=== PATIENT | female | born 1975 | race Caucasian/White ===

== ENCOUNTER 2016-08-18 15:35 | Emergency (ER) | payer OTHER ==
[2016-08-18] MEDS ORDERED: SODIUM CHLORIDE 0.9% 1,000 ML IV ONE (16:05)
[2016-08-18] MEDS ORDERED: KETOROLAC 60 MG/2 ML VIAL IVP STA (16:46)
[2016-08-18] MEDS ORDERED: ACETAMINOPHEN 1,000 MG/100 ML 100 ML IV STA (16:50)
[2016-08-18] MEDS ORDERED: ACETAMINOPHEN 1,000 MG/100 ML 100 ML IV ONE (16:57)
[2016-08-18] MEDS ORDERED: KETOROLAC 30 MG/ML VIAL ONE (16:57)
[2016-08-18] MEDS ORDERED: MORPHINE 2 MG/ML SYRINGE IVP STA (17:46)
[2016-08-18] MEDS ORDERED: MORPHINE 2 MG/ML SYRINGE ONE (17:54)
[2016-08-18] MEDS ORDERED: traMADol 50 MG TABLET PO STA (19:44)
[2016-08-18] MEDS ORDERED: traMADol 50 MG TABLET PO ONE (19:44)
== END 2016-08-18 20:13 | disposition home or self-care (01) ==
DX: R10.84 Generalized abdominal pain (principal); E86.0 Dehydration; J44.9 Chronic obstructive pulmonary disease, unspecified; F17.200 Nicotine dependence, unspecified, uncomplicated
CPT/HCPCS: 74176; 80053; 81003; 83690; 85025; 93005; 93010; 96374; 96375; 99284; 99285; A9270; J0131

== ENCOUNTER 2016-10-11 12:26 | Emergency (ER) | payer OTHER ==
[2016-10-11 12:38] VITALS: BP 105/67
[2016-10-11 13:09] LABS: BILIRUBIN,URINE NEGATIVE (NEGATIVE)
[2016-10-11 13:12] LABS: HCG UR QUAL NEGATIVE; UA CHARGE (STRIP ONLY) YES; UR CULTURE IF IND NOT INDICATED
== END 2016-10-11 13:40 | disposition left against medical advice (07) ==
LOC: ED 12:26
DX: Z53.21 Procedure and treatment not carried out due to patient leaving prior to being seen by health care provider (principal)
CPT/HCPCS: 81001; 81003; 81025; 87086

== ENCOUNTER 2016-11-02 19:00 | Outpatient (CLI) | payer OTHER | END 2016-11-02 19:01 | disposition critical access hospital (66) | LOC: EMS 19:00 | PROVIDERS: ATTEND Surgery | DX: R45.89 Other symptoms and signs involving emotional state (principal) | CPT/HCPCS: A0425; A0429 ==

== ENCOUNTER 2016-11-02 19:18 | Emergency (ER) | payer OTHER ==
--- NOTE | 2016-11-02 19:53 | ED Physician Documentation ---
PD HPI MHE - Stated complaint Stated Complaint: SI - Chief complaint Chief Complaint: MHE - History obtained from History obtained from: Patient, EMS - History of Present Illness Primary symptom: Anxiety (she has been having low back pain and flank pain and being treated by PMD with just Tylenol. Had had recent UTI and Rx for that. She says she is still having some dysuria and flank pain, so thinks the infection is still there. Last seen by PMD 5 days ago and had urine test without Rx for meds. Today was upset about her back still hurting and got into discussion with her spouse and said she was going to go out for a walk. There must have been a bit more because he called EMS with concern of suicidality. She denies it enroute and her 2 daughters arrive to ED (had been present at her house earlier ) and they said they did not interpret anything the patient had seaid as suicidal statements ("I can't take this back pain anymore", for example).) Timing - onset: Today Contributing factors: Family. No: Substance abuse - ETOH, Substance abuse - drugs, Off meds Similar symptoms before: Diagnosis (has had the back pain, depression and at time anxiety. No prior suicidality. Does have history of anorexia but has been maintaining her weight.) Review of Systems Constitutional: denies: Fever, Chills Nose: denies: Rhinorrhea / runny nose, Congestion Throat: denies: Sore throat Cardiac: denies: Chest pain / pressure, Palpitations Respiratory: denies: Dyspnea GI: reports: Nausea. denies: Vomiting : reports: Dysuria, Frequency. denies: Hematuria, Discharge Skin: denies: Rash, Lesions Neurologic: reports: Generalized weakness. denies: Focal weakness, Numbness, Headache PD PAST MEDICAL HISTORY - Past Medical History Past Medical History: Yes Cardiovascular: None, Atrial fibrillation Respiratory: COPD Neuro: Other, Headache/migraine Endocrine/Autoimmune: None GI: None INWEAVER: None : Kidney stones, Other HEENT: None Psych: Eating disorder, Depression, Anxiety Musculoskeletal: Chronic back pain, Other Derm: Eczema - Past Surgical History Past Surgical History: Yes General: Appendectomy Ortho: Spine surgery /INWEAVER: Hysterectomy, Oophrectomy HEENT: Other - Present Medications Home Medications: Ambulatory Orders Medication Instructions Recorded Confirmed Albuterol Sulfate [Proventil Hfa 1 - 2 puffs INH Q4H PRN #1 inhaler 01/25/16 Inhaler] Fluticasone/Salmeterol [Advair Hfa 1 puffs IN BID 08/18/16 11/02/16 230-21 Mcg Inhaler] Tramadol HCl 50 mg PO Q6H PRN #15 tablet 11/02/16 - Allergies Allergies/Adverse Reactions: Allergies Allergy/AdvReac Type Severity Reaction Status Date / Time gabapentin Allergy Itching Verified 11/02/16 19:33 oxycodone HCl * Allergy Itching Verified 11/02/16 19:33 [From Percocet] - Social History Does the pt smoke?: Yes Smoking Status: Current every day smoker Does the pt drink ETOH?: No Does the pt have substance abuse?: No - Immunizations Immunizations are current?: Yes - POLST Patient has POLST: No PD ED PE NORMAL - Vitals Vital signs reviewed: Yes - General General: Alert and oriented X 3, No acute distress, Well developed/nourished - HEENT HEENT: Pharynx benign - Neck Neck: Supple, no meningeal sign, No adenopathy - Cardiac Cardiac: RRR, No murmur - Respiratory Respiratory: Clear bilaterally - Abdomen Abdomen: Soft, Non tender - Female Female : Deferred - Rectal Rectal: Deferred - Derm Derm: Normal color, Warm and dry, No rash - Extremities Extremities: No tenderness to palpate, Normal ROM s pain, No edema - Neuro Neuro: No motor deficit, No sensory deficit Results - Vitals Vitals: Vital Signs - 24 hr 11/02/16 11/02/16 19:23 20:50 Temperature 37.3 C Heart Rate 90 72 Respiratory 18 14 Rate Blood Pressure 112/67 124/85 H O2 Saturation 99 100 Oxygen O2 Source Room air - Labs Labs: Laboratory Tests 11/02/16 20:10 Urine Color YELLOW Urine Clarity CLOUDY Urine pH 8.5 H Ur Specific [place] 1.015 Urine Protein NEGATIVE Urine Glucose (UA) NEGATIVE Urine Ketones NEGATIVE Urine Occult Blood NEGATIVE Urine Nitrite NEGATIVE Urine Bilirubin NEGATIVE Urine Urobilinogen 0.2 (NORMAL) Ur Leukocyte Esterase NEGATIVE Urine RBC None Seen Urine WBC 0-3 Ur Squamous Epith Cells NONE SEEN Amorphous Sediment Moderate Urine Bacteria Moderate H Ur Microscopic Review INDICATED Urine Culture Comments INDICATED PD MEDICAL DECISION MAKING - ED course Complexity details: reviewed results, d/w family (her 2 daughters are here bedside and feel she it not at risk of self-harm. Checked urine and no signs of persistent UTI. ) Departure - Departure Disposition: 01 Home, Self Care Clinical Impression: Stress reaction Back pain Qualifiers: Back pain location: low back pain Chronicity: acute Back pain laterality: bilateral Sciatica presence: without sciatica Qualified Code(s): M54.5 - Low back pain Clinical Impression: (Ruled Out): Urinary tract infection, Suicidal ideation Condition: Stable Record reviewed to determine appropriate education?: Yes Instructions: ED Flank Pain Uncertain Cause Follow-Up: Milind Sun MD [Physician No Access] - Prescriptions: Tramadol HCl 50 mg PO Q6H PRN #15 tablet PRN Reason: Pain Comments: Your urine test right now does not look like it has infection. Tylenol 3-4 times daily. Add Tramadol for pain 3 times daily as needed. Follow up with PMD about the back pain. I am glad you are not feeling suicidal and did not intend to convey that. Call Crisis Line if you do feel that you need someone to talk with at any time (Please provide number ). Discharge Date/Time: 11/02/16 21:00
[2016-11-02] MEDS ORDERED: ONDANSETRON ODT 4 MG TABLET TL STA (20:08)
[2016-11-02] MEDS ORDERED: traMADol 50 MG TABLET PO STA (20:08)
[2016-11-02] MEDS ORDERED: traMADol 50 MG TABLET PO ONE (20:25)
[2016-11-02] MEDS ORDERED: ONDANSETRON ODT 4 MG TABLET ONE (20:25)
[2016-11-02 20:30] LABS: BILIRUBIN,URINE NEGATIVE (NEGATIVE); PH,URINE 8.5 PH (5.0-7.5)
[2016-11-02 20:31] LABS: UA w/ MICROSCOPIC CHARGE YES
[2016-11-02 20:38] LABS: UR CULTURE IF IND INDICATED; WBC,URINE 0-3 /HPF (0-5)
[2016-11-02 20:53] VITALS: BP 124/85
== END 2016-11-02 21:00 | disposition home or self-care (01) ==
LOC: EDUNIT# → ED 19:18
DX: F43.9 Reaction to severe stress, unspecified (principal); M54.5 Low back pain; R30.0 Dysuria; F17.200 Nicotine dependence, unspecified, uncomplicated
CPT/HCPCS: 81001; 87086; 99283; A9270; Q0162; 81003

== ENCOUNTER 2017-04-04 08:33 | Emergency (ER) | payer OTHER ==
[2017-04-04 09:14] LABS: BASOPHILS # (AUTO) 0.1 10^3/uL (0.0-0.1); BASOPHILS % (AUTO) 1.2 %; EOSINOPHILS # (AUTO) 0.4 10^3/uL (0.0-0.7); EOSINOPHILS % (AUTO) 6.8 %; HGB - HEMOGLOBIN 13.5 g/dL (12.0-16.0); LYMPHOCYTES # (AUTO) 2.4 10^3/uL (1.5-3.5); LYMPHOCYTES % (AUTO) 36.1 %; MEAN CORPUSCULAR HEMOGLOBIN 29.1 pg (27.0-31.0); MEAN CORPUSCULAR HGB CONC 33.9 g/dL (32.0-36.0); MEAN PLATELET VOLUME 7.5 fL (7.9-10.8); MONOCYTES # (AUTO) 0.3 10^3/uL (0.0-1.0); MONOCYTES % (AUTO) 4.6 %; NEUTROPHILS # (AUTO) 3.4 10^3/uL (1.5-6.6); NEUTROPHILS % (AUTO) 51.3 %; RED BLOOD COUNT 4.65 10^6/uL (4.20-5.40); UNCORRECTED WHITE BLOOD COUNT 6.6 x10^3/uL; WHITE BLOOD COUNT 6.6 x10^3/uL (4.8-10.8)
[2017-04-04 09:28] LABS: ALBUMIN/GLOBULIN RATIO 1.6 (1.0-2.2); BILIRUBIN,TOTAL 0.3 mg/dL (0.2-1.0); CALCIUM 8.6 mg/dL (8.5-10.3); CREATININE 0.6 mg/dL (0.4-1.0); POTASSIUM 4.1 mmol/L (3.5-5.0); TOTAL PROTEIN 6.2 g/dL (6.7-8.2)
--- NOTE | 2017-04-04 09:47 | ED Physician Documentation ---
PD HPI CHEST PAIN - Stated complaint Stated Complaint: CHEST/KIDNEY PX - Chief complaint Chief Complaint: Cardiac - History obtained from History obtained from: Patient - History of Present Illness Timing - onset: Last night Timing - onset during: Rest Timing - duration: Hours Timing - details: Gradual onset, Still present Quality: Pressure Location: Substernal, Left chest Radiation: Left upper extremity Improved by: Rest Worsened by: Exertion, Inspiration, Movement, Palpation, Position Associated symptoms: Nausea. No: Shortness of air, Diaphoresis, Vomiting Similar symptoms before: Diagnosis (costochondritis) Recently seen: Not recently seen - Additional information Additional information: 41-year-old female with a history of anorexia nervosa has developed pain in the left chest last night that she describes as a pressure like sensation she has been having some pain in her left arm as well. She notes that she did go over to her daughter's in [place] for Thanksgiving dinner and she did do some hiking as well. She did significantly more physical activity than is normal for her. Review of Systems Constitutional: denies: Fever, Chills, Myalgias Eyes: denies: Decreased vision Ears: denies: Ear pain Nose: reports: Congestion Throat: denies: Sore throat Cardiac: reports: Chest pain / pressure. denies: Palpitations, Pedal edema, Calf pain Respiratory: reports: Dyspnea, Cough GI: reports: Nausea : reports: Unable to Void Skin: denies: Rash Musculoskeletal: reports: Back pain. denies: Neck pain Neurologic: denies: Generalized weakness, Focal weakness PD PAST MEDICAL HISTORY - Past Medical History Past Medical History: Yes Cardiovascular: None, Atrial fibrillation Respiratory: COPD Neuro: Other, Headache/migraine Endocrine/Autoimmune: None GI: None EMERGENCY MANAGEMENT COORDINATOR: None : Kidney stones, Other HEENT: None Psych: Eating disorder, Depression, Anxiety Musculoskeletal: Chronic back pain, Other Derm: Eczema - Past Surgical History Past Surgical History: Yes General: Appendectomy Ortho: Spine surgery /EMERGENCY MANAGEMENT COORDINATOR: Hysterectomy, Oophrectomy HEENT: Other - Present Medications Home Medications: Ambulatory Orders Medication Instructions Recorded Confirmed Albuterol Sulfate [Proventil Hfa 1 - 2 puffs INH Q4H PRN #1 inhaler 01/25/16 Inhaler] Fluticasone/Salmeterol [Advair Hfa 1 puffs IN BID 08/18/16 11/02/16 230-21 Mcg Inhaler] Tramadol HCl 50 mg PO Q6H PRN #15 tablet 11/02/16 HYDROcod/ACETAM 5/325 [[place] 5/325] 1 - 2 ea PO Q6H PRN #15 tablet 04/04/17 - Allergies Allergies/Adverse Reactions: Allergies Allergy/AdvReac Type Severity Reaction Status Date / Time gabapentin Allergy Itching Verified 04/04/17 08:46 oxycodone HCl * Allergy Itching Verified 04/04/17 08:46 [From Percocet] - Social History Does the pt smoke?: Yes Smoking Status: Current every day smoker Does the pt drink ETOH?: No Does the pt have substance abuse?: No - Immunizations Immunizations are current?: Yes - POLST Patient has POLST: No PD ED PE NORMAL - Vitals Vital signs reviewed: Yes (hypertensive) - General General: Alert and oriented X 3, Well developed/nourished, Other (The patient is teary eyed) - HEENT HEENT: Atraumatic, PERRL, EOMI, Ears normal, Moist mucous membranes, Pharynx benign - Neck Neck: Supple, no meningeal sign, No bony TTP - Cardiac Cardiac: RRR, No murmur - Respiratory Respiratory: No respiratory distress, Clear bilaterally, Other (There is obvious left chest wall tenderness and this reproduces the patient's symptoms ) - Abdomen Abdomen: Soft, Non tender - Back Back: No spinal TTP, Other (mild right sided CVA tenderness) - Derm Derm: Normal color, Warm and dry - Extremities Extremities: No deformity, No edema - Neuro Neuro: No motor deficit, No sensory deficit Eye Opening: Spontaneous Motor: Obeys Commands Verbal: Oriented GCS Score: 15 - Psych Psych: Normal mood, Normal affect Results - Vitals Vitals: Vital Signs - 24 hr 04/04/17 04/04/17 04/04/17 08:43 09:39 10:17 Temperature 36.4 C L Heart Rate 89 73 71 Respiratory 20 18 22 Rate Blood Pressure 148/87 H 132/66 H 107/71 O2 Saturation 100 100 100 Oxygen O2 Source Room air - EKG (time done) 0840 Rate: Rate (enter#) (94) Rhythm: AYESHA QRS: LVH Compare to prior EKG: Changed from prior EKG (SPT 08-18-2016 the rate has increased and AYESHA has developed. ) Computer interpretation: Agree with computer - Labs Labs: Laboratory Tests 04/04/17 04/04/17 04/04/17 09:00 09:00 09:00 WBC 6.6 RBC 4.65 Hgb 13.5 Hct 40.0 MCV 86.0 MCH 29.1 MCHC 33.9 RDW 14.0 Plt Count 189 MPV 7.5 L Neut # 3.4 Lymph # 2.4 [place] # 0.3 Eos # 0.4 Baso # 0.1 Absolute Nucleated RBC 0.00 Nucleated RBC % 0.0 D-Dimer Sodium 139 Potassium 4.1 Chloride 105 Carbon Dioxide 26 Anion Gap 8.0 BUN 18 Creatinine 0.6 Estimated GFR (MDRD) 109 Glucose 94 Calcium 8.6 Total Bilirubin 0.3 AST 20 ALT 17 Alkaline Phosphatase 76 Troponin I < 0.04 Total Protein 6.2 L Albumin 3.8 Globulin 2.4 Albumin/Globulin Ratio 1.6 Lipase 33 04/04/17 09:00 WBC RBC Hgb Hct MCV MCH MCHC RDW Plt Count MPV Neut # Lymph # [place] # Eos # Baso # Absolute Nucleated RBC Nucleated RBC % D-Dimer < 200.0 L Sodium Potassium Chloride Carbon Dioxide Anion Gap BUN Creatinine Estimated GFR (MDRD) Glucose Calcium Total Bilirubin AST ALT Alkaline Phosphatase Troponin I Total Protein Albumin Globulin Albumin/Globulin Ratio Lipase - Rads (name of study) 2 veiw chest Radiology: Prelim report reviewed (Impression: COPD. No acute findings in other regards.), EMP read indepedently, See rad report Procedures - IVC sono (time) 0930 Bedside IVC sono: IVC measures (cm) (1.68), Euvolemia PD MEDICAL DECISION MAKING - ED course Complexity details: reviewed old records, reviewed results, re-evaluated patient , considered differential, d/w patient ED course: 41 y/o female with a history of anorexia has developed left chest wall pain. She has again had more activity than she is used to doing. She is treated in the ED with decadron, dilaudid and zofran. Departure - Departure Disposition: 01 Home, Self Care Clinical Impression: Costochondritis, acute Condition: Stable Instructions: ED Chest Pain Costochondritis Follow-Up: Milind Sun MD [Primary Care Provider] - Prescriptions: HYDROcod/ACETAM 5/325 [[place] 5/325] 1 - 2 ea PO Q6H PRN #15 tablet PRN Reason: Pain
[2017-04-04] MEDS ORDERED: DEXAMETHASONE 10 MG/ML VIAL IVP STA (09:54)
[2017-04-04] MEDS ORDERED: ONDANSETRON 4 MG/2 ML VIAL IVP STA (09:54)
[2017-04-04] MEDS ORDERED: HYDROmorphone 1 MG/ML SYRINGE IVP STA (09:54)
--- NOTE | 2017-04-04 10:00 | XRAY Preliminary Report ---
Exam: XR CHEST 2 VIEW PA/LAT IMPRESSION: COPD. No acute findings in other regards. [facility] SITE ID: [id number]
--- NOTE | 2017-04-04 10:02 | XRAY Report ---
EXAM: CHEST RADIOGRAPHY EXAM DATE: 04/04/2017 09:30 AM. CLINICAL HISTORY: Chest pain. COMPARISON: 2 view chest 04/02/2016. TECHNIQUE: 2 views. FINDINGS: Lungs/Pleura: No focal opacities evident. No pleural effusion. No pneumothorax. Lung volumes are larg e. There is stable biapical pleural thickening. Mediastinum: Heart and mediastinal contours are unremarkable. Other: Lower spinal hardware is incompletely imaged. IMPRESSION: COPD. No acute findings in other regards. [facility] Referring Provider Line: [phone] SITE ID: [id number]
[2017-04-04] MEDS ORDERED: DEXAMETHASONE 10 MG/ML VIAL ONE (10:13)
[2017-04-04] MEDS ORDERED: ONDANSETRON 4 MG/2 ML VIAL ONE (10:14)
[2017-04-04] MEDS ORDERED: HYDROmorphone 1 MG/ML SYRINGE ONE (10:14)
[2017-04-04 10:18] VITALS: BP 107/71
== END 2017-04-04 11:02 | disposition home or self-care (01) ==
LOC: ED 08:33
DX: M94.0 Chondrocostal junction syndrome [Tietze] (principal); Z86.59 Personal history of other mental and behavioral disorders; J44.9 Chronic obstructive pulmonary disease, unspecified; I48.91 Unspecified atrial fibrillation; Z87.442 Personal history of urinary calculi; F17.200 Nicotine dependence, unspecified, uncomplicated
CPT/HCPCS: 36415; 71020; 80053; 83690; 84484; 85025; 85379; 93005; 96374; 96375; 99284; J1170

== ENCOUNTER 2017-04-21 09:42 | Outpatient (CLI) | payer OTHER | END 2017-04-21 09:43 | disposition EMS.NT | LOC: EMS 09:42 | PROVIDERS: ATTEND Surgery | DX: R53.83 Other fatigue (principal); R06.02 Shortness of breath; R07.9 Chest pain, unspecified; M54.9 Dorsalgia, unspecified ==

== ENCOUNTER 2017-04-21 15:32 | Emergency (ER) | payer OTHER ==
[2017-04-21] MEDS ORDERED: LORazepam 0.5 MG TABLET PO STA (15:54)
--- NOTE | 2017-04-21 16:10 | ED Physician Documentation ---
History of Present Illness - Stated complaint Stated Complaint: CP/ R GREAT TOE INJ - Chief complaint Chief Complaint: Cardiac - History obtained from History obtained from: Patient, Family - History of Present Illness Timing: Yesterday Pain level max: 9 Pain level now: 9 Improved by: not moving Worsened by: movement - Additonal information Additional information: Patient is a 41-year-old female who presents to the emergency department with substernal left chest pain for the past 24 hours. This been constant. Worse with movement and palpation. Better with rest. Described as sharp and aching. She also states there was "some drama" at home today and injured her right great toe. She is also now complaining of pain to the right great toe. Does not recall any injury, but thinks she may have accidentally kicked something. Review of Systems Ten Systems: 10 systems reviewed and negative Constitutional: denies: Fever, Chills Ears: denies: Ear pain Nose: denies: Rhinorrhea / runny nose, Congestion Throat: denies: Sore throat Cardiac: denies: Palpitations, Calf pain Respiratory: denies: Cough, Hemoptysis, Wheezing GI: denies: Abdominal Pain, Vomiting Skin: denies: Rash Musculoskeletal: denies: Neck pain, Back pain Neurologic: denies: Headache PD PAST MEDICAL HISTORY - Past Medical History Cardiovascular: None, Atrial fibrillation Respiratory: COPD Neuro: Other, Headache/migraine Endocrine/Autoimmune: None GI: None ENTERPRISE SYSTEMS ARCHITECT: None : Kidney stones, Other HEENT: None Psych: Eating disorder, Depression, Anxiety Musculoskeletal: Chronic back pain, Other Derm: Eczema - Past Surgical History Past Surgical History: Yes General: Appendectomy Ortho: Spine surgery /ENTERPRISE SYSTEMS ARCHITECT: Hysterectomy, Oophrectomy HEENT: Other - Present Medications Home Medications: Ambulatory Orders Medication Instructions Recorded Confirmed Albuterol Sulfate [Proventil Hfa 1 - 2 puffs INH Q4H PRN #1 inhaler 01/25/16 Inhaler] Hydrocodone/Acetaminophen 1 - 2 each PO Q6H PRN #7 tablet 04/21/17 [Hydrocodon-Acetaminophen 5-325] - Allergies Allergies/Adverse Reactions: Allergies Allergy/AdvReac Type Severity Reaction Status Date / Time gabapentin Allergy Itching Verified 04/21/17 15:39 oxycodone HCl * Allergy Itching Verified 04/21/17 15:39 [From Percocet] - Social History Does the pt smoke?: Yes Smoking Status: Current every day smoker Does the pt drink ETOH?: No Does the pt have substance abuse?: No - Immunizations Immunizations are current?: Yes - POLST Patient has POLST: No PD ED PE NORMAL - Vitals Vital signs reviewed: Yes - General General: Alert and oriented X 3, No acute distress, Well developed/nourished - HEENT HEENT: PERRL, Moist mucous membranes - Neck Neck: Supple, no meningeal sign - Cardiac Cardiac: RRR, Strong equal pulses - Respiratory Respiratory: No respiratory distress, Clear bilaterally, Other (TTP across the L anterior chest wall. Reproduces her pain with palpation and movement. ) - Abdomen Abdomen: Soft, Non tender, Non distended - Derm Derm: Warm and dry - Extremities Extremities: No edema, No calf tenderness / cord, Other (normal external visual examination of the R foot and great toe. Mild TTP over the toe. NVI. no deformity. ) - Neuro Neuro: Alert and oriented X 3 - Psych Psych: Normal mood, Normal affect Results - Vitals Vitals: Oxygen O2 Source Room air - EKG (time done) 1540 Rate: Rate (enter#) (77) Rhythm: NSR [place]: Normal Intervals: Normal SD QRS: Normal Ischemia: Non specific changes Compare to prior EKG: Unchanged from prior EKG (04/04/17) Computer interpretation: Agree with computer - Labs Labs: Laboratory Tests 04/21/17 04/21/17 04/21/17 16:13 16:13 16:13 WBC 6.8 RBC 4.90 Hgb 14.0 Hct 42.1 MCV 86.0 MCH 28.6 MCHC 33.2 RDW 13.3 Plt Count 218 MPV 7.6 L Neut # 4.4 Lymph # 1.8 [place] # 0.3 Eos # 0.2 Baso # 0.1 Absolute Nucleated RBC 0.00 Nucleated RBC % 0.0 Sodium 140 Potassium 3.9 Chloride 103 Carbon Dioxide 28 Anion Gap 9.0 BUN 17 Creatinine 0.6 Estimated GFR (MDRD) 109 Glucose 86 Calcium 9.2 Total Bilirubin 0.4 AST 16 ALT 13 Alkaline Phosphatase 67 Troponin I < 0.04 Total Protein 6.5 L Albumin 4.1 Globulin 2.4 Albumin/Globulin Ratio 1.7 Lipase 25 - Rads (name of study) cxr Radiology: Prelim report reviewed, EMP read contemporaneously, See rad report ( No acute disease. ) R great toe xray Radiology: Prelim report reviewed, EMP read contemporaneously, See rad report ( Normal toe radiography. ) PD MEDICAL DECISION MAKING - ED course Complexity details: reviewed old records, reviewed results, re-evaluated patient , considered differential (No ST elevation [place], no aortic dissection, no PE, no tension pneumothorax, no aortic aneurysm), d/w patient, d/w family ED course: Patient is a 41-year-old female who presents to the emergency department with atypical chest pain, appears more musculoskeletal. No evidence of pulmonary embolus. EKG is unchanged from prior. No acute findings on toe x-ray. Will prescribe a small amount of pain medication for home. Pain well controlled here. No evidence of acute coronary syndrome. Patient and family counseled regarding signs and symptoms for which I believe and urgent re-evaluation would be necessary. Patient with good understanding of and agreement to plan and is comfortable going home at this time This document was made in part using voice recognition software. While efforts are made to proofread this document, sound alike and grammatical errors may occur. Departure - Departure Disposition: 01 Home, Self Care Clinical Impression: Chest wall pain Contusion of toe Qualifiers: Encounter type: initial encounter Toe: great toe Damage to nail status: without damage Laterality: right Qualified Code(s): S90.111A - Contusion of right great toe without damage to nail, initial encounter Condition: Good Instructions: ED Contusion Lower Ext, ED Chest Pain Atypical Unkn Cause Follow-Up: Milind Sun MD [Primary Care Provider] - Within 1 week Prescriptions: Hydrocodone/Acetaminophen [Hydrocodon-Acetaminophen 5-325] 1 - 2 each PO Q6H PRN #7 tablet PRN Reason: pain Comments: Your tests are normal today. Return if you worsen. Do not drink alcohol or drive while on narcotic pain medicine. Note that many narcotic pain relievers also contain tylenol/acetaminophen. Please ensure that your total dose of acetaminophen from all sources does not exceed 3 grams (3000mg) per day. You may constipated on this medication, take a stool softener such as "Colace" twice a day while you are on it. Also recommend a gzpc-chz-xarlopx laxative such as senna or MiraLAX any day that you do not have a bowel movement. If you received narcotic pain medication in the emergency department, do not drive or operate machinery for the next 24 hours. Discharge Date/Time: 04/21/17 17:20
[2017-04-21 16:19] LABS: BASOPHILS # (AUTO) 0.1 10^3/uL (0.0-0.1); EOSINOPHILS # (AUTO) 0.2 10^3/uL (0.0-0.7); EOSINOPHILS % (AUTO) 3.7 %; HCT - HEMATOCRIT 42.1 % (37.0-47.0); LYMPHOCYTES # (AUTO) 1.8 10^3/uL (1.5-3.5); LYMPHOCYTES % (AUTO) 26.7 %; MEAN CORPUSCULAR HEMOGLOBIN 28.6 pg (27.0-31.0); MEAN CORPUSCULAR HGB CONC 33.2 g/dL (32.0-36.0); MEAN PLATELET VOLUME 7.6 fL (7.9-10.8); MONOCYTES # (AUTO) 0.3 10^3/uL (0.0-1.0); MONOCYTES % (AUTO) 3.8 %; NEUTROPHILS # (AUTO) 4.4 10^3/uL (1.5-6.6); NEUTROPHILS % (AUTO) 64.8 %; RED CELL DISTRIBUTION WIDTH 13.3 % (12.0-15.0); UNCORRECTED WHITE BLOOD COUNT 6.8 x10^3/uL; WHITE BLOOD COUNT 6.8 x10^3/uL (4.8-10.8)
[2017-04-21] MEDS ORDERED: LORazepam 0.5 MG TABLET ONE (16:21)
--- NOTE | 2017-04-21 16:26 | XRAY Preliminary Report ---
Exam: XR CHEST 1 VIEW IMPRESSION: No acute disease. [facility] SITE ID: [id number]
--- NOTE | 2017-04-21 16:26 | XRAY Preliminary Report ---
Exam: XR TOE(S) RT IMPRESSION: Normal toe radiography. [facility] SITE ID: [id number]
--- NOTE | 2017-04-21 16:28 | XRAY Report ---
EXAM: RIGHT FIRST TOE RADIOGRAPHY EXAM DATE: 04/21/2017 04:13 PM. CLINICAL HISTORY: R great toe pain, possible injury. COMPARISON: None. TECHNIQUE: 3 views. FINDINGS: Bones: Normal. No fracture or bone lesion. Joints: Normal. No subluxations. Soft Tissues: Unremarkable. IMPRESSION: Normal toe radiography. [facility] Referring Provider Line: [phone] SITE ID: [id number]
[2017-04-21 16:29] LABS: ALBUMIN/GLOBULIN RATIO 1.7 (1.0-2.2); BILIRUBIN,TOTAL 0.4 mg/dL (0.2-1.0); CALCIUM 9.2 mg/dL (8.5-10.3); CREATININE 0.6 mg/dL (0.4-1.0); POTASSIUM 3.9 mmol/L (3.5-5.0); TOTAL PROTEIN 6.5 g/dL (6.7-8.2)
--- NOTE | 2017-04-21 16:29 | XRAY Report ---
EXAM: CHEST RADIOGRAPHY EXAM DATE: 04/21/2017 04:13 PM. CLINICAL HISTORY: Chest pain. COMPARISON: 04/04/2017. TECHNIQUE: 1 view. FINDINGS: Lungs/Pleura: Hyperexpanded, similar to previous study. Mild apical pleural thickening. No acute infi ltrate, consolidation, effusion, or pneumothorax. Mediastinum: Normal heart size, unchanged. Upper lobe vessels not distended. Other: None. IMPRESSION: No acute disease. [facility] Referring Provider Line: [phone] SITE ID: [id number]
[2017-04-21] MEDS ORDERED: HYDROcod/ACETAM 5/325 MG TABLET PO STA (16:45)
[2017-04-21] MEDS ORDERED: HYDROcod/ACETAM 5/325 MG TABLET ONE (16:54)
[2017-04-21 17:02] VITALS: BP 115/76
== END 2017-04-21 17:20 | disposition home or self-care (01) ==
LOC: ED 15:32
DX: R07.89 Other chest pain (principal); S90.111A Contusion of right great toe without damage to nail, initial encounter; W22.03XA Walked into furniture, initial encounter; Y92.019 Unspecified place in single-family (private) house as the place of occurrence of the external cause; I48.91 Unspecified atrial fibrillation; J44.9 Chronic obstructive pulmonary disease, unspecified; Z87.442 Personal history of urinary calculi; F17.200 Nicotine dependence, unspecified, uncomplicated
CPT/HCPCS: 36415; 71010; 73660; 80053; 83690; 84484; 85025; 93005; 99283; A9270

== ENCOUNTER 2017-05-27 09:49 | Emergency (ER) | payer OTHER ==
[2017-05-27 10:41] LABS: BASOPHILS % (AUTO) 0.8 %; EOSINOPHILS # (AUTO) 0.4 10^3/uL (0.0-0.7); EOSINOPHILS % (AUTO) 6.9 %; LYMPHOCYTES # (AUTO) 1.3 10^3/uL (1.5-3.5); MEAN CORPUSCULAR HEMOGLOBIN 28.7 pg (27.0-31.0); MEAN CORPUSCULAR HGB CONC 33.4 g/dL (32.0-36.0); MEAN PLATELET VOLUME 7.6 fL (7.9-10.8); MONOCYTES # (AUTO) 0.2 10^3/uL (0.0-1.0); MONOCYTES % (AUTO) 4.1 %; NEUTROPHILS # (AUTO) 3.7 10^3/uL (1.5-6.6); NEUTROPHILS % (AUTO) 65.2 %; PLT - PLATELET COUNT 181 10^3/uL (130-450); RED BLOOD COUNT 4.53 10^6/uL (4.20-5.40); RED CELL DISTRIBUTION WIDTH 13.2 % (12.0-15.0); WHITE BLOOD COUNT 5.6 x10^3/uL (4.8-10.8)
--- NOTE | 2017-05-27 10:47 | XRAY Report ---
EXAM: CHEST RADIOGRAPHY EXAM DATE: 05/27/2017 10:34 AM. CLINICAL HISTORY: Productive cough, left chest pain. . COMPARISON: 04/21/2017. TECHNIQUE: 1 view. FINDINGS: Lungs/Pleura: Right upper lung density projecting over fourth posterior rib and scapula. Hyperinflate d lung mack. Right apical scarring, pleural thickening. Mediastinum: Within exam limitations, the cardiomediastinal contour is normal. Other: Dextroscoliosis IMPRESSION: Right apical parenchymal nodular density or infiltrate. [facility] Referring Provider Line: [phone] SITE ID: [id number]
--- NOTE | 2017-05-27 10:47 | XRAY Preliminary Report ---
Exam: XR CHEST 1 VIEW X-RAY IMPRESSION: Right apical parenchymal nodular density or infiltrate. [facility] SITE ID: [id number]
[2017-05-27 10:55] LABS: ALBUMIN 3.7 g/dL (3.2-5.5); ALBUMIN/GLOBULIN RATIO 1.6 (1.0-2.2); BILIRUBIN,TOTAL 0.5 mg/dL (0.2-1.0); CALCIUM 8.7 mg/dL (8.5-10.3); CREATININE 0.6 mg/dL (0.4-1.0)
[2017-05-27] MEDS ORDERED: IPRATROPIUM/ALBUTEROL 3 ML NEB INH STA (11:25)
[2017-05-27] MEDS ORDERED: SODIUM CHLORIDE 0.9% 1,000 ML IV ONE (11:25)
[2017-05-27] MEDS ORDERED: AZITHROMYCIN INJ 500 MG in SODIUM CHLORIDE 0.9% 250 ML IV STA (11:25)
[2017-05-27] MEDS ORDERED: ONDANSETRON 4 MG/2 ML VIAL IVP STA (11:25)
[2017-05-27] MEDS ORDERED: KETOROLAC 60 MG/2 ML VIAL IVP STA (11:25)
--- NOTE | 2017-05-27 11:47 | ED Physician Documentation ---
History of Present Illness - Stated complaint Stated Complaint: DIFFICULTY BREATHING - Chief complaint Chief Complaint: General - History obtained from History obtained from: Patient - History of Present Illness Timing: How many days ago (severla) Pain level max: 8 Pain level now: 8 - Additonal information Additional information: Patient is a 41-year-old female who presents to the emergency department with several days of chest pain with coughing. Pain is on the left side, worse with deep breathing and with coughing. Has had subjective fevers at home. Also had vomiting recently. She does have a history of anorexia and is concerned that this will set her back on her recovery. Pain is better with rest. Dry cough. No recent travel. No recent antibiotics Review of Systems Constitutional: reports: Fever (subjective). denies: Chills Ears: denies: Ear pain Nose: reports: Rhinorrhea / runny nose. denies: Congestion Respiratory: reports: Cough, Wheezing GI: reports: Nausea, Vomiting. 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: None : Kidney stones, Other HEENT: None Psych: Eating disorder, Depression, Anxiety Musculoskeletal: Chronic back pain, Other Derm: Eczema - Past Surgical History Past Surgical History: Yes General: Appendectomy Ortho: Spine surgery /CASH POSTING CLERK: Hysterectomy, Oophrectomy HEENT: Other - Present Medications Home Medications: Ambulatory Orders Medication Instructions Recorded Confirmed Albuterol Sulfate [Proventil Hfa 1 - 2 puffs INH Q4H PRN #1 inhaler 01/25/16 Inhaler] Azithromycin [Zithromax] 250 mg PO DAILY #4 tablet 05/27/17 Ondansetron Odt [Zofran] 4 mg TL Q6H PRN #10 tablet 05/27/17 - Allergies Allergies/Adverse Reactions: Allergies Allergy/AdvReac Type Severity Reaction Status Date / Time gabapentin Allergy Itching Verified 05/27/17 10:00 oxycodone HCl * Allergy Itching Verified 05/27/17 10:00 [From Percocet] - Social History Does the pt smoke?: Yes Smoking Status: Current every day smoker Does the pt drink ETOH?: No Does the pt have substance abuse?: No - Immunizations Immunizations are current?: Yes - POLST Patient has POLST: No PD ED PE NORMAL - Vitals Vital signs reviewed: Yes - General General: Alert and oriented X 3, No acute distress - HEENT HEENT: PERRL, Pharynx benign, Other (dry lips and tongue) - Neck Neck: Supple, no meningeal sign - Cardiac Cardiac: RRR, Strong equal pulses - Respiratory Respiratory: No respiratory distress, Other (wheezing and decreased breath sounds bilaterally.) - Abdomen Abdomen: Soft, Non tender, Non distended - Derm Derm: Warm and dry - Neuro Neuro: Alert and oriented X 3 - Psych Psych: Normal mood, Normal affect Results - Vitals Vitals: Vital Signs - 24 hr 05/27/17 05/27/17 05/27/17 09:54 11:28 11:41 Temperature 36.6 C Heart Rate 92 110 H 99 Respiratory 18 29 H 16 Rate Blood Pressure 112/76 105/82 H O2 Saturation 100 94 05/27/17 12:57 Temperature Heart Rate 86 Respiratory 16 Rate Blood Pressure 103/74 O2 Saturation 100 Oxygen O2 Source Room air - EKG (time done) 0959 Rate: Rate (enter#) (89) Rhythm: NSR [place]: Normal Intervals: Normal [place] Ischemia: Non specific changes - Labs Labs: Laboratory Tests 05/27/17 05/27/17 05/27/17 10:25 10:25 10:25 WBC 5.6 RBC 4.53 Hgb 13.0 Hct 38.9 MCV 86.0 MCH 28.7 MCHC 33.4 RDW 13.2 Plt Count 181 MPV 7.6 L Neut # 3.7 Lymph # 1.3 L [place] # 0.2 Eos # 0.4 Baso # 0.0 Absolute Nucleated RBC 0.00 Nucleated RBC % 0.0 Sodium 139 Potassium 3.8 Chloride 105 Carbon Dioxide 27 Anion Gap 7.0 BUN 12 Creatinine 0.6 Estimated GFR (MDRD) 109 Glucose 98 Calcium 8.7 Total Bilirubin 0.5 AST 15 ALT 11 Alkaline Phosphatase 77 Troponin I < 0.04 Total Protein 6.0 L Albumin 3.7 Globulin 2.3 Albumin/Globulin Ratio 1.6 Lipase 31 - Rads (name of study) cxr Radiology: Prelim report reviewed, EMP read contemporaneously, See rad report ( Right apical parenchymal nodular density or infiltrate. ) PD MEDICAL DECISION MAKING - ED course Complexity details: reviewed old records, reviewed results, re-evaluated patient , considered differential, d/w patient ED course: Patient is a 41-year-old female who presents to the emergency department with what appears to be pneumonia. Feels better after IV fluids, breathing treatments, Ativan and Toradol. We will continue antibiotics at home and follow -up closely with her doctor. She is well-appearing, nontoxic. Afebrile. No hypoxia. No respiratory distress. We will also prescribe a small amount of Zofran for home and she does have intermittent nausea. Tolerating p.o. well here. Patient counseled regarding signs and symptoms for which I believe and urgent re-evaluation would be necessary. Patient with good understanding of and agreement to plan and is comfortable going home at this time This document was made in part using voice recognition software. While efforts are made to proofread this document, sound alike and grammatical errors may occur. Departure - Departure Disposition: 01 Home, Self Care Clinical Impression: Pneumonia Qualifiers: Pneumonia type: due to unspecified organism Laterality: right Lung location: upper lobe of lung Qualified Code(s): J18.1 - Lobar pneumonia, unspecified organism Condition: Good Instructions: ED Pneumonia Adult Follow-Up: Milind Sun MD [Primary Care Provider] - Within 1 week Prescriptions: Azithromycin [Zithromax] 250 mg PO DAILY #4 tablet Ondansetron Odt [Zofran] 4 mg TL Q6H PRN #10 tablet PRN Reason: Nausea / Vomiting Comments: you should have a repeat chest xray in 3-4 weeks with your doctor to ensure the infection has cleared. Drink plenty of fluids and rest. Return if you worsen. Discharge Date/Time: 05/27/17 13:16
[2017-05-27] MEDS ORDERED: LORazepam 2 MG/ML VIAL IVP STA (12:10)
[2017-05-27 12:58] VITALS: BP 103/74
== END 2017-05-27 13:16 | disposition home or self-care (01) ==
LOC: ED 09:49
DX: J18.9 Pneumonia, unspecified organism (principal); I48.91 Unspecified atrial fibrillation; J44.9 Chronic obstructive pulmonary disease, unspecified; Z87.442 Personal history of urinary calculi; F17.200 Nicotine dependence, unspecified, uncomplicated
CPT/HCPCS: 36415; 71045; 80053; 83690; 84484; 85025; 93005; 94640; 96365; 96375; 99284; J2060; J7620

== ENCOUNTER 2017-06-02 13:03 | Emergency (ER) | payer OTHER ==
--- NOTE | 2017-06-02 13:36 | ED Physician Documentation ---
PD HPI CHEST PAIN - Stated complaint Stated Complaint: SHARP PX UNDER BREAST - Chief complaint Chief Complaint: Resp - History obtained from History obtained from: Patient - History of Present Illness Timing - onset: How many hours ago (few), Today Timing - onset during: Light activity Timing - duration: Hours Timing - details: Gradual onset, Still present Quality: Sharp, Stabbing Location: Left chest (laterally at ribs 9-11 area) Radiation: No: Jaw, Neck, Abdominal Improved by: No: Rest Worsened by: Inspiration, Movement, Palpation Associated symptoms: Shortness of air, Diaphoresis. 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: None : Kidney stones, Other HEENT: None Psych: Eating disorder, Depression, Anxiety Musculoskeletal: Chronic back pain, Other Derm: Eczema - Past Surgical History Past Surgical History: Yes General: Appendectomy Ortho: Spine surgery /UNBUNDLER: Hysterectomy, Oophrectomy HEENT: Other - Present Medications Home Medications: Ambulatory Orders Medication Instructions Recorded Confirmed Dexamethasone [Decadron] 4 mg PO DAILY #5 tablet 06/02/17 Ondansetron Odt [Zofran] 4 mg TL Q6H PRN #15 tablet 06/02/17 Tramadol HCl 50 mg PO Q6H PRN #20 tablet 06/02/17 - Allergies Allergies/Adverse Reactions: Allergies Allergy/AdvReac Type Severity Reaction Status Date / Time gabapentin Allergy Itching Verified 05/27/17 10:00 oxycodone HCl * Allergy Itching Verified 05/27/17 10:00 [From Percocet] - Social History Does the pt smoke?: Yes Smoking Status: Current every day smoker Does the pt drink ETOH?: No Does the pt have substance abuse?: No - Immunizations Immunizations are current?: Yes - POLST Patient has POLST: No PD ED PE NORMAL - Vitals Vital signs reviewed: Yes - General General: Alert and oriented X 3, No acute distress, Well developed/nourished - HEENT HEENT: Atraumatic - Neck Neck: Supple, no meningeal sign, No bony TTP, No adenopathy - Cardiac Cardiac: RRR, No murmur - Respiratory Respiratory: No respiratory distress, Clear bilaterally, Other (some chestwall tenderness left lateral midaxillary line without crepitance, rash. ) - Abdomen Abdomen: Normal bowel sounds, Soft, Non distended - Female Female : Deferred - Rectal Rectal: Deferred - Back Back: No CVA TTP - Derm Derm: Normal color, Warm and dry, No rash - Extremities Extremities: No deformity, No tenderness to palpate, Normal ROM s pain, No edema , No calf tenderness / cord - Neuro Neuro: Alert and oriented X 3, No motor deficit, Normal speech - Psych Psych: Normal mood, Normal affect Results - Vitals Vitals: Vital Signs - 24 hr 06/02/17 06/02/17 06/02/17 13:11 14:59 16:41 Temperature 36.3 C L Heart Rate 65 62 Respiratory 17 18 Rate Blood Pressure 110/69 121/76 125/82 H O2 Saturation 100 100 Oxygen O2 Source Room air - Labs Labs: Laboratory Tests 06/02/17 06/02/17 06/02/17 13:58 13:58 13:58 WBC 5.4 RBC 4.65 Hgb 13.3 Hct 39.6 MCV 85.1 MCH 28.6 MCHC 33.6 RDW 13.1 Plt Count 198 MPV 8.1 Neut # 3.5 Lymph # 1.3 L [place] # 0.2 Eos # 0.3 Baso # 0.0 Absolute Nucleated RBC 0.00 Nucleated RBC % 0.0 ESR 6 Sodium 139 Potassium 4.1 Chloride 102 Carbon Dioxide 26 Anion Gap 11.0 BUN 14 Creatinine 0.6 Estimated GFR (MDRD) 109 Glucose 99 Calcium 9.3 Magnesium 1.7 Total Bilirubin 0.4 AST 17 ALT 17 Alkaline Phosphatase 81 Total Protein 6.9 Albumin 4.2 Globulin 2.7 Albumin/Globulin Ratio 1.6 Lipase 22 - Rads (name of study) chest xray Radiology: Prelim report reviewed (no infiltrates. ) Departure - Departure Disposition: 01 Home, Self Care Clinical Impression: Chest wall pain Condition: Stable Record reviewed to determine appropriate education?: Yes Instructions: ED Chest Pain Pleurisy Follow-Up: Milind Sun MD [Primary Care Provider] - Prescriptions: Dexamethasone [Decadron] 4 mg PO DAILY #5 tablet Ondansetron Odt [Zofran] 4 mg TL Q6H PRN #15 tablet PRN Reason: Nausea / Vomiting Tramadol HCl 50 mg PO Q6H PRN #20 tablet PRN Reason: Pain Comments: Your x-ray appears normal. No signs of pneumonia or collapsed lung nor fluid around the lung. I presume the pain is related to some inflammation around the lung, pleurisy or it may be some inflammation in the chest wall muscles. Use Decadron daily for the next 5 days for the inflammation. Drink lots of fluids. Ondansetron if needed for nausea. Add Tylenol or tramadol if needed for pain. Recheck if not improved over the next few days. Discharge Date/Time: 06/02/17 17:32
[2017-06-02] MEDS ORDERED: SODIUM CHLORIDE 0.9% 1,000 ML IV ONE ×2 (14:10→14:11)
[2017-06-02] MEDS ORDERED: KETOROLAC 60 MG/2 ML VIAL IVP STA (14:10)
[2017-06-02] MEDS ORDERED: ONDANSETRON 4 MG/2 ML VIAL IVP STA ×2 (14:10→15:36)
[2017-06-02] MEDS ORDERED: HYDROmorphone 1 MG/ML SYRINGE IVP STA ×2 (14:10→15:36)
[2017-06-02] MEDS ORDERED: DEXAMETHASONE 10 MG/ML VIAL IVP STA (14:11)
[2017-06-02 14:27] LABS: BASOPHILS % (AUTO) 0.9 %; EOSINOPHILS # (AUTO) 0.3 10^3/uL (0.0-0.7); HGB - HEMOGLOBIN 13.3 g/dL (12.0-16.0); LYMPHOCYTES # (AUTO) 1.3 10^3/uL (1.5-3.5); LYMPHOCYTES % (AUTO) 24.1 %; MEAN CORPUSCULAR HEMOGLOBIN 28.6 pg (27.0-31.0); MEAN CORPUSCULAR HGB CONC 33.6 g/dL (32.0-36.0); MEAN CORPUSCULAR VOLUME 85.1 fL (81.0-99.0); MEAN PLATELET VOLUME 8.1 fL (7.9-10.8); MONOCYTES # (AUTO) 0.2 10^3/uL (0.0-1.0); MONOCYTES % (AUTO) 4.3 %; NEUTROPHILS # (AUTO) 3.5 10^3/uL (1.5-6.6); NEUTROPHILS % (AUTO) 64.7 %; PLT - PLATELET COUNT 198 10^3/uL (130-450); RED BLOOD COUNT 4.65 10^6/uL (4.20-5.40); RED CELL DISTRIBUTION WIDTH 13.1 % (12.0-15.0); WHITE BLOOD COUNT 5.4 x10^3/uL (4.8-10.8)
[2017-06-02 14:45] LABS: ALBUMIN 4.2 g/dL (3.2-5.5); ALBUMIN/GLOBULIN RATIO 1.6 (1.0-2.2); BILIRUBIN,TOTAL 0.4 mg/dL (0.2-1.0); CALCIUM 9.3 mg/dL (8.5-10.3); CREATININE 0.6 mg/dL (0.4-1.0); MAGNESIUM 1.7 mg/dL (1.7-2.8); TOTAL PROTEIN 6.9 g/dL (6.7-8.2)
--- NOTE | 2017-06-02 15:13 | XRAY Report ---
EXAM: CHEST RADIOGRAPHY EXAM DATE: 06/02/2017 03:03 PM. CLINICAL HISTORY: Chest pain left sided; with cough. COMPARISON: 05/27/2017, 04/21/2017. TECHNIQUE: 2 views. FINDINGS: Lungs/Pleura: Lungs are well expanded. Relatively stable bilateral upper lung reticular opacity which probably represents scarring and bronchiectasis. There is no evidence of acute consolidation. No eff usion. No pneumothorax. Mediastinum: Heart size is within normal limits. Other: No acute bony abnormalities are seen. IMPRESSION: 1. Lungs are well expanded. 2. There is stable biapical bronchiectasis and scarring. 3. There is no evidence of acute consolidation or effusion. 4. There is no pneumothorax. [facility] Referring Provider Line: [phone] SITE ID: [id number]
[2017-06-02] MEDS ORDERED: ACETAMINOPHEN 1,000 MG/100 ML 100 ML IV STA (15:36)
[2017-06-02 16:41] VITALS: BP 125/82
== END 2017-06-02 17:32 | disposition home or self-care (01) ==
LOC: ED 13:03
DX: R07.89 Other chest pain (principal); F17.200 Nicotine dependence, unspecified, uncomplicated
CPT/HCPCS: 36415; 71046; 80053; 83690; 83735; 85025; 85651; 93005; 96365; 96375; 96376; 99283; J0131; J1170

== ENCOUNTER 2017-06-12 04:54 | Emergency (ER) | payer OTHER ==
[2017-06-12] MEDS ORDERED: IPRATROPIUM/ALBUTEROL 3 ML NEB INH STA (05:02)
[2017-06-12 05:16] LABS: BASOPHILS # (AUTO) 0.1 10^3/uL (0.0-0.1); EOSINOPHILS # (AUTO) 0.3 10^3/uL (0.0-0.7); EOSINOPHILS % (AUTO) 4.7 %; HGB - HEMOGLOBIN 12.8 g/dL (12.0-16.0); LYMPHOCYTES # (AUTO) 1.1 10^3/uL (1.5-3.5); LYMPHOCYTES % (AUTO) 19.5 %; MEAN CORPUSCULAR HEMOGLOBIN 28.6 pg (27.0-31.0); MEAN CORPUSCULAR HGB CONC 33.5 g/dL (32.0-36.0); MEAN CORPUSCULAR VOLUME 85.3 fL (81.0-99.0); MEAN PLATELET VOLUME 7.1 fL (7.9-10.8); MONOCYTES # (AUTO) 0.4 10^3/uL (0.0-1.0); MONOCYTES % (AUTO) 7.1 %; NEUTROPHILS # (AUTO) 3.8 10^3/uL (1.5-6.6); NEUTROPHILS % (AUTO) 67.7 %; PLT - PLATELET COUNT 212 10^3/uL (130-450); RED BLOOD COUNT 4.49 10^6/uL (4.20-5.40); RED CELL DISTRIBUTION WIDTH 13.5 % (12.0-15.0); WHITE BLOOD COUNT 5.5 x10^3/uL (4.8-10.8)
--- NOTE | 2017-06-12 05:16 | ED Physician Documentation ---
PD HPI CHEST PAIN - Stated complaint Stated Complaint: CHEST PAIN,SOA - Chief complaint Chief Complaint: Cardiac - History obtained from History obtained from: Patient, Family - History of Present Illness Timing - onset: How many days ago (5) Timing - onset during: Rest Timing - details: Intermittant, Waxing and waning Quality: Pressure, Aching, Sharp Location: Left chest Worsened by: Palpation Associated symptoms: Shortness of air, Cough Similar symptoms before: Work up / diagnostics, Treatment Recently seen: Emergency Dept - Additional information Additional information: Patient is a 41 year old female with a history of anorexia, anxiety and underlying lung disorder who is presenting to the emergency department for chest pain. patient has had chest pain for the last couple of weeks. All diagnostics only reveal hyperinflated lungs. patient continues to smoke. Review of Systems Constitutional: reports: Fever. denies: Chills Eyes: reports: Reviewed and negative Ears: reports: Reviewed and negative Nose: denies: Rhinorrhea / runny nose, Congestion Throat: denies: Sore throat Cardiac: reports: Chest pain / pressure Respiratory: reports: Dyspnea, Cough, Wheezing GI: denies: Nausea, Vomiting : reports: Reviewed and negative Skin: denies: Rash, Lesions Musculoskeletal: denies: Neck pain, Back pain, Extremity pain Neurologic: denies: Generalized weakness, Focal weakness Psychiatric: reports: Anxiety Immunocompromised: denies: Immunocompromised PD PAST MEDICAL HISTORY - Past Medical History Cardiovascular: Atrial fibrillation Respiratory: COPD Neuro: Other, Headache/migraine Endocrine/Autoimmune: None GI: None 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 : Kidney stones, Other HEENT: None Psych: Eating disorder, Depression, Anxiety Musculoskeletal: Chronic back pain, Other Derm: Eczema - Past Surgical History Past Surgical History: Yes General: Appendectomy Ortho: Spine surgery /ESTIMATOR PROJECT MANAGER: Hysterectomy, Oophrectomy HEENT: Other - Present Medications Home Medications: Ambulatory Orders Medication Instructions Recorded Confirmed Albuterol 2.5 mg INH Q4H PRN #30 neb 06/12/17 Albuterol Sulf [Ventolin Hfa 1 - 2 puffs PO PRN PRN 06/12/17 06/12/17 Inhaler] Ipratropium/Albuterol [Duoneb] 3 ml INH Q6H #30 neb 06/12/17 - Allergies Allergies/Adverse Reactions: Allergies Allergy/AdvReac Type Severity Reaction Status Date / Time gabapentin Allergy Itching Verified 06/12/17 05:05 oxycodone HCl * Allergy Itching Verified 06/12/17 05:05 [From Percocet] - Social History Does the pt smoke?: Yes Smoking Status: Current every day smoker Does the pt drink ETOH?: No Does the pt have substance abuse?: No - Immunizations Immunizations are current?: Yes - POLST Patient has POLST: No PD ED PE NORMAL - General General: Alert and oriented X 3 - HEENT HEENT: Atraumatic, PERRL - Neck Neck: Supple, no meningeal sign, No JVD - Abdomen Abdomen: Soft - Derm Derm: Normal color, Warm and dry, No rash - Extremities Extremities: No deformity, No calf tenderness / cord - Neuro Neuro: Alert and oriented X 3, No motor deficit, Normal speech Eye Opening: Spontaneous Motor: Obeys Commands Verbal: Confused GCS Score: 14 PD ED PE EXPANDED - General General: Alert, Other (very thin) - Respiratory Respiratory: Accessory mm use. No: Retractions Results - Vitals Vitals: Vital Signs - 24 hr 06/12/17 06/12/17 06/12/17 05:00 05:08 05:15 Temperature 37.9 C H Heart Rate 103 H 106 H Respiratory 18 18 Rate Blood Pressure 104/73 Blood Pressure 104/73 [Left] O2 Saturation 100 06/12/17 06:00 Temperature 37.0 C Heart Rate 100 Respiratory 24 Rate Blood Pressure 97/67 Blood Pressure [Left] O2 Saturation 95 Oxygen O2 Source Room air - EKG (time done) 0501 Rate: Rate (enter#) (96) Rhythm: NSR [place]: Normal Intervals: Normal [place] Compare to prior EKG: Unchanged from prior EKG - Labs Labs: Laboratory Tests 06/12/17 06/12/17 06/12/17 05:10 05:10 05:10 WBC 5.5 RBC 4.49 Hgb 12.8 Hct 38.3 MCV 85.3 MCH 28.6 MCHC 33.5 RDW 13.5 Plt Count 212 MPV 7.1 L Neut # 3.8 Lymph # 1.1 L [place] # 0.4 Eos # 0.3 Baso # 0.1 Absolute Nucleated RBC 0.01 Nucleated RBC % 0.1 D-Dimer Sodium 139 Potassium 3.2 L Chloride 102 Carbon Dioxide 25 Anion Gap 12.0 BUN 18 Creatinine 0.6 Estimated GFR (MDRD) 109 Glucose 78 Calcium 8.6 Total Bilirubin 0.4 AST 28 ALT 19 Alkaline Phosphatase 73 Troponin I < 0.04 Total Protein 6.1 L Albumin 3.9 Globulin 2.2 Albumin/Globulin Ratio 1.8 Lipase 49 06/12/17 05:10 WBC RBC Hgb Hct MCV MCH MCHC RDW Plt Count MPV Neut # Lymph # [place] # Eos # Baso # Absolute Nucleated RBC Nucleated RBC % D-Dimer 218.6 Sodium Potassium Chloride Carbon Dioxide Anion Gap BUN Creatinine Estimated GFR (MDRD) Glucose Calcium Total Bilirubin AST ALT Alkaline Phosphatase Troponin I Total Protein Albumin Globulin Albumin/Globulin Ratio Lipase - Rads (name of study) chest x-ray Radiology: Final report received, EMP read contemporaneously (hyperinflated, unchanged) PD MEDICAL DECISION MAKING - ED course Complexity details: reviewed old records, reviewed results, re-evaluated patient , considered differential, d/w patient, d/w family ED course: Patient was seen and examined at bedside, ekg was performed and was unchanged from previous. chest x-ray was ordered and labs were drawn. patient was treated with duoneb with good relief. Patient's diagnostics were within normal limits including troponin, and d-dimer. Patient required no further inpatient work up and was stable for discharge with outpatient follow up. Departure - Departure Disposition: 01 Home, Self Care Clinical Impression: Reactive airway disease with wheezing Condition: Poor Instructions: ED Reactive Airway Disease Follow-Up: Milind Sun MD [Primary Care Provider] - Prescriptions: Albuterol 2.5 mg INH Q4H PRN #30 neb PRN Reason: Wheezing Ipratropium/Albuterol [Duoneb] 3 ml INH Q6H #30 neb Comments: Your diagnostics today were within normal limits. there were no acute abnormalities. It is important that you quit smoking as it is making all of your symptoms worse. You should use the nebulizer every 2-4 hours as needed for shortness of breath. You should follow up wiht your doctor tomorrow for further evaluation and care. You may return to the emergency department at any time for new, worsening or uncontrollable symptoms. Discharge Date/Time: 06/12/17 06:12
[2017-06-12 05:32] LABS: ALBUMIN 3.9 g/dL (3.2-5.5); ALBUMIN/GLOBULIN RATIO 1.8 (1.0-2.2); BILIRUBIN,TOTAL 0.4 mg/dL (0.2-1.0); CALCIUM 8.6 mg/dL (8.5-10.3); CREATININE 0.6 mg/dL (0.4-1.0); TOTAL PROTEIN 6.1 g/dL (6.7-8.2)
--- NOTE | 2017-06-12 05:41 | XRAY Report ---
EXAM: CHEST RADIOGRAPHY EXAM DATE: 06/12/2017 05:30 AM. CLINICAL HISTORY: Chest pain. COMPARISON: 06/02/2017, 04/02/2016. TECHNIQUE: 1 view. FINDINGS: Lungs/Pleura: Large volumes. No focal opacities evident with no mild biapical pleural thickening and scarring and chronic right upper lobe volume loss. No pneumothorax or pleural effusion. Mediastinum: Within exam limitations, cardiomediastinal contour is normal. Other: None. IMPRESSION: COPD without acute process seen in the chest. [facility] Referring Provider Line: [phone] SITE ID: [id number]
[2017-06-12] MEDS ORDERED: ALBUTEROL NEB 2.5 MG/3 ML INH STA (05:55)
[2017-06-12 06:01] VITALS: BP 97/67
== END 2017-06-12 06:12 | disposition home or self-care (01) ==
LOC: ED 04:54
DX: J45.909 Unspecified asthma, uncomplicated (principal); F17.200 Nicotine dependence, unspecified, uncomplicated
CPT/HCPCS: 36415; 71045; 80053; 83690; 84484; 85025; 85379; 93005; 94640; 99283; 99284; J7613; J7620

== ENCOUNTER 2017-06-30 11:56 | Emergency (ER) | payer OTHER ==
[2017-06-30] MEDS ORDERED: ONDANSETRON 4 MG/2 ML VIAL IVP STA (14:17)
[2017-06-30] MEDS ORDERED: SODIUM CHLORIDE 0.9% 1,000 ML IV ONE (14:17)
[2017-06-30] MEDS ORDERED: DICYCLOMINE 10 MG CAPSULE PO STA ×2 (14:17→15:16)
--- NOTE | 2017-06-30 14:20 | ED Physician Documentation ---
PD HPI ABD PAIN - Stated complaint Stated Complaint: D/V - Chief complaint Chief Complaint: Abd Pain - History obtained from History obtained from: Patient, Family - History of Present Illness Timing - onset: Other (Without recent travel or antibiotic use and no sick contacts she has had 4 days of profuse watery diarrhea without blood or black material. Basically what she gets is a cramp at the site of her old feeding tube which was done for anorexia and then a few minutes later gets a gush of diarrhea. There is nausea and vomiting with this but it is much milder than the diarrhea. She has chills and sweats but no measured fevers. 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 : Kidney stones, Other HEENT: None Psych: Eating disorder, Depression, Anxiety Musculoskeletal: Chronic back pain, Other Derm: Eczema - Past Surgical History Past Surgical History: Yes General: Appendectomy Ortho: Spine surgery /EXECUTIVE RELATIONS SPECIALIST: Hysterectomy, Oophrectomy HEENT: Other - Present Medications Home Medications: Ambulatory Orders Medication Instructions Recorded Confirmed Albuterol 2.5 mg INH Q4H PRN #30 neb 06/12/17 Albuterol Sulf [Ventolin Hfa 1 - 2 puffs PO PRN PRN 06/12/17 06/12/17 Inhaler] Ipratropium/Albuterol [Duoneb] 3 ml INH Q6H #30 neb 06/12/17 Azithromycin [Zithromax] 250 mg PO DAILY #6 tablet 06/30/17 Dicyclomine HCl 20 mg PO QID PRN #20 tablet 06/30/17 Ibuprofen [Motrin] 800 mg PO Q8H PRN #30 tablet 06/30/17 - Allergies Allergies/Adverse Reactions: Allergies Allergy/AdvReac Type Severity Reaction Status Date / Time gabapentin Allergy Itching Verified 06/12/17 05:05 oxycodone HCl * Allergy Itching Verified 06/12/17 05:05 [From Percocet] - Social History Does the pt smoke?: Yes Smoking Status: Current every day smoker Does the pt drink ETOH?: No Does the pt have substance abuse?: No - Immunizations Immunizations are current?: Yes - POLST Patient has POLST: No PD ED PE NORMAL - Vitals Vital signs reviewed: Yes - General General: Alert and oriented X 3, No acute distress - Cardiac Cardiac: RRR, No murmur - Respiratory Respiratory: No respiratory distress, Clear bilaterally - Abdomen Abdomen: Normal bowel sounds, Soft, Non tender - Neuro Neuro: Alert and oriented X 3, Normal speech - Psych Psych: Normal mood, Normal affect Results - Vitals Vitals: Vital Signs - 24 hr 06/30/17 06/30/17 12:04 14:48 Temperature 37.2 C Heart Rate 109 H 62 Respiratory 20 16 Rate Blood Pressure 132/90 H 119/70 O2 Saturation 99 100 Oxygen O2 Source Room air - Labs Labs: Laboratory Tests 06/30/17 06/30/17 14:33 14:33 WBC 6.7 RBC 4.75 Hgb 13.4 Hct 39.9 MCV 84.0 MCH 28.3 MCHC 33.6 RDW 13.5 Plt Count 263 MPV 7.4 L Neut # 4.1 Lymph # 2.1 [place] # 0.3 Eos # 0.2 Baso # 0.1 Absolute Nucleated RBC 0.00 Nucleated RBC % 0.0 Sodium 141 Potassium 3.2 L Chloride 106 Carbon Dioxide 25 Anion Gap 10.0 BUN 14 Creatinine 0.5 Estimated GFR (MDRD) 135 Glucose 92 Calcium 9.3 Total Bilirubin 0.5 AST 18 ALT 14 Alkaline Phosphatase 63 Total Protein 6.8 Albumin 4.2 Globulin 2.6 Albumin/Globulin Ratio 1.6 Lipase 20 L PD MEDICAL DECISION MAKING - ED course ED course: 41-year-old woman with diarrhea and some symptoms of dehydration and tachycardia. After the administration of Bentyl and Toradol and IV fluids she was feeling much better. Her lab work is reassuring. She was unable to produce a stool sample here. Departure - Departure Disposition: 01 Home, Self Care Clinical Impression: Diarrhea, Dehydration Condition: Good Record reviewed to determine appropriate education?: Yes Instructions: ED Dehydration, ED Diarrhea Bacterial Prescriptions: Azithromycin [Zithromax] 250 mg PO DAILY #6 tablet Dicyclomine HCl 20 mg PO QID PRN #20 tablet PRN Reason: Abdominal Cramps Ibuprofen [Motrin] 800 mg PO Q8H PRN #30 tablet PRN Reason: PAIN &/OR FEVER Comments: Call your doctor to arrange a follow-up appointment, make the next available appointment. In the interim, return anytime if worse or if new symptoms develop.
[2017-06-30 14:44] LABS: BASOPHILS # (AUTO) 0.1 10^3/uL (0.0-0.1); EOSINOPHILS # (AUTO) 0.2 10^3/uL (0.0-0.7); EOSINOPHILS % (AUTO) 2.3 %; HGB - HEMOGLOBIN 13.4 g/dL (12.0-16.0); LYMPHOCYTES # (AUTO) 2.1 10^3/uL (1.5-3.5); LYMPHOCYTES % (AUTO) 30.9 %; MEAN CORPUSCULAR HEMOGLOBIN 28.3 pg (27.0-31.0); MEAN CORPUSCULAR HGB CONC 33.6 g/dL (32.0-36.0); MEAN PLATELET VOLUME 7.4 fL (7.9-10.8); MONOCYTES # (AUTO) 0.3 10^3/uL (0.0-1.0); MONOCYTES % (AUTO) 4.5 %; NEUTROPHILS # (AUTO) 4.1 10^3/uL (1.5-6.6); NEUTROPHILS % (AUTO) 61.3 %; PLT - PLATELET COUNT 263 10^3/uL (130-450); RED BLOOD COUNT 4.75 10^6/uL (4.20-5.40); RED CELL DISTRIBUTION WIDTH 13.5 % (12.0-15.0); WHITE BLOOD COUNT 6.7 x10^3/uL (4.8-10.8)
[2017-06-30 14:57] LABS: ALBUMIN 4.2 g/dL (3.2-5.5); ALBUMIN/GLOBULIN RATIO 1.6 (1.0-2.2); BILIRUBIN,TOTAL 0.5 mg/dL (0.2-1.0); CALCIUM 9.3 mg/dL (8.5-10.3); CREATININE 0.5 mg/dL (0.4-1.0); TOTAL PROTEIN 6.8 g/dL (6.7-8.2)
[2017-06-30] MEDS ORDERED: KETOROLAC 60 MG/2 ML VIAL IVP STA (15:16)
[2017-06-30 16:01] VITALS: BP 112/89
== END 2017-06-30 16:11 | disposition home or self-care (01) ==
LOC: ED 11:56
DX: R19.7 Diarrhea, unspecified (principal); E86.0 Dehydration; R00.0 Tachycardia, unspecified; F17.200 Nicotine dependence, unspecified, uncomplicated
CPT/HCPCS: 36415; 80053; 83690; 85025; 96361; 96374; 96375; 99283; 99284; A9270

== ENCOUNTER 2017-09-13 09:02 | Emergency (ER) | payer OTHER ==
[2017-09-13 10:02] LABS: BILIRUBIN,URINE NEGATIVE (NEGATIVE); GLUCOSE, URINE (UA) 250 mg/dL (NEGATIVE); KETONES,URINE (UA) 15 mg/dL (NEGATIVE); LEUKOCYTE ESTERASE, URINE SMALL (NEGATIVE); NITRITE,URINE POSITIVE (NEGATIVE); OCCULT BLOOD,URINE NEGATIVE (NEGATIVE); PH,URINE 6.5 PH (5.0-7.5); PROTEIN,URINE >=300 mg/dL (NEGATIVE); UROBILINOGEN,URINE >=8.0 E.U./dL (NORMAL)
[2017-09-13 10:04] LABS: CLARITY,URINE INTERFERENCES (CLEAR)
[2017-09-13 10:06] LABS: HCG UR QUAL NEGATIVE
[2017-09-13 10:13] LABS: RBC,URINE 0-5 /HPF (0-5); SQUAMOUS EPITHELIAL CELL,UR MOD Squamous (<= Few); WBC CLUMPS,URINE PRESENT
[2017-09-13 10:14] LABS: BACTERIA,URINE Few /HPF (None Seen)
[2017-09-13] MEDS ORDERED: cefTRIAXone 1 GM VIAL IM STA (11:02)
[2017-09-13] MEDS ORDERED: DEXAMETHASONE 10 MG/ML VIAL PO STA (11:02)
[2017-09-13] MEDS ORDERED: LIDOCAINE 1% 2 ML VIAL SUBQ ONE (11:02)
--- NOTE | 2017-09-13 11:03 | ED Physician Documentation ---
PD HPI FEMALE - Stated complaint Stated Complaint: FEMALE - Chief complaint Chief Complaint: General - History obtained from History obtained from: Patient - History of Present Illness Timing - onset: How many weeks ago (1) Timing - duration: Weeks (1) Timing - details: Gradual onset, Still present Associated symptoms: Fever, Back pain, Dysuria, Urinary frequency Similar symptoms before: Diagnosis (UTI) Recently seen: Not recently seen - Additional information Additional information: 42-year-old female with a history of anorexia has developed urinary urgency frequency and dysuria as well as some flank pain over the past week. She has been treating this with Azo and symptoms have not resolved. She has had intermittent fever as well as pain in the left ear and a cough. She has not had nausea. Review of Systems Constitutional: reports: Fever, Chills, Myalgias, Fatigue Eyes: denies: Decreased vision Ears: reports: Ear pain Nose: reports: Congestion Throat: reports: Sore throat Cardiac: denies: Chest pain / pressure, Palpitations Respiratory: reports: Cough. denies: Dyspnea GI: reports: Abdominal Pain. 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: None : Kidney stones, Other HEENT: None Psych: Eating disorder, Depression, Anxiety Musculoskeletal: Chronic back pain, Other Derm: Eczema - Past Surgical History Past Surgical History: Yes General: Appendectomy Ortho: Spine surgery /PRODUCTION TEAM MANAGER: Hysterectomy, Oophrectomy HEENT: Other - Present Medications Home Medications: Ambulatory Orders Medication Instructions Recorded Confirmed Albuterol 2.5 mg INH Q4H PRN #30 neb 06/12/17 Albuterol Sulf [Ventolin Hfa 1 - 2 puffs PO PRN PRN 06/12/17 06/12/17 Inhaler] Ipratropium/Albuterol [Duoneb] 3 ml INH Q6H #30 neb 06/12/17 Ibuprofen [Motrin] 800 mg PO Q8H PRN #30 tablet 06/30/17 Amox/Clav 875/125 [Augmentin] 1 each PO Q12H #14 tablet 09/13/17 HYDROcod/ACETAM 5/325 [[place] 5/325] 1 - 2 ea PO Q6H PRN #15 tablet 09/13/17 - Allergies Allergies/Adverse Reactions: Allergies Allergy/AdvReac Type Severity Reaction Status Date / Time gabapentin Allergy Itching Verified 06/12/17 05:05 oxycodone HCl * Allergy Itching Verified 09/13/17 09:38 [From Percocet] - Social History Does the pt smoke?: Yes Smoking Status: Current every day smoker Does the pt drink ETOH?: No Does the pt have substance abuse?: No - Immunizations Immunizations are current?: Yes - POLST Patient has POLST: No PD ED PE NORMAL - Vitals Vital signs reviewed: Yes (normal ) - General General: Alert and oriented X 3, No acute distress, Well developed/nourished - HEENT HEENT: Atraumatic, PERRL, EOMI, Other (The left TM is inflamed with indistinct landmarks and the right is clear ) - Neck Neck: Supple, no meningeal sign - Cardiac Cardiac: RRR, No murmur - Respiratory Respiratory: No respiratory distress, Clear bilaterally - Abdomen Abdomen: Soft, Non tender - Back Back: No spinal TTP, Other (right CVA tenderness ) - Derm Derm: Normal color, Warm and dry, No rash - Neuro Neuro: Alert and oriented X 3, No motor deficit, No sensory deficit, Normal speech Eye Opening: Spontaneous Motor: Obeys Commands Verbal: Oriented GCS Score: 15 - Psych Psych: Normal mood, Normal affect Results - Vitals Vitals: Vital Signs - 24 hr 09/13/17 09:34 Temperature 36.7 C Heart Rate 92 Respiratory 16 Rate Blood Pressure 116/85 H O2 Saturation 99 Oxygen O2 Source Room air - Labs Labs: Laboratory Tests 09/13/17 09/13/17 09:29 09:29 Urine Color DK. ORANGE Urine Clarity INTERFERENCES Urine pH 6.5 Ur Specific [place] 1.020 1.020 Urine Protein >=300 H Urine Glucose (UA) 250 H Urine Ketones 15 H Urine Occult Blood NEGATIVE Urine Nitrite POSITIVE H Urine Bilirubin NEGATIVE Urine Urobilinogen >=8.0 H Ur Leukocyte Esterase SMALL H Urine RBC 0-5 Urine WBC 11-25 H Urine WBC Clumps PRESENT Ur Squamous Epith Cells MOD Squamous H Urine Bacteria Few Ur Microscopic Review INDICATED Urine Culture Comments NOT INDICATED Urine HCG, Qual NEGATIVE PD MEDICAL DECISION MAKING - ED course Complexity details: reviewed results, re-evaluated patient, considered differential, d/w patient ED course: 42-year-old female with urinary symptoms has right flank pain fever with positive urinalysis and she is administered stirred Rocephin IM for pyelonephritis. Additional findings on examination and history includes left ear pain and otitis media on exam. She is administered dexamethasone in addition. We will place her on some Augmentin. Departure - Departure Disposition: 01 Home, Self Care Clinical Impression: Pyelonephritis Otitis media Qualifiers: Otitis media type: suppurative Chronicity: acute Laterality: left Recurrence: not specified as recurrent Spontaneous tympanic membrane rupture: without spontaneous rupture Qualified Code(s): H66.002 - Acute suppurative otitis media without spontaneous rupture of ear drum, left ear Condition: Stable Instructions: ED Otitis Media Acute Adult, ED Kidney Infec Female Follow-Up: Your, doctor [Other] Prescriptions: Amox/Clav 875/125 [Augmentin] 1 each PO Q12H #14 tablet HYDROcod/ACETAM 5/325 [[place] 5/325] 1 - 2 ea PO Q6H PRN #15 tablet PRN Reason: Pain
[2017-09-13] MEDS ORDERED: CHERRY SYRUP 10 ML UDC PO ONE (11:26)
[2017-09-13 11:36] VITALS: BP 123/83
== END 2017-09-13 11:46 | disposition home or self-care (01) ==
LOC: ED 09:02
DX: N12 Tubulo-interstitial nephritis, not specified as acute or chronic (principal); H66.002 Acute suppurative otitis media without spontaneous rupture of ear drum, left ear; F17.200 Nicotine dependence, unspecified, uncomplicated
CPT/HCPCS: 81001; 81025; 96372; 99283; 99284; A9270; 81003; 87086

== ENCOUNTER 2017-12-01 12:41 | Emergency (ER) | payer OTHER ==
[2017-12-01 13:08] VITALS: BP 127/94
== END 2017-12-01 14:15 | disposition left against medical advice (07) ==
LOC: ED 12:41
DX: Z53.21 Procedure and treatment not carried out due to patient leaving prior to being seen by health care provider (principal)
CPT/HCPCS: 80053; 83690; 85025; 93005

== ENCOUNTER 2018-03-12 09:06 | Emergency (ER) | payer OTHER ==
[2018-03-12] MEDS ORDERED: PROMETHAZINE INJ 25 MG in SODIUM CHLORIDE 0.9% 50 ML IV STA (10:39)
[2018-03-12] MEDS ORDERED: fentaNYL 100 MCG/2 ML VIAL IVP STA (10:39)
[2018-03-12] MEDS ORDERED: SODIUM CHLORIDE 0.9% 1,000 ML IV ONE (10:39)
[2018-03-12 10:55] LABS: BASOPHILS # (AUTO) 0.1 10^3/uL (0.0-0.1); EOSINOPHILS # (AUTO) 0.2 10^3/uL (0.0-0.7); EOSINOPHILS % (AUTO) 3.6 %; LYMPHOCYTES # (AUTO) 1.7 10^3/uL (1.5-3.5); LYMPHOCYTES % (AUTO) 33.7 %; MEAN CORPUSCULAR HEMOGLOBIN 28.4 pg (27.0-31.0); MEAN CORPUSCULAR HGB CONC 33.7 g/dL (32.0-36.0); MEAN CORPUSCULAR VOLUME 84.2 fL (81.0-99.0); MEAN PLATELET VOLUME 7.5 fL (7.9-10.8); MONOCYTES # (AUTO) 0.2 10^3/uL (0.0-1.0); NEUTROPHILS # (AUTO) 2.9 10^3/uL (1.5-6.6); NEUTROPHILS % (AUTO) 57.7 %; PLT - PLATELET COUNT 172 10^3/uL (130-450); RED BLOOD COUNT 4.92 10^6/uL (4.20-5.40); RED CELL DISTRIBUTION WIDTH 13.7 % (12.0-15.0)
[2018-03-12] MEDS ORDERED: IOPAMIDOL-300 100 ML VIAL ONE (11:00)
[2018-03-12 11:08] LABS: ALBUMIN/GLOBULIN RATIO 1.5 (1.0-2.2); BILIRUBIN,TOTAL 0.5 mg/dL (0.2-1.0); CALCIUM 8.9 mg/dL (8.5-10.3); CREATININE 0.6 mg/dL (0.4-1.0); TOTAL PROTEIN 6.6 g/dL (6.7-8.2)
[2018-03-12] MEDS ORDERED: IOPAMIDOL-300 100 ML VIAL IVP ONE ×2 (11:44)
[2018-03-12] MEDS ORDERED: KETOROLAC 60 MG/2 ML VIAL IVP STA (11:51)
--- NOTE | 2018-03-12 12:10 | ED Physician Documentation ---
History of Present Illness - Stated complaint Stated Complaint: L SIDE PX - Chief complaint Chief Complaint: Abd Pain - Additonal information Additional information: 42-year-old female with a history of chronic abdominal pain at the site of her former PEG tube presents the emergency department with increasing upper abdominal pain with nausea. The patient has not been able to manage her pain at home. The patient denies fevers, chills. Symptoms are described as moderate. No radiation of the pain. No other associated symptoms. No triggering factors.Today's pain is similar to other episodes of acute pain she is experienced in her abdomen Review of Systems Constitutional: denies: Fever Eyes: denies: Discharge Ears: denies: Drainage/discharge Nose: denies: Rhinorrhea / runny nose Throat: denies: Sore throat Cardiac: denies: Chest pain / pressure Respiratory: denies: Cough GI: reports: Abdominal Pain, Nausea. 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 : Kidney stones, Other HEENT: None Psych: Eating disorder, Depression, Anxiety Musculoskeletal: Chronic back pain, Other Derm: Eczema Other Past Medical History: anorexia - Past Surgical History Past Surgical History: Yes General: Appendectomy, Other Ortho: Spine surgery /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: Hysterectomy, Oophrectomy HEENT: Other - Present Medications Home Medications: Ambulatory Orders Medication Instructions Recorded Confirmed Albuterol 2.5 mg INH Q4H PRN #30 neb 06/12/17 Albuterol Sulf [Ventolin Hfa 1 - 2 puffs PO PRN PRN 06/12/17 06/12/17 Inhaler] Ipratropium/Albuterol [Duoneb] 3 ml INH Q6H #30 neb 06/12/17 Ibuprofen [Motrin] 800 mg PO Q8H PRN #30 tablet 06/30/17 Amox/Clav 875/125 [Augmentin] 1 each PO Q12H #14 tablet 09/13/17 HYDROcod/ACETAM 5/325 [[place] 5/325] 1 - 2 ea PO Q6H PRN #15 tablet 09/13/17 Promethazine [Phenergan] 25 mg PO Q6H PRN #30 tab 03/12/18 traMADol [Ultram] 50 mg PO Q6H PRN #20 tablet 03/12/18 - Allergies Allergies/Adverse Reactions: Allergies Allergy/AdvReac Type Severity Reaction Status Date / Time gabapentin Allergy Itching Verified 06/12/17 05:05 oxycodone HCl * Allergy Itching Verified 09/13/17 09:38 [From Percocet] - Social History Does the pt smoke?: Yes Smoking Status: Current every day smoker Does the pt drink ETOH?: No Does the pt have substance abuse?: No - Immunizations Immunizations are current?: Yes - POLST Patient has POLST: No PD ED PE NORMAL - General General: Alert and oriented X 3 - HEENT HEENT: Atraumatic, PERRL, EOMI, Ears normal - Neck Neck: Supple, no meningeal sign - Cardiac Cardiac: RRR, Strong equal pulses - Respiratory Respiratory: No respiratory distress, Clear bilaterally - Abdomen Abdomen: Soft, Non distended. No: Non tender (The patient has upper abdominal tenderness, the patient has no rebound or peritoneal signs. The patient is exquisitely tender though when touching her abdomen) - Rectal Rectal: Deferred - Derm Derm: Normal color - Neuro Neuro: Alert and oriented X 3, Normal speech - Psych Psych: Normal affect Results - Vitals Vitals: Vital Signs - 24 hr 03/12/18 09:23 Temperature 36.6 C Heart Rate 86 Respiratory 18 Rate Blood Pressure 120/87 H O2 Saturation 100 Oxygen O2 Source Room air - Labs Labs: Laboratory Tests 03/12/18 03/12/18 10:53 10:53 WBC 5.0 RBC 4.92 Hgb 14.0 Hct 41.5 MCV 84.2 MCH 28.4 MCHC 33.7 RDW 13.7 Plt Count 172 MPV 7.5 L Neut # (Auto) 2.9 Lymph # (Auto) 1.7 [place] # (Auto) 0.2 Eos # (Auto) 0.2 Baso # (Auto) 0.1 Absolute Nucleated RBC 0.00 Nucleated RBC % 0.0 Sodium 139 Potassium 4.1 Chloride 103 Carbon Dioxide 30 Anion Gap 6.0 BUN 20 Creatinine 0.6 Estimated GFR (MDRD) 109 Glucose 99 Calcium 8.9 Total Bilirubin 0.5 AST 16 ALT 12 Alkaline Phosphatase 77 Total Protein 6.6 L Albumin 4.0 Globulin 2.6 Albumin/Globulin Ratio 1.5 Lipase 37 - Rads (name of study) CT abd/pelvis Radiology: Final report received (IMPRESSION: No acute intra-abdominal abnormality demonstrated. No nephrolithiasis, hydronephrosis, or diverticulitis. ) PD MEDICAL DECISION MAKING - ED course ED course: On reevaluation patient is resting comfortably and appears to be in no significant distress. The patient's workup does not reveal an acute etiology that would necessitate admission to the hospital or acute surgical consultation. Recommended that the patient follow-up with primary care for further workup and evaluation of her ongoing abdominal pain. The patient understands and agrees. I did agree to refill the patient's normal pain medications to help her manage her pain at home. I discussed warning signs and recommended returning to the emergency department immediately for worsening or any concerns. Departure - Departure Disposition: 01 Home, Self Care Clinical Impression: Abdominal pain Qualifiers: Abdominal location: unspecified location Qualified Code(s): R10.9 - Unspecified abdominal pain Condition: Good Instructions: Abdominal Pain Follow-Up: KENDELL PUGH, [Primary Care Provider] - Within 1 week (You may need a Referral to gastroenterology for further assessment of your ongoing symptoms) Prescriptions: Promethazine [Phenergan] 25 mg PO Q6H PRN #30 tab PRN Reason: Nausea / Vomiting traMADol [Ultram] 50 mg PO Q6H PRN #20 tablet PRN Reason: Pain Comments: Please return to the emergency department for worsening symptoms or any concerns
--- NOTE | 2018-03-12 12:17 | CT Report ---
Reason: abdominal pain Procedure Date: 03/12/2018 Accession Number: [id number] / [id number] Procedure: CT - Abdomen/Pelvis W/ CPT Code: FULL RESULT: EXAM: CT ABDOMEN AND PELVIS EXAM DATE: 03/12/2018 11:27 AM. CLINICAL HISTORY: Left upper quadrant pain. Left lower quadrant pain. COMPARISONS: ABDOMEN/PELVIS W/O 08/18/2016 5:01 PM. TECHNIQUE: Routine helical CT imaging was performed through the abdomen and pelvis. IV contrast: ISOVUE 300 100mL. Enteric contrast: No. Reconstructions: Coronal and sagittal. In accordance with CT protocol optimization, one or more of the following dose reduction techniques were utilized for this exam: automated exposure control, adjustment of mA and/or KV based on patient size, or use of iterative reconstructive technique. FINDINGS: Lung Bases: Unremarkable. Liver: Normal. No masses. Gallbladder/Bile Ducts: Unremarkable. Spleen: Normal. Pancreas: Normal. Adrenal Glands: Normal. Kidneys: Normal. No masses or hydronephrosis. Peritoneal Cavity/Bowel: Normal. No free fluid, free air or adenopathy. No masses or acute inflammatory process. The appendix is not visualized, however, no inflammatory changes are seen in the right lower quadrant region. Pelvic Organs: Normal. The bladder and visualized pelvic organs are within normal limits. Vasculature: No aneurysms or other significant abnormality. Bones: Decompression and posterior fusion changes involving the lumbosacral junction is seen. No hardware failure is demonstrated. No acute osseous abnormality is identified. Other: None. IMPRESSION: No acute intra-abdominal abnormality demonstrated. No nephrolithiasis, hydronephrosis, or diverticulitis. RADIA
[2018-03-12 12:25] LABS: BILIRUBIN,URINE NEGATIVE (NEGATIVE); GLUCOSE, URINE (UA) NEGATIVE (NEGATIVE); KETONES,URINE (UA) NEGATIVE (NEGATIVE); LEUKOCYTE ESTERASE, URINE NEGATIVE (NEGATIVE); NITRITE,URINE NEGATIVE (NEGATIVE); OCCULT BLOOD,URINE NEGATIVE (NEGATIVE); PROTEIN,URINE NEGATIVE (NEGATIVE); UROBILINOGEN,URINE 0.2 (NORMAL) E.U./dL (NORMAL)
[2018-03-12 12:27] LABS: CLARITY,URINE CLEAR (CLEAR)
[2018-03-12 12:41] VITALS: BP 120/76
== END 2018-03-12 12:42 | disposition home or self-care (01) ==
LOC: ED 09:06
DX: R10.9 Unspecified abdominal pain (principal); R11.0 Nausea; I48.91 Unspecified atrial fibrillation; F17.200 Nicotine dependence, unspecified, uncomplicated
CPT/HCPCS: 36415; 74177; 80053; 81003; 83690; 85025; 96365; 96375; 99283; 99284; J7040; Q9967; 81001; 87086

== ENCOUNTER 2018-05-07 08:08 | Emergency (ER) | payer OTHER ==
[2018-05-07] MEDS ORDERED: MORPHINE 2 MG/ML CARPUJECT IVP STA ×2 (08:32→09:55)
[2018-05-07] MEDS ORDERED: SODIUM CHLORIDE 0.9% 1,000 ML IV ONE (08:32)
[2018-05-07] MEDS ORDERED: ONDANSETRON 4 MG/2 ML VIAL IVP STA ×2 (08:32→09:55)
--- NOTE | 2018-05-07 08:38 | ED Physician Documentation ---
PD HPI ABD PAIN - Stated complaint Stated Complaint: FEEDING TUBE COMPLICATIONS - Chief complaint Chief Complaint: Abd Pain - History obtained from History obtained from: Patient, Family - History of Present Illness Timing - onset: How many years ago (1) Timing - duration: Days (3) Timing - details: Gradual onset, Intermittant, Still present in ED Pain level max: 10 Pain level now: 10 Quality: Sharp, Dull Location: LUQ, Periumbilical Improved by: Meds (Tramadol and Phenergan) Worsened by: Eating Associated symptoms: Nausea, Vomiting, Diarrhea, Weight loss. No: Fever, Darrel temesis, Constipation, Melena, Hematochezia, Dysuria, Hematuria, Chest pain, Dizzy, Near syncope / syncope, Loss of appetite, Vaginal bleeding Similar symptoms before: Work up / diagnostics, Follow up Recently seen: Not recently seen - Additional information Additional information: 42-year-old female with history of COPD, eating disorder, depression, hysterectomy, appendectomy here with complaint of abdominal pain around her old gastrostomy feeding the past 3 days. Patient stated her gastrostomy tube was discontinued a year ago. She stated 6 months later she started having abdominal pain around the stoma area. Patient was seen here in the emergency room last March for the same problem and a CT scan was negative. Patient stated she followed up with her primary doctor who had prescribed her tramadol and Phenergan. She stated she ran out of her tramadol and Phenergan 3 days ago. She also claimed that her primary doctor had scheduled an MRI with a GI doctor at [facility] last week which she missed. She was told they will reschedule her after the holidays. Patient denies any trauma, travel or sick contacts. Review of Systems Ten Systems: 10 systems reviewed and negative Constitutional: reports: Weight Loss (Patient unsure if she lost weight. She stated the last time she weighed herself she was 92 pounds.). denies: Fever, Chills, Myalgias Throat: denies: Sore throat Cardiac: denies: Chest pain / pressure Respiratory: denies: Dyspnea, Cough GI: reports: Abdominal Pain, Nausea, Vomiting (States the past 3 days she us ually vomits 5 times in the morning and during the day based on eating. States her last meal was yesterday where she had cereal but she vomited that later on during the day.), Diarrhea (States diarrhea 1-2 times per day depending on what she eats. This is chronic.). denies: Abdominal Swelling, Constipation, Hematemesis, Bloody / black stool : reports: Hysterectomy. 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: Hysterectomy, Oophrectomy HEENT: Other - Present Medications Home Medications: Ambulatory Orders Medication Instructions Recorded Confirmed Ipratropium/Albuterol [Duoneb] 3 ml INH Q6H #30 neb 06/12/17 RX: Albuterol Sulf [Ventolin Hfa 1 - 2 puffs PO PRN PRN 06/12/17 06/12/17 Inhaler] Ibuprofen [Motrin] 800 mg PO Q8H PRN #30 tablet 06/30/17 Promethazine [Phenergan] 25 mg PO Q6H PRN #30 tab 03/12/18 RX: traMADol [Ultram] 50 mg PO Q6H PRN #20 tablet 03/12/18 Cephalexin [Keflex] 500 mg PO TID #21 capsule 05/07/18 Promethazine [Phenergan] 25 mg PO Q8H PRN #9 tablet 05/07/18 RX: traMADol [Ultram] 50 mg PO Q8H PRN #9 tablet 05/07/18 - Allergies Allergies/Adverse Reactions: Allergies Allergy/AdvReac Type Severity Reaction Status Date / Time gabapentin Allergy Itching Verified 05/07/18 08:16 oxycodone HCl * Allergy Itching Verified 05/07/18 08:16 [From Percocet] - Social History Does the pt smoke?: Yes Smoking Status: Current every day smoker Does the pt drink ETOH?: No Does the pt have substance abuse?: No - Immunizations Immunizations are current?: Yes - POLST Patient has POLST: No PD ED PE NORMAL - Vitals Vital signs reviewed: Yes - General General: Alert and oriented X 3, No acute distress, Well developed/nourished - HEENT HEENT: Pharynx benign, Other (Dry tongue) - Neck Neck: Supple, no meningeal sign - Cardiac Cardiac: RRR, No murmur - Respiratory Respiratory: Clear bilaterally - Abdomen Abdomen: Soft, Non distended, No organomegaly, Other (Hypoactive bowel sounds. Stoma at the left upper quadrant of the abdomen without any erythema nor drainag e. Moderate tenderness on the left upper quadrant and periumbilical area when palpated. No rebound. No rigidity. No guarding.) - Back Back: No CVA TTP, No spinal TTP - Derm Derm: Normal color, Warm and dry - Extremities Extremities: No deformity, No tenderness to palpate, Normal ROM s pain - Neuro Neuro: Alert and oriented X 3 - Psych Psych: Normal mood, Normal affect Results - Vitals Vitals: Vital Signs - 24 hr 05/07/18 05/07/18 05/07/18 08:13 09:19 10:04 Temperature 35.9 C L 36.8 C Heart Rate 67 70 65 Respiratory 16 16 16 Rate Blood Pressure 128/97 H 128/78 116/80 O2 Saturation 99 99 100 Oxygen O2 Source Room air - Labs Labs: Laboratory Tests 05/07/18 05/07/18 05/07/18 08:30 08:45 08:45 WBC 4.5 L RBC 4.92 Hgb 14.3 Hct 41.6 MCV 84.5 MCH 29.0 MCHC 34.3 RDW 14.2 Plt Count 176 MPV 8.1 Neut # (Auto) 2.8 Lymph # (Auto) 1.2 L [place] # (Auto) 0.2 Eos # (Auto) 0.2 Baso # (Auto) 0.1 Absolute Nucleated RBC 0.00 Nucleated RBC % 0.0 Sodium 142 Potassium 3.7 Chloride 105 Carbon Dioxide 28 Anion Gap 9.0 BUN 12 Creatinine 0.7 Estimated GFR (MDRD) 91 Glucose 106 H Calcium 9.2 Total Bilirubin 0.4 AST 20 ALT 14 Alkaline Phosphatase 87 Total Protein 7.0 Albumin 4.3 Globulin 2.7 Albumin/Globulin Ratio 1.6 Lipase 30 Urine Color YELLOW Urine Clarity SL. CLOUDY Urine pH 5.5 Ur Specific [place] >=1.030 H Urine Protein NEGATIVE Urine Glucose (UA) NEGATIVE Urine Ketones NEGATIVE Urine Occult Blood NEGATIVE Urine Nitrite NEGATIVE Urine Bilirubin NEGATIVE Urine Urobilinogen 0.2 (NORMAL) Ur Leukocyte Esterase MODERATE H Urine RBC 6-10 H Urine WBC 11-25 H Ur Squamous Epith Cells FEW Squamous Urine Bacteria Many H Ur Microscopic Review INDICATED Urine Culture Comments INDICATED PD MEDICAL DECISION MAKING - ED course Complexity details: reviewed results, re-evaluated patient, considered differential (Chronic abdominal pain, obstruction, colitis, pancreatitis, dependence to pain medication), d/w patient, d/w family ED course: 02 05 patient updated on test results. Patient requesting for more pain medication and nausea medication. [address] scan results and UTI. Patient states feels better and would like to go home with tramadol and Phenergan which she ran out. Patient's diet discussed. Instructed to follow-up with the GI and MRI scan at [facility] recommended by her primary doctor.Instructed to follow-up with her primary doctor this week for reevaluation and med refills. Departure - Departure Disposition: Home, Self Care Clinical Impression: Abdominal pain Qualifiers: Abdominal location: left upper quadrant Qualified Code(s): R10.12 - Left upper quadrant pain UTI (urinary tract infection) Qualifiers: Urinary tract infection type: acute cystitis Hematuria presence: without hematuria Qualified Code(s): N30.00 - Acute cystitis without hematuria Condition: Stable Instructions: ED Abdominal Pain Unkn Cause, ED UTI Cystitis Female Prescriptions: Cephalexin [Keflex] 500 mg PO TID #21 capsule Promethazine [Phenergan] 25 mg PO Q8H PRN #9 tablet PRN Reason: Nausea / Vomiting RX: traMADol [Ultram] 50 mg PO Q8H PRN #9 tablet PRN Reason: Pain Comments: Drinks 6-8 glasses of water a day for your UTI and take the antibiotics Keflex as prescribed. Follow-up with your primary doctor this week for refills of your pain medication tramadol and nausea medication Phenergan. If worse return to the emergency room. Discharge Date/Time: 05/07/18 11:18
[2018-05-07 09:09] LABS: BILIRUBIN,URINE NEGATIVE (NEGATIVE); GLUCOSE, URINE (UA) NEGATIVE (NEGATIVE); KETONES,URINE (UA) NEGATIVE (NEGATIVE); LEUKOCYTE ESTERASE, URINE MODERATE (NEGATIVE); NITRITE,URINE NEGATIVE (NEGATIVE); OCCULT BLOOD,URINE NEGATIVE (NEGATIVE); PH,URINE 5.5 PH (5.0-7.5); PROTEIN,URINE NEGATIVE (NEGATIVE); UROBILINOGEN,URINE 0.2 (NORMAL) E.U./dL (NORMAL)
[2018-05-07 09:10] LABS: BASOPHILS # (AUTO) 0.1 10^3/uL (0.0-0.1); BASOPHILS % (AUTO) 1.8 %; EOSINOPHILS # (AUTO) 0.2 10^3/uL (0.0-0.7); EOSINOPHILS % (AUTO) 5.2 %; HGB - HEMOGLOBIN 14.3 g/dL (12.0-16.0); LYMPHOCYTES # (AUTO) 1.2 10^3/uL (1.5-3.5); LYMPHOCYTES % (AUTO) 25.9 %; MEAN CORPUSCULAR HGB CONC 34.3 g/dL (32.0-36.0); MEAN CORPUSCULAR VOLUME 84.5 fL (81.0-99.0); MEAN PLATELET VOLUME 8.1 fL (7.9-10.8); MONOCYTES # (AUTO) 0.2 10^3/uL (0.0-1.0); MONOCYTES % (AUTO) 4.4 %; NEUTROPHILS # (AUTO) 2.8 10^3/uL (1.5-6.6); NEUTROPHILS % (AUTO) 62.7 %; PLT - PLATELET COUNT 176 10^3/uL (130-450); RED BLOOD COUNT 4.92 10^6/uL (4.20-5.40); RED CELL DISTRIBUTION WIDTH 14.2 % (12.0-15.0); WHITE BLOOD COUNT 4.5 x10^3/uL (4.8-10.8)
[2018-05-07 09:10] LABS: CLARITY,URINE SL. CLOUDY (CLEAR)
[2018-05-07 09:14] LABS: BACTERIA,URINE Many /HPF (None Seen); SQUAMOUS EPITHELIAL CELL,UR FEW Squamous (<= Few)
[2018-05-07 09:21] LABS: ALBUMIN 4.3 g/dL (3.2-5.5); ALBUMIN/GLOBULIN RATIO 1.6 (1.0-2.2); BILIRUBIN,TOTAL 0.4 mg/dL (0.2-1.0); CALCIUM 9.2 mg/dL (8.5-10.3); CREATININE 0.7 mg/dL (0.4-1.0)
[2018-05-07] MEDS ORDERED: IOVERSOL 320 100 ML VIAL IVP ONE ×3 (09:30→09:47)
[2018-05-07] MEDS ORDERED: MORPHINE 2 MG/ML CARPUJECT ONE (10:00)
[2018-05-07 10:06] VITALS: BP 116/80
--- NOTE | 2018-05-07 10:13 | CT Report ---
Reason: pain around stoma, n/v/d Procedure Date: 05/07/2018 Accession Number: [id number] / [id number] Procedure: CT - Abdomen/Pelvis W/ CPT Code: FULL RESULT: EXAM: CT ABDOMEN AND PELVIS EXAM DATE: 05/07/2018 09:43 AM. CLINICAL HISTORY: Pain around stoma, n/v/d. COMPARISONS: 03/12/2018 CT. TECHNIQUE: Routine helical CT imaging was performed through the abdomen and pelvis. IV contrast: OPTI 320 90 mL. Enteric contrast: No. Reconstructions: Coronal and sagittal. In accordance with CT protocol optimization, one or more of the following dose reduction techniques were utilized for this exam: automated exposure control, adjustment of mA and/or KV based on patient size, or use of iterative reconstructive technique. FINDINGS: Lung Bases: Unremarkable. Liver: Normal. No masses. Gallbladder/Bile Ducts: Gallbladder is mildly distended. No radiopaque stone, wall thickening or surrounding inflammatory change. Intrahepatic bile ducts are dilated, similar to prior study. Common bile duct is not grossly dilated. No radiopaque duct stone seen on CT. Spleen: Unremarkable Pancreas: Main pancreatic duct is visible but measures less than 3 mm diameter. Similar appearance previously. No mass, surrounding inflammatory change or abnormality of enhancement. Adrenal Glands: Unremarkable Kidneys: Normal size, contour and enhancement. Probable subcentimeter cysts bilaterally. No radiopaque stone or hydronephrosis. Ureters nondilated. Perinephric soft tissues unremarkable. Peritoneal Cavity/Bowel: No free fluid, free air or adenopathy. No masses or acute inflammatory process. Probable postop change from appendectomy. Appendix not seen. Pelvic Organs: Postop change from hysterectomy. Urinary bladder unremarkable. Phleboliths in the pelvis unchanged. No adnexal mass seen. Vasculature: No aneurysms or other significant abnormality. Bones: Postop change from instrumented lumbar fusion L4-L5-S1. No acute bone abnormality. Other: None. IMPRESSION: 1. No acute abdominal or pelvic abnormality seen. 2. Intrahepatic bile duct dilation and mild gallbladder distention similar to prior study. No gross extrahepatic bile duct dilation. No radiopaque gallstones/ duct stone. No gross inflammatory change seen on CT. 3. Examination otherwise as detailed above. RADIA
== END 2018-05-07 11:18 | disposition home or self-care (01) ==
LOC: ED 08:08
DX: R10.12 Left upper quadrant pain (principal); N30.00 Acute cystitis without hematuria; F50.9 Eating disorder, unspecified; F17.200 Nicotine dependence, unspecified, uncomplicated
CPT/HCPCS: 36415; 74177; 80053; 81001; 83690; 85025; 87086; 96361; 96374; 96375; 96376; 99283; Q9967; 81003

== ENCOUNTER 2018-06-13 14:31 | Emergency (ER) | payer OTHER ==
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
[2018-06-13] MEDS ORDERED: KETOROLAC 30 MG/ML VIAL IM STA (14:53)
[2018-06-13 14:59] LABS: BASOPHILS % (AUTO) 0.5 %; EOSINOPHILS # (AUTO) 0.1 10^3/uL (0.0-0.7); EOSINOPHILS % (AUTO) 1.6 %; HGB - HEMOGLOBIN 14.1 g/dL (12.0-16.0); LYMPHOCYTES # (AUTO) 1.6 10^3/uL (1.5-3.5); LYMPHOCYTES % (AUTO) 19.7 %; MEAN CORPUSCULAR HEMOGLOBIN 28.2 pg (27.0-31.0); MEAN CORPUSCULAR HGB CONC 33.7 g/dL (32.0-36.0); MEAN CORPUSCULAR VOLUME 83.9 fL (81.0-99.0); MEAN PLATELET VOLUME 7.5 fL (7.9-10.8); MONOCYTES # (AUTO) 0.2 10^3/uL (0.0-1.0); MONOCYTES % (AUTO) 2.6 %; NEUTROPHILS # (AUTO) 6.1 10^3/uL (1.5-6.6); NEUTROPHILS % (AUTO) 75.6 %; PLT - PLATELET COUNT 264 10^3/uL (130-450); RED BLOOD COUNT 4.99 10^6/uL (4.20-5.40); RED CELL DISTRIBUTION WIDTH 14.1 % (12.0-15.0); WHITE BLOOD COUNT 8.1 x10^3/uL (4.8-10.8)
[2018-06-13 15:08] LABS: ALBUMIN 4.2 g/dL (3.2-5.5); ALBUMIN/GLOBULIN RATIO 1.4 (1.0-2.2); BILIRUBIN,TOTAL 0.3 mg/dL (0.2-1.0); CALCIUM 9.1 mg/dL (8.5-10.3); CREATININE 0.6 mg/dL (0.4-1.0); TOTAL PROTEIN 7.1 g/dL (6.7-8.2)
[2018-06-13] MEDS ORDERED: MORPHINE 2 MG/ML CARPUJECT IM STA (15:36)
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
[2018-06-13 17:14] VITALS: BP 136/80
[2018-06-13 17:18] LABS: BILIRUBIN,URINE NEGATIVE (NEGATIVE); GLUCOSE, URINE (UA) NEGATIVE (NEGATIVE); KETONES,URINE (UA) NEGATIVE (NEGATIVE); LEUKOCYTE ESTERASE, URINE TRACE (NEGATIVE); NITRITE,URINE NEGATIVE (NEGATIVE); OCCULT BLOOD,URINE NEGATIVE (NEGATIVE); PROTEIN,URINE NEGATIVE (NEGATIVE); UROBILINOGEN,URINE 0.2 (NORMAL) E.U./dL (NORMAL)
[2018-06-13 17:20] LABS: CLARITY,URINE HAZY (CLEAR); HCG UR QUAL NEGATIVE
[2018-06-13 17:45] LABS: AMORPHOUS SEDIMENT,UR Marked /LPF; BACTERIA,URINE Few /HPF (None Seen); RBC,URINE None Seen /HPF (0-5); SQUAMOUS EPITHELIAL CELL,UR MANY Squamous (<= Few)
== END 2018-06-13 17:36 | disposition home or self-care (01) ==
LOC: EDUNIT# → ED 14:31
DX: S16.1XXA Strain of muscle, fascia and tendon at neck level, initial encounter (principal); V48.0XXA Car driver injured in noncollision transport accident in nontraffic accident, initial encounter; F17.200 Nicotine dependence, unspecified, uncomplicated
CPT/HCPCS: 36415; 70450; 72125; 80053; 81001; 81003; 81025; 83690; 85025; 87086; 96372; 99283

== ENCOUNTER 2018-07-04 20:14 | Outpatient (CLI) | payer OTHER | END 2018-07-04 20:15 | disposition EMS.NT | LOC: EMS 20:14 | PROVIDERS: ATTEND Surgery | DX: R00.0 Tachycardia, unspecified (principal) ==

== ENCOUNTER 2018-08-15 19:42 | Outpatient (CLI) | payer OTHER | END 2018-08-15 19:43 | disposition critical access hospital (66) | LOC: EMS 19:42 | PROVIDERS: ATTEND Surgery | DX: R07.9 Chest pain, unspecified (principal); F41.9 Anxiety disorder, unspecified | CPT/HCPCS: A0425; A0427 ==

== ENCOUNTER 2018-08-15 20:01 | Emergency (ER) | payer OTHER ==
[2018-08-15] MEDS ORDERED: LORazepam 2 MG/ML VIAL IVP STA ×3 (20:26→22:27)
[2018-08-15] MEDS ORDERED: KETOROLAC 30 MG/ML VIAL IVP STA ×2 (20:30→22:27)
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
--- NOTE | 2018-08-15 21:15 | XRAY Report ---
Reason: chest pain Procedure Date: 08/15/2018 Accession Number: [id number] / [id number] Procedure: XR - Chest 1 View X-Ray CPT Code: 39430 FULL RESULT: EXAM: CHEST RADIOGRAPHY EXAM DATE: 08/15/2018 08:38 PM. CLINICAL HISTORY: Chest pain. COMPARISON: CHEST 1 VIEW 06/12/2017 5:19 AM. TECHNIQUE: 1 view. FINDINGS: Cardiac leads overlie the chest. Heart size is normal. Calcified plaques in the thoracic aorta. Redemonstrated hyperexpanded and hyperlucent lungs with coarse interstitial markings and biapical scarring/fibrosis. No consolidation, pleural effusion, or pneumothorax. Rounded opacity in the lateral right lung base measuring 6 mm, which may represent a nipple shadow. Biphasic curvature of the thoracic spine. IMPRESSION: No acute cardiopulmonary findings. COPD. Possible nipple shadow projecting over the lateral right lung base. This could be confirmed with follow-up PA chest radiograph with nipple markers. RADIA
[2018-08-15] MEDS ORDERED: ACETAMINOPHEN 325 MG TABLET PO STA (22:18)
[2018-08-15 22:41] VITALS: BP 106/85
== END 2018-08-15 22:44 | disposition home or self-care (01) ==
LOC: EDUNIT# → ED 20:01
DX: R07.89 Other chest pain (principal); F17.200 Nicotine dependence, unspecified, uncomplicated
CPT/HCPCS: 36415; 71045; 84484; 93005; 96374; 96375; 96376; 99283; A9270; J2060

== ENCOUNTER 2018-08-28 14:55 | Emergency (ER) | payer OTHER ==
[2018-08-28 15:05] VITALS: BP 122/80
--- NOTE | 2018-08-28 15:37 | XRAY Report ---
Reason: injury Procedure Date: 08/28/2018 Accession Number: [id number] / [id number] Procedure: XR - Hand 3 View LT CPT Code: FULL RESULT: EXAM: LEFT HAND RADIOGRAPHY EXAM DATE: 08/28/2018 03:31 PM. CLINICAL HISTORY: Injury. COMPARISON: None. TECHNIQUE: 3 views. FINDINGS: Bones: Normal. No fractures or bone lesions. Joints: Normal. No subluxations. Soft Tissues: Soft tissue swelling is seen at the base of the thumb. IMPRESSION: No acute fracture or dislocation is detected. RADIA
[2018-08-28] MEDS ORDERED: traMADol 50 MG TABLET PO STA (15:50)
--- NOTE | 2018-08-28 15:50 | ED Physician Documentation ---
PD HPI UPPER EXT INJURY - Stated complaint Stated Complaint: LT HAND INJURY - Chief complaint Chief Complaint: Ext Problem - History obtained from History obtained from: Patient - History of Present Illness Location: Left, Other (hand, thenar emminence) Type of injury: Fall Where injury occurred: Home Timing - onset: How many days ago (2) Timing - duration: Days (2) Timing - details: Gradual onset Pain level max: 6 Pain level now: 4 Improved by: Rest, Ice, Immobilization Worsened by: Moving, Palpating Associated symptoms: No: Weakness, Numbness, Tingling, Swelling, Discolored Contributing factors: No: Anticoagulated, Prior ortho surgery, Prosthetic joint, Work related - Additonal information Additional information: pt is right handed, tripped and fell at home. 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 : Kidney stones, Other HEENT: None Psych: Eating disorder, Depression, Anxiety Musculoskeletal: Chronic back pain, Other Derm: Eczema - Past Surgical History Past Surgical History: Yes General: Appendectomy, Other Ortho: Spine surgery /CABLE TELEVISION ACCESS COORDINATOR: Hysterectomy, Oophrectomy HEENT: Other - Present Medications Home Medications: Ambulatory Orders Medication Instructions Recorded Confirmed Albuterol Sulf [Ventolin Hfa 1 - 2 puffs PO PRN PRN 06/12/17 06/12/17 Inhaler] Ipratropium/Albuterol [Duoneb] 3 ml INH Q6H #30 neb 06/12/17 Ibuprofen [Motrin] 800 mg PO Q8H PRN #30 tablet 06/30/17 Promethazine [Phenergan] 25 mg PO Q6H PRN #30 tab 03/12/18 traMADol [Ultram] 50 mg PO Q6H PRN #20 tablet 03/12/18 Cephalexin [Keflex] 500 mg PO TID #21 capsule 05/07/18 Promethazine [Phenergan] 25 mg PO Q8H PRN #9 tablet 05/07/18 traMADol [Ultram] 50 mg PO Q8H PRN #9 tablet 05/07/18 Hydrocodone/Acetaminophen 1 - 2 each PO Q6H PRN #14 tablet 06/13/18 [Hydrocodon-Acetaminophen 5-325] Ibuprofen [Motrin] 800 mg PO Q8H PRN #30 tablet 08/15/18 traMADol [Ultram] 50 mg PO Q4-6H PRN #14 tablet 08/28/18 - Allergies Allergies/Adverse Reactions: Allergies Allergy/AdvReac Type Severity Reaction Status Date / Time bee pollen Allergy Anaphylaxis Verified 06/13/18 14:40 gabapentin Allergy Itching Verified 06/13/18 14:39 oxycodone HCl * Allergy Itching Verified 08/28/18 15:05 [From Percocet] - Social History Does the pt smoke?: Yes Smoking Status: Current every day smoker Does the pt drink ETOH?: No Does the pt have substance abuse?: No - Immunizations Immunizations are current?: Yes - POLST Patient has POLST: No PD ED PE NORMAL - Vitals Vital signs reviewed: Yes - General General: Alert and oriented X 3 - HEENT HEENT: Moist mucous membranes - Derm Derm: Warm and dry - Extremities Extremities: Other (Left hand tender to palpation over the thenar eminence. Neurovascular intact. No scaphoid tenderness. No other tenderness on exam.) - Neuro Neuro: Alert and oriented X 3 Results - Vitals Vitals: Vital Signs - 24 hr 08/28/18 15:03 Temperature 37.1 C Heart Rate 113 H Respiratory 16 Rate Blood Pressure 122/80 O2 Saturation 96 Oxygen O2 Source Room air - Rads (name of study) Left hand x-ray Radiology: Prelim report reviewed, EMP read contemporaneously, See rad report (Normal) PD MEDICAL DECISION MAKING - ED course Complexity details: reviewed results, re-evaluated patient, considered differential, d/w patient ED course: 43-year-old right-handed female with a contusion versus sprain of the left thenar eminence. No acute findings on x-ray. Placed in a Velcro thumb spica for comfort and will follow up with her doctor. Patient counseled regarding signs and symptoms for which I believe and urgent re-evaluation would be necessary. Patient with good understanding of and agreement to plan and is comfortable going home at this time This document was made in part using voice recognition software. While efforts are made to proofread this document, sound alike and grammatical errors may occur. Departure - Departure Disposition: 01 Home, Self Care Clinical Impression: Sprain of hand, left Qualifiers: Encounter type: initial encounter Qualified Code(s): S63.92XA - Sprain of unspecified part of left wrist and hand, initial encounter Condition: Good Instructions: ED Sprain Hand Follow-Up: KENDELL PUGH DO [Primary Care Provider] - Within 1 week Prescriptions: traMADol [Ultram] 50 mg PO Q4-6H PRN #14 tablet PRN Reason: hand pain Comments: Wear the splint for the next week. Return if you worsen. Follow-up with your doctor for further evaluation and care. Do not drink alcohol or drive while on narcotic pain medicine. Note that many narcotic pain relievers also contain tylenol/acetaminophen. Please ensure that your total dose of acetaminophen from all sources does not exceed 3 grams (3000mg) per day. You may constipated on this medication, take a stool softener such as "Colace" twice a day while you are on it. Also recommend a cvfw-knn-vddzdva laxative such as senna or MiraLAX any day that you do not have a bowel movement. If you received narcotic pain medication in the emergency department, do not dr grover or operate machinery for the next 24 hours. Discharge Date/Time: 08/28/18 16:03
== END 2018-08-28 16:03 | disposition home or self-care (01) ==
LOC: ED 14:55
DX: S63.92XA Sprain of unspecified part of left wrist and hand, initial encounter (principal); W01.0XXA Fall on same level from slipping, tripping and stumbling without subsequent striking against object, initial encounter; Y92.009 Unspecified place in unspecified non-institutional (private) residence as the place of occurrence of the external cause; F17.200 Nicotine dependence, unspecified, uncomplicated
CPT/HCPCS: 73130; 99283; A9270

== ENCOUNTER 2018-09-18 15:06 | Emergency (ER) | payer OTHER ==
--- NOTE | 2018-09-18 15:48 | ED Physician Documentation ---
PD HPI CHEST PAIN - Stated complaint Stated Complaint: CHEST/ABD PX - Chief complaint Chief Complaint: General - History obtained from History obtained from: Patient - History of Present Illness Timing - onset: Today ([place]pherd warm and flushed while crouched down then syncopized x 15 secs. Witnessed, did not hit her head. Went home and took NSAIDs without relief of chest/buttock/back and abd pain. Stomach pain is chronic issue, but back/buttock pain is from the fall. 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 : Kidney stones, Other HEENT: None Psych: Eating disorder, Depression, Anxiety Musculoskeletal: Chronic back pain, Other Derm: Eczema - Past Surgical History Past Surgical History: Yes General: Appendectomy, Other Ortho: Spine surgery /GRAPHIC ART SALES REPRESENTATIVE: Hysterectomy, Oophrectomy HEENT: Other - Present Medications Home Medications: Ambulatory Orders Medication Instructions Recorded Confirmed Albuterol Sulf [Ventolin Hfa 1 - 2 puffs PO PRN PRN 06/12/17 06/12/17 Inhaler] Ipratropium/Albuterol [Duoneb] 3 ml INH Q6H #30 neb 06/12/17 Ibuprofen [Motrin] 800 mg PO Q8H PRN #30 tablet 06/30/17 Promethazine [Phenergan] 25 mg PO Q6H PRN #30 tab 03/12/18 traMADol [Ultram] 50 mg PO Q6H PRN #20 tablet 03/12/18 Cephalexin [Keflex] 500 mg PO TID #21 capsule 05/07/18 Promethazine [Phenergan] 25 mg PO Q8H PRN #9 tablet 05/07/18 traMADol [Ultram] 50 mg PO Q8H PRN #9 tablet 05/07/18 Hydrocodone/Acetaminophen 1 - 2 each PO Q6H PRN #14 tablet 06/13/18 [Hydrocodon-Acetaminophen 5-325] Ibuprofen [Motrin] 800 mg PO Q8H PRN #30 tablet 08/15/18 traMADol [Ultram] 50 mg PO Q4-6H PRN #14 tablet 08/28/18 Hydrocodone/Acetaminophen 1 - 2 each PO Q6H PRN #7 tablet 09/18/18 [Hydrocodon-Acetaminophen 5-325] - Allergies Allergies/Adverse Reactions: Allergies Allergy/AdvReac Type Severity Reaction Status Date / Time bee pollen Allergy Anaphylaxis Verified 09/18/18 15:17 gabapentin Allergy Itching Verified 09/18/18 15:17 oxycodone HCl * Allergy Itching Verified 09/18/18 15:17 [From Percocet] - Social History Does the pt smoke?: Yes Smoking Status: Current every day smoker Does the pt drink ETOH?: No Does the pt have substance abuse?: No - Family History Family history: reports: Non contributory - Immunizations Immunizations are current?: Yes - POLST Patient has POLST: No PD ED PE NORMAL - Vitals Vital signs reviewed: Yes - General General: Alert and oriented X 3, Other (anxious) - HEENT HEENT: PERRL, EOMI - Neck Neck: Supple, no meningeal sign, No bony TTP - Cardiac Cardiac: No murmur, Other (tachycardic, regular) - Respiratory Respiratory: No respiratory distress, Clear bilaterally - Abdomen Abdomen: Normal bowel sounds, Soft, Non tender - Back Back: Other (Mild TTP sacrum) - Derm Derm: Normal color, Warm and dry - Neuro Neuro: Alert and oriented X 3, Normal speech - Psych Psych: Normal mood, Normal affect Results - Vitals Vitals: Vital Signs - 24 hr 09/18/18 09/18/18 15:12 15:45 Temperature 37.7 C H Heart Rate 116 H 95 Respiratory 14 16 Rate Blood Pressure 140/95 H 136/84 H O2 Saturation 99 99 Oxygen O2 Source Room air - EKG (time done) 1524 Rate: Rate (enter#) (113) Rhythm: NSR, LAE, AYESHA Intervals: Normal MI QRS: Normal Ischemia: Normal ST segments Computer interpretation: Agree with computer - Labs Labs: Laboratory Tests 09/18/18 09/18/18 09/18/18 16:18 16:18 16:18 WBC 5.4 RBC 4.92 Hgb 13.7 Hct 41.7 MCV 84.8 MCH 27.9 MCHC 32.9 RDW 13.9 Plt Count 224 MPV 7.5 L Neut # (Auto) 2.9 Lymph # (Auto) 2.1 [place] # (Auto) 0.2 Eos # (Auto) 0.1 Baso # (Auto) 0.1 Absolute Nucleated RBC 0.00 Nucleated RBC % 0.0 Sodium 140 Potassium 3.7 Chloride 99 L Carbon Dioxide 32 Anion Gap 9.0 BUN 14 Creatinine 0.7 Estimated GFR (MDRD) 90 Glucose 77 Calcium 9.1 Troponin I < 0.04 - Rads (name of study) sacral XR Radiology: EMP read contemporaneously (NAD) PD MEDICAL DECISION MAKING - ED course ED course: 43-year-old woman presents with sacral contusion after syncopal episode which is explained after crouching over. Her work-up here is negative. She was provided pain and anxiety medicines, she had plenty of both pain and anxiety. Departure - Departure Disposition: Home, Self Care Clinical Impression: Stress reaction Syncopal episodes Qualifiers: Syncope type: vasovagal syncope Qualified Code(s): R55 - Syncope and collapse Sacral contusion Qualifiers: Encounter type: initial encounter Qualified Code(s): S30.0XXA - Contusion of lower back and pelvis, initial encounter Condition: Good Record reviewed to determine appropriate education?: Yes Instructions: ED Low Back Pain Injury, ED Syncope Vasovagal Prescriptions: Hydrocodone/Acetaminophen [Hydrocodon-Acetaminophen 5-325] 1 - 2 each PO Q6H PRN #7 tablet PRN Reason: pain Comments: Call your doctor to arrange a follow-up appointment, make the next available appointment. In the interim, return anytime if worse or if new symptoms develop.
[2018-09-18] MEDS ORDERED: LORazepam 2 MG/ML VIAL IVP STA (15:52)
[2018-09-18] MEDS ORDERED: SODIUM CHLORIDE 0.9% 1,000 ML IV ONE (15:58)
[2018-09-18 16:32] LABS: BASOPHILS # (AUTO) 0.1 10^3/uL (0.0-0.1); BASOPHILS % (AUTO) 1.3 %; EOSINOPHILS # (AUTO) 0.1 10^3/uL (0.0-0.7); EOSINOPHILS % (AUTO) 2.4 %; HGB - HEMOGLOBIN 13.7 g/dL (12.0-16.0); LYMPHOCYTES # (AUTO) 2.1 10^3/uL (1.5-3.5); LYMPHOCYTES % (AUTO) 38.5 %; MEAN CORPUSCULAR HEMOGLOBIN 27.9 pg (27.0-31.0); MEAN CORPUSCULAR HGB CONC 32.9 g/dL (32.0-36.0); MEAN CORPUSCULAR VOLUME 84.8 fL (81.0-99.0); MEAN PLATELET VOLUME 7.5 fL (7.9-10.8); MONOCYTES # (AUTO) 0.2 10^3/uL (0.0-1.0); MONOCYTES % (AUTO) 3.9 %; NEUTROPHILS # (AUTO) 2.9 10^3/uL (1.5-6.6); NEUTROPHILS % (AUTO) 53.9 %; PLT - PLATELET COUNT 224 10^3/uL (130-450); RED BLOOD COUNT 4.92 10^6/uL (4.20-5.40); RED CELL DISTRIBUTION WIDTH 13.9 % (12.0-15.0); WHITE BLOOD COUNT 5.4 x10^3/uL (4.8-10.8)
[2018-09-18 16:33] LABS: CALCIUM 9.1 mg/dL (8.5-10.3); CREATININE 0.7 mg/dL (0.4-1.0)
--- NOTE | 2018-09-18 16:36 | XRAY Report ---
Reason: rear end inj Procedure Date: 09/18/2018 Accession Number: [id number] / [id number] Procedure: XR - Sacrum/Coccyx CPT Code: FULL RESULT: EXAM:SACRUM AND COCCYX RADIOGRAPHY EXAM DATE: 09/18/2018 04:09 PM. HISTORY: Rear end inj. COMPARISONS: None. TECHNIQUE: 2 views. FINDINGS: Alignment: Normal. The sacrum and coccyx are normally aligned. Bones: Spinal hardware is seen from L3-S1 levels, well positioned. Normal. No fracture or bone lesion. Joints: Normal. The sacroiliac joints and visualized hips are within normal limits. Soft Tissues: Unremarkable. IMPRESSION: No acute displaced fracture or malalignment. RADIA
[2018-09-18] MEDS ORDERED: MORPHINE 2 MG/ML SYRINGE IVP STA (16:47)
[2018-09-18 17:15] VITALS: BP 129/85
== END 2018-09-18 17:21 | disposition home or self-care (01) ==
LOC: ED 15:06
DX: R55 Syncope and collapse (principal); S30.0XXA Contusion of lower back and pelvis, initial encounter; W18.30XA Fall on same level, unspecified, initial encounter; F43.9 Reaction to severe stress, unspecified; F41.9 Anxiety disorder, unspecified; J44.9 Chronic obstructive pulmonary disease, unspecified; F17.200 Nicotine dependence, unspecified, uncomplicated
CPT/HCPCS: 36415; 72220; 80048; 84484; 85025; 93005; 96374; 96375; 99283; J2060; J2270

== ENCOUNTER 2018-10-15 08:23 | Emergency (ER) | payer OTHER ==
[2018-10-15] MEDS ORDERED: ONDANSETRON 4 MG/2 ML VIAL IVP STA (08:42)
[2018-10-15] MEDS ORDERED: SODIUM CHLORIDE 0.9% 1,000 ML IV ONE (08:42)
[2018-10-15] MEDS ORDERED: cefTRIAXone 1 GM in SODIUM CHLORIDE 0.9% MINIBAG 100 ML IV STA (08:42)
[2018-10-15] MEDS ORDERED: KETOROLAC 30 MG/ML VIAL IVP STA (08:42)
[2018-10-15 08:45] LABS: KETONES,URINE (UA) NEGATIVE (NEGATIVE); OCCULT BLOOD,URINE NEGATIVE (NEGATIVE)
[2018-10-15 08:47] LABS: BILIRUBIN,URINE NEGATIVE (NEGATIVE); CLARITY,URINE CLEAR (CLEAR); ICTOTEST,URINE NEGATIVE
--- NOTE | 2018-10-15 08:47 | ED Physician Documentation ---
PD HPI FEMALE - Stated complaint Stated Complaint: UTI - Chief complaint Chief Complaint: UTI - History obtained from History obtained from: Patient, Family - History of Present Illness Timing - onset: How many days ago (5) Timing - duration: Days (5) Timing - details: Gradual onset, Still present Associated symptoms: Fever, Pelvic pain, Dysuria, Urinary frequency Similar symptoms before: Diagnosis (UTI) Recently seen: Emergency Dept - Additional information Additional information: 43-year-old female with a history of anorexia and urinary tract infection has developed symptoms with urinary urgency frequency dysuria fever flank pain nausea and vomiting for the past 5 days. She has not had improvement. She is now come into the emergency department for treatment. She has been taking some Azo. She has not had relief of her pain with tramadol. Review of Systems Constitutional: reports: Fever, Chills, Myalgias, Fatigue Eyes: denies: Decreased vision Ears: denies: Ear pain Nose: denies: Rhinorrhea / runny nose, Congestion Throat: denies: Sore throat Cardiac: denies: Chest pain / pressure, Palpitations Respiratory: denies: Dyspnea, Cough GI: reports: Abdominal Pain, Nausea, Vomiting : reports: Dysuria, Frequency Skin: denies: Rash Musculoskeletal: reports: Back pain. 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 : Kidney stones, Other HEENT: None Psych: Eating disorder, Depression, Anxiety Musculoskeletal: Chronic back pain, Other Derm: Eczema - Past Surgical History Past Surgical History: Yes General: Appendectomy, Other Ortho: Spine surgery /WEB MARKETING ASSISTANT: Hysterectomy, Oophrectomy HEENT: Other - Present Medications Home Medications: Ambulatory Orders Medication Instructions Recorded Confirmed Albuterol Sulf [Ventolin Hfa 1 - 2 puffs PO PRN PRN 06/12/17 06/12/17 Inhaler] Ipratropium/Albuterol [Duoneb] 3 ml INH Q6H #30 neb 06/12/17 Ibuprofen [Motrin] 800 mg PO Q8H PRN #30 tablet 06/30/17 Promethazine [Phenergan] 25 mg PO Q6H PRN #30 tab 03/12/18 traMADol [Ultram] 50 mg PO Q6H PRN #20 tablet 03/12/18 Cephalexin [Keflex] 500 mg PO TID #21 capsule 05/07/18 Promethazine [Phenergan] 25 mg PO Q8H PRN #9 tablet 05/07/18 traMADol [Ultram] 50 mg PO Q8H PRN #9 tablet 05/07/18 Hydrocodone/Acetaminophen 1 - 2 each PO Q6H PRN #14 tablet 06/13/18 [Hydrocodon-Acetaminophen 5-325] Ibuprofen [Motrin] 800 mg PO Q8H PRN #30 tablet 08/15/18 traMADol [Ultram] 50 mg PO Q4-6H PRN #14 tablet 08/28/18 Hydrocodone/Acetaminophen 1 - 2 each PO Q6H PRN #7 tablet 09/18/18 [Hydrocodon-Acetaminophen 5-325] Amox/Clav 875/125 [Augmentin] 1 each PO Q12H #14 tablet 10/15/18 Hydrocodone/Acetaminophen 1 - 2 each PO Q6H PRN #14 tablet 10/15/18 [Hydrocodon-Acetaminophen 5-325] Ondansetron Odt [Zofran] 4 mg TL Q6H PRN #10 tablet 10/15/18 - Allergies Allergies/Adverse Reactions: Allergies Allergy/AdvReac Type Severity Reaction Status Date / Time bee pollen Allergy Anaphylaxis Verified 10/15/18 08:37 gabapentin Allergy Itching Verified 10/15/18 08:37 oxycodone HCl * Allergy Itching Verified 10/15/18 08:37 [From Percocet] - Social History Does the pt smoke?: Yes Smoking Status: Current every day smoker Does the pt drink ETOH?: No Does the pt have substance abuse?: No - Immunizations Immunizations are current?: Yes - POLST Patient has POLST: No PD ED PE NORMAL - Vitals Vital signs reviewed: Yes (hypertensive) - General General: Alert and oriented X 3, Well developed/nourished, Other (Thin female appears dry and is rocking back and forth in pain ) - HEENT HEENT: Atraumatic, PERRL, EOMI - Neck Neck: Supple, no meningeal sign - Cardiac Cardiac: RRR, No murmur - Respiratory Respiratory: No respiratory distress, Clear bilaterally - Abdomen Abdomen: Soft, Other (RUQ tenderness to bimanual palpation of the right kidney. The left is much less tender. ) - Back Back: No spinal TTP, Other (R>L CVA tenderness) - Derm Derm: Normal color, Warm and dry, No rash - Extremities Extremities: No deformity, No edema - Neuro Neuro: Alert and oriented X 3, benefit authorizer 2-12 intact, No motor deficit, No sensory deficit, Normal speech Eye Opening: Spontaneous Motor: Obeys Commands Verbal: Oriented GCS Score: 15 - Psych Psych: Normal mood, Normal affect Results - Vitals Vitals: Vital Signs - 24 hr 10/15/18 10/15/18 10/15/18 08:33 09:54 10:22 Temperature 36.9 C Heart Rate 83 71 73 Respiratory 16 13 13 Rate Blood Pressure 122/88 H 110/65 126/81 H O2 Saturation 100 100 100 10/15/18 10:26 Temperature Heart Rate 79 Respiratory 12 Rate Blood Pressure 134/92 H O2 Saturation 100 Oxygen O2 Source Room air - Labs Labs: Laboratory Tests 10/15/18 10/15/18 10/15/18 08:38 08:55 08:55 WBC 6.2 RBC 4.82 Hgb 13.4 Hct 40.9 MCV 84.9 MCH 27.7 MCHC 32.6 RDW 13.7 Plt Count 177 MPV 7.2 L Neut # (Auto) 4.1 Lymph # (Auto) 1.6 [place] # (Auto) 0.2 Eos # (Auto) 0.2 Baso # (Auto) 0.1 Absolute Nucleated RBC 0.00 Nucleated RBC % 0.0 Sodium 141 Potassium 3.4 L Chloride 104 Carbon Dioxide 27 Anion Gap 10.0 BUN 16 Creatinine 0.7 Estimated GFR (MDRD) 90 Glucose 108 H Calcium 9.3 Total Bilirubin 0.7 AST 18 ALT 13 Alkaline Phosphatase 69 Total Protein 6.6 L Albumin 4.3 Globulin 2.3 Albumin/Globulin Ratio 1.9 Lipase 38 Urine Color ORANGE Urine Clarity CLEAR Urine pH Ur Specific [place] Urine Protein Urine Glucose (UA) Urine Ketones NEGATIVE Urine Occult Blood NEGATIVE Urine Nitrite Urine Bilirubin NEGATIVE Urine Urobilinogen Ur Leukocyte Esterase Urine RBC 0-5 Urine WBC 6-10 H Ur Squamous Epith Cells RARE Squamous Urine Bacteria Rare Ur Microscopic Review INDICATED Urine Culture Comments INDICATED PD MEDICAL DECISION MAKING - ED course Complexity details: reviewed old records, reviewed results, re-evaluated patient, considered differential, d/w patient, d/w family ED course: 43-year-old female with a history of anorexia has developed fever urinary symptoms back pain and vomiting and she is administered saline and Rocephin as well as Toradol and Zofran here in the emergency department. Departure - Departure Disposition: 01 Home, Self Care Clinical Impression: Pyelonephritis Condition: Stable Instructions: ED Kidney Infec Female Follow-Up: KENDELL PUGH DO [Primary Care Provider] - Prescriptions: Amox/Clav 875/125 [Augmentin] 1 each PO Q12H #14 tablet Hydrocodone/Acetaminophen [Hydrocodon-Acetaminophen 5-325] 1 - 2 each PO Q6H PRN #14 tablet PRN Reason: pain Ondansetron Odt [Zofran] 4 mg TL Q6H PRN #10 tablet PRN Reason: Nausea / Vomiting
[2018-10-15 08:54] LABS: BACTERIA,URINE Rare /HPF (None Seen); RBC,URINE 0-5 /HPF (0-5); SQUAMOUS EPITHELIAL CELL,UR RARE Squamous (<= Few)
[2018-10-15 09:01] LABS: BASOPHILS # (AUTO) 0.1 10^3/uL (0.0-0.1); EOSINOPHILS # (AUTO) 0.2 10^3/uL (0.0-0.7); EOSINOPHILS % (AUTO) 3.5 %; HGB - HEMOGLOBIN 13.4 g/dL (12.0-16.0); LYMPHOCYTES # (AUTO) 1.6 10^3/uL (1.5-3.5); LYMPHOCYTES % (AUTO) 25.7 %; MEAN CORPUSCULAR HEMOGLOBIN 27.7 pg (27.0-31.0); MEAN CORPUSCULAR HGB CONC 32.6 g/dL (32.0-36.0); MEAN CORPUSCULAR VOLUME 84.9 fL (81.0-99.0); MEAN PLATELET VOLUME 7.2 fL (7.9-10.8); MONOCYTES # (AUTO) 0.2 10^3/uL (0.0-1.0); NEUTROPHILS # (AUTO) 4.1 10^3/uL (1.5-6.6); NEUTROPHILS % (AUTO) 66.8 %; PLT - PLATELET COUNT 177 10^3/uL (130-450); RED BLOOD COUNT 4.82 10^6/uL (4.20-5.40); RED CELL DISTRIBUTION WIDTH 13.7 % (12.0-15.0); WHITE BLOOD COUNT 6.2 x10^3/uL (4.8-10.8)
[2018-10-15 09:15] LABS: ALBUMIN 4.3 g/dL (3.2-5.5); ALBUMIN/GLOBULIN RATIO 1.9 (1.0-2.2); BILIRUBIN,TOTAL 0.7 mg/dL (0.2-1.0); CALCIUM 9.3 mg/dL (8.5-10.3); CREATININE 0.7 mg/dL (0.4-1.0); TOTAL PROTEIN 6.6 g/dL (6.7-8.2)
[2018-10-15] MEDS ORDERED: POTASSIUM CHLORIDE 20 MEQ TABLET PO STA (09:33)
[2018-10-15] MEDS ORDERED: HYDROmorphone 1 MG/ML CARPUJECT IVP STA (09:48)
[2018-10-15 10:28] VITALS: BP 134/92
== END 2018-10-15 10:48 | disposition home or self-care (01) ==
LOC: ED 08:23
DX: N12 Tubulo-interstitial nephritis, not specified as acute or chronic (principal); R11.2 Nausea with vomiting, unspecified; F17.200 Nicotine dependence, unspecified, uncomplicated
CPT/HCPCS: 36415; 80053; 81001; 83690; 85025; 87086; 96365; 96375; 99284; A9270; J1170; 81003

== ENCOUNTER 2018-10-30 17:16 | Emergency (ER) | payer OTHER ==
[2018-10-30] MEDS ORDERED: ONDANSETRON 4 MG/2 ML VIAL IVP STA (17:34)
[2018-10-30] MEDS ORDERED: SODIUM CHLORIDE 0.9% 1,000 ML IV STA (17:34)
[2018-10-30 17:40] LABS: GLUCOSE, URINE (UA) NEGATIVE (NEGATIVE); KETONES,URINE (UA) 15 mg/dL (NEGATIVE); LEUKOCYTE ESTERASE, URINE MODERATE (NEGATIVE); NITRITE,URINE NEGATIVE (NEGATIVE); OCCULT BLOOD,URINE TRACE-LYSE (NEGATIVE); PH,URINE 5.5 PH (5.0-7.5); PROTEIN,URINE NEGATIVE (NEGATIVE); UROBILINOGEN,URINE 0.2 (NORMAL) E.U./dL (NORMAL)
[2018-10-30 17:44] LABS: HCG UR QUAL NEGATIVE
[2018-10-30 17:50] LABS: BILIRUBIN,URINE NEGATIVE (NEGATIVE); CLARITY,URINE HAZY (CLEAR); ICTOTEST,URINE NEGATIVE
[2018-10-30] MEDS ORDERED: PROMETHAZINE INJ 25 MG in SODIUM CHLORIDE 0.9% 50 ML IV STA (17:51)
[2018-10-30] MEDS ORDERED: MORPHINE 2 MG/ML CARPUJECT IVP STA ×2 (17:51→18:42)
[2018-10-30] MEDS ORDERED: SODIUM CHLORIDE 0.9% 1,000 ML IV ONE (17:51)
[2018-10-30] MEDS ORDERED: HYOSCYAMINE SL 0.125 MG TABLET SL STA (17:52)
[2018-10-30 17:54] LABS: RBC,URINE 0-5 /HPF (0-5); SQUAMOUS EPITHELIAL CELL,UR MOD Squamous (<= Few)
[2018-10-30 17:55] LABS: BACTERIA,URINE Few /HPF (None Seen); MUCUS,URINE Few Strands
[2018-10-30 17:59] LABS: BASOPHILS # (AUTO) 0.1 10^3/uL (0.0-0.1); EOSINOPHILS # (AUTO) 0.2 10^3/uL (0.0-0.7); EOSINOPHILS % (AUTO) 2.8 %; HGB - HEMOGLOBIN 14.7 g/dL (12.0-16.0); LYMPHOCYTES # (AUTO) 1.8 10^3/uL (1.5-3.5); LYMPHOCYTES % (AUTO) 29.3 %; MEAN CORPUSCULAR HEMOGLOBIN 27.1 pg (27.0-31.0); MEAN CORPUSCULAR HGB CONC 31.1 g/dL (32.0-36.0); MEAN CORPUSCULAR VOLUME 87.3 fL (81.0-99.0); MEAN PLATELET VOLUME 9.7 fL (7.9-10.8); MONOCYTES # (AUTO) 0.2 10^3/uL (0.0-1.0); MONOCYTES % (AUTO) 3.6 %; NEUTROPHILS # (AUTO) 3.9 10^3/uL (1.5-6.6); PLT - PLATELET COUNT 237 10^3/uL (130-450); RED BLOOD COUNT 5.42 10^6/uL (4.20-5.40); RED CELL DISTRIBUTION WIDTH 13.3 % (12.0-15.0); WHITE BLOOD COUNT 6.2 x10^3/uL (4.8-10.8)
[2018-10-30 18:11] LABS: ALBUMIN 4.5 g/dL (3.2-5.5); ALBUMIN/GLOBULIN RATIO 1.6 (1.0-2.2); BILIRUBIN,TOTAL 0.8 mg/dL (0.2-1.0); CALCIUM 9.6 mg/dL (8.5-10.3); CREATININE 0.7 mg/dL (0.4-1.0); TOTAL PROTEIN 7.3 g/dL (6.7-8.2)
--- NOTE | 2018-10-30 18:11 | ED Physician Documentation ---
History of Present Illness - Stated complaint Stated Complaint: AB PX/VOMITING/BACK PX - Chief complaint Chief Complaint: General - History obtained from History obtained from: Patient - History of Present Illness Timing: How many days ago (3) Pain level max: 9 Pain level now: 8 - Additonal information Additional information: 43-year-old female presents to the emergency department diffuse abdominal pain for the past 2 to 3 days. States she has been taking Phenergan today but is continuing to vomit. Also having pain in her stomach and back. Had a EGD several days ago and states that she had gastritis. No fevers. No diarrhea. No constipation. 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 : Kidney stones, Other HEENT: None Psych: Eating disorder, Depression, Anxiety Musculoskeletal: Chronic back pain, Other Derm: Eczema - Past Surgical History Past Surgical History: Yes General: Appendectomy, Other Ortho: Spine surgery /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: Hysterectomy, Oophrectomy HEENT: Other - Present Medications Home Medications: Ambulatory Orders Medication Instructions Recorded Confirmed Albuterol Sulf [Ventolin Hfa 1 - 2 puffs PO PRN PRN 18 06/12/17 Inhaler] Ipratropium/Albuterol [Duoneb] 3 ml INH Q6H #30 neb 06/12/17 Ibuprofen [Motrin] 800 mg PO Q8H PRN #30 tablet 06/30/17 Promethazine [Phenergan] 25 mg PO Q6H PRN #30 tab 03/12/18 traMADol [Ultram] 50 mg PO Q6H PRN #20 tablet 03/12/18 Cephalexin [Keflex] 500 mg PO TID #21 capsule 05/07/18 Promethazine [Phenergan] 25 mg PO Q8H PRN #9 tablet 05/07/18 traMADol [Ultram] 50 mg PO Q8H PRN #9 tablet 05/07/18 Hydrocodone/Acetaminophen 1 - 2 each PO Q6H PRN #14 tablet 06/13/18 [Hydrocodon-Acetaminophen 5-325] Ibuprofen [Motrin] 800 mg PO Q8H PRN #30 tablet 08/15/18 traMADol [Ultram] 50 mg PO Q4-6H PRN #14 tablet 08/28/18 Hydrocodone/Acetaminophen 1 - 2 each PO Q6H PRN #7 tablet 09/18/18 [Hydrocodon-Acetaminophen 5-325] Amox/Clav 875/125 [Augmentin] 1 each PO Q12H #14 tablet 10/15/18 Hydrocodone/Acetaminophen 1 - 2 each PO Q6H PRN #14 tablet 10/15/18 [Hydrocodon-Acetaminophen 5-325] Ondansetron Odt [Zofran] 4 mg TL Q6H PRN #10 tablet 10/15/18 Cefdinir 300 mg PO BID #20 capsule 10/30/18 Famotidine [Pepcid] 20 mg PO BID #60 tablet 10/30/18 Hydrocodone/Acetaminophen 1 - 2 each PO Q6H PRN #14 tablet 10/30/18 [Hydrocodon-Acetaminophen 5-325] Sucralfate [Carafate] 1 gm PO ACHS #60 tablet 10/30/18 - Allergies Allergies/Adverse Reactions: Allergies Allergy/AdvReac Type Severity Reaction Status Date / Time bee pollen Allergy Anaphylaxis Verified 10/30/18 17:26 gabapentin Allergy Itching Verified 10/30/18 17:26 oxycodone HCl * Allergy Itching Verified 10/30/18 17:26 [From Percocet] - Social History Does the pt smoke?: Yes Smoking Status: Current every day smoker Does the pt drink ETOH?: No Does the pt have substance abuse?: No - Immunizations Immunizations are current?: Yes - POLST Patient has POLST: No PD ED PE NORMAL - Vitals Vital signs reviewed: Yes - General General: Alert and oriented X 3, No acute distress, Well developed/nourished - HEENT HEENT: PERRL, Moist mucous membranes - Neck Neck: Supple, no meningeal sign - Cardiac Cardiac: RRR, Strong equal pulses - Respiratory Respiratory: No respiratory distress, Clear bilaterally - Abdomen Abdomen: Soft, Non distended, Other (mild diffuse TTP) - Back Back: No spinal TTP, Other (mild R CVAT) - Derm Derm: Warm and dry - Extremities Extremities: No edema - Neuro Neuro: Alert and oriented X 3 - Psych Psych: Normal mood, Normal affect Results - Vitals Vitals: Vital Signs - 24 hr 10/30/18 10/30/18 10/30/18 17:21 18:47 20:14 Temperature 36.9 C 36.6 C Heart Rate 108 H 66 77 Respiratory 14 18 14 Rate Blood Pressure 125/84 H 113/81 H 113/78 O2 Saturation 100 100 99 Oxygen O2 Source Room air - Labs Labs: Laboratory Tests 10/30/18 10/30/18 10/30/18 17:30 17:30 17:45 WBC 6.2 RBC 5.42 H Hgb 14.7 Hct 47.3 H MCV 87.3 MCH 27.1 MCHC 31.1 L RDW 13.3 Plt Count 237 MPV 9.7 Neut # (Auto) 3.9 Lymph # (Auto) 1.8 [place] # (Auto) 0.2 Eos # (Auto) 0.2 Baso # (Auto) 0.1 Absolute Nucleated RBC 0.00 Nucleated RBC % 0.0 Sodium Potassium Chloride Carbon Dioxide Anion Gap BUN Creatinine Estimated GFR (MDRD) Glucose Calcium Total Bilirubin AST ALT Alkaline Phosphatase Total Protein Albumin Globulin Albumin/Globulin Ratio Lipase Urine Color YELLOW Urine Clarity HAZY Urine pH 5.5 Ur Specific [place] >=1.030 H >=1.030 H Urine Protein NEGATIVE Urine Glucose (UA) NEGATIVE Urine Ketones 15 H Urine Occult Blood TRACE-LYSE Urine Nitrite NEGATIVE Urine Bilirubin NEGATIVE Urine Urobilinogen 0.2 (NORMAL) Ur Leukocyte Esterase MODERATE H Urine RBC 0-5 Urine WBC >25 H Ur Squamous Epith Cells MOD Squamous H Urine Bacteria Few Urine Mucus Few Strands Ur Microscopic Review INDICATED Urine Culture Comments NOT INDICATED Urine HCG, Qual NEGATIVE 10/30/18 17:45 WBC RBC Hgb Hct MCV MCH MCHC RDW Plt Count MPV Neut # (Auto) Lymph # (Auto) [place] # (Auto) Eos # (Auto) Baso # (Auto) Absolute Nucleated RBC Nucleated RBC % Sodium 142 Potassium 4.0 Chloride 105 Carbon Dioxide 25 Anion Gap 12.0 BUN 15 Creatinine 0.7 Estimated GFR (MDRD) 90 Glucose 90 Calcium 9.6 Total Bilirubin 0.8 AST 20 ALT 13 Alkaline Phosphatase 87 Total Protein 7.3 Albumin 4.5 Globulin 2.8 Albumin/Globulin Ratio 1.6 Lipase 25 Urine Color Urine Clarity Urine pH Ur Specific [place] Urine Protein Urine Glucose (UA) Urine Ketones Urine Occult Blood Urine Nitrite Urine Bilirubin Urine Urobilinogen Ur Leukocyte Esterase Urine RBC Urine WBC Ur Squamous Epith Cells Urine Bacteria Urine Mucus Ur Microscopic Review Urine Culture Comments Urine HCG, Qual PD MEDICAL DECISION MAKING - ED course Complexity details: reviewed results, re-evaluated patient, considered differential, d/w patient, d/w family ED course: 43-year-old female with what appears to be a pyelonephritis. Given IV antibiotics. Pain well controlled. Also appears to have gastritis, as confirmed by her recent EGD. We will add Carafate and Pepcid for home. She is well-appearing, nontoxic. Afebrile. Tolerating p.o. without difficulty here. Pain well controlled. Patient counseled regarding signs and symptoms for which I believe and urgent re-evaluation would be necessary. Patient with good understanding of and agreement to plan and is comfortable going home at this time This document was made in part using voice recognition software. While efforts are made to proofread this document, sound alike and grammatical errors may occur. Departure - Departure Disposition: Home, Self Care Clinical Impression: Pyelonephritis Vomiting Qualifiers: Vomiting type: unspecified Vomiting Intractability: non-intractable Nausea presence: with nausea Qualified Code(s): R11.2 - Nausea with vomiting, unspecified Gastritis Qualifiers: Gastritis type: unspecified gastritis Chronicity: acute Gastritis bleeding: without bleeding Qualified Code(s): K29.00 - Acute gastritis without bleeding Condition: Good Instructions: ED Kidney Infec Female, ED PUD Vs Gastritis Follow-Up: KENDELL PUGH DO [Primary Care Provider] - Within 1 week Prescriptions: Cefdinir 300 mg PO BID #20 capsule Famotidine [Pepcid] 20 mg PO BID #60 tablet Hydrocodone/Acetaminophen [Hydrocodon-Acetaminophen 5-325] 1 - 2 each PO Q6H PRN #14 tablet PRN Reason: pain Sucralfate [Carafate] 1 gm PO ACHS #60 tablet Comments: Return if you worsen. Use the medications as prescribed. Drink plenty of water. Do not drink alcohol or drive while on narcotic pain medicine. Note that many narcotic pain relievers also contain tylenol/acetaminophen. Please ensure that your total dose of acetaminophen from all sources does not exceed 3 grams (3000mg) per day. You may constipated on this medication, take a stool softener such as "Colace" twice a day while you are on it. Also recommend a [id number] laxative such as senna or MiraLAX any day that you do not have a bowel movement. If you received narcotic pain medication in the emergency department, do not drive or operate machinery for the next 24 hours. Discharge Date/Time: 10/30/18 20:51
[2018-10-30] MEDS ORDERED: cefTRIAXone 1 GM VIAL IVP STA (18:39)
[2018-10-30] MEDS ORDERED: PHENobarb/HYOSCY/ATROPINE/SCOP 5 ML SYRINGE PO STA (19:12)
[2018-10-30] MEDS ORDERED: MAG HYDROX/AL HYDROX/SIMETH 30 ML UDC PO STA (19:12)
[2018-10-30] MEDS ORDERED: SUCRALFATE 1 GM/10 ML UDC PO STA (19:12)
[2018-10-30 20:15] VITALS: BP 113/78
[2018-10-30] MEDS ORDERED: HYDROcod/ACETAM 5/325 MG TABLET PO STA (20:23)
[2018-10-30] MEDS ORDERED: HYDROmorphone 1 MG/ML CARPUJECT IVP STA (20:23)
== END 2018-10-30 20:51 | disposition home or self-care (01) ==
LOC: ED 17:16
DX: N12 Tubulo-interstitial nephritis, not specified as acute or chronic (principal); K29.00 Acute gastritis without bleeding; F17.200 Nicotine dependence, unspecified, uncomplicated
CPT/HCPCS: 36415; 80053; 81001; 81025; 83690; 85025; 96361; 96365; 96375; 96376; 99284; A9270; J1170; J7040; 81003; 87086

== ENCOUNTER 2018-11-01 15:33 | Emergency (ER) | payer OTHER ==
[2018-11-01] MEDS ORDERED: HYDROmorphone 1 MG/ML CARPUJECT IVP STA (16:26)
[2018-11-01] MEDS ORDERED: ONDANSETRON 4 MG/2 ML VIAL IVP STA (16:26)
[2018-11-01 16:59] LABS: BASOPHILS # (AUTO) 0.1 10^3/uL (0.0-0.1); BASOPHILS % (AUTO) 0.9 %; EOSINOPHILS # (AUTO) 0.2 10^3/uL (0.0-0.7); HGB - HEMOGLOBIN 13.2 g/dL (12.0-16.0); LYMPHOCYTES # (AUTO) 1.8 10^3/uL (1.5-3.5); LYMPHOCYTES % (AUTO) 33.3 %; MEAN CORPUSCULAR HGB CONC 30.8 g/dL (32.0-36.0); MEAN CORPUSCULAR VOLUME 87.7 fL (81.0-99.0); MEAN PLATELET VOLUME 9.6 fL (7.9-10.8); MONOCYTES # (AUTO) 0.2 10^3/uL (0.0-1.0); MONOCYTES % (AUTO) 4.1 %; NEUTROPHILS # (AUTO) 3.1 10^3/uL (1.5-6.6); NEUTROPHILS % (AUTO) 58.3 %; PLT - PLATELET COUNT 197 10^3/uL (130-450); RED BLOOD COUNT 4.88 10^6/uL (4.20-5.40); RED CELL DISTRIBUTION WIDTH 13.4 % (12.0-15.0); WHITE BLOOD COUNT 5.4 x10^3/uL (4.8-10.8)
[2018-11-01] MEDS ORDERED: PANTOPRAZOLE 40 MG VIAL IVP STA (17:02)
[2018-11-01] MEDS ORDERED: FAMOTIDINE 20 MG/2 ML VIAL IVP STA (17:02)
[2018-11-01] MEDS ORDERED: SUCRALFATE 1 GM/10 ML UDC PO STA (17:02)
[2018-11-01] MEDS ORDERED: cefTRIAXone 1 GM VIAL IVP STA (17:02)
--- NOTE | 2018-11-01 17:02 | ED Physician Documentation ---
History of Present Illness - Stated complaint Stated Complaint: N/V/D ABD PX - Chief complaint Chief Complaint: Abd Pain - History obtained from History obtained from: Patient, Family - History of Present Illness Timing: How many days ago (several) Pain level max: 9 Pain level now: 9 - Additonal information Additional information: 43-year-old female recently diagnosed with pyelonephritis and gastritis. States began having vomiting again today. Unable to keep her medications down. No fevers. Worse with eating. Nothing makes it better. Had a recent EGD showing the gastritis Review of Systems Constitutional: denies: Fever, Chills Cardiac: denies: Chest pain / pressure Respiratory: denies: Cough GI: reports: Nausea, Vomiting. denies: Diarrhea Skin: denies: Rash Musculoskeletal: denies: Neck pain, Back pain Neurologic: denies: Focal weakness, Numbness, Headache PD PAST MEDICAL HISTORY - Past Medical History Cardiovascular: Atrial fibrillation Respiratory: COPD Neuro: None Endocrine/Autoimmune: None GI: None BANANA HANDLER: None : Kidney stones, Other HEENT: None Psych: Eating disorder, Depression, Anxiety Musculoskeletal: Chronic back pain, Other Derm: Eczema - Past Surgical History Past Surgical History: Yes General: Appendectomy, Other Ortho: Spine surgery /BANANA HANDLER: Hysterectomy, Oophrectomy HEENT: Other - Present Medications Home Medications: Ambulatory Orders Medication Instructions Recorded Confirmed Albuterol Sulf [Ventolin Hfa 1 - 2 puffs PO PRN PRN 06/12/17 11/01/18 Inhaler] Ipratropium/Albuterol [Duoneb] 3 ml INH Q6H #30 neb 06/12/17 11/01/18 Cephalexin [Keflex] 500 mg PO TID #21 capsule 05/07/18 11/01/18 Promethazine [Phenergan] 25 mg PO Q8H PRN #9 tablet 05/07/18 11/01/18 Ibuprofen [Motrin] 800 mg PO Q8H PRN #30 tablet 08/15/18 11/01/18 traMADol [Ultram] 50 mg PO Q4-6H PRN #14 tablet 08/28/18 11/01/18 Ondansetron Odt [Zofran] 4 mg TL Q6H PRN #10 tablet 10/15/18 11/01/18 Cefdinir 300 mg PO BID #20 capsule 10/30/18 11/01/18 Hydrocodone/Acetaminophen 1 - 2 each PO Q6H PRN #14 tablet 10/30/18 11/01/18 [Hydrocodon-Acetaminophen 5-325] Sucralfate [Carafate] 1 gm PO ACHS #60 tablet 10/30/18 11/01/18 Hydrocodone/Acetaminophen 1 - 2 each PO Q6H PRN #14 tablet 11/01/18 [Hydrocodon-Acetaminophen 5-325] Ondansetron Odt [Zofran] 4 mg TL Q6H PRN #20 tablet 11/01/18 - Allergies Allergies/Adverse Reactions: Allergies Allergy/AdvReac Type Severity Reaction Status Date / Time bee pollen Allergy Anaphylaxis Verified 11/01/18 15:41 gabapentin Allergy Itching Verified 11/01/18 15:41 oxycodone HCl * Allergy Itching Verified 11/01/18 15:41 [From Percocet] - Social History Does the pt smoke?: Yes Smoking Status: Current every day smoker Does the pt drink ETOH?: No Does the pt have substance abuse?: No - Immunizations Immunizations are current?: Yes - POLST Patient has POLST: No PD ED PE NORMAL - Vitals Vital signs reviewed: Yes - General General: Alert and oriented X 3, No acute distress, Well developed/nourished - HEENT HEENT: Moist mucous membranes - Neck Neck: Supple, no meningeal sign - Cardiac Cardiac: RRR, Strong equal pulses - Respiratory Respiratory: No respiratory distress, Clear bilaterally - Abdomen Abdomen: Soft, Non distended, Other (Tender palpation epigastric. No peritoneal signs) - Back Back: No CVA TTP, No spinal TTP - Derm Derm: Warm and dry - Extremities Extremities: No edema, No calf tenderness / cord - Neuro Neuro: Alert and oriented X 3 - Psych Psych: Normal mood, Normal affect Results - Vitals Vitals: Vital Signs - 24 hr 11/01/18 11/01/18 11/01/18 15:39 19:11 21:20 Temperature 36.8 C Heart Rate 107 H 62 74 Respiratory 16 15 16 Rate Blood Pressure 113/75 99/65 147/82 H O2 Saturation 95 96 99 11/01/18 22:06 Temperature 36.7 C Heart Rate 76 Respiratory 16 Rate Blood Pressure 132/68 H O2 Saturation 97 Oxygen O2 Source Room air - Labs Labs: Laboratory Tests 11/01/18 11/01/18 11/01/18 16:55 16:55 17:30 WBC 5.4 RBC 4.88 Hgb 13.2 Hct 42.8 MCV 87.7 MCH 27.0 MCHC 30.8 L RDW 13.4 Plt Count 197 MPV 9.6 Neut # (Auto) 3.1 Lymph # (Auto) 1.8 [place] # (Auto) 0.2 Eos # (Auto) 0.2 Baso # (Auto) 0.1 Absolute Nucleated RBC 0.00 Nucleated RBC % 0.0 Sodium 142 Potassium 3.9 Chloride 106 Carbon Dioxide 27 Anion Gap 9.0 BUN 10 Creatinine 0.6 Estimated GFR (MDRD) 108 Glucose 97 Calcium 9.4 Total Bilirubin 0.6 AST 20 ALT 12 Alkaline Phosphatase 76 Total Protein 7.2 Albumin 4.5 Globulin 2.7 Albumin/Globulin Ratio 1.7 Lipase 34 Urine Color YELLOW Urine Clarity CLEAR Urine pH 7.5 Ur Specific [place] 1.010 Urine Protein NEGATIVE Urine Glucose (UA) NEGATIVE Urine Ketones NEGATIVE Urine Occult Blood NEGATIVE Urine Nitrite NEGATIVE Urine Bilirubin NEGATIVE Urine Urobilinogen 0.2 (NORMAL) Ur Leukocyte Esterase SMALL H Urine RBC 0-5 Urine WBC 11-25 H Ur Squamous Epith Cells FEW Squamous Urine Bacteria Rare Ur Microscopic Review INDICATED Urine Culture Comments INDICATED - Rads (name of study) CT abd/pelvis Radiology: Prelim report reviewed, EMP read contemporaneously, See rad report (Colonic diverticulosis. No diverticulitis. No bowel obstruction. No bowel wall thickening. 2. No extravasation of contrast. No extraluminal collections of contrast identified. 3. Prominent proximal ureters and extrarenal pelvises bilaterally involving both kidneys, stable. No obstructing calculi. 4. Mild intrahepatic ductal dilatation without significant change. No common bile duct dilatation. ) PD MEDICAL DECISION MAKING - ED course Complexity details: reviewed old records, reviewed results, re-evaluated patient, considered differential, d/w patient, d/w family ED course: 43-year-old female with what appears to be continued abdominal pain from gastritis. She was given IV fluids and is tolerating p.o. without difficulty here. Given a second dose of Rocephin as she is unsure if she kept her antibiotics down today or not. CT performed as this is the second visit, no acute findings. Will prescribe pain meds and nausea meds for home and follow-up with her doctor for any further medication. Patient counseled regarding signs and symptoms for which I believe and urgent re-evaluation would be necessary. Patient with good understanding of and agreement to plan and is comfortable going home at this time This document was made in part using voice recognition software. While efforts are made to proofread this document, sound alike and grammatical errors may occur. Departure - Departure Disposition: 01 Home, Self Care Clinical Impression: Pyelonephritis Gastritis Qualifiers: Gastritis type: unspecified gastritis Chronicity: acute Gastritis bleeding: without bleeding Qualified Code(s): K29.00 - Acute gastritis without bleeding Condition: Good Instructions: ED Gastritis Follow-Up: KENDELL PUGH DO [Primary Care Provider] - Within 3 Days Prescriptions: Hydrocodone/Acetaminophen [Hydrocodon-Acetaminophen 5-325] 1 - 2 each PO Q6H PRN #14 tablet PRN Reason: pain Ondansetron Odt [Zofran] 4 mg TL Q6H PRN #20 tablet PRN Reason: Nausea / Vomiting Comments: Follow-up with your doctor for further care. Return if you worsen. Do not drink alcohol or drive while on narcotic pain medicine. Note that many narcotic pain relievers also contain tylenol/acetaminophen. Please ensure that your total dose of acetaminophen from all sources does not exceed 3 grams (3000mg) per day. You may constipated on this medication, take a stool softener such as "Colace" twice a day while you are on it. Also recommend a ivti-flv-ndekvrk laxative such as senna or MiraLAX any day that you do not have a bowel movement. If you received narcotic pain medication in the emergency department, do not drive or operate machinery for the next 24 hours. Discharge Date/Time: 11/01/18 22:06
[2018-11-01 17:12] LABS: ALBUMIN 4.5 g/dL (3.2-5.5); ALBUMIN/GLOBULIN RATIO 1.7 (1.0-2.2); BILIRUBIN,TOTAL 0.6 mg/dL (0.2-1.0); CALCIUM 9.4 mg/dL (8.5-10.3); CREATININE 0.6 mg/dL (0.4-1.0); TOTAL PROTEIN 7.2 g/dL (6.7-8.2)
[2018-11-01] MEDS ORDERED: SODIUM CHLORIDE 0.9% 1,000 ML IV ONE ×2 (17:12→18:27)
[2018-11-01 17:37] LABS: BILIRUBIN,URINE NEGATIVE (NEGATIVE); GLUCOSE, URINE (UA) NEGATIVE (NEGATIVE); KETONES,URINE (UA) NEGATIVE (NEGATIVE); LEUKOCYTE ESTERASE, URINE SMALL (NEGATIVE); NITRITE,URINE NEGATIVE (NEGATIVE); OCCULT BLOOD,URINE NEGATIVE (NEGATIVE); PH,URINE 7.5 PH (5.0-7.5); PROTEIN,URINE NEGATIVE (NEGATIVE); UROBILINOGEN,URINE 0.2 (NORMAL) E.U./dL (NORMAL)
[2018-11-01 17:39] LABS: CLARITY,URINE CLEAR (CLEAR)
[2018-11-01 17:59] LABS: BACTERIA,URINE Rare /HPF (None Seen); RBC,URINE 0-5 /HPF (0-5); SQUAMOUS EPITHELIAL CELL,UR FEW Squamous (<= Few)
[2018-11-01] MEDS ORDERED: PROMETHAZINE INJ 25 MG in SODIUM CHLORIDE 0.9% 50 ML IV STA (18:05)
[2018-11-01] MEDS ORDERED: MORPHINE 2 MG/ML CARPUJECT IVP STA (18:05)
[2018-11-01] MEDS ORDERED: IOVERSOL 320 100 ML VIAL IVP ONE ×2 (19:22→21:03)
[2018-11-01] MEDS ORDERED: IOVERSOL 320 50 ML VIAL ONE (19:23)
[2018-11-01] MEDS ORDERED: LORazepam 2 MG/ML VIAL IVP STA (19:27)
[2018-11-01] MEDS ORDERED: HALOPERIDOL 5 MG/ML VIAL IVP STA (20:09)
[2018-11-01] MEDS ORDERED: IOVERSOL 320 50 ML VIAL PO ONE (21:03)
--- NOTE | 2018-11-01 21:33 | CT Report ---
Reason: diffuse abd pain Procedure Date: 11/01/2018 Accession Number: [id number] / [id number] Procedure: CT - Abdomen/Pelvis W CPT Code: FULL RESULT: EXAM: CT ABDOMEN AND PELVIS EXAM DATE: 11/01/2018 09:01 PM. CLINICAL HISTORY: Diffuse abdominal pain. COMPARISONS: ABDOMEN/PELVIS W/ 05/07/2018 9:33 AM. TECHNIQUE: Routine helical CT imaging was performed through the abdomen and pelvis. IV contrast: 80 cc of Optiray-320. Enteric contrast: Optiray-320 50 mL. Reconstructions: Coronal and sagittal. In accordance with CT protocol optimization, one or more of the following dose reduction techniques were utilized for this exam: automated exposure control, adjustment of mA and/or KV based on patient size, or use of iterative reconstructive technique. FINDINGS: Lung Bases: Lung bases are clear. Included portions of the heart are unremarkable. Liver: No masses. Mild intra-hepatic ductal dilatation, unchanged. Gallbladder/Bile Ducts: Unremarkable. Spleen: Normal. Pancreas: Pancreas enhances homogeneously. No pancreatic ductal dilatation. No peripancreatic edema. Adrenal Glands: Normal. Kidneys: Extrarenal pelvises and proximal prominent ureters again seen. No obstructing calculi. No CT evidence of pyelonephritis. Peritoneal Cavity/Bowel: Stomach moderately distended. No extravasation of contrast. No extraluminal contrast. No bowel wall thickening. No evidence of obstruction. The colon is decompressed. Diverticula are seen in the colon. No diverticulitis. Cecum is in the right lower quadrant. Surgical staple line along the cecum likely represents changes from appendectomy. Pelvic Organs: Urinary bladder mild to mildly distended. No bladder calculi. No adnexal masses. No pelvic adenopathy. No pelvic free fluid. Vasculature: Vascular calcifications. No aneurysm. Mesenteric vasculature is patent. Bones: Degenerative changes of the lumbar spine. Changes are seen from L4-S1 fusion and laminectomy. No acute osseous abnormalities. Other: None. IMPRESSION: 1. Colonic diverticulosis. No diverticulitis. No bowel obstruction. No bowel wall thickening. 2. No extravasation of contrast. No extraluminal collections of contrast identified. 3. Prominent proximal ureters and extrarenal pelvises bilaterally involving both kidneys, stable. No obstructing calculi. 4. Mild intrahepatic ductal dilatation without significant change. No common bile duct dilatation. RADIA
[2018-11-01 22:06] VITALS: BP 132/68
== END 2018-11-01 22:06 | disposition home or self-care (01) ==
LOC: ED 15:33
DX: K29.00 Acute gastritis without bleeding (principal); N12 Tubulo-interstitial nephritis, not specified as acute or chronic; F17.200 Nicotine dependence, unspecified, uncomplicated
CPT/HCPCS: 36415; 74177; 80053; 81001; 83690; 85025; 87086; 96361; 96365; 96375; 99283; 99284; A9270; J1170; J2060; J7040; Q9967; 81003

== ENCOUNTER 2018-11-18 10:41 | Emergency (ER) | payer OTHER ==
[2018-11-18 11:26] LABS: BILIRUBIN,URINE NEGATIVE (NEGATIVE); GLUCOSE, URINE (UA) NEGATIVE (NEGATIVE); KETONES,URINE (UA) NEGATIVE (NEGATIVE); LEUKOCYTE ESTERASE, URINE SMALL (NEGATIVE); NITRITE,URINE NEGATIVE (NEGATIVE); OCCULT BLOOD,URINE TRACE-INTA (NEGATIVE); PH,URINE 5.5 PH (5.0-7.5); PROTEIN,URINE NEGATIVE (NEGATIVE); UROBILINOGEN,URINE 0.2 (NORMAL) E.U./dL (NORMAL)
[2018-11-18 11:30] LABS: CLARITY,URINE CLOUDY (CLEAR); HCG UR QUAL NEGATIVE
[2018-11-18 11:38] LABS: BACTERIA,URINE Few /HPF (None Seen); CRYSTALS,URINE 3-5 Calcium Oxalate /LPF; MUCUS,URINE Few Strands; SQUAMOUS EPITHELIAL CELL,UR MANY Squamous (<= Few)
[2018-11-18] MEDS ORDERED: METOCLOPRAMIDE 10 MG/2 ML VIAL IVP STA (12:03)
[2018-11-18] MEDS ORDERED: SODIUM CHLORIDE 0.9% 1,000 ML IV ONE (12:03)
[2018-11-18] MEDS ORDERED: KETOROLAC 30 MG/ML VIAL IVP STA (12:03)
[2018-11-18] MEDS ORDERED: HYDROmorphone 1 MG/ML CARPUJECT IVP STA (12:03)
--- NOTE | 2018-11-18 12:05 | ED Physician Documentation ---
PD HPI ABD PAIN - Stated complaint Stated Complaint: FEMALE - Chief complaint Chief Complaint: Abd Pain - History obtained from History obtained from: Patient, Family - History of Present Illness Timing - onset: Other (For about 4 days has GI complaints, it started with nausea and vomiting, followed a couple of days ago by stomach cramping and right flank pain as well as burning dysuria. She has diarrhea but only in the mornings. She denies fevers or chills. She is tried tramadol, Phenergan, Zofran and ibuprofen without relief.) Review of Systems Ten Systems: 10 systems reviewed and negative Constitutional: denies: Fever, Chills Nose: denies: Rhinorrhea / runny nose, Congestion Cardiac: denies: Chest pain / pressure, Palpitations Respiratory: denies: Dyspnea, Cough GI: reports: Abdominal Pain, Nausea, Vomiting, Diarrhea. denies: Constipation, Hematemesis, Bloody / black stool : reports: Dysuria PD PAST MEDICAL HISTORY - Past Medical History Cardiovascular: Atrial fibrillation Respiratory: COPD Neuro: None Endocrine/Autoimmune: None GI: None SCOOP FILLER: None : Kidney stones, Other HEENT: None Psych: Eating disorder, Depression, Anxiety Musculoskeletal: Chronic back pain, Other Derm: Eczema - Past Surgical History Past Surgical History: Yes General: Appendectomy, Other Ortho: Spine surgery /SCOOP FILLER: Hysterectomy, Oophrectomy HEENT: Other - Present Medications Home Medications: Ambulatory Orders Medication Instructions Recorded Confirmed Albuterol Sulf [Ventolin Hfa 1 - 2 puffs PO PRN PRN 06/12/17 11/01/18 Inhaler] Ipratropium/Albuterol [Duoneb] 3 ml INH Q6H #30 neb 06/12/17 11/01/18 Cephalexin [Keflex] 500 mg PO TID #21 capsule 05/07/18 11/01/18 Promethazine [Phenergan] 25 mg PO Q8H PRN #9 tablet 05/07/18 11/01/18 Ibuprofen [Motrin] 800 mg PO Q8H PRN #30 tablet 08/15/18 11/01/18 traMADol [Ultram] 50 mg PO Q4-6H PRN #14 tablet 08/28/18 11/01/18 Ondansetron Odt [Zofran] 4 mg TL Q6H PRN #10 tablet 10/15/18 11/01/18 Cefdinir 300 mg PO BID #20 capsule 10/30/18 11/01/18 Hydrocodone/Acetaminophen 1 - 2 each PO Q6H PRN #14 tablet 10/30/18 11/01/18 [Hydrocodon-Acetaminophen 5-325] Sucralfate [Carafate] 1 gm PO ACHS #60 tablet 10/30/18 11/01/18 Hydrocodone/Acetaminophen 1 - 2 each PO Q6H PRN #14 tablet 11/01/18 [Hydrocodon-Acetaminophen 5-325] Ondansetron Odt [Zofran] 4 mg TL Q6H PRN #20 tablet 11/01/18 Hydrocodone/Acetaminophen 1 - 2 each PO Q6H PRN #10 tablet 11/18/18 [Hydrocodon-Acetaminophen 5-325] Metoclopramide [Reglan] 10 mg PO Q6H PRN #10 tablet 11/18/18 Sulfamethoxazole/Trimethoprim 1 each PO BID #14 tablet 11/18/18 [Sulfamethoxazole-Tmp Ds Tablet] - Allergies Allergies/Adverse Reactions: Allergies Allergy/AdvReac Type Severity Reaction Status Date / Time bee pollen Allergy Anaphylaxis Verified 11/01/18 15:41 gabapentin Allergy Itching Verified 11/01/18 15:41 oxycodone HCl * Allergy Itching Verified 11/18/18 10:57 [From Percocet] - Social History Does the pt smoke?: Yes Smoking Status: Current every day smoker Does the pt drink ETOH?: No Does the pt have substance abuse?: No - Immunizations Immunizations are current?: Yes - POLST Patient has POLST: No PD ED PE NORMAL - Vitals Vital signs reviewed: Yes - General General: Alert and oriented X 3, No acute distress - HEENT HEENT: PERRL, EOMI - Neck Neck: Supple, no meningeal sign, No bony TTP - Cardiac Cardiac: RRR, No murmur - Respiratory Respiratory: No respiratory distress, Clear bilaterally - Abdomen Abdomen: Normal bowel sounds, Soft, No organomegaly, Other (Mild right flank and diffuse tenderness without surgical signs) - Back Back: No spinal TTP - Derm Derm: No rash - Extremities Extremities: No edema, No calf tenderness / cord - Neuro Neuro: Alert and oriented X 3, Normal speech Results - Vitals Vitals: Vital Signs - 24 hr 11/18/18 11/18/18 10:56 12:52 Temperature 36.7 C Heart Rate 99 57 L Respiratory 20 18 Rate Blood Pressure 129/94 H 118/64 O2 Saturation 99 98 Oxygen O2 Source Room air - Labs Labs: Laboratory Tests 11/18/18 11/18/18 11/18/18 11:00 12:22 12:22 WBC 4.7 L RBC 4.38 Hgb 12.4 Hct 38.3 MCV 87.4 MCH 28.3 MCHC 32.4 RDW 13.8 Plt Count 189 MPV 9.4 Neut # (Auto) 2.7 Lymph # (Auto) 1.5 [place] # (Auto) 0.2 Eos # (Auto) 0.1 Baso # (Auto) 0.0 Absolute Nucleated RBC 0.00 Nucleated RBC % 0.0 Sodium 143 Potassium 3.8 Chloride 106 Carbon Dioxide 27 Anion Gap 10.0 BUN 18 Creatinine 0.6 Estimated GFR (MDRD) 108 Glucose 93 Calcium 8.4 L Total Bilirubin 0.5 AST 15 ALT 13 Alkaline Phosphatase 62 Total Protein 6.1 L Albumin 3.7 Globulin 2.4 Albumin/Globulin Ratio 1.5 Lipase 30 Urine Color Urine Clarity Urine pH Ur Specific [place] Urine Protein Urine Glucose (UA) Urine Ketones Urine Occult Blood Urine Nitrite Urine Bilirubin Urine Urobilinogen Ur Leukocyte Esterase Urine RBC Urine WBC Ur Squamous Epith Cells Urine Crystals Urine Bacteria Urine Mucus Ur Microscopic Review Urine Culture Comments Urine HCG, Qual Urine Opiates Screen NEGATIVE Ur Oxycodone Screen NEGATIVE Urine Methadone Screen NEGATIVE Ur Propoxyphene Screen NEGATIVE Ur Barbiturates Screen NEGATIVE Ur Tricyclics Screen NEGATIVE Ur Phencyclidine Scrn POSITIVE H Ur Amphetamine Screen NEGATIVE U Methamphetamines Scrn NEGATIVE U Benzodiazepines Scrn NEGATIVE Urine Cocaine Screen NEGATIVE U Cannabinoids Screen POSITIVE H 11/18/18 11/18/18 13:00 Unknown WBC RBC Hgb Hct MCV MCH MCHC RDW Plt Count MPV Neut # (Auto) Lymph # (Auto) [place] # (Auto) Eos # (Auto) Baso # (Auto) Absolute Nucleated RBC Nucleated RBC % Sodium Potassium Chloride Carbon Dioxide Anion Gap BUN Creatinine Estimated GFR (MDRD) Glucose Calcium Total Bilirubin AST ALT Alkaline Phosphatase Total Protein Albumin Globulin Albumin/Globulin Ratio Lipase Urine Color YELLOW YELLOW Urine Clarity [place] Urine pH 6.0 5.5 Ur Specific [place] 1.020 1.025 Urine Protein NEGATIVE NEGATIVE Urine Glucose (UA) NEGATIVE NEGATIVE Urine Ketones NEGATIVE NEGATIVE Urine Occult Blood NEGATIVE TRACE-INTA Urine Nitrite NEGATIVE NEGATIVE Urine Bilirubin NEGATIVE NEGATIVE Urine Urobilinogen 0.2 (NORMAL) 0.2 (NORMAL) Ur Leukocyte Esterase SMALL H SMALL H Urine RBC 0-5 6-10 H Urine WBC 6-10 H 4-5 Ur Squamous Epith Cells MANY Squamous H MANY Squamous H Urine Crystals 3-5 Calcium Oxalate Urine Bacteria Many H Few Urine Mucus Few Strands Ur Microscopic Review INDICATED INDICATED Urine Culture Comments NOT INDICATED NOT INDICATED Urine HCG, Qual NEGATIVE Urine Opiates Screen Ur Oxycodone Screen Urine Methadone Screen Ur Propoxyphene Screen Ur Barbiturates Screen Ur Tricyclics Screen Ur Phencyclidine Scrn Ur Amphetamine Screen U Methamphetamines Scrn U Benzodiazepines Scrn Urine Cocaine Screen U Cannabinoids Screen PD MEDICAL DECISION MAKING - ED course ED course: 43-year-old woman presents with flank pain and nausea most consistent with pyelonephritis. Initial urine sample was contaminated with skin cells as with the second, but we will treat presumptively given otherwise normal labs and response to treatment here. Departure - Departure Disposition: 01 Home, Self Care Clinical Impression: Pyelonephritis Condition: Good Record reviewed to determine appropriate education?: Yes Health Concerns: flank pain/abd pain/nausea Plan of Treatment: abx, meds for symptoms Care Goals: improvement Assessment: as above Instructions: Pyelonephritis Dc Prescriptions: Hydrocodone/Acetaminophen [Hydrocodon-Acetaminophen 5-325] 1 - 2 each PO Q6H PRN #10 tablet PRN Reason: pain Metoclopramide [Reglan] 10 mg PO Q6H PRN #10 tablet PRN Reason: nausea or headache Sulfamethoxazole/Trimethoprim [Sulfamethoxazole-Tmp Ds Tablet] 1 each PO BID #14 tablet Comments: Do not take Phenergan and Reglan within 6 hours of each other. Return if worse or if not better in 48 hours. Follow-up with your doctor in 1 week. Drink plenty of fluids.
[2018-11-18 12:19] LABS: MUDS CUTOFF CONCENTRATIONS CUTOFF CONC BELOW:
[2018-11-18 12:25] LABS: AMPHETAMINE SCREEN,URINE NEGATIVE (NEGATIVE); BENZODIAZEPINES SCREEN, URINE NEGATIVE (NEGATIVE); COCAINE SCREEN URINE NEGATIVE (NEGATIVE); METHADONE SCREEN, URINE NEGATIVE (NEGATIVE); METHAMPHETAMINES SCREEN, URINE NEGATIVE (NEGATIVE); OPIATE SCREEN, URINE NEGATIVE (NEGATIVE); OXYCODONE SCREEN, URINE NEGATIVE (NEGATIVE); PROPOXYPHENE SCREEN, URINE NEGATIVE (NEGATIVE); TRICYCLIC ANTIDEPRESSANT,URINE NEGATIVE (NEGATIVE)
[2018-11-18 12:30] LABS: BASOPHILS % (AUTO) 0.9 %; EOSINOPHILS # (AUTO) 0.1 10^3/uL (0.0-0.7); EOSINOPHILS % (AUTO) 2.8 %; HGB - HEMOGLOBIN 12.4 g/dL (12.0-16.0); LYMPHOCYTES # (AUTO) 1.5 10^3/uL (1.5-3.5); MEAN CORPUSCULAR HEMOGLOBIN 28.3 pg (27.0-31.0); MEAN CORPUSCULAR HGB CONC 32.4 g/dL (32.0-36.0); MEAN CORPUSCULAR VOLUME 87.4 fL (81.0-99.0); MEAN PLATELET VOLUME 9.4 fL (7.9-10.8); MONOCYTES # (AUTO) 0.2 10^3/uL (0.0-1.0); MONOCYTES % (AUTO) 4.7 %; NEUTROPHILS # (AUTO) 2.7 10^3/uL (1.5-6.6); NEUTROPHILS % (AUTO) 58.4 %; PLT - PLATELET COUNT 189 10^3/uL (130-450); RED BLOOD COUNT 4.38 10^6/uL (4.20-5.40); RED CELL DISTRIBUTION WIDTH 13.8 % (12.0-15.0); WHITE BLOOD COUNT 4.7 x10^3/uL (4.8-10.8)
[2018-11-18 12:46] LABS: ALBUMIN 3.7 g/dL (3.2-5.5); ALBUMIN/GLOBULIN RATIO 1.5 (1.0-2.2); BILIRUBIN,TOTAL 0.5 mg/dL (0.2-1.0); CALCIUM 8.4 mg/dL (8.5-10.3); CREATININE 0.6 mg/dL (0.4-1.0); TOTAL PROTEIN 6.1 g/dL (6.7-8.2)
[2018-11-18 12:52] VITALS: BP 118/64
[2018-11-18] MEDS ORDERED: LACTATED RINGERS 1,000 ML IV STA (12:55)
[2018-11-18] MEDS ORDERED: HYDROmorphone 2 MG/ML VIAL IVP STA (12:55)
[2018-11-18 13:10] LABS: BILIRUBIN,URINE NEGATIVE (NEGATIVE); GLUCOSE, URINE (UA) NEGATIVE (NEGATIVE); KETONES,URINE (UA) NEGATIVE (NEGATIVE); LEUKOCYTE ESTERASE, URINE SMALL (NEGATIVE); NITRITE,URINE NEGATIVE (NEGATIVE); OCCULT BLOOD,URINE NEGATIVE (NEGATIVE); PROTEIN,URINE NEGATIVE (NEGATIVE); UROBILINOGEN,URINE 0.2 (NORMAL) E.U./dL (NORMAL)
[2018-11-18 13:13] LABS: CLARITY,URINE HAZY (CLEAR)
[2018-11-18 13:20] LABS: BACTERIA,URINE Many /HPF (None Seen); RBC,URINE 0-5 /HPF (0-5); SQUAMOUS EPITHELIAL CELL,UR MANY Squamous (<= Few)
[2018-11-18] MEDS ORDERED: SULFAMETH/TRIMETH DS 800/160 MG TABLET PO STA (13:27)
== END 2018-11-18 13:58 | disposition home or self-care (01) ==
LOC: ED 10:41
DX: N12 Tubulo-interstitial nephritis, not specified as acute or chronic (principal); F17.200 Nicotine dependence, unspecified, uncomplicated
CPT/HCPCS: 36415; 80053; 81001; 81025; 83690; 85025; 96361; 96374; 96375; 96376; 99283; 99284; A9270; J1170; J2765; J7120; 80306; 81003; 87086

== ENCOUNTER 2018-12-07 13:51 | Emergency (ER) | payer OTHER ==
[2018-12-07 14:29] LABS: BASOPHILS % (AUTO) 0.4 %; EOSINOPHILS % (AUTO) 0.1 %; HGB - HEMOGLOBIN 13.5 g/dL (12.0-16.0); LYMPHOCYTES # (AUTO) 1.5 10^3/uL (1.5-3.5); LYMPHOCYTES % (AUTO) 21.2 %; MEAN CORPUSCULAR HEMOGLOBIN 27.6 pg (27.0-31.0); MEAN CORPUSCULAR HGB CONC 31.8 g/dL (32.0-36.0); MEAN CORPUSCULAR VOLUME 86.9 fL (81.0-99.0); MEAN PLATELET VOLUME 9.4 fL (7.9-10.8); MONOCYTES # (AUTO) 0.2 10^3/uL (0.0-1.0); MONOCYTES % (AUTO) 3.1 %; NEUTROPHILS # (AUTO) 5.3 10^3/uL (1.5-6.6); NEUTROPHILS % (AUTO) 75.1 %; PLT - PLATELET COUNT 204 10^3/uL (130-450); RED BLOOD COUNT 4.89 10^6/uL (4.20-5.40); RED CELL DISTRIBUTION WIDTH 13.6 % (12.0-15.0); WHITE BLOOD COUNT 7.1 x10^3/uL (4.8-10.8)
[2018-12-07 14:42] LABS: ALBUMIN 4.4 g/dL (3.2-5.5); ALBUMIN/GLOBULIN RATIO 1.8 (1.0-2.2); BILIRUBIN,TOTAL 0.5 mg/dL (0.2-1.0); CALCIUM 9.8 mg/dL (8.5-10.3); CREATININE 0.7 mg/dL (0.4-1.0); TOTAL PROTEIN 6.8 g/dL (6.7-8.2)
[2018-12-07 14:52] LABS: BILIRUBIN,URINE NEGATIVE (NEGATIVE); GLUCOSE, URINE (UA) 100 mg/dL (NEGATIVE); KETONES,URINE (UA) NEGATIVE (NEGATIVE); LEUKOCYTE ESTERASE, URINE NEGATIVE (NEGATIVE); NITRITE,URINE POSITIVE (NEGATIVE); OCCULT BLOOD,URINE NEGATIVE (NEGATIVE); PH,URINE 6.5 PH (5.0-7.5); PROTEIN,URINE TRACE mg/dL (NEGATIVE); UROBILINOGEN,URINE 2 E.U./dL (NORMAL)
[2018-12-07 14:55] LABS: CLARITY,URINE CLEAR (CLEAR); HCG UR QUAL NEGATIVE
[2018-12-07 15:10] LABS: BACTERIA,URINE None Seen /HPF (None Seen); RBC,URINE None Seen /HPF (0-5); SQUAMOUS EPITHELIAL CELL,UR NONE SEEN (<= Few)
[2018-12-07] MEDS ORDERED: SODIUM CHLORIDE 0.9% 1,000 ML IV ONE ×2 (16:20→18:14)
[2018-12-07] MEDS ORDERED: KETOROLAC 30 MG/ML VIAL IVP STA (16:20)
[2018-12-07] MEDS ORDERED: PROMETHAZINE INJ 12.5 MG in SODIUM CHLORIDE 0.9% 50 ML IV STA (16:20)
--- NOTE | 2018-12-07 16:25 | ED Physician Documentation ---
PD HPI ABD PAIN - Stated complaint Stated Complaint: FEMALE /FEVER - Chief complaint Chief Complaint: Abd Pain - History obtained from History obtained from: Patient - History of Present Illness Timing - onset: How many weeks ago (1) Timing - duration: Weeks (1) Timing - details: Still present Quality: Pain Location: Other (right flank) Associated symptoms: Fever, Nausea, Vomiting, Dysuria Similar symptoms before: Diagnosis (Pyelonephritis) Recently seen: Emergency Dept (4 ED visits in past two months with similar symptoms.) - Treatment prior to arrival Treatment prior to arrival: Azo and tramadol without relief. - Additional information Additional information: The patient is a 43-year-old female who presents with right flank pain radiating to her suprapubic region, with associated dysuria and vomiting. Her symptoms started 1 week ago and have been persisting. She reports a fever up to 101 degrees. She has been using Azo and tramadol without relief. Review of her medical record reveals four emergency department visits here in the last 2 months with similar symptoms. She was seen here 10/15/2018 and diagnosed with urinary tract infection and treated with Augmentin. She was seen here again on 10/30/2018 with right flank pain and was treated with Cefdinar for suspected pyelonephritis. She was seen here again 2 days later, on 11/01/2018 with similar symptoms. She underwent CT scan of the abdomen and pelvis at that time, which was unrevealing. She was diagnosed with suspected gastritis at that time. She was seen again on 11/18/2018 with similar symptoms. Urinalysis was contaminated, but she was treated for suspected urinary tract infection with IV antibiotics followed by prescription for Bactrim. Five urine cultures have all resulted in either no growth or mixed gram-positive cocci suggestive of contamination. 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: None : Kidney stones, Other HEENT: None Psych: Eating disorder, Depression, Anxiety Musculoskeletal: Chronic back pain, Other Derm: Eczema - Past Surgical History Past Surgical History: Yes General: Appendectomy, Other Ortho: Spine surgery /OUTSIDE PARTS SALES: Hysterectomy, Oophrectomy HEENT: Other - Present Medications Home Medications: Ambulatory Orders Medication Instructions Recorded Confirmed Albuterol Sulf [Ventolin Hfa 1 - 2 puffs PO PRN PRN 06/12/17 11/01/18 Inhaler] Ipratropium/Albuterol [Duoneb] 3 ml INH Q6H #30 neb 06/12/17 11/01/18 Cephalexin [Keflex] 500 mg PO TID #21 capsule 05/07/18 11/01/18 Promethazine [Phenergan] 25 mg PO Q8H PRN #9 tablet 05/07/18 11/01/18 Ibuprofen [Motrin] 800 mg PO Q8H PRN #30 tablet 08/15/18 11/01/18 traMADol [Ultram] 50 mg PO Q4-6H PRN #14 tablet 08/28/18 11/01/18 Ondansetron Odt [Zofran] 4 mg TL Q6H PRN #10 tablet 10/15/18 11/01/18 Cefdinir 300 mg PO BID #20 capsule 10/30/18 11/01/18 Hydrocodone/Acetaminophen 1 - 2 each PO Q6H PRN #14 tablet 10/30/18 11/01/18 [Hydrocodon-Acetaminophen 5-325] Sucralfate [Carafate] 1 gm PO ACHS #60 tablet 10/30/18 11/01/18 Hydrocodone/Acetaminophen 1 - 2 each PO Q6H PRN #14 tablet 11/01/18 [Hydrocodon-Acetaminophen 5-325] Ondansetron Odt [Zofran] 4 mg TL Q6H PRN #20 tablet 11/01/18 Hydrocodone/Acetaminophen 1 - 2 each PO Q6H PRN #10 tablet 11/18/18 [Hydrocodon-Acetaminophen 5-325] Metoclopramide [Reglan] 10 mg PO Q6H PRN #10 tablet 11/18/18 Sulfamethoxazole/Trimethoprim 1 each PO BID #14 tablet 11/18/18 [Sulfamethoxazole-Tmp Ds Tablet] Hydrocodone/Acetaminophen 1 - 2 each PO Q6H PRN #12 tablet 12/07/18 [Hydrocodon-Acetaminophen 5-325] Promethazine [Phenergan] 25 mg PO Q6H PRN #10 tab 12/07/18 - Allergies Allergies/Adverse Reactions: Allergies Allergy/AdvReac Type Severity Reaction Status Date / Time bee pollen Allergy Anaphylaxis Verified 12/07/18 13:58 gabapentin Allergy Itching Verified 12/07/18 13:58 oxycodone HCl * Allergy Itching Verified 12/07/18 13:58 [From Percocet] - Social History Does the pt smoke?: Yes Smoking Status: Current every day smoker Does the pt drink ETOH?: No Does the pt have substance abuse?: No - Immunizations Immunizations are current?: Yes - POLST Patient has POLST: No PD ED PE NORMAL - Vitals Vital signs reviewed: Yes (normal) - General General: Alert and oriented X 3, Other (Frail appearing) - HEENT HEENT: Atraumatic, Pharynx benign - Neck Neck: No adenopathy, No JVD - Cardiac Cardiac: RRR - Respiratory Respiratory: No respiratory distress, Clear bilaterally - Abdomen Abdomen: Normal bowel sounds, Soft, Other (Mild LUQ tenderness to palpation, without rebound or guarding) - Back Back: Other (Right flank tenderness to percussion.) - Derm Derm: No rash - Extremities Extremities: No edema, No calf tenderness / cord - Neuro Neuro: Alert and oriented X 3, No motor deficit Results - Vitals Vitals: Vital Signs - 24 hr 12/07/18 12/07/18 12/07/18 13:56 17:12 19:31 Temperature 37.1 C 36.9 C Heart Rate 108 H 76 73 Respiratory 18 17 16 Rate Blood Pressure 118/80 125/93 H 113/64 O2 Saturation 99 98 100 Oxygen O2 Source Room air - Labs Labs: Laboratory Tests 12/07/18 12/07/18 12/07/18 14:23 14:23 14:30 WBC 7.1 RBC 4.89 Hgb 13.5 Hct 42.5 MCV 86.9 MCH 27.6 MCHC 31.8 L RDW 13.6 Plt Count 204 MPV 9.4 Neut # (Auto) 5.3 Lymph # (Auto) 1.5 [place] # (Auto) 0.2 Eos # (Auto) 0.0 Baso # (Auto) 0.0 Absolute Nucleated RBC 0.00 Nucleated RBC % 0.0 Sodium 146 H Potassium 3.3 L Chloride 107 Carbon Dioxide 26 Anion Gap 13.0 BUN 8 Creatinine 0.7 Estimated GFR (MDRD) 90 Glucose 125 H Calcium 9.8 Total Bilirubin 0.5 AST 16 ALT 14 Alkaline Phosphatase 72 Total Protein 6.8 Albumin 4.4 Globulin 2.4 Albumin/Globulin Ratio 1.8 Lipase 25 Urine Color YELLOW Urine Clarity CLEAR Urine pH 6.5 Ur Specific [place] 1.010 Urine Protein TRACE Urine Glucose (UA) 100 H Urine Ketones NEGATIVE Urine Occult Blood NEGATIVE Urine Nitrite POSITIVE H Urine Bilirubin NEGATIVE Urine Urobilinogen 2 H Ur Leukocyte Esterase NEGATIVE Urine RBC None Seen Urine WBC 0-3 Ur Squamous Epith Cells NONE SEEN Urine Bacteria None Seen Ur Microscopic Review INDICATED Urine Culture Comments INDICATED Urine HCG, Qual NEGATIVE PD MEDICAL DECISION MAKING - ED course Complexity details: reviewed old records, reviewed results, re-evaluated patient, considered differential, d/w patient, d/w family ED course: The underlying cause for the patient's abdominal pain is not clear to me at this time. Her symptoms are suggestive of urinary tract infection or possible pyelonephritis. However her urinalysis is negative and review of her medical records reveals similar presentations in the past with negative urine cultures on all previous occasions. She has been treated for suspected urinary tract infection or pyelonephritis several times in the past 2 months, and although she reports getting temporary improvement of her symptoms she then returns with recurrent symptoms. She has undergone 7 CT scans of the abdomen and pelvis over the past 5 years. The most recent was 5 weeks ago, and like all previous CT scans the study was unrevealing. I do not think a repeat CT scan would be of clinical benefit at this time. Because of nausea and poor oral intake she does appear dehydrated today. Treatment in the emergency department included administration of normal saline 2 L IV, Toradol 30 mg IV, Phenergan 12.5 mg IV, followed by fentanyl 75 mcg and 100 mcg IV. Her symptoms improved, and subsequently resolved with the above treatment. Repeat physical examination reveals a benign abdomen at the time of discharge. She had been tender to palpation in the left upper quadrant on initial exam, and it is possible that gastritis is the etiology. She does take omeprazole twice daily, but also has been using tramadol and Advil which could be exacerbating gastritis. She is being discharged with prescription for Phenergan and for Vicodin, 10 tablets. I discussed with her and her the results of her work-up, the importance of outpatient follow-up, as well as potentially worrisome signs or symptoms that should prompt reevaluation in the emergency department. Departure - Departure Disposition: 01 Home, Self Care Clinical Impression: Dehydration Abdominal pain Qualifiers: Abdominal location: left upper quadrant Qualified Code(s): R10.12 - Left upper quadrant pain Condition: Stable Instructions: ED Abdominal Pain Unkn Cause Follow-Up: KENDELL PUGH DO [Primary Care Provider] - Prescriptions: Hydrocodone/Acetaminophen [Hydrocodon-Acetaminophen 5-325] 1 - 2 each PO Q6H PRN #12 tablet PRN Reason: pain Promethazine [Phenergan] 25 mg PO Q6H PRN #10 tab PRN Reason: Nausea / Vomiting Comments: Drink plenty of fluids. You can use Phenergan as prescribed if needed for nausea. You can use Vicodin as prescribed if needed for pain. Follow-up with your primary physician within 1 week. Call to schedule an appointment. Return to the emergency department if you develop increasing abdominal pain, persistent vomiting, or otherwise worsening symptoms. Discharge Date/Time: 12/07/18 19:32
[2018-12-07] MEDS ORDERED: fentaNYL 100 MCG/2 ML VIAL IVP STA ×2 (17:10→18:15)
[2018-12-07 19:32] VITALS: BP 113/64
== END 2018-12-07 19:32 | disposition home or self-care (01) ==
LOC: ED 13:51
DX: E86.0 Dehydration (principal); R10.12 Left upper quadrant pain; R11.2 Nausea with vomiting, unspecified; F17.200 Nicotine dependence, unspecified, uncomplicated
CPT/HCPCS: 36415; 80053; 81001; 81025; 83690; 85025; 87086; 96361; 96365; 96375; 96376; 99284; J7040; 81003

== ENCOUNTER 2018-12-25 12:52 | Emergency (ER) | payer OTHER ==
[2018-12-25 13:18] LABS: BASOPHILS # (AUTO) 0.1 10^3/uL (0.0-0.1); BASOPHILS % (AUTO) 0.8 %; EOSINOPHILS # (AUTO) 0.1 10^3/uL (0.0-0.7); EOSINOPHILS % (AUTO) 0.8 %; HGB - HEMOGLOBIN 15.2 g/dL (12.0-16.0); LYMPHOCYTES # (AUTO) 1.4 10^3/uL (1.5-3.5); LYMPHOCYTES % (AUTO) 23.6 %; MEAN CORPUSCULAR HEMOGLOBIN 28.3 pg (27.0-31.0); MEAN CORPUSCULAR HGB CONC 32.5 g/dL (32.0-36.0); MEAN PLATELET VOLUME 9.5 fL (7.9-10.8); MONOCYTES # (AUTO) 0.2 10^3/uL (0.0-1.0); NEUTROPHILS # (AUTO) 4.2 10^3/uL (1.5-6.6); NEUTROPHILS % (AUTO) 70.6 %; PLT - PLATELET COUNT 226 10^3/uL (130-450); RED BLOOD COUNT 5.37 10^6/uL (4.20-5.40); RED CELL DISTRIBUTION WIDTH 13.3 % (12.0-15.0); WHITE BLOOD COUNT 5.9 x10^3/uL (4.8-10.8)
[2018-12-25 13:36] LABS: ALBUMIN 4.5 g/dL (3.2-5.5); ALBUMIN/GLOBULIN RATIO 1.5 (1.0-2.2); BILIRUBIN,TOTAL 0.6 mg/dL (0.2-1.0); CREATININE 0.7 mg/dL (0.4-1.0); TOTAL PROTEIN 7.6 g/dL (6.7-8.2)
--- NOTE | 2018-12-25 14:09 | ED Physician Documentation ---
History of Present Illness - Stated complaint Stated Complaint: stomach pain, puking - Chief complaint Chief Complaint: Abd Pain - Additonal information Additional information: This is a 43-year-old female with a history of anxiety, chronic abdominal pain, previous G-tube placement for inability to eat, atrial fibrillation, who presents with abdominal pain vomiting and diarrhea for last 2 days. Patient states that she oftentimes have exacerbations of her chronic abdominal discomfort, this most recent episode began around 2 days ago has been worsening. She feels dehydrated has been unable to keep down fluids. She also has some epigastric abdominal pain which is her typical pain for her. She sees a GI doctor and they are planning to do an endoscopy. She previously had a G-tube placed for inability to eat, this is been removed. Patient's pain is currently moderate in severity located in the epigastrium, it is nonradiating. She has vomited several times, and she has had 3 episodes of nonbloody, nonbilious diarrhea daily for the last 2 days. 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 : Kidney stones, Other HEENT: None Psych: Depression, Anxiety, Eating disorder, Other Musculoskeletal: Chronic back pain, Other Derm: Eczema Other Past Medical History: anorexia - Past Surgical History Past Surgical History: Yes General: Appendectomy, Other Ortho: Spine surgery /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: Hysterectomy, Oophrectomy HEENT: Other - Present Medications Home Medications: Ambulatory Orders Medication Instructions Recorded Confirmed Ipratropium/Albuterol [Duoneb] 3 ml INH Q6H #30 neb 06/12/17 11/01/18 RX: Albuterol Sulf [Ventolin Hfa 1 - 2 puffs PO PRN PRN 06/12/17 11/01/18 Inhaler] Cephalexin [Keflex] 500 mg PO TID #21 capsule 05/07/18 11/01/18 Promethazine [Phenergan] 25 mg PO Q8H PRN #9 tablet 05/07/18 11/01/18 Ibuprofen [Motrin] 800 mg PO Q8H PRN #30 tablet 08/15/18 11/01/18 RX: traMADol [Ultram] 50 mg PO Q4-6H PRN #14 tablet 08/28/18 11/01/18 Ondansetron Odt [Zofran] 4 mg TL Q6H PRN #10 tablet 10/15/18 11/01/18 Hydrocodone/Acetaminophen 1 - 2 each PO Q6H PRN #14 tablet 10/30/18 11/01/18 [Hydrocodon-Acetaminophen 5-325] RX: Cefdinir 300 mg PO BID #20 capsule 10/30/18 11/01/18 Sucralfate [Carafate] 1 gm PO ACHS #60 tablet 10/30/18 11/01/18 Hydrocodone/Acetaminophen 1 - 2 each PO Q6H PRN #14 tablet 11/01/18 [Hydrocodon-Acetaminophen 5-325] Ondansetron Odt [Zofran] 4 mg TL Q6H PRN #20 tablet 11/01/18 Hydrocodone/Acetaminophen 1 - 2 each PO Q6H PRN #10 tablet 11/18/18 [Hydrocodon-Acetaminophen 5-325] Metoclopramide [Reglan] 10 mg PO Q6H PRN #10 tablet 11/18/18 Sulfamethoxazole/Trimethoprim 1 each PO BID #14 tablet 11/18/18 [Sulfamethoxazole-Tmp Ds Tablet] Hydrocodone/Acetaminophen 1 - 2 each PO Q6H PRN #12 tablet 12/07/18 [Hydrocodon-Acetaminophen 5-325] Promethazine [Phenergan] 25 mg PO Q6H PRN #10 tab 12/07/18 Hydrocodone/Acetaminophen 1 each PO Q6H PRN #4 tablet 12/25/18 [Hydrocodon-Acetaminophen 5-325] Metoclopramide [Reglan] 10 mg PO Q8H 14 Days #10 tablet 12/25/18 - Allergies Allergies/Adverse Reactions: Allergies Allergy/AdvReac Type Severity Reaction Status Date / Time bee pollen Allergy Anaphylaxis Verified 12/25/18 12:59 gabapentin Allergy Itching Verified 12/25/18 12:59 oxycodone HCl * Allergy Itching Verified 12/25/18 12:59 [From Percocet] - Social History Does the pt smoke?: Yes Smoking Status: Current every day smoker Does the pt drink ETOH?: No Does the pt have substance abuse?: No - Immunizations Immunizations are current?: Yes - POLST Patient has POLST: No PD ED PE NORMAL - Vitals Vital signs reviewed: Yes - General General: Alert and oriented X 3, Other (Very thin appearing) - HEENT HEENT: PERRL - Neck Neck: Supple, no meningeal sign - Cardiac Cardiac: RRR, No murmur - Respiratory Respiratory: Clear bilaterally - Abdomen Abdomen: Normal bowel sounds, Soft, Non tender, Non distended - Derm Derm: Warm and dry - Extremities Extremities: No deformity - Neuro Neuro: Alert and oriented X 3 - Psych Psych: Normal mood, Normal affect Results - Vitals Vitals: Oxygen O2 Source Room air - Labs Labs: Laboratory Tests 12/25/18 12/25/18 12/25/18 13:14 13:14 16:24 WBC 5.9 RBC 5.37 Hgb 15.2 Hct 46.7 MCV 87.0 MCH 28.3 MCHC 32.5 RDW 13.3 Plt Count 226 MPV 9.5 Neut # (Auto) 4.2 Lymph # (Auto) 1.4 L [place] # (Auto) 0.2 Eos # (Auto) 0.1 Baso # (Auto) 0.1 Absolute Nucleated RBC 0.00 Nucleated RBC % 0.0 Sodium 142 Potassium 3.8 Chloride 100 L Carbon Dioxide 26 Anion Gap 16.0 H BUN 12 Creatinine 0.7 Estimated GFR (MDRD) 90 Glucose 103 H Calcium 10.0 Total Bilirubin 0.6 AST 18 ALT 14 Alkaline Phosphatase 83 Total Protein 7.6 Albumin 4.5 Globulin 3.1 Albumin/Globulin Ratio 1.5 Lipase 34 Urine Color YELLOW Urine Clarity CLEAR Urine pH 6.0 Ur Specific [place] 1.020 Urine Protein NEGATIVE Urine Glucose (UA) NEGATIVE Urine Ketones 40 H Urine Occult Blood TRACE-INTA Urine Nitrite NEGATIVE Urine Bilirubin NEGATIVE Urine Urobilinogen 0.2 (NORMAL) Ur Leukocyte Esterase SMALL H Urine RBC 0-5 Urine WBC 6-10 H Ur Squamous Epith Cells MANY Squamous H Urine Bacteria Rare Urine Mucus Marked Strands Ur Microscopic Review INDICATED Urine Culture Comments NOT INDICATED PD MEDICAL DECISION MAKING - ED course Complexity details: considered differential (chronic abdominal pain, gastroenteritis, eating disorder, dehydration, electrolyte disturbance, pancreatitis, gastritis, PUD) ED course: Pt presents with a recurrence of long-standing abdominal pain and nausea. She appears dehydrated, Iv was inserted and pt given anti-emetics, pain control, and crytalloid fluids. Labs show normal WBC, unremarkable CMP, normal lipase. UA equivocal for infection, pt's symptoms are not consistent with UTI so we will let it go to culture. On re-evaluation she is feeling improved, abdomen is benign, vital signs unremarkable. We discussed the results, the need for PCP follow up, and return precautions. She was discharged with reglan and a very small number of percocet. Departure - Departure Disposition: 01 Home, Self Care Clinical Impression: Abdominal pain Qualifiers: Abdominal location: epigastric Qualified Code(s): R10.13 - Epigastric pain Condition: Stable Instructions: Abdominal Pain Follow-Up: Your,PCP [Other] (For follow up on symptoms) Prescriptions: Hydrocodone/Acetaminophen [Hydrocodon-Acetaminophen 5-325] 1 each PO Q6H PRN #4 tablet PRN Reason: pain Metoclopramide [Reglan] 10 mg PO Q8H 14 Days #10 tablet Comments: You were seen today for abdominal pain and nausea. Your labs are reassuring. Please follow-up with your primary care provider as soon as possible. If you are developing worsening abdominal pain, persistent vomiting, or any other concerning symptoms please return to the ED immediately. Discharge Date/Time: 12/25/18 17:00
[2018-12-25] MEDS ORDERED: MORPHINE 2 MG/ML CARPUJECT IVP STA (14:26)
[2018-12-25] MEDS ORDERED: ONDANSETRON 4 MG/2 ML VIAL IVP STA ×2 (14:26→16:18)
[2018-12-25] MEDS ORDERED: SODIUM CHLORIDE 0.9% 1,000 ML IV ONE (14:27)
[2018-12-25] MEDS ORDERED: KETOROLAC 30 MG/ML VIAL IVP STA (16:18)
[2018-12-25 16:22] VITALS: BP 114/76
[2018-12-25 16:39] LABS: BILIRUBIN,URINE NEGATIVE (NEGATIVE); GLUCOSE, URINE (UA) NEGATIVE (NEGATIVE); KETONES,URINE (UA) 40 mg/dL (NEGATIVE); LEUKOCYTE ESTERASE, URINE SMALL (NEGATIVE); NITRITE,URINE NEGATIVE (NEGATIVE); OCCULT BLOOD,URINE TRACE-INTA (NEGATIVE); PROTEIN,URINE NEGATIVE (NEGATIVE); UROBILINOGEN,URINE 0.2 (NORMAL) E.U./dL (NORMAL)
[2018-12-25 16:40] LABS: CLARITY,URINE CLEAR (CLEAR)
[2018-12-25 16:53] LABS: BACTERIA,URINE Rare /HPF (None Seen); MUCUS,URINE Marked Strands; RBC,URINE 0-5 /HPF (0-5); SQUAMOUS EPITHELIAL CELL,UR MANY Squamous (<= Few)
== END 2018-12-25 17:00 | disposition home or self-care (01) ==
LOC: ED 12:52
DX: E86.0 Dehydration (principal); R10.13 Epigastric pain; R11.2 Nausea with vomiting, unspecified; R19.7 Diarrhea, unspecified; I48.91 Unspecified atrial fibrillation; F17.200 Nicotine dependence, unspecified, uncomplicated
CPT/HCPCS: 36415; 80053; 81001; 81003; 83690; 85025; 87086; 96361; 96374; 96375; 99284

== ENCOUNTER 2019-01-01 05:37 | Emergency (ER) | payer OTHER ==
--- NOTE | 2019-01-01 05:53 | ED Physician Documentation ---
PD HPI CHEST PAIN - Stated complaint Stated Complaint: CP - Chief complaint Chief Complaint: Cardiac - History obtained from History obtained from: Patient - History of Present Illness Timing - onset: How many days ago (3) Timing - onset during: Rest Timing - duration: Days (3) Timing - details: Gradual onset, Now resolved, Waxing and waning Quality: Sharp, Pain Location: Substernal, Left chest Improved by: Rest Worsened by: Inspiration, Movement, Palpation Associated symptoms: Nausea, Vomiting, Feeling faint / dizzy, General Weakness, Palpitations. No: Shortness of air, Diaphoresis, Cough Similar symptoms before: Diagnosis (costochondritis) Recently seen: Emergency Dept - Additional information Additional information: 43-year-old female with a prior history of anorexia nervosa status post PEG tube feeding has developed chest pain. She states over the past 3 days she has had increasing difficulty with pain in her anterior chest difficulty to get a full deep breath because of the pain and she has not been able to sleep. She has had some nausea vomiting and diarrhea over the past week as well. She indicates that she is under a lot of stress recently and she has had some bouts of crying. Review of Systems Constitutional: denies: Fever Eyes: denies: Decreased vision Ears: denies: Ear pain Nose: denies: Rhinorrhea / runny nose, Reviewed and negative Throat: denies: Sore throat Cardiac: reports: Chest pain / pressure, Palpitations. 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 : Kidney stones, Other HEENT: None Psych: Depression, Anxiety, Eating disorder, Other Musculoskeletal: Chronic back pain, Other Derm: Eczema - Past Surgical History Past Surgical History: Yes General: Appendectomy, Other Ortho: Spine surgery /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: Hysterectomy, Oophrectomy HEENT: Other - Present Medications Home Medications: Ambulatory Orders Medication Instructions Recorded Confirmed Ipratropium/Albuterol [Duoneb] 3 ml INH Q6H #30 neb 06/12/17 11/01/18 RX: Albuterol Sulf [Ventolin Hfa 1 - 2 puffs PO PRN PRN 06/12/17 11/01/18 Inhaler] Cephalexin [Keflex] 500 mg PO TID #21 capsule 05/07/18 11/01/18 Promethazine [Phenergan] 25 mg PO Q8H PRN #9 tablet 05/07/18 11/01/18 Ibuprofen [Motrin] 800 mg PO Q8H PRN #30 tablet 08/15/18 11/01/18 RX: traMADol [Ultram] 50 mg PO Q4-6H PRN #14 tablet 08/28/18 11/01/18 Ondansetron Odt [Zofran] 4 mg TL Q6H PRN #10 tablet 10/15/18 11/01/18 Hydrocodone/Acetaminophen 1 - 2 each PO Q6H PRN #14 tablet 10/30/18 11/01/18 [Hydrocodon-Acetaminophen 5-325] RX: Cefdinir 300 mg PO BID #20 capsule 10/30/18 11/01/18 Sucralfate [Carafate] 1 gm PO ACHS #60 tablet 10/30/18 11/01/18 Hydrocodone/Acetaminophen 1 - 2 each PO Q6H PRN #14 tablet 11/01/18 [Hydrocodon-Acetaminophen 5-325] Ondansetron Odt [Zofran] 4 mg TL Q6H PRN #20 tablet 11/01/18 Hydrocodone/Acetaminophen 1 - 2 each PO Q6H PRN #10 tablet 11/18/18 [Hydrocodon-Acetaminophen 5-325] Metoclopramide [Reglan] 10 mg PO Q6H PRN #10 tablet 11/18/18 Sulfamethoxazole/Trimethoprim 1 each PO BID #14 tablet 11/18/18 [Sulfamethoxazole-Tmp Ds Tablet] Hydrocodone/Acetaminophen 1 - 2 each PO Q6H PRN #12 tablet 12/07/18 [Hydrocodon-Acetaminophen 5-325] Promethazine [Phenergan] 25 mg PO Q6H PRN #10 tab 12/07/18 Hydrocodone/Acetaminophen 1 each PO Q6H PRN #4 tablet 12/25/18 [Hydrocodon-Acetaminophen 5-325] Metoclopramide [Reglan] 10 mg PO Q8H 14 Days #10 tablet 12/25/18 Hydrocodone/Acetaminophen 1 - 2 each PO Q6H PRN #14 tablet 01/01/19 [Hydrocodon-Acetaminophen 5-325] - Allergies Allergies/Adverse Reactions: Allergies Allergy/AdvReac Type Severity Reaction Status Date / Time bee pollen Allergy Anaphylaxis Verified 01/01/19 05:45 gabapentin Allergy Itching Verified 01/01/19 05:45 oxycodone HCl * Allergy Itching Verified 01/01/19 05:45 [From Percocet] - Social History Does the pt smoke?: Yes Smoking Status: Current every day smoker Does the pt drink ETOH?: No Does the pt have substance abuse?: No - Immunizations Immunizations are current?: Yes - POLST Patient has POLST: No PD ED PE NORMAL - Vitals Vital signs reviewed: Yes (hypertensive ) - General General: Alert and oriented X 3, No acute distress, Well developed/nourished - HEENT HEENT: Atraumatic, PERRL, EOMI - Neck Neck: Supple, no meningeal sign, No bony TTP - Cardiac Cardiac: RRR, No murmur - Respiratory Respiratory: No respiratory distress, Clear bilaterally, Other (There is chest wall tenderness to the parasternal area and along the left costal margin ) - Abdomen Abdomen: Soft, Non tender - Back Back: No CVA TTP, No spinal TTP - Derm Derm: Normal color, Warm and dry, No rash - Extremities Extremities: No deformity, No edema, No calf tenderness / cord - Neuro Neuro: Alert and oriented X 3, leather 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 2-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, No motor deficit, No sensory deficit, Normal speech Eye Opening: Spontaneous Motor: Obeys Commands Verbal: Oriented GCS Score: 15 - Psych Psych: Normal mood, Normal affect Results - Vitals Vitals: Vital Signs - 24 hr 01/01/19 01/01/19 01/01/19 05:40 06:18 06:54 Temperature 36.0 C L Heart Rate 93 82 72 Respiratory 16 17 23 Rate Blood Pressure 116/87 H 120/83 H 106/79 O2 Saturation 96 99 100 01/01/19 07:13 Temperature Heart Rate 65 Respiratory 14 Rate Blood Pressure 145/95 H O2 Saturation 100 Oxygen O2 Source Room air - EKG (time done) 0544 Rate: Rate (enter#) (82) Rhythm: NSR, AYESHA Ischemia: ST elevation c/w repol Compare to prior EKG: Changed from prior EKG (SPT 09-18-18 the biatrial enlargement has resolved. ) - Labs Labs: Laboratory Tests 01/01/19 01/01/19 01/01/19 05:50 05:50 05:50 WBC 5.5 RBC 4.56 Hgb 12.9 Hct 40.2 MCV 88.2 MCH 28.3 MCHC 32.1 RDW 13.7 Plt Count 200 MPV 9.4 Neut # (Auto) 2.9 Lymph # (Auto) 2.0 [place] # (Auto) 0.3 Eos # (Auto) 0.2 Baso # (Auto) 0.0 Absolute Nucleated RBC 0.00 Nucleated RBC % 0.0 Sodium 146 H Potassium 4.1 Chloride 107 Carbon Dioxide 30 Anion Gap 9.0 BUN 13 Creatinine 0.8 Estimated GFR (MDRD) 78 L Glucose 107 H Calcium 9.4 Total Bilirubin 0.2 AST 20 ALT 18 Alkaline Phosphatase 87 Troponin I High Sens < 2.3 L Total Protein 6.6 L Albumin 4.0 Globulin 2.6 Albumin/Globulin Ratio 1.5 Lipase 48 - Rads (name of study) chest Radiology: Prelim report reviewed (Impression: COPD. No significant interval change. No evidence of acute cardiopulmonary disease.), EMP read indepedently, See rad report Procedures - IVC sono (time) 0558 Bedside IVC sono: IVC measures (cm) (1.15), Dehydration (est 1 liter deficit) PD MEDICAL DECISION MAKING - ED course Complexity details: reviewed results, re-evaluated patient, considered differential, d/w patient, d/w family ED course: 43-year-old female who has had some recent vomiting and abdominal pain as well as some bouts of crying is found to be dehydrated on interrogation of the inferior vena cava and she does have chest wall tenderness to palpation. She is diagnosed with costochondritis and administered dexamethasone 10 mg intravenously as well as 30 mg of Toradol. She is given a liter of saline as well. The toradal does not help with the pain and she is given Iv DILAUDID. Departure - Departure Disposition: 01 Home, Self Care Clinical Impression: Costochondritis, acute Condition: Stable Instructions: ED Chest Pain Costochondritis Follow-Up: KENDELL PUGH DO [Primary Care Provider] - Prescriptions: Hydrocodone/Acetaminophen [Hydrocodon-Acetaminophen 5-325] 1 - 2 each PO Q6H PRN #14 tablet PRN Reason: pain
[2019-01-01 06:06] LABS: BASOPHILS % (AUTO) 0.7 %; EOSINOPHILS # (AUTO) 0.2 10^3/uL (0.0-0.7); HGB - HEMOGLOBIN 12.9 g/dL (12.0-16.0); LYMPHOCYTES % (AUTO) 36.1 %; MEAN CORPUSCULAR HEMOGLOBIN 28.3 pg (27.0-31.0); MEAN CORPUSCULAR HGB CONC 32.1 g/dL (32.0-36.0); MEAN CORPUSCULAR VOLUME 88.2 fL (81.0-99.0); MEAN PLATELET VOLUME 9.4 fL (7.9-10.8); MONOCYTES # (AUTO) 0.3 10^3/uL (0.0-1.0); MONOCYTES % (AUTO) 6.1 %; NEUTROPHILS # (AUTO) 2.9 10^3/uL (1.5-6.6); NEUTROPHILS % (AUTO) 52.9 %; PLT - PLATELET COUNT 200 10^3/uL (130-450); RED BLOOD COUNT 4.56 10^6/uL (4.20-5.40); RED CELL DISTRIBUTION WIDTH 13.7 % (12.0-15.0); WHITE BLOOD COUNT 5.5 x10^3/uL (4.8-10.8)
[2019-01-01] MEDS ORDERED: KETOROLAC 30 MG/ML VIAL IVP STA (06:06)
[2019-01-01] MEDS ORDERED: SODIUM CHLORIDE 0.9% 1,000 ML IV ONE (06:06)
[2019-01-01] MEDS ORDERED: ONDANSETRON 4 MG/2 ML VIAL IVP STA (06:06)
[2019-01-01 06:19] LABS: ALBUMIN/GLOBULIN RATIO 1.5 (1.0-2.2); BILIRUBIN,TOTAL 0.2 mg/dL (0.2-1.0); CALCIUM 9.4 mg/dL (8.5-10.3); CREATININE 0.8 mg/dL (0.4-1.0); TOTAL PROTEIN 6.6 g/dL (6.7-8.2)
--- NOTE | 2019-01-01 06:35 | XRAY Report ---
Reason: chest pain Procedure Date: 01/01/2019 Accession Number: [id number] / [id number] Procedure: XR - Chest 1 View X-Ray CPT Code: 42865 FULL RESULT: EXAM: CHEST RADIOGRAPHY EXAM DATE: 01/01/2019 06:29 AM. CLINICAL HISTORY: Chest pain. COMPARISON: CHEST 1 VIEW 08/15/2018 8:27 PM. TECHNIQUE: 1 view. FINDINGS: Lungs/Pleura: Stable hyperinflation and fibrosis. No new infiltrate, effusion, or pneumothorax. Mediastinum: Within exam limitations, the cardiomediastinal contour is normal. Other: None. IMPRESSION: COPD. No significant interval change. No evidence of acute cardiopulmonary disease. RADIA
[2019-01-01] MEDS ORDERED: HYDROmorphone 1 MG/ML CARPUJECT IVP STA (06:45)
[2019-01-01 07:14] VITALS: BP 145/95
== END 2019-01-01 07:36 | disposition home or self-care (01) ==
LOC: ED 05:37
DX: M94.0 Chondrocostal junction syndrome [Tietze] (principal); E86.0 Dehydration; F17.200 Nicotine dependence, unspecified, uncomplicated
CPT/HCPCS: 36415; 71045; 80053; 83690; 84484; 85025; 93005; 96361; 96374; 96375; 99284; J1170

== ENCOUNTER 2019-02-09 12:39 | Emergency (ER) | payer OTHER ==
[2019-02-09] MEDS ORDERED: ONDANSETRON 4 MG/2 ML VIAL IVP STA (13:19)
[2019-02-09] MEDS ORDERED: MORPHINE 2 MG/ML CARPUJECT IVP STA (13:19)
[2019-02-09] MEDS ORDERED: SODIUM CHLORIDE 0.9% 1,000 ML IV ONE (13:19)
--- NOTE | 2019-02-09 13:28 | XRAY Report ---
Reason: Chest Pain Procedure Date: 02/09/2019 Accession Number: [id number] / [id number] Procedure: XR - Chest 1 View X-Ray CPT Code: 75923 FULL RESULT: EXAM: CHEST RADIOGRAPHY EXAM DATE: 02/09/2019 01:18 PM. CLINICAL HISTORY: Chest pain. COMPARISON: CHEST 1 VIEW 01/01/2019 6:12 AM. TECHNIQUE: 1 view. FINDINGS: Lungs/Pleura: Stable hyperinflation with moderately prominent interstitial markings. No acute consolidations identified. No developing lung masses or pneumothorax detected. Mediastinum: Within exam limitations, the cardiomediastinal contour is normal. Other: Minimally imaged spinous fixation of lower lumbar spine. IMPRESSION: Hyperinflation with chronic lung changes. No acute consolidation is identified RADIA
[2019-02-09 13:29] LABS: BASOPHILS % (AUTO) 0.5 %; EOSINOPHILS # (AUTO) 0.2 10^3/uL (0.0-0.7); EOSINOPHILS % (AUTO) 3.2 %; HGB - HEMOGLOBIN 13.8 g/dL (12.0-16.0); LYMPHOCYTES # (AUTO) 1.4 10^3/uL (1.5-3.5); MEAN CORPUSCULAR HEMOGLOBIN 27.7 pg (27.0-31.0); MEAN CORPUSCULAR HGB CONC 32.1 g/dL (32.0-36.0); MEAN CORPUSCULAR VOLUME 86.2 fL (81.0-99.0); MEAN PLATELET VOLUME 8.8 fL (7.9-10.8); MONOCYTES # (AUTO) 0.3 10^3/uL (0.0-1.0); MONOCYTES % (AUTO) 3.3 %; NEUTROPHILS # (AUTO) 5.5 10^3/uL (1.5-6.6); NEUTROPHILS % (AUTO) 73.7 %; PLT - PLATELET COUNT 252 10^3/uL (130-450); RED BLOOD COUNT 4.99 10^6/uL (4.20-5.40); RED CELL DISTRIBUTION WIDTH 13.5 % (12.0-15.0); WHITE BLOOD COUNT 7.5 x10^3/uL (4.8-10.8)
--- NOTE | 2019-02-09 13:30 | ED Physician Documentation ---
PD HPI CHEST PAIN - Stated complaint Stated Complaint: CP VOMITING - Chief complaint Chief Complaint: Cardiac - History obtained from History obtained from: Patient - History of Present Illness Timing - onset: How many days ago (4) Timing - onset during: Rest Timing - duration: Days (4) Timing - details: Gradual onset Pain level max: 8 Pain level now: 8 Quality: Sharp, Pain Location: Other (across the whole chest) Improved by: Rest Worsened by: Movement, Palpation Associated symptoms: Nausea, Vomiting. No: Shortness of air, Diaphoresis, Feeling faint / dizzy, General Weakness, Palpitations, Cough Similar symptoms before: Diagnosis (costochondritis) Recently seen: Not recently seen Review of Systems Ten Systems: 10 systems reviewed and negative Constitutional: denies: Fever, Chills Nose: denies: Rhinorrhea / runny nose, Congestion Throat: denies: Sore throat Cardiac: denies: Palpitations Respiratory: denies: Cough GI: reports: Nausea, Vomiting. 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, Oophrectomy HEENT: Other - Present Medications Home Medications: Ambulatory Orders Medication Instructions Recorded Confirmed Albuterol Sulf [Ventolin Hfa 1 - 2 puffs PO PRN PRN 06/12/17 11/01/18 Inhaler] traMADol [Ultram] 50 mg PO Q4-6H PRN #14 tablet 08/28/18 11/01/18 Promethazine [Phenergan] 25 mg PO Q6H PRN #10 tab 12/07/18 Escitalopram [Lexapro] 10 mg PO DAILY 02/09/19 02/09/19 Hydrocodone/Acetaminophen 1 - 2 each PO Q6H PRN #10 tablet 02/09/19 [Hydrocodon-Acetaminophen 5-325] - Allergies Allergies/Adverse Reactions: Allergies Allergy/AdvReac Type Severity Reaction Status Date / Time bee pollen Allergy Anaphylaxis Verified 02/09/19 13:15 gabapentin Allergy Itching Verified 02/09/19 13:15 oxycodone HCl * Allergy Itching Verified 02/09/19 13:15 [From Percocet] - Social History Does the pt smoke?: Yes Smoking Status: Current every day smoker Does the pt drink ETOH?: No Does the pt have substance abuse?: No - Immunizations Immunizations are current?: Yes - POLST Patient has POLST: No PD ED PE NORMAL - Vitals Vital signs reviewed: Yes - General General: Alert and oriented X 3, No acute distress, Other (Thin, frail female) - HEENT HEENT: PERRL, Moist mucous membranes - Neck Neck: Supple, no meningeal sign - Cardiac Cardiac: RRR, Strong equal pulses - Respiratory Respiratory: No respiratory distress, Clear bilaterally, Other (Tender to palpation across the anterior chest wall. 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, No motor deficit, No sensory deficit - Psych Psych: Normal mood, Normal affect Results - Vitals Vitals: Vital Signs - 24 hr 02/09/19 02/09/19 02/09/19 12:44 13:31 14:40 Temperature 36.5 C Heart Rate 104 H 79 78 Respiratory 16 18 18 Rate Blood Pressure 111/77 124/89 H 114/78 O2 Saturation 100 100 100 Oxygen O2 Source Room air - EKG (time done) 1245 Rate: Rate (enter#) (105) Rhythm: Sinus tachycardia [place]: Normal Intervals: Normal AR QRS: Normal, LVH Ischemia: Normal ST segments - Labs Labs: Laboratory Tests 02/09/19 02/09/19 02/09/19 13:22 13:22 13:22 WBC 7.5 RBC 4.99 Hgb 13.8 Hct 43.0 MCV 86.2 MCH 27.7 MCHC 32.1 RDW 13.5 Plt Count 252 MPV 8.8 Neut # (Auto) 5.5 Lymph # (Auto) 1.4 L [place] # (Auto) 0.3 Eos # (Auto) 0.2 Baso # (Auto) 0.0 Absolute Nucleated RBC 0.00 Nucleated RBC % 0.0 Sodium 140 Potassium 3.9 Chloride 101 Carbon Dioxide 27 Anion Gap 12.0 BUN 17 Creatinine 0.7 Estimated GFR (MDRD) 90 Glucose 120 H Calcium 9.2 Total Bilirubin 0.5 AST 21 ALT 19 Alkaline Phosphatase 81 Troponin I High Sens < 2.3 L Total Protein 7.1 Albumin 4.5 Globulin 2.6 Albumin/Globulin Ratio 1.7 Lipase 33 - Rads (name of study) cxr Radiology: Prelim report reviewed, EMP read contemporaneously, See rad report (no acute disease) PD MEDICAL DECISION MAKING - ED course Complexity details: reviewed old records, reviewed results, re-evaluated patient, considered differential (No ST elevation IN, no aortic dissection, no PE, no tension pneumothorax, no aortic aneurysm), d/w patient ED course: Patient feels much better after pain medication, antiemetics and IV fluids. Appears to be likely costochondritis which is a chronic recurrent issue for her. Will place her on pain medication for home and follow-up with her doctor for further care. Patient counseled regarding signs and symptoms for which I believe and urgent re-evaluation would be necessary. Patient with good understanding of and agreement to plan and is comfortable going home at this time This document was made in part using voice recognition software. While efforts are made to proofread this document, sound alike and grammatical errors may occur. Departure - Departure Disposition: 01 Home, Self Care Clinical Impression: Chest pain Qualifiers: Chest pain type: unspecified Qualified Code(s): R07.9 - Chest pain, unspecified Condition: Good Instructions: ED Chest Pain Atypical Unkn Cause Follow-Up: KENDELL PUGH DO [Primary Care Provider] - Within 1 week Prescriptions: Hydrocodone/Acetaminophen [Hydrocodon-Acetaminophen 5-325] 1 - 2 each PO Q6H PRN #10 tablet PRN Reason: pain Comments: Return if you worsen. Your testing is normal today. Do not drink alcohol or drive while on narcotic pain medicine. Note that many narcotic pain relievers also contain tylenol/acetaminophen. Please ensure that your total dose of acetaminophen from all sources does not exceed 3 grams (3000mg) per day. You may constipated on this medication, take a stool softener such as "Colace" twice a day while you are on it. Also recommend a wcts-[id number] laxative such as senna or MiraLAX any day that you do not have a bowel movement. If you received narcotic pain medication in the emergency department, do not drive or operate machinery for the next 24 hours. Discharge Date/Time: 02/09/19 14:49
[2019-02-09 13:42] LABS: ALBUMIN 4.5 g/dL (3.2-5.5); ALBUMIN/GLOBULIN RATIO 1.7 (1.0-2.2); BILIRUBIN,TOTAL 0.5 mg/dL (0.2-1.0); CALCIUM 9.2 mg/dL (8.5-10.3); CREATININE 0.7 mg/dL (0.4-1.0); TOTAL PROTEIN 7.1 g/dL (6.7-8.2)
[2019-02-09] MEDS ORDERED: HYDROcod/ACETAM 5/325 MG TABLET PO STA (14:27)
[2019-02-09 14:41] VITALS: BP 114/78
== END 2019-02-09 14:49 | disposition home or self-care (01) ==
LOC: ED 12:39
DX: R07.9 Chest pain, unspecified (principal); F17.200 Nicotine dependence, unspecified, uncomplicated
CPT/HCPCS: 36415; 71045; 80053; 83690; 84484; 85025; 93005; 96361; 96374; 99284; A9270

== ENCOUNTER 2019-03-02 14:14 | Emergency (ER) | payer OTHER ==
[2019-03-02 14:21] VITALS: BP 145/76
--- NOTE | 2019-03-02 14:40 | ED Physician Documentation ---
History of Present Illness - Stated complaint Stated Complaint: CHEST/SIDE PX - Chief complaint Chief Complaint: General - Additonal information Additional information: This is a 43-year-old female history of a eating disorder, with past G-tube placement for this, who presents with epigastric pain that radiates towards her chest and her back. She states this began several days ago and is worse when she takes a deep breath in. She denies any history of blood clots, no swelling in her calves. She has no diaphoresis, no vomiting. She she denies any lower abdominal discomfort. She has been able to eat and drink. She has had similar pain in the past and has reportedly had negative work-ups. She states that she wasn't going to come into the hospital, she just wanted to go to her eating disorder clinic today, but because of her pain they sent her here to be checked out before treating her. 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 : Kidney stones, Other HEENT: None Psych: Depression, Anxiety, Eating disorder, Other Musculoskeletal: Chronic back pain, Other Derm: Eczema - Past Surgical History Past Surgical History: Yes General: Appendectomy, Other Ortho: 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, 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 HEENT: Other - Present Medications Home Medications: Ambulatory Orders Medication Instructions Recorded Confirmed Albuterol Sulf [Ventolin Hfa 1 - 2 puffs PO PRN PRN 06/12/17 11/01/18 Inhaler] traMADol [Ultram] 50 mg PO Q4-6H PRN #14 tablet 08/28/18 11/01/18 Promethazine [Phenergan] 25 mg PO Q6H PRN #10 tab 12/07/18 Escitalopram [Lexapro] 10 mg PO DAILY 02/09/19 02/09/19 Hydrocodone/Acetaminophen 1 - 2 each PO Q6H PRN #10 tablet 02/09/19 [Hydrocodon-Acetaminophen 5-325] Hydrocodone/Acetaminophen 1 each PO Q6H PRN #5 tablet 03/02/19 [Hydrocodon-Acetaminophen 5-325] Lorazepam [Ativan] 1 mg PO 03/02/19 03/02/19 - Allergies Allergies/Adverse Reactions: Allergies Allergy/AdvReac Type Severity Reaction Status Date / Time bee pollen Allergy Anaphylaxis Verified 03/04/19 17:55 gabapentin Allergy Itching Verified 03/04/19 17:55 oxycodone HCl * Allergy Itching Verified 03/04/19 17:55 [From Percocet] - Social History Does the pt smoke?: Yes Smoking Status: Current every day smoker Does the pt drink ETOH?: No Does the pt have substance abuse?: No - Immunizations Immunizations are current?: Yes - POLST Patient has POLST: No PD ED PE NORMAL - Vitals Vital signs reviewed: Yes - General General: Alert and oriented X 3 - HEENT HEENT: PERRL - Neck Neck: Supple, no meningeal sign - Cardiac Cardiac: Other (Tachycardia in the low 100s on my exam,) - Respiratory Respiratory: No respiratory distress, Clear bilaterally - Abdomen Abdomen: Soft, Non distended, Other (Slight tenderness in the left upper quadrant, otherwise abdomen is nontender to deep palpation. 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, No motor deficit, No sensory deficit, Normal speech - Psych Psych: Normal mood, Other (Slightly anxious affect.) Results - Vitals Vitals: Oxygen O2 Source Room air - EKG (time done) 14:34 Other comments: Other comments (Rate 114, rhythm sinus tachycardia, there is no ST segment elevation or depression, QTC 481.) - Labs Labs: Laboratory Tests 03/02/19 03/02/19 03/02/19 15:52 15:52 15:52 WBC 6.1 RBC 4.37 Hgb 12.2 Hct 38.7 MCV 88.6 MCH 27.9 MCHC 31.5 L RDW 13.8 Plt Count 234 MPV 9.1 Neut # (Auto) 4.1 Lymph # (Auto) 1.6 Power # (Auto) 0.3 Eos # (Auto) 0.1 Baso # (Auto) 0.0 Absolute Nucleated RBC 0.00 Nucleated RBC % 0.0 D-Dimer < 200.0 L Sodium 138 Potassium 4.0 Chloride 102 Carbon Dioxide 28 Anion Gap 8.0 BUN 22 H Creatinine 0.7 Estimated GFR (MDRD) 90 Glucose 98 Calcium 8.9 Total Bilirubin 0.4 AST 23 ALT 23 Alkaline Phosphatase 71 Troponin I High Sens Total Protein 6.9 Albumin 4.2 Globulin 2.7 Albumin/Globulin Ratio 1.6 Lipase 28 03/02/19 15:52 WBC RBC Hgb Hct MCV MCH MCHC RDW Plt Count MPV Neut # (Auto) Lymph # (Auto) Power # (Auto) Eos # (Auto) Baso # (Auto) Absolute Nucleated RBC Nucleated RBC % D-Dimer Sodium Potassium Chloride Carbon Dioxide Anion Gap BUN Creatinine Estimated GFR (MDRD) Glucose Calcium Total Bilirubin AST ALT Alkaline Phosphatase Troponin I High Sens < 2.3 L Total Protein Albumin Globulin Albumin/Globulin Ratio Lipase PD MEDICAL DECISION MAKING - ED course Complexity details: considered differential (PUD, gastritis, pancreatitis, ACS, PE, pneumothorax, pneumonia) ED course: On arrival patient is non-toxic appearing. EKG shows sinus tachycardia. CXR unremarkable. Labs are also unremarkable. No leukocytosis, negative lipase. Troponin is negative and given the duration of her pain >6 hours, a single troponin is sufficient. EKG and troponin results make ACS exceedingly unlikely. She is low risk for PE but is tachycardic, D-dimer obtained and is negative. She was given toradol and vicodin and on reassessment her pain is improving. Her abdomen is benign, vital signs unremarkable (HR in 80s on my repeat exam) and she is very well-appearing. Speaking to her, she has had similar pain many times in the past and it is unclear what the cause is. I discussed return precuations, PCP follow up. After a long discussion with the patient I prescribed her a very small number of hydrocodone to be used sparingly for her chronic pain while she is receiving treatment for her eating disorder and until she can follow up with her regular doctor. The risks of the medications were discussed in depth. Patient agrees and is discharged. Departure - Departure Disposition: 01 Home, Self Care Clinical Impression: Chest pain Qualifiers: Chest pain type: unspecified Qualified Code(s): R07.9 - Chest pain, unspecified Condition: Good Instructions: ED Chest Pain Atypical Unkn Cause Follow-Up: KENDELL PUGH DO [Primary Care Provider] - Within 1 week Prescriptions: Hydrocodone/Acetaminophen [Hydrocodon-Acetaminophen 5-325] 1 each PO Q6H PRN #5 tablet PRN Reason: pain Comments: You were seen today for chest pain, we do not see an obvious cause of your pain on our work-up today. Please follow-up with your primary care provider as soon as possible. If you developing worsening pain, trouble breathing, coughing up blood, fever, or any other concerning symptoms please return to the emergency department. Do not drink alcohol or drive while taking narcotic pain medication. Note that many narcotic pain relievers also contain Tylenol/acetaminophen. Please ensure that your total dose of acetaminophen from all sources does not exceed 3 g (3000 mg) per day. You may get constipated while on this medication. Take a stool softener such as Colace twice a day while you are on it. Also add an [id number]-[id number]-jrvpshi laxative such as senna or MiraLAX on any day that you do not have a bowel movement. If you received a narcotic pain medication or sedative while in the emergency department, do not drive for the next 24 hours. Forms: Activity restrictions Discharge Date/Time: 03/02/19 17:24
[2019-03-02] MEDS ORDERED: ONDANSETRON 4 MG/2 ML VIAL IVP STA (14:54)
[2019-03-02] MEDS ORDERED: KETOROLAC 30 MG/ML VIAL IVP STA (14:54)
--- NOTE | 2019-03-02 15:34 | XRAY Report ---
Reason: Chest pain Procedure Date: 03/02/2019 Accession Number: [id number] / [id number] Procedure: XR - Chest 2 View X-Ray CPT Code: 05756 FULL RESULT: EXAM: CHEST RADIOGRAPHY EXAM DATE: 03/02/2019 03:09 PM. CLINICAL HISTORY: Chest pain. COMPARISON: XR CHEST 1 VIEW AP/PA 03/01/2019 2:42 PM CHEST 1 VIEW 02/09/2019 12:59 PM. TECHNIQUE: 2 views. FINDINGS: Lungs/Pleura: Lungs are hyperinflated with flattening of the diaphragm, similar to prior. Bilateral apical scarring and pleural thickening is again noted. No new focal pulmonary opacity. No pleural effusion or pneumothorax. Mediastinum: Heart and mediastinal contours are unremarkable. There is mild atherosclerotic calcification of the aortic arch. Other: No acute osseous abnormality. There is mild right convex curvature of the midthoracic spine, similar to prior. IMPRESSION: 1. Unchanged appearance of hyperexpansion and bilateral apical scarring. 2. No new pulmonary opacity or other acute interval change. RADIA
[2019-03-02 15:56] LABS: BASOPHILS % (AUTO) 0.7 %; EOSINOPHILS # (AUTO) 0.1 10^3/uL (0.0-0.7); HGB - HEMOGLOBIN 12.2 g/dL (12.0-16.0); LYMPHOCYTES # (AUTO) 1.6 10^3/uL (1.5-3.5); LYMPHOCYTES % (AUTO) 25.7 %; MEAN CORPUSCULAR HEMOGLOBIN 27.9 pg (27.0-31.0); MEAN CORPUSCULAR HGB CONC 31.5 g/dL (32.0-36.0); MEAN CORPUSCULAR VOLUME 88.6 fL (81.0-99.0); MEAN PLATELET VOLUME 9.1 fL (7.9-10.8); MONOCYTES # (AUTO) 0.3 10^3/uL (0.0-1.0); MONOCYTES % (AUTO) 4.1 %; NEUTROPHILS # (AUTO) 4.1 10^3/uL (1.5-6.6); NEUTROPHILS % (AUTO) 67.2 %; PLT - PLATELET COUNT 234 10^3/uL (130-450); RED BLOOD COUNT 4.37 10^6/uL (4.20-5.40); RED CELL DISTRIBUTION WIDTH 13.8 % (12.0-15.0); WHITE BLOOD COUNT 6.1 x10^3/uL (4.8-10.8)
[2019-03-02 16:15] LABS: ALBUMIN 4.2 g/dL (3.2-5.5); ALBUMIN/GLOBULIN RATIO 1.6 (1.0-2.2); BILIRUBIN,TOTAL 0.4 mg/dL (0.2-1.0); CALCIUM 8.9 mg/dL (8.5-10.3); CREATININE 0.7 mg/dL (0.4-1.0); TOTAL PROTEIN 6.9 g/dL (6.7-8.2)
[2019-03-02] MEDS ORDERED: HYDROcod/ACETAM 5/325 MG TABLET PO STA (16:23)
[2019-03-02] MEDS ORDERED: FAMOTIDINE 20 MG/2 ML VIAL IVP STA (16:23)
== END 2019-03-02 17:24 | disposition home or self-care (01) ==
LOC: ED 14:14
DX: R07.9 Chest pain, unspecified (principal); R00.0 Tachycardia, unspecified; G89.29 Other chronic pain; F50.9 Eating disorder, unspecified; F41.9 Anxiety disorder, unspecified; F17.200 Nicotine dependence, unspecified, uncomplicated; J44.9 Chronic obstructive pulmonary disease, unspecified; Z68.1 Body mass index [BMI] 19.9 or less, adult; Z86.79 Personal history of other diseases of the circulatory system; Z79.899 Other long term (current) drug therapy
CPT/HCPCS: 36415; 71046; 80053; 83690; 84484; 85025; 85379; 93005; 96374; 96375; 99284; A9270

== ENCOUNTER 2019-03-04 17:51 | Emergency (ER) | payer OTHER ==
--- NOTE | 2019-03-04 18:11 | ED Physician Documentation ---
PD HPI CHEST PAIN - Stated complaint Stated Complaint: CP - Chief complaint Chief Complaint: Cardiac - History obtained from History obtained from: Patient - History of Present Illness Timing - onset: How many weeks ago (1) Timing - duration: Weeks (1) Timing - details: Still present Location: Substernal, Left chest, Left shoulder/arm Radiation: Back Improved by: Nothing Associated symptoms: Shortness of air, Nausea, Vomiting, Feeling faint / dizzy, General Weakness, Palpitations, Cough Similar symptoms before: Diagnosis (costochondritis) Recently seen: Emergency Dept - Additional information Additional information: This is a 43-year-old woman who presents with her complains that she has pain under her sternum that is wrapping around under the left breast and into the left shoulder for at least the past week. She says it sharp in her chest and then a dull ache in the front of her shoulder. Now she is developed pain between her shoulder blades over the past few days and she just does not feel good at all. She says she was so uncomfortable at home and had been prescribed hydrocodone here from the emergency department when she was seen last week but it did nothing to help her pain. She is also been taking Motrin 3 times a day and tramadol but none of which seems to be helping. Patient denies any history of heart disease. She does feel short of breath and is coughing bringing phlegm up to the back of her throat but unable to spit it out. She had vomiting and diarrhea but did not eat anything that she thinks may made her sick but the diarrhea was so profuse today that her "bomb" is hurting is very watery. She denies fever. Patient has been diagnosed with gastroparesis after an endoscopy in August 2018. She takes omeprazole twice a day otherwise she cannot tolerate the burning and she has a nausea medicine at home. She is status post appendectomy and hysterectomy and has a history of a eating disorder that she treated at the [facility] in [place]. She had a feeding tube that was removed 2 years ago. She denies any history of heart disease. Her interjects several times that he thinks the anxiety around this increases the pain. She also reports that the other days she passed out and "limps out" feeling very dizzy. She denies use of alcohol or other drugs. No history of gallstones. Review of Systems Constitutional: denies: Fever Cardiac: reports: Chest pain / pressure, Palpitations Respiratory: reports: Dyspnea, Cough GI: reports: Abdominal Pain, Nausea, Vomiting, Diarrhea : reports: Other (Status post hysterectomy). denies: Dysuria Skin: denies: Rash Musculoskeletal: reports: Back pain (She had now has pain between her shoulder blades) Neurologic: reports: Generalized weakness, Syncope. denies: Numbness PD PAST MEDICAL HISTORY - Past Medical History Cardiovascular: Atrial fibrillation Respiratory: COPD Neuro: None Endocrine/Autoimmune: None GI: None [employer]: None : Kidney stones, Other HEENT: None Psych: Depression, Anxiety, Eating disorder, Other Musculoskeletal: Chronic back pain, Other Derm: Eczema - Past Surgical History Past Surgical History: Yes General: Appendectomy, Other Ortho: Spine surgery /[employer]: Hysterectomy, Oophrectomy HEENT: Other - Present Medications Home Medications: Ambulatory Orders Medication Instructions Recorded Confirmed Albuterol Sulf [Ventolin Hfa 1 - 2 puffs PO PRN PRN 06/12/17 11/01/18 Inhaler] traMADol [Ultram] 50 mg PO Q4-6H PRN #14 tablet 08/28/18 11/01/18 Promethazine [Phenergan] 25 mg PO Q6H PRN #10 tab 12/07/18 Escitalopram [Lexapro] 10 mg PO DAILY 02/09/19 02/09/19 Hydrocodone/Acetaminophen 1 - 2 each PO Q6H PRN #10 tablet 02/09/19 [Hydrocodon-Acetaminophen 5-325] Hydrocodone/Acetaminophen 1 each PO Q6H PRN #5 tablet 03/02/19 [Hydrocodon-Acetaminophen 5-325] Lorazepam [Ativan] 1 mg PO 03/02/19 03/02/19 Sulfamethox/Trimeth 800/160 1 each PO BID #20 tablet 03/04/19 [Bactrim Ds 800/160] - Allergies Allergies/Adverse Reactions: Allergies Allergy/AdvReac Type Severity Reaction Status Date / Time bee pollen Allergy Anaphylaxis Verified 03/04/19 17:55 gabapentin Allergy Itching Verified 03/04/19 17:55 oxycodone HCl * Allergy Itching Verified 03/04/19 17:55 [From Percocet] - Social History Does the pt smoke?: Yes Smoking Status: Current every day smoker Does the pt drink ETOH?: No Does the pt have substance abuse?: No - Immunizations Immunizations are current?: Yes - POLST Patient has POLST: No PD ED PE NORMAL - Vitals Vital signs reviewed: Yes - General General: Alert and oriented X 3, No acute distress, Well developed/nourished, Other (Patient speaks very softly and at one point began sobbing. She is very thin) - HEENT HEENT: Atraumatic, PERRL, Other (No scleral icterus. She has dry mucous membranes.) - Neck Neck: No adenopathy, Thyroid normal - Cardiac Cardiac: RRR, No murmur, Strong equal pulses - Respiratory Respiratory: No respiratory distress, Clear bilaterally - Abdomen Abdomen: Normal bowel sounds, Soft, No organomegaly - Derm Derm: Normal color, Warm and dry, No rash - Extremities Extremities: No edema - Neuro Neuro: Alert and oriented X 3, cook jelly 2-12 intact, No motor deficit, No sensory deficit, Normal speech Results - Vitals Vitals: Vital Signs - 24 hr 03/04/19 03/04/19 03/04/19 17:55 18:27 18:33 Temperature 36.5 C Heart Rate 107 H 98 91 Respiratory 14 15 13 Rate Blood Pressure 135/81 H 144/94 H 119/88 H O2 Saturation 100 99 97 03/04/19 03/04/19 20:18 22:00 Temperature 36.6 C Heart Rate 84 69 Respiratory 16 17 Rate Blood Pressure 112/84 H 104/74 O2 Saturation 97 97 Oxygen O2 Source Room air - Labs Labs: Laboratory Tests 03/04/19 03/04/19 03/04/19 18:45 18:45 18:45 WBC 5.6 RBC 4.72 Hgb 12.9 Hct 40.8 MCV 86.4 MCH 27.3 MCHC 31.6 L RDW 13.9 Plt Count 237 MPV 9.2 Neut # (Auto) 4.0 Lymph # (Auto) 1.2 L [place] # (Auto) 0.3 Eos # (Auto) 0.1 Baso # (Auto) 0.0 Absolute Nucleated RBC 0.00 Nucleated RBC % 0.0 Sodium 144 Potassium 3.8 Chloride 109 Carbon Dioxide 26 Anion Gap 9.0 BUN 17 Creatinine 0.5 Estimated GFR (MDRD) 133 Glucose 104 H Calcium 9.4 Total Bilirubin 0.5 AST 21 ALT 22 Alkaline Phosphatase 67 Troponin I High Sens < 2.3 L Total Protein 6.9 Albumin 4.1 Globulin 2.8 Albumin/Globulin Ratio 1.5 Lipase 32 Urine Color Urine Clarity Urine pH Ur Specific Cooper Urine Protein Urine Glucose (UA) Urine Ketones Urine Occult Blood Urine Nitrite Urine Bilirubin Urine Urobilinogen Ur Leukocyte Esterase Urine RBC Urine WBC Ur Squamous Epith Cells Urine Bacteria Urine Mucus Ur Microscopic Review Urine Culture Comments 03/04/19 03/04/19 19:00 21:37 WBC RBC Hgb Hct MCV MCH MCHC RDW Plt Count MPV Neut # (Auto) Lymph # (Auto) [place] # (Auto) Eos # (Auto) Baso # (Auto) Absolute Nucleated RBC Nucleated RBC % Sodium Potassium Chloride Carbon Dioxide Anion Gap BUN Creatinine Estimated GFR (MDRD) Glucose Calcium Total Bilirubin AST ALT Alkaline Phosphatase Troponin I High Sens Total Protein Albumin Globulin Albumin/Globulin Ratio Lipase Urine Color YELLOW YELLOW Urine Clarity CLEAR CLEAR Urine pH 5.5 6.0 Ur Specific Cooper >=1.030 H 1.025 Urine Protein TRACE NEGATIVE Urine Glucose (UA) NEGATIVE NEGATIVE Urine Ketones TRACE NEGATIVE Urine Occult Blood SMALL H TRACE-INTA Urine Nitrite NEGATIVE NEGATIVE Urine Bilirubin NEGATIVE NEGATIVE Urine Urobilinogen 0.2 (NORMAL) 0.2 (NORMAL) Ur Leukocyte Esterase MODERATE H SMALL H Urine RBC 11-25 H 6-10 H Urine WBC >25 H >25 H Ur Squamous Epith Cells MANY Squamous H FEW Squamous Urine Bacteria Many H Many H Urine Mucus Few Strands Ur Microscopic Review INDICATED INDICATED Urine Culture Comments NOT INDICATED INDICATED PD MEDICAL DECISION MAKING - ED course Complexity details: reviewed old records, reviewed results, re-evaluated patient, d/w patient, d/w family ED course: Patient received a GI cocktail and a liter of IV fluids. She was still complaining of severe chest pain. Patient presents to the emergency department frequently with the same complaint. Her work-up today is negative with a normal chest x-ray, no acute changes on her EKG, normal troponin, CMP and CBC. Of ordered Haldol and Benadryl IV and will reassess this. Repeat U/A was obtained that did show greater than 25 WBCs per HPF. When I went in the room discussed with the patient she was sleeping but her said she still complaining of chest pain. She is given Rocephin IV and Toradol 30 mg IV. She will be discharged home on Bactrim with instructions to follow-up with her primary care provider regarding further pain management. She should have the urine retested after finishing the antibiotic. Departure - Departure Disposition: 01 Home, Self Care Clinical Impression: Atypical chest pain UTI (urinary tract infection) Qualifiers: Urinary tract infection type: site unspecified Hematuria presence: without hematuria Qualified Code(s): N39.0 - Urinary tract infection, site not specified Condition: Good Instructions: ED UTI Cystitis Female Follow-Up: KENDELL PUGH DO [Primary Care Provider] - Prescriptions: Sulfamethox/Trimeth 800/160 [Bactrim Ds 800/160] 1 each PO BID #20 tablet Comments: Take the antibiotic as prescribed for 10 days. Make sure you are drinking plenty of water. Follow-up with your primary care provider regarding further pain management.
[2019-03-04] MEDS ORDERED: SODIUM CHLORIDE 0.9% 1,000 ML IV ONE (18:28)
[2019-03-04] MEDS ORDERED: LIDOCAINE VISCOUS 2% 100 ML BOTTLE MM STA (18:28)
[2019-03-04] MEDS ORDERED: MAG HYDROX/AL HYDROX/SIMETH 30 ML UDC PO STA (18:28)
[2019-03-04] MEDS ORDERED: LORazepam 2 MG/ML VIAL IVP STA (18:29)
[2019-03-04 19:05] LABS: BASOPHILS % (AUTO) 0.5 %; EOSINOPHILS # (AUTO) 0.1 10^3/uL (0.0-0.7); EOSINOPHILS % (AUTO) 1.4 %; HGB - HEMOGLOBIN 12.9 g/dL (12.0-16.0); LYMPHOCYTES # (AUTO) 1.2 10^3/uL (1.5-3.5); LYMPHOCYTES % (AUTO) 21.1 %; MEAN CORPUSCULAR HEMOGLOBIN 27.3 pg (27.0-31.0); MEAN CORPUSCULAR HGB CONC 31.6 g/dL (32.0-36.0); MEAN CORPUSCULAR VOLUME 86.4 fL (81.0-99.0); MEAN PLATELET VOLUME 9.2 fL (7.9-10.8); MONOCYTES # (AUTO) 0.3 10^3/uL (0.0-1.0); MONOCYTES % (AUTO) 4.7 %; NEUTROPHILS % (AUTO) 71.9 %; PLT - PLATELET COUNT 237 10^3/uL (130-450); RED BLOOD COUNT 4.72 10^6/uL (4.20-5.40); RED CELL DISTRIBUTION WIDTH 13.9 % (12.0-15.0); WHITE BLOOD COUNT 5.6 x10^3/uL (4.8-10.8)
--- NOTE | 2019-03-04 19:06 | XRAY Report ---
Reason: chest pain Procedure Date: 03/04/2019 Accession Number: [id number] / [id number] Procedure: XR - Chest 1 View X-Ray CPT Code: 96800 FULL RESULT: EXAM: CHEST RADIOGRAPHY EXAM DATE: 03/04/2019 06:41 PM. CLINICAL HISTORY: Chest pain. COMPARISON: CHEST 2 VIEW 03/02/2019 2:57 PM. TECHNIQUE: 1 view. FINDINGS: Lungs/Pleura: There is vague airspace opacity in the right upper lobe which is unchanged. There is linear scarring and pleural thickening in the left apex unchanged. Negative for pneumothorax. No new consolidation. Mediastinum: Heart size is normal. Trachea is midline. Other: None. IMPRESSION: 1. No change. Bilateral apical scarring and opacity. No acute airspace disease. RADIA
[2019-03-04 19:11] LABS: BILIRUBIN,URINE NEGATIVE (NEGATIVE); GLUCOSE, URINE (UA) NEGATIVE (NEGATIVE); KETONES,URINE (UA) TRACE mg/dL (NEGATIVE); LEUKOCYTE ESTERASE, URINE MODERATE (NEGATIVE); NITRITE,URINE NEGATIVE (NEGATIVE); OCCULT BLOOD,URINE SMALL (NEGATIVE); PH,URINE 5.5 PH (5.0-7.5); PROTEIN,URINE TRACE mg/dL (NEGATIVE); UROBILINOGEN,URINE 0.2 (NORMAL) E.U./dL (NORMAL)
[2019-03-04 19:18] LABS: CLARITY,URINE CLEAR (CLEAR)
[2019-03-04] MEDS ORDERED: LIDOCAINE VISCOUS 2% 15 ML UDC ONE (19:19)
[2019-03-04 19:21] LABS: ALBUMIN 4.1 g/dL (3.2-5.5); ALBUMIN/GLOBULIN RATIO 1.5 (1.0-2.2); BILIRUBIN,TOTAL 0.5 mg/dL (0.2-1.0); CALCIUM 9.4 mg/dL (8.5-10.3); CREATININE 0.5 mg/dL (0.4-1.0); TOTAL PROTEIN 6.9 g/dL (6.7-8.2)
[2019-03-04 19:31] LABS: BACTERIA,URINE Many /HPF (None Seen); SQUAMOUS EPITHELIAL CELL,UR MANY Squamous (<= Few)
[2019-03-04] MEDS ORDERED: HALOPERIDOL 5 MG/ML VIAL IVP ONE (20:38)
[2019-03-04] MEDS ORDERED: diphenhydrAMINE INJ 50 MG/ML VIAL IVP STA (20:40)
[2019-03-04 21:43] LABS: BILIRUBIN,URINE NEGATIVE (NEGATIVE); GLUCOSE, URINE (UA) NEGATIVE (NEGATIVE); KETONES,URINE (UA) NEGATIVE (NEGATIVE); LEUKOCYTE ESTERASE, URINE SMALL (NEGATIVE); NITRITE,URINE NEGATIVE (NEGATIVE); OCCULT BLOOD,URINE TRACE-INTA (NEGATIVE); PROTEIN,URINE NEGATIVE (NEGATIVE); UROBILINOGEN,URINE 0.2 (NORMAL) E.U./dL (NORMAL)
[2019-03-04 21:45] LABS: CLARITY,URINE CLEAR (CLEAR)
[2019-03-04 21:52] LABS: BACTERIA,URINE Many /HPF (None Seen); MUCUS,URINE Few Strands; SQUAMOUS EPITHELIAL CELL,UR FEW Squamous (<= Few)
[2019-03-04] MEDS ORDERED: cefTRIAXone 1 GM VIAL IVP STA (22:34)
[2019-03-04] MEDS ORDERED: KETOROLAC 30 MG/ML VIAL IVP STA (22:34)
[2019-03-04 23:27] VITALS: BP 96/69
== END 2019-03-04 23:38 | disposition home or self-care (01) ==
LOC: ED 17:51
DX: R07.89 Other chest pain (principal); R00.0 Tachycardia, unspecified; N39.0 Urinary tract infection, site not specified; F17.200 Nicotine dependence, unspecified, uncomplicated
CPT/HCPCS: 36415; 71045; 80053; 81001; 83690; 84484; 85025; 87086; 93005; 96361; 96374; 96375; 99283; 99285; A9270; J1200; J2060; 81003

== ENCOUNTER 2019-03-05 14:08 | Emergency (ER) | payer OTHER ==
--- NOTE | 2019-03-05 14:58 | XRAY Report ---
Reason: chest pain Procedure Date: 03/05/2019 Accession Number: [id number] / [id number] Procedure: XR - Chest 2 View X-Ray CPT Code: 85913 FULL RESULT: EXAM: CHEST RADIOGRAPHY EXAM DATE: 03/05/2019 02:45 PM. CLINICAL HISTORY: Chest pain. COMPARISON: CHEST 1 VIEW 03/04/2019 6:26 PM CHEST 2 VIEW 06/02/2017 2:47 PM. TECHNIQUE: 2 views. FINDINGS: Lungs/Pleura: Chronic biapical pleural and parenchymal scarring similar to previous. No other focal opacities evident. No pleural effusion. No pneumothorax. Hyperexpanded volumes. Mediastinum: Heart and mediastinal contours are unremarkable. Other: Thoracic dextroscoliosis. IMPRESSION: Chronic biapical changes are stable. No acute findings noted. RADIA
[2019-03-05 15:18] LABS: BASOPHILS % (AUTO) 0.5 %; EOSINOPHILS # (AUTO) 0.1 10^3/uL (0.0-0.7); EOSINOPHILS % (AUTO) 1.5 %; HGB - HEMOGLOBIN 12.8 g/dL (12.0-16.0); LYMPHOCYTES # (AUTO) 1.2 10^3/uL (1.5-3.5); LYMPHOCYTES % (AUTO) 22.3 %; MEAN CORPUSCULAR HEMOGLOBIN 28.3 pg (27.0-31.0); MEAN CORPUSCULAR VOLUME 88.3 fL (81.0-99.0); MEAN PLATELET VOLUME 9.1 fL (7.9-10.8); MONOCYTES # (AUTO) 0.3 10^3/uL (0.0-1.0); MONOCYTES % (AUTO) 4.6 %; NEUTROPHILS # (AUTO) 3.9 10^3/uL (1.5-6.6); NEUTROPHILS % (AUTO) 70.7 %; PLT - PLATELET COUNT 241 10^3/uL (130-450); RED BLOOD COUNT 4.53 10^6/uL (4.20-5.40); RED CELL DISTRIBUTION WIDTH 13.9 % (12.0-15.0); WHITE BLOOD COUNT 5.5 x10^3/uL (4.8-10.8)
[2019-03-05 15:31] LABS: ALBUMIN 3.9 g/dL (3.2-5.5); ALBUMIN/GLOBULIN RATIO 1.6 (1.0-2.2); BILIRUBIN,TOTAL 0.6 mg/dL (0.2-1.0); CALCIUM 9.1 mg/dL (8.5-10.3); CREATININE 0.8 mg/dL (0.4-1.0); TOTAL PROTEIN 6.4 g/dL (6.7-8.2)
[2019-03-05] MEDS ORDERED: MAG HYDROX/AL HYDROX/SIMETH 30 ML UDC PO STA (18:14)
[2019-03-05] MEDS ORDERED: LIDOCAINE VISCOUS 2% 15 ML UDC MM STA (18:15)
--- NOTE | 2019-03-05 18:15 | ED Physician Documentation ---
History of Present Illness - Stated complaint Stated Complaint: CP - Chief complaint Chief Complaint: Cardiac - Additonal information Additional information: This is a 43-year-old female history of chronic pain who presents with ongoing chest discomfort. Patient presented several times last couple days for some pain in her back and chest. She states this began in the absence of trauma. Her work-ups that included multiple negative troponins, unremarkable EKGs, chest x-rays which showed no change from her prior, and a negative d-dimer. Her oxygen saturation heart rate have been within normal limits. She states that her chest pain is ongoing, and is currently severe. It starts in her back and it radiates towards the left side of her breast. She denies any syncope or fever, no cough. Her at bedside states that she has had work-ups including CT scans and endoscopies as well which have been unrevealing. Review of Systems Constitutional: denies: Fever Cardiac: reports: Chest pain / pressure Respiratory: denies: Dyspnea : denies: Dysuria Skin: denies: Rash Musculoskeletal: denies: Back pain Neurologic: denies: Generalized weakness Psychiatric: reports: Other (Eating disorder) Immunocompromised: denies: Immunocompromised PD PAST MEDICAL HISTORY - Past Medical History Cardiovascular: Atrial fibrillation Respiratory: COPD Neuro: None Endocrine/Autoimmune: None GI: None HEAD CHARGER: None : Kidney stones, Other HEENT: None Psych: Depression, Anxiety, Eating disorder, Other Musculoskeletal: Chronic back pain, Other Derm: Eczema - Past Surgical History Past Surgical History: Yes General: Appendectomy, Other Ortho: Spine surgery /HEAD CHARGER: Hysterectomy, Oophrectomy HEENT: Other - Present Medications Home Medications: Ambulatory Orders Medication Instructions Recorded Confirmed Albuterol Sulf [Ventolin Hfa 1 - 2 puffs PO PRN PRN 06/12/17 11/01/18 Inhaler] traMADol [Ultram] 50 mg PO Q4-6H PRN #14 tablet 08/28/18 11/01/18 Promethazine [Phenergan] 25 mg PO Q6H PRN #10 tab 12/07/18 Escitalopram [Lexapro] 10 mg PO DAILY 02/09/19 02/09/19 Hydrocodone/Acetaminophen 1 - 2 each PO Q6H PRN #10 tablet 02/09/19 [Hydrocodon-Acetaminophen 5-325] Hydrocodone/Acetaminophen 1 each PO Q6H PRN #5 tablet 03/02/19 [Hydrocodon-Acetaminophen 5-325] Lorazepam [Ativan] 1 mg PO 03/02/19 03/02/19 Sulfamethox/Trimeth 800/160 1 each PO BID #20 tablet 03/04/19 [Bactrim Ds 800/160] Methocarbamol 750 mg PO TID PRN #15 tablet 03/05/19 - Allergies Allergies/Adverse Reactions: Allergies Allergy/AdvReac Type Severity Reaction Status Date / Time bee pollen Allergy Anaphylaxis Verified 03/05/19 14:36 gabapentin Allergy Itching Verified 03/05/19 14:36 oxycodone HCl * Allergy Itching Verified 03/05/19 14:36 [From Percocet] - Social History Does the pt smoke?: Yes Smoking Status: Current every day smoker Does the pt drink ETOH?: No Does the pt have substance abuse?: No - Immunizations Immunizations are current?: Yes - POLST Patient has POLST: No Results - Vitals Vitals: Oxygen O2 Source Room air - EKG (time done) 14: 17 Other comments: Other comments (Rate 87, rhythm sinus, there is right atrial enlargement, no ST segment elevation or depression, no abnormal T wave inversions.) - Labs Labs: Laboratory Tests 03/05/19 03/05/19 15:12 15:12 WBC 5.5 RBC 4.53 Hgb 12.8 Hct 40.0 MCV 88.3 MCH 28.3 MCHC 32.0 RDW 13.9 Plt Count 241 MPV 9.1 Neut # (Auto) 3.9 Lymph # (Auto) 1.2 L [place] # (Auto) 0.3 Eos # (Auto) 0.1 Baso # (Auto) 0.0 Absolute Nucleated RBC 0.00 Nucleated RBC % 0.0 Sodium 145 Potassium 4.3 Chloride 110 Carbon Dioxide 27 Anion Gap 8.0 BUN 14 Creatinine 0.8 Estimated GFR (MDRD) 78 L Glucose 97 Calcium 9.1 Total Bilirubin 0.6 AST 19 ALT 19 Alkaline Phosphatase 63 Total Protein 6.4 L Albumin 3.9 Globulin 2.5 Albumin/Globulin Ratio 1.6 Lipase 30 - Rads (name of study) CXR Radiology: Other (Chronic scarring without acute abnormality) PD MEDICAL DECISION MAKING - ED course Complexity details: considered differential (PTX, ACS, PE, chronic pain, gastritis, chronic pain, MSK pain) ED course: Pt presents for recurrence of her chronic chest pain. Over the past several days she has had negative chest XRs, negative troponins, negative D-dimers, a recent CT without cause of her pain. She has had endoscopies in the past as well according to patient and her that have been unrevealing. Today her EKG and CXR are unremarkable, labs are unrevealing. No signs of ACS or acute cardiopulmonary pathology. Abdomen is benign. Toradol, methocarbamol, and one dose of oxycodone ordered. Afterwards patient states she did have some improvement with the methocarbamol. I discussed our results and that I recommend follow up with her PCP and a pain specialist. I also did discuss return precautions for concerning symptoms. I prescribed her methocarbamol after discussing safety and side effects, and explained that I do not feel comfortable prescribing any narcotic medications. Patient verbalizes understanding and was discharged home. Departure - Departure Disposition: 01 Home, Self Care Clinical Impression: Chest pain Qualifiers: Chest pain type: unspecified Qualified Code(s): R07.9 - Chest pain, unspecified Condition: Good Instructions: ED Chest Pain Atypical Unkn Cause Follow-Up: KENDELL PUGH DO [Primary Care Provider] - Prescriptions: Methocarbamol 750 mg PO TID PRN #15 tablet PRN Reason: Pain Comments: You were seen today for chest pain, your work-up has not revealed an obvious cause of your pain. You may try the methocarbamol for your discomfort, and you can use this in combination with your nonsteroidal anti-inflammatory medications. It can be mildly sedating, do not drive immediately after taking the medication or combine with other sedating medications. Please follow-up with your primary care provider as soon as possible. Return to the emergency department with any worsening symptoms Discharge Date/Time: 03/05/19 21:36
[2019-03-05] MEDS ORDERED: KETOROLAC 30 MG/ML VIAL IM STA (18:17)
[2019-03-05] MEDS ORDERED: METHOCARBAMOL 500 MG TABLET PO STA (18:30)
[2019-03-05] MEDS ORDERED: ACETAMINOPHEN 325 MG TABLET PO STA (18:30)
[2019-03-05] MEDS ORDERED: oxyCODONE 5 MG TABLET PO STA (18:30)
[2019-03-05 21:28] VITALS: BP 115/70
== END 2019-03-05 21:36 | disposition home or self-care (01) ==
LOC: ED 14:08
DX: R07.89 Other chest pain (principal); G89.29 Other chronic pain; M54.9 Dorsalgia, unspecified; I51.7 Cardiomegaly
CPT/HCPCS: 36415; 71046; 80053; 83690; 85025; 93005; 99282; 99284; A9270

== ENCOUNTER 2019-03-15 07:33 | Emergency (ER) | payer OTHER ==
--- NOTE | 2019-03-15 07:41 | ED Physician Documentation ---
PD HPI CHEST PAIN - Stated complaint Stated Complaint: CP/VOMITING - History obtained from History obtained from: Patient - History of Present Illness Timing - onset: How many days ago (2) Timing - duration: Days (2) Timing - details: Still present Quality: Other (Intense) Location: Substernal Radiation: Jaw Improved by: Nothing Associated symptoms: Nausea, Vomiting. No: Cough Similar symptoms before: Work up / diagnostics Recently seen: Emergency Dept - Additional information Additional information: This is a 43-year-old woman with a long-standing history of chest pain who is been evaluated and worked up multiple times in this emergency department with no clear source of the pain. She presents today with complaints that she is been having the intense, severe chest pain for 2 days it just kept getting worse. She is been nauseous and had vomiting and diarrhea so she called her doctor this morning to get into see her and they sent her here because of the chest pain. She is been prescribed tramadol which she is taking and "a lot of Motrin". She says she cannot keep eat or if she tries to she cannot keep anything down she just vomits it up her last emesis was just prior to arrival. She did take Phenergan this morning. She also took Motrin around 6 AM but she vomited it. She describes the pain as intense like an elephant sitting there. Patient has had an endoscopy at [facility] in August 2018 that showed gastroparesis. She was placed on Reglan at that time. She does not recall having a colonoscopy. She reports feeling dehydrated now. She is not seeing blood in the vomit or diarrhea although the diarrhea is now like water. She feels dizzy but has not passed out. She complains of decreased urinary output, having some urgency and only dribbling urine. No blood in it. She feels like her heart "flutters". She does not know if she is had a fever. Patient does have a history of an eating disorder and had a feeding tube that was removed just over one year ago. She complains that she still has pain around the stoma site. Review of Systems Constitutional: reports: Other (Unknown fever) Eyes: denies: Loss of vision Nose: denies: Rhinorrhea / runny nose, Congestion Cardiac: reports: Chest pain / pressure, Palpitations Respiratory: denies: Cough GI: reports: Abdominal Pain, Nausea, Vomiting, Diarrhea. denies: Hematemesis, Bloody / black stool : reports: Hesitancy, Other (Urinary urgency). 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 : Kidney stones, Other HEENT: None Psych: Depression, Anxiety, Eating disorder, Other Musculoskeletal: Chronic back pain, Other Derm: Eczema - Past Surgical History Past Surgical History: Yes General: Appendectomy, Other Ortho: Spine surgery /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: Hysterectomy, Oophrectomy HEENT: Other - Present Medications Home Medications: Ambulatory Orders Medication Instructions Recorded Confirmed Albuterol Sulf [Ventolin Hfa 1 - 2 puffs PO PRN PRN 06/12/17 11/01/18 Inhaler] traMADol [Ultram] 50 mg PO Q4-6H PRN #14 tablet 08/28/18 11/01/18 Promethazine [Phenergan] 25 mg PO Q6H PRN #10 tab 12/07/18 Escitalopram [Lexapro] 10 mg PO DAILY 02/09/19 02/09/19 Hydrocodone/Acetaminophen 1 - 2 each PO Q6H PRN #10 tablet 02/09/19 [Hydrocodon-Acetaminophen 5-325] Hydrocodone/Acetaminophen 1 each PO Q6H PRN #5 tablet 03/02/19 [Hydrocodon-Acetaminophen 5-325] Lorazepam [Ativan] 1 mg PO 03/02/19 03/02/19 Sulfamethox/Trimeth 800/160 1 each PO BID #20 tablet 03/04/19 [Bactrim Ds 800/160] Methocarbamol 750 mg PO TID PRN #15 tablet 03/05/19 - Allergies Allergies/Adverse Reactions: Allergies Allergy/AdvReac Type Severity Reaction Status Date / Time bee pollen Allergy Anaphylaxis Verified 03/15/19 07:47 gabapentin Allergy Itching Verified 03/15/19 07:47 oxycodone HCl * Allergy Itching Verified 03/15/19 07:47 [From Percocet] - Social History Does the pt smoke?: Yes Smoking Status: Current every day smoker Does the pt drink ETOH?: No Does the pt have substance abuse?: No - Immunizations Immunizations are current?: Yes - POLST Patient has POLST: No PD ED PE NORMAL - Vitals Vital signs reviewed: Yes - General General: Alert and oriented X 3, No acute distress, Well developed/nourished - HEENT HEENT: Atraumatic, PERRL, Moist mucous membranes, Other (No scleral icterus) - Neck Neck: Supple, no meningeal sign, No adenopathy - Cardiac Cardiac: RRR, No murmur, Strong equal pulses - Respiratory Respiratory: No respiratory distress, Clear bilaterally - Abdomen Abdomen: Normal bowel sounds, Soft, No organomegaly, Other (Complains of diffuse tenderness with voluntary guarding.) - Derm Derm: Normal color, Warm and dry, No rash - Extremities Extremities: No deformity, No edema - Neuro Neuro: Alert and oriented X 3, 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 No: Wide QRS Ischemia: Hyperacute T waves. No: ST elevation c/w ischemia - Labs Labs: Laboratory Tests 03/15/19 03/15/19 03/15/19 08:35 08:35 08:35 WBC 5.3 RBC 4.11 L Hgb 11.5 L Hct 36.3 L MCV 88.3 MCH 28.0 MCHC 31.7 L RDW 13.9 Plt Count 240 MPV 9.3 Neut # (Auto) 3.1 Lymph # (Auto) 1.6 [place] # (Auto) 0.4 Eos # (Auto) 0.2 Baso # (Auto) 0.1 Absolute Nucleated RBC 0.00 Nucleated RBC % 0.0 Sodium 138 Potassium 3.7 Chloride 102 Carbon Dioxide 29 Anion Gap 7.0 BUN 22 H Creatinine 0.7 Estimated GFR (MDRD) 90 Glucose 93 Calcium 8.6 Total Bilirubin 0.3 AST 23 ALT 32 Alkaline Phosphatase 74 Troponin I High Sens < 2.3 L Total Protein 6.2 L Albumin 3.9 Globulin 2.3 Albumin/Globulin Ratio 1.7 Lipase 32 Serum HCG, Qual 03/15/19 08:35 WBC RBC Hgb Hct MCV MCH MCHC RDW Plt Count MPV Neut # (Auto) Lymph # (Auto) [place] # (Auto) Eos # (Auto) Baso # (Auto) Absolute Nucleated RBC Nucleated RBC % Sodium Potassium Chloride Carbon Dioxide Anion Gap BUN Creatinine Estimated GFR (MDRD) Glucose Calcium Total Bilirubin AST ALT Alkaline Phosphatase Troponin I High Sens Total Protein Albumin Globulin Albumin/Globulin Ratio Lipase Serum HCG, Qual NEGATIVE PD MEDICAL DECISION MAKING - ED course Complexity details: reviewed old records, reviewed results, re-evaluated patient, d/w patient ED course: Nursing staff came and told me that the patient was requesting to be discharged and that she was feeling better. When I went into talk to her she said that her pain was much better, she could not understand what I given her that made her feel so good. She then said that she was not going to be able to supply a urine specimen but wanted to be discharged anyway because her 20-year-old daughter needed her. She was home with a flulike illness vomiting and having diarrhea. I highly cautioned the patient about being in contact with her daughter because she could also get ill from her. She should continue using the Reglan since she does have a diagnosis of gastroparesis and it seems to have been quite effective today. Follow-up with her primary care provider for further management of her pain. Results of the CT scan of the chest were discussed with the patient. There is no acute finding to explain her pain. Departure - Departure Disposition: 01 Home, Self Care Clinical Impression: Atypical chest pain Condition: Good Instructions: ED Chest Pain Atypical Unkn Cause Follow-Up: KENDELL PUGH DO [Primary Care Provider] - Comments: Take the Reglan before each meal and at bedtime for the gastroparesis. May continue using ibuprofen if needed for pain but paid attention to make sure that this is not what is precipitating some of your discomfort. Follow-up with your primary care provider for further pain management. Discharge Date/Time: 03/15/19 10:25
[2019-03-15] MEDS ORDERED: METOCLOPRAMIDE 10 MG/2 ML VIAL IVP STA (08:06)
[2019-03-15] MEDS ORDERED: KETOROLAC 30 MG/ML VIAL IVP STA (08:06)
[2019-03-15] MEDS ORDERED: SODIUM CHLORIDE 0.9% 1,000 ML IV ONE (08:06)
[2019-03-15] MEDS ORDERED: IOVERSOL 320 100 ML VIAL IVP ONE ×2 (08:41→09:54)
[2019-03-15 08:56] LABS: BASOPHILS # (AUTO) 0.1 10^3/uL (0.0-0.1); BASOPHILS % (AUTO) 0.9 %; EOSINOPHILS # (AUTO) 0.2 10^3/uL (0.0-0.7); EOSINOPHILS % (AUTO) 3.6 %; HGB - HEMOGLOBIN 11.5 g/dL (12.0-16.0); LYMPHOCYTES # (AUTO) 1.6 10^3/uL (1.5-3.5); LYMPHOCYTES % (AUTO) 30.1 %; MEAN CORPUSCULAR HGB CONC 31.7 g/dL (32.0-36.0); MEAN CORPUSCULAR VOLUME 88.3 fL (81.0-99.0); MEAN PLATELET VOLUME 9.3 fL (7.9-10.8); MONOCYTES # (AUTO) 0.4 10^3/uL (0.0-1.0); MONOCYTES % (AUTO) 6.8 %; NEUTROPHILS # (AUTO) 3.1 10^3/uL (1.5-6.6); NEUTROPHILS % (AUTO) 58.2 %; PLT - PLATELET COUNT 240 10^3/uL (130-450); RED BLOOD COUNT 4.11 10^6/uL (4.20-5.40); RED CELL DISTRIBUTION WIDTH 13.9 % (12.0-15.0); WHITE BLOOD COUNT 5.3 x10^3/uL (4.8-10.8)
[2019-03-15 09:04] LABS: ALBUMIN 3.9 g/dL (3.2-5.5); ALBUMIN/GLOBULIN RATIO 1.7 (1.0-2.2); BILIRUBIN,TOTAL 0.3 mg/dL (0.2-1.0); CALCIUM 8.6 mg/dL (8.5-10.3); CREATININE 0.7 mg/dL (0.4-1.0); TOTAL PROTEIN 6.2 g/dL (6.7-8.2)
[2019-03-15 09:15] LABS: HCG,QUALITATIVE BLOOD NEGATIVE
--- NOTE | 2019-03-15 09:46 | CT Report ---
Reason: chest pain Procedure Date: 03/15/2019 Accession Number: [id number] / [id number] Procedure: CT - ANGIO CHEST W/WO CPT Code: Final Report FULL RESULT: EXAM: CTA CHEST EXAM DATE: 03/15/2019 08:58 AM. CLINICAL HISTORY: Chest pain.. COMPARISON: CHEST 2 VIEW 06/02/2017 2:47 PM. TECHNIQUE: Prior to and following intravenous administration of OPTI 320 80ML, multiplanar 3D/MIP reconstruction of the thoracic aorta was performed. In accordance with CT protocol optimization, one or more of the following dose reduction techniques were utilized for this exam: automated exposure control, adjustment of mA and/or KV based on patient size, or use of iterative reconstructive technique. FINDINGS: Vascular Structures: Normal. No aneurysm, dissection, or significant atherosclerotic disease of the thoracic aorta. The visualized pulmonary arteries are within normal limits. Lungs/Pleura: Advanced paraseptal and centrilobular emphysematous changes within the upper lobes. Right lower lobe blebs. No pneumothorax. Probable right greater than left apical subpleural and parenchymal scarring. Mediastinum: Normal. No cardiac enlargement or adenopathy. Upper Abdomen: Unremarkable. Other: Scoliosis. IMPRESSION: 1. No thoracic aortic aneurysm or dissection. 2. No pulmonary emboli. 3. Advanced bilateral upper lobe emphysematous changes. 4. Probable right greater than left apical subpleural and parenchymal scarring. RADIA
[2019-03-15 10:29] VITALS: BP 99/86
== END 2019-03-15 10:25 | disposition home or self-care (01) ==
LOC: ED 07:33
DX: R07.89 Other chest pain (principal); K31.84 Gastroparesis; F17.200 Nicotine dependence, unspecified, uncomplicated
CPT/HCPCS: 36415; 71275; 80053; 83690; 84484; 84703; 85025; 93005; 96361; 96374; 99282; 99284; J2765; Q9967

== ENCOUNTER 2019-05-28 08:36 | Emergency (ER) | payer OTHER ==
[2019-05-28] MEDS ORDERED: KETOROLAC 30 MG/ML VIAL IVP STA (09:01)
[2019-05-28] MEDS ORDERED: SODIUM CHLORIDE 0.9% 1,000 ML IV ONE (09:01)
[2019-05-28] MEDS ORDERED: ONDANSETRON ODT 4 MG TABLET TL STA (09:01)
[2019-05-28] MEDS ORDERED: METOCLOPRAMIDE 10 MG/2 ML VIAL IVP STA (09:04)
--- NOTE | 2019-05-28 09:07 | ED Physician Documentation ---
PD HPI ABD PAIN - Stated complaint Stated Complaint: VOMITING/DIARRHEA - Chief complaint Chief Complaint: Abd Pain - History obtained from History obtained from: Patient - History of Present Illness Timing - onset: How many days ago (2) Timing - duration: Days (2) Timing - details: Abrupt onset Quality: Pain Location: Other (At site of previous feeding tube) Associated symptoms: Fever, Nausea, Vomiting, Dizzy, Near syncope / syncope. No: Dysuria Similar symptoms before: No diagnosis Recently seen: Not recently seen - Additional information Additional information: This is a 43-year-old woman with a history of anorexia and unexplained chest and abdominal pain who presents today with her complains that she is had nausea and vomiting for the past 2 days. She also complains of "lots of pain" at the site of her previous feeding tube which was removed about a year ago. She has Phenergan and tramadol that she takes at home for the pain and the vomiting her last Phenergan was this morning and her last emesis was around 4 AM. She also complains of some diarrhea. She says her primary care provider is working on getting her referred to [facility] for a GI specialist for endoscopy but she does not yet have an appointment scheduled. She reports a fever of 101 degrees 2 days ago. She is felt dizzy to the point of almost blacking out but has not actually lost consciousness. She complains of a sore throat, stuffy nose and a cough which produces phlegm that she just swallows. She denies use of any alcohol drugs or marijuana. She is status post appendectomy, hysterectomy, prior feeding tube which has been discontinued and back surgery. 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 : Kidney stones, Other HEENT: None Psych: Depression, Anxiety, Eating disorder, Other Musculoskeletal: Chronic back pain, Other Derm: Eczema - Past Surgical History Past Surgical History: Yes General: Appendectomy, Other Ortho: 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, Oophrectomy HEENT: Other - Present Medications Home Medications: Ambulatory Orders Medication Instructions Recorded Confirmed Albuterol Sulf [Ventolin Hfa 1 - 2 puffs PO PRN PRN 06/12/17 11/01/18 Inhaler] traMADol [Ultram] 50 mg PO Q4-6H PRN #14 tablet 08/28/18 11/01/18 Promethazine [Phenergan] 25 mg PO Q6H PRN #10 tab 12/07/18 Escitalopram [Lexapro] 10 mg PO DAILY 02/09/19 02/09/19 Hydrocodone/Acetaminophen 1 - 2 each PO Q6H PRN #10 tablet 02/09/19 [Hydrocodon-Acetaminophen 5-325] Hydrocodone/Acetaminophen 1 each PO Q6H PRN #5 tablet 03/02/19 [Hydrocodon-Acetaminophen 5-325] Lorazepam [Ativan] 1 mg PO 03/02/19 03/02/19 Sulfamethox/Trimeth 800/160 1 each PO BID #20 tablet 03/04/19 [Bactrim Ds 800/160] methocarbamoL [Methocarbamol] 750 mg PO TID PRN #15 tablet 03/05/19 - Allergies Allergies/Adverse Reactions: Allergies Allergy/AdvReac Type Severity Reaction Status Date / Time bee pollen Allergy Anaphylaxis Verified 05/28/19 08:43 gabapentin Allergy Itching Verified 05/28/19 08:43 oxycodone HCl * Allergy Itching Verified 05/28/19 08:43 [From Percocet] - Social History Does the pt smoke?: Yes Smoking Status: Current every day smoker Does the pt drink ETOH?: No Does the pt have substance abuse?: No - Immunizations Immunizations are current?: Yes - POLST Patient has POLST: No PD ED PE NORMAL - Vitals Vital signs reviewed: Yes - General General: Alert and oriented X 3, No acute distress, Well developed/nourished, Other (Thin, tanned 43-year-old woman who is curled up in the exam bed. She is very soft-spoken.) - HEENT HEENT: Atraumatic, PERRL, Other (No scleral icterus). No: Moist mucous membranes (Mucous membranes are dry) - Neck Neck: Supple, no meningeal sign, No adenopathy - Cardiac Cardiac: RRR, No murmur, No rub, Strong equal pulses - Respiratory Respiratory: No respiratory distress, Clear bilaterally - Abdomen Abdomen: Other (Thin abdomen with a well-healed scar from the prior feeding tube. There is no evident hernia through that site. Abdomen has positive bowel sounds and is soft and although she complains of tenderness with palpation there is no guarding or rebound. 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, No motor deficit, No sensory deficit, Normal speech - Psych Psych: Normal mood, Normal affect Results - Vitals Vitals: Vital Signs - 24 hr 05/28/19 05/28/19 08:43 11:28 Temperature 36.5 C 36.6 C Heart Rate 79 63 Respiratory 17 13 Rate Blood Pressure 132/91 H 128/72 O2 Saturation 98 99 Oxygen O2 Source Room air - Labs Labs: Laboratory Tests 05/28/19 05/28/19 05/28/19 09:13 09:13 11:20 WBC 4.5 L RBC 4.67 Hgb 13.1 Hct 40.2 MCV 86.1 MCH 28.1 MCHC 32.6 RDW 13.0 Plt Count 202 MPV 9.4 Neut # (Auto) 3.4 Lymph # (Auto) 0.9 L [place] # (Auto) 0.1 Eos # (Auto) 0.1 Baso # (Auto) 0.0 Absolute Nucleated RBC 0.00 Nucleated RBC % 0.0 Sodium 140 Potassium 3.0 L Chloride 103 Carbon Dioxide 27 Anion Gap 10.0 BUN 16 Creatinine 0.8 Estimated GFR (MDRD) 78 L Glucose 146 H Calcium 8.9 Total Bilirubin 0.4 AST 16 ALT 12 Alkaline Phosphatase 64 Total Protein 6.5 L Albumin 3.9 Globulin 2.6 Albumin/Globulin Ratio 1.5 Lipase 31 Urine Color DARK YELLOW Urine Clarity SL. CLOUDY Urine pH 6.0 Ur Specific Line [place] >=1.030 H Urine Protein NEGATIVE Urine Glucose (UA) NEGATIVE Urine Ketones TRACE Urine Occult Blood NEGATIVE Urine Nitrite NEGATIVE Urine Bilirubin NEGATIVE Urine Urobilinogen 0.2 (NORMAL) Ur Leukocyte Esterase SMALL H Urine RBC 0-5 Urine WBC 6-10 H Ur Squamous Epith Cells MANY Squamous H Urine Bacteria Moderate H Urine Mucus Moderate Strands Ur Microscopic Review INDICATED Urine Culture Comments NOT INDICATED Urine Opiates Screen NEGATIVE Ur Oxycodone Screen NEGATIVE Urine Methadone Screen NEGATIVE Ur Propoxyphene Screen NEGATIVE Ur Barbiturates Screen NEGATIVE Ur Tricyclics Screen POSITIVE H Ur Phencyclidine Scrn NEGATIVE Ur Amphetamine Screen NEGATIVE U Methamphetamines Scrn NEGATIVE U Benzodiazepines Scrn NEGATIVE Urine Cocaine Screen NEGATIVE U Cannabinoids Screen POSITIVE H PD MEDICAL DECISION MAKING - ED course Complexity details: reviewed old records, reviewed results, re-evaluated patient, d/w patient, d/w family ED course: Patient had a IV started was given a liter of fluids as well as Reglan and Toradol IV. She had no relief of her symptoms. I discussed with her that I will not prescribe or administer narcotics for her chronic pain. Her urinalysis is contaminated with squamous epithelial cells and she is not having any specific urinary symptoms but it was concentrated so she was given a second liter of lactated Ringer's. In addition her electrolytes are normal and CBC is normal. She was given Haldol IV and was sleeping when I went in the room but when she woke up said that she was not feeling any better. Her urine drug screen is positive for marijuana despite the fact that she tells me she is not using. I confronted her with that information and we discussed hyperemesis cannabinoids syndrome and its consequences in some people and that we have no medications that will resolve this issue until the individual stops using the marijuana. She just shook her head at me. Will follow back up with her primary care provider about GI referral. Departure - Departure Disposition: 01 Home, Self Care Clinical Impression: Cannabis hyperemesis syndrome concurrent with and due to cannabis abuse Condition: Good Instructions: Abdominal Pain Follow-Up: KENDELL PUGH DO [Primary Care Provider] - Comments: I would consider discontinuing any use or exposure to any type of marijuana products to see if that will resolve your chronic vomiting and pain issues. Follow-up with your primary care provider for referral to the GI specialist if your symptoms persist.
[2019-05-28 09:17] LABS: BASOPHILS % (AUTO) 0.7 %; EOSINOPHILS # (AUTO) 0.1 10^3/uL (0.0-0.7); HGB - HEMOGLOBIN 13.1 g/dL (12.0-16.0); LYMPHOCYTES # (AUTO) 0.9 10^3/uL (1.5-3.5); LYMPHOCYTES % (AUTO) 19.2 %; MEAN CORPUSCULAR HEMOGLOBIN 28.1 pg (27.0-31.0); MEAN CORPUSCULAR HGB CONC 32.6 g/dL (32.0-36.0); MEAN CORPUSCULAR VOLUME 86.1 fL (81.0-99.0); MEAN PLATELET VOLUME 9.4 fL (7.9-10.8); MONOCYTES # (AUTO) 0.1 10^3/uL (0.0-1.0); MONOCYTES % (AUTO) 2.9 %; NEUTROPHILS # (AUTO) 3.4 10^3/uL (1.5-6.6); PLT - PLATELET COUNT 202 10^3/uL (130-450); RED BLOOD COUNT 4.67 10^6/uL (4.20-5.40); WHITE BLOOD COUNT 4.5 x10^3/uL (4.8-10.8)
[2019-05-28 09:34] LABS: ALBUMIN 3.9 g/dL (3.2-5.5); ALBUMIN/GLOBULIN RATIO 1.5 (1.0-2.2); BILIRUBIN,TOTAL 0.4 mg/dL (0.2-1.0); CALCIUM 8.9 mg/dL (8.5-10.3); CREATININE 0.8 mg/dL (0.4-1.0); TOTAL PROTEIN 6.5 g/dL (6.7-8.2)
--- NOTE | 2019-05-28 10:07 | XRAY Report ---
Reason: cough Procedure Date: 05/28/2019 Accession Number: [id number] / [id number] Procedure: XR - Chest 2 View X-Ray CPT Code: 59900 Final Report FULL RESULT: EXAM: CHEST RADIOGRAPHY EXAM DATE: 05/28/2019 09:43 AM. CLINICAL HISTORY: Cough. COMPARISON: CHEST 2 VIEW 03/05/2019 2:39 PM CHEST ANGIO 03/15/2019 8:45 AM. TECHNIQUE: 2 views. FINDINGS: Lungs/Pleura: Lungs are well expanded. No lobar consolidation or effusion. There is biapical scarring. Mediastinum: Heart size is within normal limits. There is mild thoracic aorta tortuosity. Other: None. IMPRESSION: Stable radiographic appearance of the chest. Lungs are well expanded. There is emphysema with biapical scarring. No acute intrathoracic plain film abnormality. RADIA
[2019-05-28] MEDS ORDERED: HALOPERIDOL 5 MG/ML VIAL IVP ONE (11:28)
[2019-05-28] MEDS ORDERED: diphenhydrAMINE INJ 50 MG/ML VIAL IVP STA (11:29)
[2019-05-28 11:34] LABS: MUDS CUTOFF CONCENTRATIONS CUTOFF CONC BELOW:
[2019-05-28 11:39] LABS: GLUCOSE, URINE (UA) NEGATIVE (NEGATIVE); KETONES,URINE (UA) TRACE mg/dL (NEGATIVE); LEUKOCYTE ESTERASE, URINE SMALL (NEGATIVE); NITRITE,URINE NEGATIVE (NEGATIVE); OCCULT BLOOD,URINE NEGATIVE (NEGATIVE); PROTEIN,URINE NEGATIVE (NEGATIVE); UROBILINOGEN,URINE 0.2 (NORMAL) E.U./dL (NORMAL)
[2019-05-28 11:45] LABS: BILIRUBIN,URINE NEGATIVE (NEGATIVE); CLARITY,URINE SL. CLOUDY (CLEAR); ICTOTEST,URINE NEGATIVE
[2019-05-28 11:49] LABS: AMPHETAMINE SCREEN,URINE NEGATIVE (NEGATIVE); BENZODIAZEPINES SCREEN, URINE NEGATIVE (NEGATIVE); COCAINE SCREEN URINE NEGATIVE (NEGATIVE); METHADONE SCREEN, URINE NEGATIVE (NEGATIVE); METHAMPHETAMINES SCREEN, URINE NEGATIVE (NEGATIVE); OPIATE SCREEN, URINE NEGATIVE (NEGATIVE); OXYCODONE SCREEN, URINE NEGATIVE (NEGATIVE); PROPOXYPHENE SCREEN, URINE NEGATIVE (NEGATIVE); TRICYCLIC ANTIDEPRESSANT,URINE POSITIVE (NEGATIVE)
[2019-05-28 11:54] LABS: BACTERIA,URINE Moderate /HPF (None Seen); MUCUS,URINE Moderate Strands; RBC,URINE 0-5 /HPF (0-5); SQUAMOUS EPITHELIAL CELL,UR MANY Squamous (<= Few)
[2019-05-28] MEDS ORDERED: LACTATED RINGERS 1,000 ML IV STA (12:00)
[2019-05-28 12:50] VITALS: BP 103/66
== END 2019-05-28 12:58 | disposition home or self-care (01) ==
LOC: ED 08:36
DX: T40.7X1A Poisoning by cannabis (derivatives), accidental (unintentional), initial encounter (principal); R11.2 Nausea with vomiting, unspecified; F12.188 Cannabis abuse with other cannabis-induced disorder; F17.200 Nicotine dependence, unspecified, uncomplicated
CPT/HCPCS: 36415; 71046; 80053; 81001; 83690; 85025; 96361; 96374; 96375; 99284; 99285; J1200; J2765; J7120; Q0162; 80306; 81003; 87086

== ENCOUNTER 2019-08-03 19:28 | Emergency (ER) | payer OTHER ==
--- NOTE | 2019-08-03 20:10 | ED Physician Documentation ---
History of Present Illness - Stated complaint Stated Complaint: FEVER, COUGH, CP - Chief complaint Chief Complaint: Resp - History obtained from History obtained from: Patient - History of Present Illness Timing: Today (this morning) Pain level now: 9 Improved by: nothing Worsened by: no exacerbating factors - Additonal information Additional information: over 50 previous [facility] ED visits. In addition to [facility] ED visits, [facility] form reflects visits to at least 2 other [place] EDs over past few months c/o chest pain, her chief complaint. She says this is constant since waking up this morning. Dull midline chest pain without exacerbating nor ameliorating factors. 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 Also states fever, but Tmax at home was 99.4 Also c/o generalized myalgias, "I hurt everwhere" (per patient), and requests "something for the pain". PMD at [facility]. She says she called there and was told to come to the [facility] ED. Review of Systems Constitutional: reports: Myalgias, Other (patient states fever, but also says Tmax at home was 99.4). denies: Chills, Fatigue, Sweats Cardiac: reports: Chest pain / pressure. denies: Palpitations, Pedal edema, Calf pain Respiratory: reports: Cough. 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, Oophrectomy HEENT: Other - Present Medications Home Medications: Ambulatory Orders Medication Instructions Recorded Confirmed Albuterol Sulf [Ventolin Hfa 1 - 2 puffs PO PRN PRN 06/12/17 11/01/18 Inhaler] traMADol [Ultram] 50 mg PO Q4-6H PRN #14 tablet 08/28/18 11/01/18 Promethazine [Phenergan] 25 mg PO Q6H PRN #10 tab 12/07/18 Escitalopram [Lexapro] 10 mg PO DAILY 02/09/19 02/09/19 Hydrocodone/Acetaminophen 1 - 2 each PO Q6H PRN #10 tablet 02/09/19 [Hydrocodon-Acetaminophen 5-325] Hydrocodone/Acetaminophen 1 each PO Q6H PRN #5 tablet 03/02/19 [Hydrocodon-Acetaminophen 5-325] Lorazepam [Ativan] 1 mg PO 03/02/19 03/02/19 Sulfamethox/Trimeth 800/160 1 each PO BID #20 tablet 03/04/19 [Bactrim Ds 800/160] methocarbamoL [Methocarbamol] 750 mg PO TID PRN #15 tablet 03/05/19 - Allergies Allergies/Adverse Reactions: Allergies Allergy/AdvReac Type Severity Reaction Status Date / Time bee pollen Allergy Anaphylaxis Verified 08/03/19 19:31 gabapentin Allergy Itching Verified 08/03/19 19:31 oxycodone HCl * Allergy Itching Verified 08/03/19 19:31 [From Percocet] - Social History Does the pt smoke?: Yes Smoking Status: Current every day smoker Does the pt drink ETOH?: No Does the pt have substance abuse?: No - Immunizations Immunizations are current?: Yes - POLST Patient has POLST: No PD ED PE NORMAL - Vitals Vital signs reviewed: Yes - General General: Alert and oriented X 3, No acute distress, Well developed/nourished - HEENT HEENT: Moist mucous membranes - Neck Neck: Supple, no meningeal sign - Cardiac Cardiac: No murmur - Respiratory Respiratory: No respiratory distress, Clear bilaterally - Abdomen Abdomen: Soft, Non tender - Derm Derm: Normal color, Warm and dry - Extremities Extremities: No edema PD ED PE EXPANDED - Cardiac Cardiac: Tachy, Regular Rhythm Results - Vitals Vitals: Vital Signs - 24 hr 08/03/19 08/03/19 08/03/19 19:31 21:23 21:38 Temperature 37.2 C Heart Rate 133 H 104 H 106 H Respiratory 16 14 17 Rate Blood Pressure 122/89 H 111/82 H O2 Saturation 98 97 97 08/03/19 22:30 Temperature 36.8 C Heart Rate 95 Respiratory 16 Rate Blood Pressure 127/92 H O2 Saturation 96 Oxygen O2 Source Room air - EKG (time done) No standard instances Rate: Rate (enter#) (103) Rhythm: Sinus tachycardia, LAE, AYESHA Russell: Normal Intervals: Normal VT QRS: Normal Ischemia: Other (RSR' V1, V2) - Labs Labs: Laboratory Tests 08/03/19 08/03/19 08/03/19 20:30 20:30 20:30 WBC 7.4 RBC 4.94 Hgb 13.9 Hct 41.9 MCV 84.8 MCH 28.1 MCHC 33.2 RDW 14.1 Plt Count 238 MPV 9.2 Neut # (Auto) 4.4 Lymph # (Auto) 2.6 [place] # (Auto) 0.3 Eos # (Auto) 0.1 Baso # (Auto) 0.0 Absolute Nucleated RBC 0.00 Nucleated RBC % 0.0 Sodium 142 Potassium 2.9 L Chloride 104 Carbon Dioxide 27 Anion Gap 11.0 BUN 13 Creatinine 0.8 Estimated GFR (MDRD) 77 L Glucose 160 H Calcium 9.2 Troponin I High Sens 2.4 - Rads (name of study) chest xray Radiology: Prelim report reviewed, See rad report PD MEDICAL DECISION MAKING - ED course Complexity details: reviewed old records, reviewed results, re-evaluated patient, considered differential, d/w patient Departure - Departure Disposition: 01 Home, Self Care Clinical Impression: Chest pain, Hypokalemia Condition: Good Instructions: Hypokalemia Dc, ED Chest Pain Atypical Unkn Cause Follow-Up: KENDELL PUGH DO [Primary Care Provider] - Discharge Date/Time: 08/03/19 22:31
[2019-08-03] MEDS ORDERED: traMADol 50 MG TABLET PO STA (20:19)
[2019-08-03 20:36] LABS: BASOPHILS % (AUTO) 0.5 %; EOSINOPHILS # (AUTO) 0.1 10^3/uL (0.0-0.7); EOSINOPHILS % (AUTO) 1.4 %; HGB - HEMOGLOBIN 13.9 g/dL (12.0-16.0); LYMPHOCYTES # (AUTO) 2.6 10^3/uL (1.5-3.5); LYMPHOCYTES % (AUTO) 34.6 %; MEAN CORPUSCULAR HEMOGLOBIN 28.1 pg (27.0-31.0); MEAN CORPUSCULAR HGB CONC 33.2 g/dL (32.0-36.0); MEAN CORPUSCULAR VOLUME 84.8 fL (81.0-99.0); MEAN PLATELET VOLUME 9.2 fL (7.9-10.8); MONOCYTES # (AUTO) 0.3 10^3/uL (0.0-1.0); MONOCYTES % (AUTO) 3.7 %; NEUTROPHILS # (AUTO) 4.4 10^3/uL (1.5-6.6); NEUTROPHILS % (AUTO) 59.4 %; PLT - PLATELET COUNT 238 10^3/uL (130-450); RED BLOOD COUNT 4.94 10^6/uL (4.20-5.40); RED CELL DISTRIBUTION WIDTH 14.1 % (12.0-15.0); WHITE BLOOD COUNT 7.4 x10^3/uL (4.8-10.8)
[2019-08-03 20:45] LABS: CALCIUM 9.2 mg/dL (8.5-10.3); CREATININE 0.8 mg/dL (0.4-1.0)
[2019-08-03] MEDS ORDERED: POTASSIUM CHLORIDE 20 MEQ TABLET PO STA (21:54)
[2019-08-03] MEDS ORDERED: LORazepam 0.5 MG TABLET PO STA (21:54)
--- NOTE | 2019-08-03 21:55 | XRAY Report ---
Reason: chest pain Procedure Date: 08/03/2019 Accession Number: [id number] / [id number] Procedure: XR - Chest 1 View X-Ray CPT Code: 60461 Final Report FULL RESULT: EXAM: CHEST RADIOGRAPHY EXAM DATE: 08/03/2019 09:05 PM. CLINICAL HISTORY: Chest pain. COMPARISON: CHEST 2 VIEW 05/28/2019 9:14 AM CHEST ANGIO 03/15/2019 8:45 AM. TECHNIQUE: 1 view. FINDINGS: Lungs/Pleura: Hyperinflated emphysematous lungs again noted. Right apex bullous disease again noted. Mild right upper lobe scarring again noted. No consolidation, airspace disease, pleural effusion or pneumothorax. Left apex pleural thickening again noted. Mediastinum: Within exam limitations, the cardiomediastinal contour is normal. Other: Linear metallic density projects over the neck and left upper chest, assume this is outside of the patient. Correlate clinically. IMPRESSION: Emphysema. No acute findings are seen. See above. RADIA
[2019-08-03 22:35] VITALS: BP 127/92
== END 2019-08-03 22:31 | disposition home or self-care (01) ==
LOC: ED 19:28
DX: R07.9 Chest pain, unspecified (principal); E87.6 Hypokalemia; F17.200 Nicotine dependence, unspecified, uncomplicated
CPT/HCPCS: 36415; 71045; 80048; 84484; 85025; 93005; 99284; A9270

== ENCOUNTER 2019-08-27 22:42 | Emergency (ER) | payer OTHER ==
[2019-08-27] MEDS ORDERED: SODIUM CHLORIDE 0.9% 1,000 ML IV ONE (23:14)
[2019-08-27] MEDS ORDERED: KETOROLAC 15 MG/ML VIAL IVP STA (23:15)
[2019-08-27] MEDS ORDERED: HALOPERIDOL 5 MG/ML VIAL IVP ONE (23:15)
[2019-08-27] MEDS ORDERED: HYDROmorphone 1 MG/ML SYRINGE IVP STA (23:16)
[2019-08-27 23:42] LABS: BASOPHILS # (AUTO) 0.1 10^3/uL (0.0-0.1); EOSINOPHILS # (AUTO) 0.2 10^3/uL (0.0-0.7); EOSINOPHILS % (AUTO) 4.1 %; HGB - HEMOGLOBIN 12.9 g/dL (12.0-16.0); LYMPHOCYTES # (AUTO) 2.5 10^3/uL (1.5-3.5); LYMPHOCYTES % (AUTO) 43.1 %; MEAN CORPUSCULAR HEMOGLOBIN 27.2 pg (27.0-31.0); MEAN CORPUSCULAR HGB CONC 31.5 g/dL (32.0-36.0); MEAN CORPUSCULAR VOLUME 86.5 fL (81.0-99.0); MEAN PLATELET VOLUME 9.3 fL (7.9-10.8); MONOCYTES # (AUTO) 0.3 10^3/uL (0.0-1.0); MONOCYTES % (AUTO) 4.8 %; NEUTROPHILS # (AUTO) 2.7 10^3/uL (1.5-6.6); NEUTROPHILS % (AUTO) 46.8 %; PLT - PLATELET COUNT 213 10^3/uL (130-450); RED BLOOD COUNT 4.74 10^6/uL (4.20-5.40); RED CELL DISTRIBUTION WIDTH 14.3 % (12.0-15.0); WHITE BLOOD COUNT 5.8 x10^3/uL (4.8-10.8)
[2019-08-27 23:53] LABS: ALBUMIN 4.5 g/dL (3.2-5.5); ALBUMIN/GLOBULIN RATIO 1.7 (1.0-2.2); BILIRUBIN,TOTAL 0.3 mg/dL (0.2-1.0); CALCIUM 9.4 mg/dL (8.5-10.3); CREATININE 0.7 mg/dL (0.4-1.0); MAGNESIUM 2.1 mg/dL (1.7-2.8); TOTAL PROTEIN 7.1 g/dL (6.7-8.2)
--- NOTE | 2019-08-28 00:18 | XRAY Report ---
Reason: cough and chest pain for few days Procedure Date: 08/27/2019 Accession Number: [id number] / [id number] Procedure: XR - Chest 1 View X-Ray CPT Code: 64848 Final Report FULL RESULT: EXAM: CHEST RADIOGRAPHY. EXAM DATE: 08/27/2019 11:43 PM. CLINICAL HISTORY: Cough and chest pain for few days. COMPARISON: CHEST 1 VIEW 08/03/2019 8:37 PM. CHEST ANGIO 03/15/2019 8:45 AM. CHEST 2 VIEW 05/28/2019 9:14 AM. TECHNIQUE: 1 view. FINDINGS: Lungs/Pleura: Emphysematous lungs with biapical pleural parenchymal scarring. Possible slightly increased opacity at the right apex. No gross pneumothorax or large effusion. Mediastinum: Within exam limitations, the cardiomediastinal contour is normal. Other: None. IMPRESSION: 1. Emphysematous lungs with biapical pleural parenchymal scarring. 2. Subtle slightly increased opacity at the right apex could reflect early pneumonia. RADIA
[2019-08-28] MEDS ORDERED: DEXAMETHASONE 10 MG/ML VIAL IVP STA (00:27)
[2019-08-28] MEDS ORDERED: DOXYCYCLINE 100 MG TABLET PO STA (00:27)
[2019-08-28] MEDS ORDERED: HYDROcod/ACET 5/325 Prepack 4 PO STA (00:35)
--- NOTE | 2019-08-28 00:38 | ED Physician Documentation ---
PD HPI URI - Stated complaint Stated Complaint: CHEST PAIN, COUGH, VOMITING - Chief complaint Chief Complaint: Cardiac - History obtained from History obtained from: Patient - History of Present Illness Timing - onset: How many days ago (She has had a cough for the last week and nausea and vomiting for the last 4 days. She states she does have history of COPD and uses inhalers at home. She states the cough is unusual for her. She commonly has nausea and vomiting but states the current episode is lasted longer than typical.) Timing duration: Days Timing details: Gradual onset, Still present Associated symptoms: Productive cough, Dyspnea, NVD. No: Fever, Chills, Nasal congestion, Hemoptysis, Chest pain, Bilateral edema Contributing factors: No: Sick contact, Travel, Immunocompromised Improves by: MDI/nebulizer (but not consistently) Worsened by: Activity Similar symptoms before: Diagnosis (COPD, cannibis hyperemesis.) Recently seen: Emergency Dept Review of Systems Constitutional: denies: Fever, Chills, Myalgias Nose: denies: Rhinorrhea / runny nose, Congestion Throat: denies: Sore throat Cardiac: reports: Chest pain / pressure. denies: Palpitations Respiratory: reports: Dyspnea, Cough, Wheezing GI: reports: Abdominal Pain (epigastric area), Nausea, Vomiting. denies: Diarrhea Neurologic: reports: Generalized weakness. 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 : Kidney stones, Other HEENT: None Psych: Depression, Anxiety, Eating disorder, Other Musculoskeletal: Chronic back pain, Other Derm: Eczema - Past Surgical History Past Surgical History: Yes General: Appendectomy, Other Ortho: Spine surgery /CUSTOMER SERVICE OPERATOR: Hysterectomy, Oophrectomy HEENT: Other - Present Medications Home Medications: Ambulatory Orders Medication Instructions Recorded Confirmed Albuterol Sulf [Ventolin Hfa 1 - 2 puffs PO PRN PRN 06/12/17 11/01/18 Inhaler] traMADol [Ultram] 50 mg PO Q4-6H PRN #14 tablet 08/28/18 11/01/18 Promethazine [Phenergan] 25 mg PO Q6H PRN #10 tab 12/07/18 Escitalopram [Lexapro] 10 mg PO DAILY 02/09/19 02/09/19 Hydrocodone/Acetaminophen 1 - 2 each PO Q6H PRN #10 tablet 02/09/19 [Hydrocodon-Acetaminophen 5-325] Hydrocodone/Acetaminophen 1 each PO Q6H PRN #5 tablet 03/02/19 [Hydrocodon-Acetaminophen 5-325] Lorazepam [Ativan] 1 mg PO 03/02/19 03/02/19 Sulfamethox/Trimeth 800/160 1 each PO BID #20 tablet 03/04/19 [Bactrim Ds 800/160] methocarbamoL [Methocarbamol] 750 mg PO TID PRN #15 tablet 03/05/19 Doxycycline Monohydrate 100 mg PO BID #14 tablet 08/28/19 Famotidine 20 mg PO DAILY #30 tablet 08/28/19 Naproxen 375 mg PO BID #15 tablet 08/28/19 dexAMETHasone [Decadron] 4 mg PO DAILY #5 tablet 08/28/19 - Allergies Allergies/Adverse Reactions: Allergies Allergy/AdvReac Type Severity Reaction Status Date / Time bee pollen Allergy Anaphylaxis Verified 08/27/19 22:49 gabapentin Allergy Itching Verified 08/27/19 22:49 oxycodone HCl * Allergy Itching Verified 08/27/19 22:49 [From Percocet] - Social History Does the pt smoke?: Yes Smoking Status: Current every day smoker Does the pt drink ETOH?: No Does the pt have substance abuse?: No - Immunizations Immunizations are current?: Yes - POLST Patient has POLST: No PD ED PE NORMAL - Vitals Vital signs reviewed: Yes - General General: Alert and oriented X 3, Well developed/nourished, Other (She seems a bit anxious and also in discomfort but is able to talk clearly in full sentences.) - HEENT HEENT: Ears normal, Pharynx benign - Neck Neck: Supple, no meningeal sign, No adenopathy - Cardiac Cardiac: RRR, No murmur - Respiratory Respiratory: Clear bilaterally - Abdomen Abdomen: Normal bowel sounds, Soft, Non distended, No organomegaly, Other (Mild tenderness in the epigastric area without any guarding percussion or rebound tenderness.) Results - Vitals Vitals: Vital Signs - 24 hr 08/27/19 08/28/19 08/28/19 22:49 00:00 00:35 Temperature 36.5 C Heart Rate 98 78 70 Respiratory 16 16 14 Rate Blood Pressure 118/79 119/78 94/53 L O2 Saturation 100 97 97 Oxygen O2 Source Room air - Labs Labs: Laboratory Tests 08/27/19 08/27/19 08/27/19 23:30 23:30 23:30 WBC 5.8 RBC 4.74 Hgb 12.9 Hct 41.0 MCV 86.5 MCH 27.2 MCHC 31.5 L RDW 14.3 Plt Count 213 MPV 9.3 Neut # (Auto) 2.7 Lymph # (Auto) 2.5 [place] # (Auto) 0.3 Eos # (Auto) 0.2 Baso # (Auto) 0.1 Absolute Nucleated RBC 0.00 Nucleated RBC % 0.0 Sodium 136 Potassium 3.2 L Chloride 97 L Carbon Dioxide 29 Anion Gap 10.0 BUN 13 Creatinine 0.7 Estimated GFR (MDRD) 90 Glucose 90 Calcium 9.4 Magnesium 2.1 Total Bilirubin 0.3 AST 18 ALT 14 Alkaline Phosphatase 75 Troponin I High Sens < 2.3 L Total Protein 7.1 Albumin 4.5 Globulin 2.6 Albumin/Globulin Ratio 1.7 Lipase 26 PD MEDICAL DECISION MAKING - ED course Complexity details: reviewed results, re-evaluated patient (She states she is feeling quite improved with a combination of haloperidol and Toradol. Given a small infiltrate on her chest x-ray along with her productive cough, she is also given doxycycline and dexamethasone. This looks more bacterial in character and does not look like a viral pneumonia.), considered differential (She has had prior visits with similar symptoms of both chest pain and nausea and vomiting. No prior heart causes for the pains. Previous diagnoses had been costochondritis most commonly. Her nausea and vomiting has been presumed cannabis hyperemesis with otherwise negative other testing. She states the current episode is worse than prior ones that in its duration but not necessarily the character.), d/w patient Departure - Departure Disposition: 01 Home, Self Care Clinical Impression: Asthma exacerbation in COPD, Lower respiratory infection (e.g., bronchitis, pneumonia, pneumonitis, pulmonitis), Vomiting Dyspnea Qualifiers: Dyspnea type: shortness of breath Qualified Code(s): R06.02 - Shortness of breath Chest pain Qualifiers: Chest pain type: unspecified Qualified Code(s): R07.9 - Chest pain, unspecified Condition: Stable Record reviewed to determine appropriate education?: Yes Instructions: ED COPD Flare, ED Chest Pain Pleurisy Follow-Up: KENDELL PUGH, [Primary Care Provider] - Prescriptions: dexAMETHasone [Decadron] 4 mg PO DAILY #5 tablet Doxycycline Monohydrate 100 mg PO BID #14 tablet Famotidine 20 mg PO DAILY #30 tablet Naproxen 375 mg PO BID #15 tablet Comments: Continue usual medications as well as your albuterol inhaler. Use your inhaler 2 to 3 puffs 4 times a day for the next several days to a week. Add Decadron steroid for inflammation of the airways and doxycycline antibiotic twice daily for a week for possible early pneumonia. Naproxen anti-inflammatory for pains. To that add Tylenol 500 mg 4 times a day for the next several days as needed for pain. To help reduce irritation of the stomach and therefore less nausea, and at famotidine acid reducing medicine daily for the next 2 to 3 weeks. Discharge Date/Time: 08/28/19 00:55
[2019-08-28 02:33] VITALS: BP 94/53
== END 2019-08-28 00:55 | disposition home or self-care (01) ==
LOC: ED 22:42
DX: J45.901 Unspecified asthma with (acute) exacerbation (principal); J44.0 Chronic obstructive pulmonary disease with (acute) lower respiratory infection; J22 Unspecified acute lower respiratory infection; R11.2 Nausea with vomiting, unspecified; R10.816 Epigastric abdominal tenderness; R07.9 Chest pain, unspecified; F41.9 Anxiety disorder, unspecified; F17.200 Nicotine dependence, unspecified, uncomplicated; Z79.899 Other long term (current) drug therapy; Z87.39 Personal history of other diseases of the musculoskeletal system and connective tissue
CPT/HCPCS: 36415; 71045; 80053; 83690; 83735; 84484; 85025; 87635; 93005; 96361; 96374; 96375; 99284; 99285; A9270; J1170; 81599

== ENCOUNTER 2019-09-08 19:46 | Emergency (ER) | payer OTHER ==
[2019-09-08] MEDS ORDERED: HYDROcod/ACETAM 5/325 MG TABLET PO STA ×2 (20:33→21:49)
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
[2019-09-08] MEDS ORDERED: LIDOCAINE PATCH 5% TOP STA (21:49)
[2019-09-08 21:59] VITALS: BP 119/80
== END 2019-09-08 22:08 | disposition home or self-care (01) ==
LOC: ED 19:46
DX: S06.9X9A Unspecified intracranial injury with loss of consciousness of unspecified duration, initial encounter (principal); S20.211A Contusion of right front wall of thorax, initial encounter; W03.XXXA Other fall on same level due to collision with another person, initial encounter; Y93.89 Activity, other specified; F17.200 Nicotine dependence, unspecified, uncomplicated
CPT/HCPCS: 70450; 71101; 99284; A9270

== ENCOUNTER 2019-12-10 11:36 | Emergency (ER) | payer OTHER ==
[2019-12-10] MEDS ORDERED: HYDROcod/ACETAM 5/325 MG TABLET PO STA (12:16)
--- NOTE | 2019-12-10 12:21 | ED Physician Documentation ---
History of Present Illness - Stated complaint Stated Complaint: GLF -RT RIB PX - Chief complaint Chief Complaint: General - History obtained from History obtained from: Patient - History of Present Illness Timing: Yesterday Pain level max: 8 Pain level now: 8 - Additonal information Additional information: 44-year-old female presents to the emergency department with right rib pain after a fall yesterday. She states that her dog ran and pulled her to the ground. Worse with movement and better with rest. No difficulty breathing. No fevers. No chills. No head injury. No neck or back pain. No focal weakness or numbness. 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 : Kidney stones, Other HEENT: None Psych: Depression, Anxiety, Eating disorder, Other Musculoskeletal: Chronic back pain, Other Derm: Eczema - Past Surgical History Past Surgical History: Yes General: Appendectomy, Other Ortho: Spine surgery /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/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: Hysterectomy, Oophrectomy HEENT: Other - Present Medications Home Medications: Ambulatory Orders Medication Instructions Recorded Confirmed Albuterol Sulf [Ventolin Hfa 1 - 2 puffs PO PRN PRN 06/12/17 11/01/18 Inhaler] traMADol [Ultram] 50 mg PO Q4-6H PRN #14 tablet 08/28/18 11/01/18 Promethazine [Phenergan] 25 mg PO Q6H PRN #10 tab 12/07/18 Escitalopram [Lexapro] 10 mg PO DAILY 02/09/19 02/09/19 Hydrocodone/Acetaminophen 1 - 2 each PO Q6H PRN #10 tablet 02/09/19 [Hydrocodon-Acetaminophen 5-325] Hydrocodone/Acetaminophen 1 each PO Q6H PRN #5 tablet 03/02/19 [Hydrocodon-Acetaminophen 5-325] Lorazepam [Ativan] 1 mg PO 03/02/19 03/02/19 Sulfamethox/Trimeth 800/160 1 each PO BID #20 tablet 03/04/19 [Bactrim Ds 800/160] methocarbamoL [Methocarbamol] 750 mg PO TID PRN #15 tablet 03/05/19 Doxycycline Monohydrate 100 mg PO BID #14 tablet 08/28/19 Famotidine 20 mg PO DAILY #30 tablet 08/28/19 Naproxen 375 mg PO BID #15 tablet 08/28/19 dexAMETHasone [Decadron] 4 mg PO DAILY #5 tablet 08/28/19 Hydrocodone/Acetaminophen 1 - 2 each PO Q6H PRN #10 tablet 09/08/19 [Hydrocodon-Acetaminophen 5-325] Lidocaine Patch 5% [Lidoderm Patch] 1 patch TOP DAILY PRN #10 patch 09/08/19 HYDROcod/ACETAM 5/325 [[place] 5/325] 1 - 2 ea PO Q6H PRN #14 tablet 12/10/19 - Allergies Allergies/Adverse Reactions: Allergies Allergy/AdvReac Type Severity Reaction Status Date / Time bee pollen Allergy Anaphylaxis Verified 12/10/19 11:42 gabapentin Allergy Itching Verified 12/10/19 11:42 oxycodone HCl * Allergy Itching Verified 12/10/19 11:42 [From Percocet] - Social History Does the pt smoke?: Yes Smoking Status: Current every day smoker Does the pt drink ETOH?: No Does the pt have substance abuse?: No - Immunizations Immunizations are current?: Yes - POLST Patient has POLST: No PD ED PE NORMAL - Vitals Vital signs reviewed: Yes - General General: Alert and oriented X 3, No acute distress - HEENT HEENT: Atraumatic, PERRL, Moist mucous membranes - Neck Neck: Supple, no meningeal sign, No bony TTP - Cardiac Cardiac: RRR - Respiratory Respiratory: No respiratory distress, Clear bilaterally, Other (Tender to palpation over the right ribs, mostly posterior, approximately 5 and 6. No crepitus. No ecchymosis.) - Abdomen Abdomen: Soft, Non tender, Non distended - Back Back: No spinal TTP - Derm Derm: Warm and dry - Extremities Extremities: No deformity, No tenderness to palpate - Neuro Neuro: Alert and oriented X 3 Results - Vitals Vitals: Vital Signs - 24 hr 12/10/19 12/10/19 11:38 12:41 Temperature 36.7 C Heart Rate 114 H 92 Respiratory 20 18 Rate Blood Pressure 150/81 H 126/91 H O2 Saturation 100 99 Oxygen O2 Source Room air - Rads (name of study) Right rib x-ray Radiology: Prelim report reviewed, EMP read contemporaneously, See rad report (No acute abnormality) PD MEDICAL DECISION MAKING - ED course Complexity details: reviewed results, re-evaluated patient, considered differential, d/w patient ED course: 44-year-old female with right rib pain after a fall. No acute findings on x- ray. No pneumothorax. No hemothorax. Will place on pain medication and have her follow-up with her doctor. No other acute injuries. Patient counseled regarding signs and symptoms for which I believe and urgent re-evaluation would be necessary. Patient with good understanding of and agreement to plan and is comfortable going home at this time This document was made in part using voice recognition software. While efforts are made to proofread this document, sound alike and grammatical errors may occur. Departure - Departure Disposition: 01 Home, Self Care Clinical Impression: Contusion of rib on right side Qualifiers: Encounter type: initial encounter Qualified Code(s): S20.211A - Contusion of right front wall of thorax, initial encounter Condition: Good Instructions: ED Contusion Rib Follow-Up: KENDELL PUGH DO [Primary Care Provider] - Within 1 week Prescriptions: HYDROcod/ACETAM 5/325 [[place] 5/325] 1 - 2 ea PO Q6H PRN #14 tablet PRN Reason: Pain Comments: Your x-rays do not show any acute abnormalities today. Follow-up with your doctor for further care. Return if you worsen. Do not drink alcohol or drive while on narcotic pain medicine. Note that many narcotic pain relievers also contain tylenol/acetaminophen. Please ensure that your total dose of acetaminophen from all sources does not exceed 3 grams (3000mg) per day. You may constipated on this medication, take a stool softener such as "Colace" twice a day while you are on it. Also recommend a [id number] laxative such as senna or MiraLAX any day that you do not have a bowel movement. If you received narcotic pain medication in the emergency department, do not drive or operate machinery for the next 24 hours. Discharge Date/Time: 12/10/19 12:41
--- NOTE | 2019-12-10 12:29 | XRAY Report ---
PROCEDURE: Ribs w/PA Chest RT INDICATIONS: fall rib pain TECHNIQUE: 2 views of the right ribs were acquired, along with a single view chest. COMPARISON: Right rib radiographs dated 09/08/2019. CTA chest dated 03/15/2019. FINDINGS: Surgical changes and devices: None. Bones and chest wall: No fractures or dislocations. No suspicious bony lesions. Overlying soft tis sues appear unremarkable. A skin marker is seen at the right anterior chest wall. Lungs and pleura: No pleural effusions or pneumothorax. Chronic scarring and cystic changes are seen in the lung apices, better demonstrated on prior chest CT from 03/15/2019. The lungs are mildly hyper expanded. Mediastinum: Mediastinal contours appear normal. Heart size is normal. Mild atherosclerotic calcif ications are seen in the aorta. IMPRESSION: No displaced rib fracture. No pleural effusion or pneumothorax. Stable chronic pleural-parenchymal scarring in the lung apices. Reviewed by: Yogi Davidson MD on 12/10/2019 12:28 PM PDT Approved by: Yogi Davidson MD on 12/10/2019 12:28 PM PDT Station ID: [id number]
[2019-12-10 12:43] VITALS: BP 126/91
== END 2019-12-10 12:41 | disposition home or self-care (01) ==
LOC: ED 11:36
DX: S20.211A Contusion of right front wall of thorax, initial encounter (principal); W18.39XA Other fall on same level, initial encounter; Y93.K1 Activity, walking an animal; J44.9 Chronic obstructive pulmonary disease, unspecified; F17.200 Nicotine dependence, unspecified, uncomplicated; G89.29 Other chronic pain; M54.9 Dorsalgia, unspecified; F41.9 Anxiety disorder, unspecified; F50.9 Eating disorder, unspecified; Z79.51 Long term (current) use of inhaled steroids; Z79.891 Long term (current) use of opiate analgesic; Z79.52 Long term (current) use of systemic steroids; Z79.899 Other long term (current) drug therapy
CPT/HCPCS: 71101; 99283; 99284; A9270

== ENCOUNTER 2019-12-19 12:43 | Emergency (ER) | payer OTHER ==
[2019-12-19 13:41] LABS: BILIRUBIN,URINE NEGATIVE (NEGATIVE); GLUCOSE, URINE (UA) NEGATIVE (NEGATIVE); KETONES,URINE (UA) NEGATIVE (NEGATIVE); LEUKOCYTE ESTERASE, URINE NEGATIVE (NEGATIVE); NITRITE,URINE NEGATIVE (NEGATIVE); OCCULT BLOOD,URINE TRACE-LYSE (NEGATIVE); PROTEIN,URINE NEGATIVE (NEGATIVE); UROBILINOGEN,URINE 0.2 (NORMAL) E.U./dL (NORMAL)
[2019-12-19 13:47] LABS: BASOPHILS % (AUTO) 0.5 %; EOSINOPHILS # (AUTO) 0.1 10^3/uL (0.0-0.7); EOSINOPHILS % (AUTO) 1.5 %; HGB - HEMOGLOBIN 13.2 g/dL (12.0-16.0); LYMPHOCYTES # (AUTO) 1.6 10^3/uL (1.5-3.5); LYMPHOCYTES % (AUTO) 29.8 %; MEAN CORPUSCULAR HEMOGLOBIN 29.1 pg (27.0-31.0); MEAN CORPUSCULAR HGB CONC 33.3 g/dL (32.0-36.0); MEAN CORPUSCULAR VOLUME 87.4 fL (81.0-99.0); MONOCYTES # (AUTO) 0.3 10^3/uL (0.0-1.0); MONOCYTES % (AUTO) 5.3 %; NEUTROPHILS # (AUTO) 3.5 10^3/uL (1.5-6.6); NEUTROPHILS % (AUTO) 62.7 %; PLT - PLATELET COUNT 248 10^3/uL (130-450); RED BLOOD COUNT 4.53 10^6/uL (4.20-5.40); RED CELL DISTRIBUTION WIDTH 14.1 % (12.0-15.0); WHITE BLOOD COUNT 5.5 x10^3/uL (4.8-10.8)
[2019-12-19 13:47] LABS: CLARITY,URINE CLEAR (CLEAR); HCG UR QUAL NEGATIVE
[2019-12-19] MEDS ORDERED: HYDROmorphone 1 MG/ML CARPUJECT IVP STA (14:00)
[2019-12-19] MEDS ORDERED: SODIUM CHLORIDE 0.9% 1,000 ML IV STA (14:00)
[2019-12-19] MEDS ORDERED: PROCHLORPERAZINE 10 MG/2 ML VIAL IVP STA (14:00)
--- NOTE | 2019-12-19 14:00 | ED Physician Documentation ---
History of Present Illness - Stated complaint Stated Complaint: ABD PX - Chief complaint Chief Complaint: Abd Pain - History obtained from History obtained from: Patient - History of Present Illness Timing: Prior to arrival, How many days ago (5) - Additonal information Additional information: 44-year-old female presents to the emergency department with 5 days of uncontrolled abdominal pain and vomiting. She has a history of anorexia for which she was hospitalized and did require a G-tube for feeding. She was released from hospitalization and the G-tube was discontinued approximately 2 years ago. Since then patient reports that she has maintained her weight stable at approximately 100 pounds. She does have chronic morning nausea that is typically well controlled with Phenergan. However after the last 4 to 5 days she has had uncontrolled vomiting and reports pain at the site where the G-tube was placed. She is currently scheduled to see a GI doctor at [facility] gastroenterology in early January. In the past her base physician has suspected that the pain may be adhesions. Patient denies fevers, no diarrhea. No urinary symptoms. Past medical history includes anorexia, anxiety depression. Past surgical history includes total abdominal hysterectomy and G-tube placement. Medications Zyprexa Prozac Phenergan Review of Systems Constitutional: denies: Fever Eyes: denies: Loss of vision Ears: denies: Loss of hearing Nose: denies: Rhinorrhea / runny nose Throat: denies: Oral lesions / sores Cardiac: denies: Chest pain / pressure, Palpitations Respiratory: denies: Dyspnea GI: reports: Abdominal Pain, Nausea, Vomiting. denies: Constipation, Diarrhea, Hematemesis, Bloody / black stool : denies: Dysuria, Frequency, Hesitancy Skin: denies: Rash, Lesions Musculoskeletal: denies: Neck pain, Back pain Neurologic: denies: Generalized weakness, Focal weakness, Syncope, Seizure, Headache, Head injury Psychiatric: reports: Depressed (baselien depression/anxiety), Anxiety. 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, Oophrectomy HEENT: Other - Present Medications Home Medications: Ambulatory Orders Medication Instructions Recorded Confirmed Albuterol Sulf [Ventolin Hfa 1 - 2 puffs PO PRN PRN 06/12/17 11/01/18 Inhaler] traMADol [Ultram] 50 mg PO Q4-6H PRN #14 tablet 08/28/18 11/01/18 Promethazine [Phenergan] 25 mg PO Q6H PRN #10 tab 12/07/18 Escitalopram [Lexapro] 10 mg PO DAILY 02/09/19 02/09/19 Hydrocodone/Acetaminophen 1 - 2 each PO Q6H PRN #10 tablet 02/09/19 [Hydrocodon-Acetaminophen 5-325] Hydrocodone/Acetaminophen 1 each PO Q6H PRN #5 tablet 03/02/19 [Hydrocodon-Acetaminophen 5-325] Lorazepam [Ativan] 1 mg PO 03/02/19 03/02/19 Sulfamethox/Trimeth 800/160 1 each PO BID #20 tablet 03/04/19 [Bactrim Ds 800/160] methocarbamoL [Methocarbamol] 750 mg PO TID PRN #15 tablet 03/05/19 Doxycycline Monohydrate 100 mg PO BID #14 tablet 08/28/19 Famotidine 20 mg PO DAILY #30 tablet 08/28/19 Naproxen 375 mg PO BID #15 tablet 08/28/19 dexAMETHasone [Decadron] 4 mg PO DAILY #5 tablet 08/28/19 Hydrocodone/Acetaminophen 1 - 2 each PO Q6H PRN #10 tablet 09/08/19 [Hydrocodon-Acetaminophen 5-325] Lidocaine Patch 5% [Lidoderm Patch] 1 patch TOP DAILY PRN #10 patch 09/08/19 HYDROcod/ACETAM 5/325 [[place] 5/325] 1 - 2 ea PO Q6H PRN #14 tablet 12/10/19 Omeprazole 20 mg PO QDAC #30 capsule. 12/19/19 - Allergies Allergies/Adverse Reactions: Allergies Allergy/AdvReac Type Severity Reaction Status Date / Time bee pollen Allergy Anaphylaxis Verified 12/19/19 13:10 gabapentin Allergy Itching Verified 12/19/19 13:10 oxycodone HCl * Allergy Itching Verified 12/19/19 13:10 [From Percocet] - Social History Does the pt smoke?: Yes Smoking Status: Current every day smoker Does the pt drink ETOH?: No Does the pt have substance abuse?: No - Immunizations Immunizations are current?: Yes - POLST Patient has POLST: No PD ED PE NORMAL - General General: Alert and oriented X 3, No acute distress, Other (anxious) - HEENT HEENT: PERRL, EOMI - Cardiac Cardiac: RRR, No murmur - Respiratory Respiratory: No respiratory distress - Abdomen Abdomen: Normal bowel sounds, Soft, Other (Generalized abdominal tenderness. Focal tenderness of the epigastrium over the site of scarring where the G-tube was previously placed. No swelling or erythema.) Results - Vitals Vitals: Vital Signs - 24 hr 12/19/19 12/19/19 13:07 15:09 Temperature 36.9 C Heart Rate 113 H 67 Respiratory 18 19 Rate Blood Pressure 143/95 H 115/80 O2 Saturation 98 100 Oxygen O2 Source Room air - Labs Labs: Laboratory Tests 12/19/19 12/19/19 12/19/19 13:17 13:38 13:38 WBC 5.5 RBC 4.53 Hgb 13.2 Hct 39.6 MCV 87.4 MCH 29.1 MCHC 33.3 RDW 14.1 Plt Count 248 MPV 9.0 Neut # (Auto) 3.5 Lymph # (Auto) 1.6 [place] # (Auto) 0.3 Eos # (Auto) 0.1 Baso # (Auto) 0.0 Absolute Nucleated RBC 0.00 Nucleated RBC % 0.0 Sodium 139 Potassium 3.5 Chloride 100 L Carbon Dioxide 29 Anion Gap 10.0 BUN 23 H Creatinine 0.7 Estimated GFR (MDRD) 90 Glucose 106 H Calcium 9.3 Total Bilirubin 0.2 AST 33 ALT 50 Alkaline Phosphatase 89 Total Protein 6.8 Albumin 4.3 Globulin 2.5 Albumin/Globulin Ratio 1.7 Lipase 22 Urine Color YELLOW Urine Clarity CLEAR Urine pH 6.0 Ur Specific [place] >=1.030 H Urine Protein NEGATIVE Urine Glucose (UA) NEGATIVE Urine Ketones NEGATIVE Urine Occult Blood TRACE-LYSE Urine Nitrite NEGATIVE Urine Bilirubin NEGATIVE Urine Urobilinogen 0.2 (NORMAL) Ur Leukocyte Esterase NEGATIVE Ur Microscopic Review NOT INDICATED Urine Culture Comments NOT INDICATED Urine HCG, Qual NEGATIVE - Rads (name of study) CT abd Radiology: Final report received (Source of new symptomatology is not found. No intestinal obstruction or perforation seen. Normal-appearing gallbladder.) PD MEDICAL DECISION MAKING - ED course Complexity details: reviewed results, considered differential, d/w patient, d/w family ED course: 44-year-old female presents to the emergency department for evaluation of uncontrolled upper abdominal pain and vomiting for 5 days. This is in the setting of history of anorexia that required a G-tube placement. The G-tube has been out for nearly 2 years but she has had persistent pain at that site. - Labs are reassuring. Normal renal and liver function test. No signs urinary tract infection. No leukocytosis - CT scan did not reveal a cause for the upper epigastric pain. In specific there were no adhesions or signs of perforation seen. Patient was given milk of magnesia here in the emergency department with some relief of the pain and she was able to tolerate p.o. fluids following Compazine. I suspect that she may be developing some gastritis or ulceration secondary to the previous G-tube placement. Therefore I will place her on a PPI and advised her to have continued very close follow-up with the GI doctors in January as scheduled. Departure - Departure Disposition: Home, Self Care Clinical Impression: Upper abdominal pain Condition: Stable Record reviewed to determine appropriate education?: Yes Instructions: Abdominal Pain Prescriptions: Omeprazole 20 mg PO QDAC #30 capsule. Comments: The CT of your abdomen did not show adhesions at the site where you previously had your G-tube. Your gallbladder appeared normal. As we discussed your labs were also essentially normal. It is possible that you are developing some gastritis or upset stomach at the site where your G-tube was placed. I would like you to take the omeprazole once daily as prescribed. Please schedule very close follow-up with your primary care doctor regarding this emergency department visit. If your pain worsens, you have bloody vomit or stools then please return immediately to the emergency department
[2019-12-19 14:01] LABS: ALBUMIN 4.3 g/dL (3.2-5.5); ALBUMIN/GLOBULIN RATIO 1.7 (1.0-2.2); BILIRUBIN,TOTAL 0.2 mg/dL (0.2-1.0); CALCIUM 9.3 mg/dL (8.5-10.3); CREATININE 0.7 mg/dL (0.4-1.0); TOTAL PROTEIN 6.8 g/dL (6.7-8.2)
[2019-12-19] MEDS ORDERED: IOVERSOL 320 100 ML VIAL IVP ONE ×2 (14:15→14:34)
--- NOTE | 2019-12-19 14:48 | CT Report ---
PROCEDURE: Abdomen/Pelvis W INDICATIONS: Hx of G-tube; uncontrolled vomiting. ? adhesions CONTRAST: IV CONTRAST: Optiray 320 ml: 80 PO CONTRAST: *NO PO CONTRAST TECHNIQUE: After the administration of oral and intravenous contrast, 5 mm thick sections acquired from the diap hragms to the symphysis. 5 mm thick coronal and sagittal reformats were acquired. For radiation dos e reduction, the following was used: automated exposure control, adjustment of mA and/or kV accordin g to patient size. COMPARISON: None. FINDINGS: Image quality: Excellent. ABDOMEN: Lung bases: Lung bases are clear. Heart size is normal. Solid organs: Liver and spleen are normal in size and enhancement. Gallbladder appears normal. Jp iary system is non dilated. Pancreas enhances normally. No adrenal nodules. Kidneys demonstrate no rmal size and enhancement, without hydronephrosis. Peritoneum and bowel: Bowel loops demonstrate normal wall thickness and caliber. No free fluid or a ir. Nodes and vessels: No retroperitoneal or mesenteric adenopathy by size criteria. Aorta and inferior vena cava are normal in size. Miscellaneous: No ventral hernias. PELVIS: Genitourinary: Bladder wall thickness is normal. Miscellaneous: No inguinal hernias or adenopathy. Bones: No suspicious bony lesions. No vertebral body compression fractures. IMPRESSION: Source of new symptomatology is not found. No intestinal obstruction or perforation seen . Normal-appearing gallbladder. Prior spine surgery produces metal artifact across a portion of the l ower abdomen/pelvis but this study is diagnostic and a source of current symptomatology is not found. Reviewed by: Gerald Pate MD on 12/19/2019 2:47 PM PDT Approved by: Gerald Pate MD on 12/19/2019 2:47 PM PDT Station ID: [id number]
[2019-12-19] MEDS ORDERED: MAGNESIUM HYDROXIDE 2,400 MG/30 ML UDC PO STA (15:34)
[2019-12-19 15:49] VITALS: BP 148/99
== END 2019-12-19 15:46 | disposition home or self-care (01) ==
LOC: ED 12:43
DX: R10.10 Upper abdominal pain, unspecified (principal); F17.200 Nicotine dependence, unspecified, uncomplicated
CPT/HCPCS: 36415; 74177; 80053; 81003; 81025; 83690; 85025; 96361; 96374; 99284; A9270; J1170; Q9967; 81001; 87086

== ENCOUNTER 2020-02-07 11:39 | Emergency (ER) | payer OTHER ==
[2020-02-07] MEDS ORDERED: ONDANSETRON 4 MG/2 ML VIAL IVP STA (11:53)
[2020-02-07] MEDS ORDERED: SODIUM CHLORIDE 0.9% 1,000 ML IV STA ×2 (11:53→12:53)
[2020-02-07] MEDS ORDERED: PROCHLORPERAZINE 10 MG/2 ML VIAL IVP STA (12:14)
[2020-02-07] MEDS ORDERED: HYDROmorphone 1 MG/ML CARPUJECT IVP STA ×2 (12:14→13:27)
--- NOTE | 2020-02-07 12:18 | ED Physician Documentation ---
History of Present Illness - Stated complaint Stated Complaint: ABD PX, VOMITING - Chief complaint Chief Complaint: Abd Pain - Additonal information Additional information: 44-year-old female presents to the emergency department for evaluation of upper epigastric abdominal pain nausea and vomiting for 4 days. This pleasant woman has a complex abdominal history that includes anorexia for which she was hospitalized and required a G-tube for feedings. She was released from hospitalization approximately 2 years ago but since then has had persistent pain in the area where the G-tube was. I saw her in Mid December 2019 for epigastric abdominal pain and vomiting. At the time of that visit her labs and CT scan did not show any worrisome causes. Since then she has continued to follow-up with gastroenterology in [facility]. She underwent an EGD in january. She reports that she was told she had a hiatal hernia. She reports that she was also told that she needs to have a gastric emptying study completed. Over the last 4 days that she has had persistent epigastric pain and vomiting. And since this morning she has not been able to produce any urine. She denies any fever or hemataemesis. She states that typically tramadol covers her pain but it is not taking care of it today therefore her primary advised her to come to the emergency department. Patient reports that she is taking Phenergan, Zofran and Reglan for control the nausea at home but it is not working. Review of Systems Constitutional: denies: Fever Eyes: reports: Reviewed and negative Ears: reports: Reviewed and negative Nose: reports: Reviewed and negative Throat: reports: Reviewed and negative Cardiac: reports: Reviewed and negative Respiratory: reports: Reviewed and negative GI: reports: Abdominal Pain, Nausea, Vomiting. denies: Constipation, Diarrhea, Hematemesis, Bloody / black stool : reports: Unable to Void. denies: Dysuria, Frequency Skin: reports: Reviewed and negative Musculoskeletal: reports: Reviewed and negative Neurologic: reports: Reviewed and negative. 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: None : Kidney stones, Other HEENT: None Psych: Depression, Anxiety, Eating disorder, Other Musculoskeletal: Chronic back pain, Other Derm: Eczema - Past Surgical History Past Surgical History: Yes General: Appendectomy, Other Ortho: Spine surgery /POWERHOUSE ENGINEER: Hysterectomy, Oophrectomy HEENT: Other - Present Medications Home Medications: Ambulatory Orders Medication Instructions Recorded Confirmed Albuterol Sulf [Ventolin Hfa 1 - 2 puffs PO PRN PRN 06/12/17 11/01/18 Inhaler] traMADol [Ultram] 50 mg PO Q4-6H PRN #14 tablet 08/28/18 11/01/18 Promethazine [Phenergan] 25 mg PO Q6H PRN #10 tab 12/07/18 Escitalopram [Lexapro] 10 mg PO DAILY 02/09/19 02/09/19 Hydrocodone/Acetaminophen 1 - 2 each PO Q6H PRN #10 tablet 02/09/19 [Hydrocodon-Acetaminophen 5-325] Hydrocodone/Acetaminophen 1 each PO Q6H PRN #5 tablet 03/02/19 [Hydrocodon-Acetaminophen 5-325] Lorazepam [Ativan] 1 mg PO 03/02/19 03/02/19 Sulfamethox/Trimeth 800/160 1 each PO BID #20 tablet 03/04/19 [Bactrim Ds 800/160] methocarbamoL [Methocarbamol] 750 mg PO TID PRN #15 tablet 03/05/19 Doxycycline Monohydrate 100 mg PO BID #14 tablet 08/28/19 Famotidine 20 mg PO DAILY #30 tablet 08/28/19 Naproxen 375 mg PO BID #15 tablet 08/28/19 dexAMETHasone [Decadron] 4 mg PO DAILY #5 tablet 08/28/19 Hydrocodone/Acetaminophen 1 - 2 each PO Q6H PRN #10 tablet 09/08/19 [Hydrocodon-Acetaminophen 5-325] Lidocaine Patch 5% [Lidoderm Patch] 1 patch TOP DAILY PRN #10 patch 09/08/19 HYDROcod/ACETAM 5/325 [[place] 5/325] 1 - 2 ea PO Q6H PRN #14 tablet 12/10/19 Omeprazole 20 mg PO QDAC #30 capsule. 12/19/19 - Allergies Allergies/Adverse Reactions: Allergies Allergy/AdvReac Type Severity Reaction Status Date / Time bee pollen Allergy Anaphylaxis Verified 02/07/20 11:50 gabapentin Allergy Itching Verified 02/07/20 11:50 oxycodone HCl * Allergy Itching Verified 02/07/20 11:50 [From Percocet] - Social History Does the pt smoke?: Yes Smoking Status: Current every day smoker Does the pt drink ETOH?: No Does the pt have substance abuse?: No - Immunizations Immunizations are current?: Yes - POLST Patient has POLST: No PD ED PE EXPANDED - General General: Alert, Well developed/nourished, In Pain - Neck Neck: Supple w/out meningeal sx. No: No tenderness - Cardiac Cardiac: Regular Rate, Tachy, Radial strong equal, Femoral strong equal, Pedal strong equal, Cap refill < 2 sec - Respiratory Respiratory: Clear to ausultation maribel. No: Distress, Labored - Abdomen Abdomen: Tender to palpation (epigastrium without rebound or guarding; non peritoneal. negative murphys), Epigastric - Derm Derm: Normal color, Warm and dry - Neuro Neuro: Alert and Oriented X 3, CNII-XII intact - GCS Eye Opening: Spontaneous Motor: Obeys Commands Verbal: Oriented Total: 15 - Psych Psych: Anxious Results - Vitals Vitals: Vital Signs - 24 hr 02/07/20 02/07/20 02/07/20 11:46 12:18 14:00 Temperature 37.1 C 36.4 C L Heart Rate 103 H 81 62 Respiratory 18 18 16 Rate Blood Pressure 137/80 H 132/78 H 115/72 O2 Saturation 100 100 96 02/07/20 16:03 Temperature 36.8 C Heart Rate 60 Respiratory 16 Rate Blood Pressure 110/65 O2 Saturation 95 Oxygen O2 Source Room air - Labs Labs: Laboratory Tests 02/07/20 02/07/20 02/07/20 12:05 12:05 13:37 WBC 6.1 RBC 4.78 Hgb 13.8 Hct 42.3 MCV 88.5 MCH 28.9 MCHC 32.6 RDW 13.4 Plt Count 300 MPV 8.8 Neut # (Auto) 3.7 Lymph # (Auto) 1.8 [place] # (Auto) 0.3 Eos # (Auto) 0.2 Baso # (Auto) 0.1 Absolute Nucleated RBC 0.00 Nucleated RBC % 0.0 Sodium 141 Potassium 3.6 Chloride 103 Carbon Dioxide 27 Anion Gap 11.0 BUN 14 Creatinine 0.7 Estimated GFR (MDRD) 90 Glucose 118 H Calcium 9.4 Total Bilirubin 0.5 AST 22 ALT 30 Alkaline Phosphatase 92 Total Protein 7.2 Albumin 4.3 Globulin 2.9 Albumin/Globulin Ratio 1.5 Lipase 33 Urine Color YELLOW Urine Clarity CLEAR Urine pH 7.0 Ur Specific [place] 1.020 Urine Protein NEGATIVE Urine Glucose (UA) NEGATIVE Urine Ketones NEGATIVE Urine Occult Blood NEGATIVE Urine Nitrite NEGATIVE Urine Bilirubin NEGATIVE Urine Urobilinogen 0.2 (NORMAL) Ur Leukocyte Esterase NEGATIVE Ur Microscopic Review NOT INDICATED Urine Culture Comments NOT INDICATED Urine HCG, Qual NEGATIVE - Rads (name of study) CT abd with contrast oral Radiology: Final report received (There is no sign of gastric distention or inflammation and along the margins of the gastric lumen no evidence of peptic ulcer disease is found. The adjacent large and small bowel is not distended or inflamed. There is normal transit time of oral contrast to the small bowel to the RLQ of cecum) PD MEDICAL DECISION MAKING - ED course Complexity details: reviewed results, re-evaluated patient, considered differential, d/w patient ED course: 44-year-old female presents to the emergency department for evaluation of 4 days uncontrolled nausea vomiting and epigastric in the setting of a history of anorexia in which she had an G-tube placed. She has had persistent epigastric pain for nearly 2 years. A recent EGD showed that she has a hiatal hernia. Home antiemetics are not controlling the vomiting. She is scheduled for a gastric emptying study upcoming. - 1300: Labs are reviewed in full and no acute focal abnormality. Patient's pain is improved following Dilaudid and her in the emergency department. I have reviewed the EGD from [facility] that was completed in mid January. Overall the study seems to show gastritis but no signs of malignancy or H. pylori. In order to help further diagnose her persistent vomiting I will complete a CT of her abdomen and pelvis with both oral and IV contrast. The goal is to see if there is any stricture or narrowing the would be causing her persistent symptoms at this time - 1615: CT of the abdomen does not show any definitive delay in gastric emptying or stricture within the epigastrium or proximal small bowel. Patient was able to tolerate the oral contrast without vomiting here in the ED and her pain markedly improved following Dilaudid. At this time we will discharge her home to continue her home pain medication with tramadol. I will encourage her to continue to follow-up with her GI doctor for further longer-term evaluation of her vomiting and concern about possible delayed gastric emptying. Departure - Departure Disposition: 01 Home, Self Care Clinical Impression: Epigastric pain Vomiting Qualifiers: Vomiting type: unspecified Vomiting Intractability: non-intractable Nausea pres ence: with nausea Qualified Code(s): R11.2 - Nausea with vomiting, unspecified Condition: Stable Record reviewed to determine appropriate education?: Yes Comments: the CT scan did not show any problems with contrast not emptying your stomach appropriately. Your labs today were all normal. At this time I think it is very important that you continue to follow-up with gastroenterology to talk about your recurrent cycles of nausea and vomiting. I do recommend that you take the Reglan at home to help with your nausea as it is a medication that helps increase how quickly food leaves the stomach and this may be more helpful for you right now. Continue to take the tramadol as already prescribed by your primary doctor for pain. Return to the emergency department if you have black or bloody stools, vomiting bright red blood, have fainting episodes or any fevers
[2020-02-07 12:31] LABS: BASOPHILS # (AUTO) 0.1 10^3/uL (0.0-0.1); BASOPHILS % (AUTO) 1.1 %; EOSINOPHILS # (AUTO) 0.2 10^3/uL (0.0-0.7); EOSINOPHILS % (AUTO) 3.1 %; HGB - HEMOGLOBIN 13.8 g/dL (12.0-16.0); LYMPHOCYTES # (AUTO) 1.8 10^3/uL (1.5-3.5); LYMPHOCYTES % (AUTO) 29.4 %; MEAN CORPUSCULAR HEMOGLOBIN 28.9 pg (27.0-31.0); MEAN CORPUSCULAR HGB CONC 32.6 g/dL (32.0-36.0); MEAN CORPUSCULAR VOLUME 88.5 fL (81.0-99.0); MEAN PLATELET VOLUME 8.8 fL (7.9-10.8); MONOCYTES # (AUTO) 0.3 10^3/uL (0.0-1.0); MONOCYTES % (AUTO) 4.6 %; NEUTROPHILS # (AUTO) 3.7 10^3/uL (1.5-6.6); NEUTROPHILS % (AUTO) 61.3 %; PLT - PLATELET COUNT 300 10^3/uL (130-450); RED BLOOD COUNT 4.78 10^6/uL (4.20-5.40); RED CELL DISTRIBUTION WIDTH 13.4 % (12.0-15.0); WHITE BLOOD COUNT 6.1 x10^3/uL (4.8-10.8)
[2020-02-07 12:42] LABS: ALBUMIN 4.3 g/dL (3.2-5.5); ALBUMIN/GLOBULIN RATIO 1.5 (1.0-2.2); BILIRUBIN,TOTAL 0.5 mg/dL (0.2-1.0); CALCIUM 9.4 mg/dL (8.5-10.3); CREATININE 0.7 mg/dL (0.4-1.0); TOTAL PROTEIN 7.2 g/dL (6.7-8.2)
[2020-02-07] MEDS ORDERED: IOVERSOL 320 50 ML VIAL ONE (13:24)
[2020-02-07] MEDS ORDERED: IOVERSOL 320 100 ML VIAL IVP ONE ×2 (13:24→17:45)
[2020-02-07] MEDS ORDERED: METOCLOPRAMIDE 10 MG/2 ML VIAL IVP STA (13:27)
[2020-02-07 13:56] LABS: BILIRUBIN,URINE NEGATIVE (NEGATIVE); GLUCOSE, URINE (UA) NEGATIVE (NEGATIVE); KETONES,URINE (UA) NEGATIVE (NEGATIVE); LEUKOCYTE ESTERASE, URINE NEGATIVE (NEGATIVE); NITRITE,URINE NEGATIVE (NEGATIVE); OCCULT BLOOD,URINE NEGATIVE (NEGATIVE); PROTEIN,URINE NEGATIVE (NEGATIVE); UROBILINOGEN,URINE 0.2 (NORMAL) E.U./dL (NORMAL)
[2020-02-07 13:58] LABS: CLARITY,URINE CLEAR (CLEAR); HCG UR QUAL NEGATIVE
--- NOTE | 2020-02-07 16:03 | CT Report ---
PROCEDURE: Abdomen/Pelvis W INDICATIONS: persistent vomiting; eval gastric stricture CONTRAST: IV CONTRAST: Optiray 320 ml: 90 PO CONTRAST: Optiray 320 ml50 TECHNIQUE: After the administration of contrast, 5 mm thick sections acquired from the diaphragms to the sym physis. 5 mm thick coronal and sagittal reformats were acquired. For radiation dose reduction, the following was used: automated exposure control, adjustment of mA and/or kV according to patient size . COMPARISON: None. FINDINGS: Image quality: Excellent. ABDOMEN: Lung bases: Lung bases are clear. Heart size is normal. Solid organs: Liver and spleen are normal in size and enhancement. Gallbladder appears normal Bili mario system is non dilated. Pancreas enhances normally. No adrenal nodules. Kidneys demonstrate nor mal size and enhancement, without hydronephrosis. The stomach is not inflamed or distended. Peritoneum and bowel: Bowel loops demonstrate normal wall thickness and caliber. No free fluid or a ir. Nodes and vessels: No retroperitoneal or mesenteric adenopathy by size criteria. Aorta and inferior vena cava are normal in size. Miscellaneous: No ventral hernias. PELVIS: Genitourinary: Bladder wall thickness is normal. Miscellaneous: No inguinal hernias or adenopathy. Bones: No suspicious bony lesions. No vertebral body compression fractures. IMPRESSION: There is no sign of gastric distention or inflammation, and along the margins of the gas tric lumen no evidence of peptic ulcer disease is found. The adjacent large and small bowel is not di stended or inflamed. There is normal transit time of oral contrast through the small bowel to the rig ht lower quadrant and within the cecum. Overall a definite source of persistent emesis is not identif ied. No underlying infection or neoplasm is found. Reviewed by: Gerald Pate MD on 02/07/2020 4:01 PM PDT Approved by: Gerald Pate MD on 02/07/2020 4:01 PM PDT Station ID: [id number]
[2020-02-07 17:03] VITALS: BP 106/65
[2020-02-07] MEDS ORDERED: IOVERSOL 320 50 ML VIAL PO ONE (17:45)
== END 2020-02-07 17:03 | disposition home or self-care (01) ==
LOC: ED 11:39
DX: R10.13 Epigastric pain (principal); R11.2 Nausea with vomiting, unspecified; K44.9 Diaphragmatic hernia without obstruction or gangrene; F17.200 Nicotine dependence, unspecified, uncomplicated
CPT/HCPCS: 36415; 74177; 80053; 81003; 81025; 83690; 85025; 96374; 96375; 99285; J1170; J2765; Q9967; 81001; 87086

== ENCOUNTER 2020-05-05 19:40 | Emergency (ER) | payer OTHER ==
[2020-05-05 20:07] LABS: BILIRUBIN,URINE NEGATIVE (NEGATIVE); GLUCOSE, URINE (UA) NEGATIVE (NEGATIVE); KETONES,URINE (UA) NEGATIVE (NEGATIVE); LEUKOCYTE ESTERASE, URINE MODERATE (NEGATIVE); NITRITE,URINE NEGATIVE (NEGATIVE); OCCULT BLOOD,URINE NEGATIVE (NEGATIVE); PH,URINE 7.5 PH (5.0-7.5); PROTEIN,URINE NEGATIVE (NEGATIVE); UROBILINOGEN,URINE 0.2 (NORMAL) E.U./dL (NORMAL)
[2020-05-05 20:09] LABS: CLARITY,URINE HAZY (CLEAR); HCG UR QUAL NEGATIVE
[2020-05-05 20:19] LABS: RBC,URINE 0-5 /HPF (0-5)
[2020-05-05 20:20] LABS: BACTERIA,URINE Few /HPF (None Seen); MUCUS,URINE Few Strands; SQUAMOUS EPITHELIAL CELL,UR FEW Squamous (<= Few)
[2020-05-05 20:48] LABS: ALBUMIN 4.2 g/dL (3.2-5.5); ALBUMIN/GLOBULIN RATIO 1.4 (1.0-2.2); BILIRUBIN,TOTAL 0.5 mg/dL (0.2-1.0); CALCIUM 9.3 mg/dL (8.5-10.3); CREATININE 0.8 mg/dL (0.4-1.0); TOTAL PROTEIN 7.2 g/dL (6.7-8.2)
[2020-05-05 20:50] LABS: BASOPHILS % (AUTO) 0.4 %; EOSINOPHILS # (AUTO) 0.1 10^3/uL (0.0-0.7); LYMPHOCYTES % (AUTO) 22.1 %; MEAN CORPUSCULAR HEMOGLOBIN 27.8 pg (27.0-31.0); MEAN CORPUSCULAR HGB CONC 31.7 g/dL (32.0-36.0); MEAN CORPUSCULAR VOLUME 87.6 fL (81.0-99.0); MEAN PLATELET VOLUME 9.3 fL (7.9-10.8); MONOCYTES # (AUTO) 0.5 10^3/uL (0.0-1.0); MONOCYTES % (AUTO) 5.2 %; NEUTROPHILS # (AUTO) 6.5 10^3/uL (1.5-6.6); NEUTROPHILS % (AUTO) 70.9 %; PLT - PLATELET COUNT 273 10^3/uL (130-450); RED BLOOD COUNT 4.68 10^6/uL (4.20-5.40); RED CELL DISTRIBUTION WIDTH 13.7 % (12.0-15.0); WHITE BLOOD COUNT 9.2 x10^3/uL (4.8-10.8)
--- NOTE | 2020-05-05 21:13 | ED Physician Documentation ---
PD HPI ABD PAIN - Stated complaint Stated Complaint: FEMALE /VOMITING - Chief complaint Chief Complaint: Abd Pain - History obtained from History obtained from: Patient - History of Present Illness Timing - onset: How many days ago (2-3) Timing - duration: Days Timing - details: Gradual onset, Waxing and waning Pain level now: 8 Quality: Pain Radiation: Right flank Improved by: Other (nothing) Worsened by: Other (urinating) Associated symptoms: Nausea, Vomiting, Dysuria. No: Fever (Tmax 99), Diarrhea, Constipation, Melena, Hematochezia, Hematuria, Chest pain - Additional information Additional information: c/o 2-3 days of right flank pain when urinating as well as nausea, vomiting, loss of appetite. 13th [facility] ED visit over past 12 months Review of Systems Constitutional: denies: Fever, Chills, Sweats Cardiac: reports: Reviewed and negative Respiratory: reports: Reviewed and negative GI: reports: Abdominal Pain (right flank), Nausea, Vomiting. denies: Abdominal Swelling, Constipation, Diarrhea, Hematemesis, Bloody / black stool : reports: Dysuria. 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 PILOT: Hysterectomy, Oophrectomy HEENT: Other - Present Medications Home Medications: Ambulatory Orders Medication Instructions Recorded Confirmed Albuterol Sulf [Ventolin Hfa 1 - 2 puffs PO PRN PRN 06/12/17 11/01/18 Inhaler] traMADol [Ultram] 50 mg PO Q4-6H PRN #14 tablet 08/28/18 05/05/20 Promethazine [Phenergan] 25 mg PO Q6H PRN #10 tab 12/07/18 05/05/20 Lorazepam [Ativan] 1 mg PO 03/02/19 03/02/19 Famotidine 20 mg PO DAILY #30 tablet 08/28/19 Naproxen 375 mg PO BID #15 tablet 08/28/19 05/05/20 Lidocaine Patch 5% [Lidoderm Patch] 1 patch TOP DAILY PRN #10 patch 09/08/19 Omeprazole 20 mg PO QDAC #30 capsule. 12/19/19 05/05/20 Amox/Clav 875/125 [Augmentin] 1 each PO Q12H #14 tablet 05/05/20 FLUoxetine [PROzac] 10 mg PO DAILY 05/05/20 05/05/20 - Allergies Allergies/Adverse Reactions: Allergies Allergy/AdvReac Type Severity Reaction Status Date / Time bee pollen Allergy Anaphylaxis Verified 05/05/20 19:43 gabapentin Allergy Itching Verified 05/05/20 19:43 oxycodone HCl * Allergy Itching Verified 05/05/20 19:43 [From Percocet] - Social History Does the pt smoke?: Yes Smoking Status: Current every day smoker Does the pt drink ETOH?: No Does the pt have substance abuse?: Yes Substance Use and Type: Marijuana - Immunizations Immunizations are current?: Yes - POLST Patient has POLST: No PD ED PE NORMAL - Vitals Vital signs reviewed: Yes - General General: Alert and oriented X 3, No acute distress, Well developed/nourished - HEENT HEENT: Moist mucous membranes - Neck Neck: Supple, no meningeal sign - Cardiac Cardiac: RRR, No murmur - Respiratory Respiratory: No respiratory distress, Clear bilaterally - Abdomen Abdomen: Normal bowel sounds, Soft, Non tender, Non distended - Derm Derm: No rash PD ED PE EXPANDED - Back Back: CVA TTP right Results - Vitals Vitals: Vital Signs - 24 hr 05/05/20 05/05/20 05/05/20 19:43 21:49 23:00 Temperature 36.7 C 36.7 C Heart Rate 80 72 66 Respiratory 16 18 16 Rate Blood Pressure 133/65 H 117/81 H 120/87 H O2 Saturation 99 99 99 05/06/20 00:26 Temperature 37.0 C Heart Rate 79 Respiratory 16 Rate Blood Pressure 123/77 O2 Saturation 95 Oxygen O2 Source Room air - Labs Labs: Microbiology 05/05/20 19:53 Urine Culture - Preliminary Urine,Clean Catch CULTURE IN PROGRESS. RESULTS TO FOLLOW. Laboratory Tests 05/05/20 05/05/20 05/05/20 19:53 20:07 20:07 WBC 9.2 RBC 4.68 Hgb 13.0 Hct 41.0 MCV 87.6 MCH 27.8 MCHC 31.7 L RDW 13.7 Plt Count 273 MPV 9.3 Neut # (Auto) 6.5 Lymph # (Auto) 2.0 [place] # (Auto) 0.5 Eos # (Auto) 0.1 Baso # (Auto) 0.0 Absolute Nucleated RBC 0.00 Nucleated RBC % 0.0 Sodium 135 Potassium 3.1 L Chloride 100 L Carbon Dioxide 27 Anion Gap 8.0 BUN 16 Creatinine 0.8 Estimated GFR (MDRD) 77 L Glucose 98 Calcium 9.3 Total Bilirubin 0.5 AST 18 ALT 18 Alkaline Phosphatase 80 Total Protein 7.2 Albumin 4.2 Globulin 3.0 Albumin/Globulin Ratio 1.4 Lipase 38 Urine Color LIGHT YELLOW Urine Clarity HAZY Urine pH 7.5 Ur Specific [place] 1.020 Urine Protein NEGATIVE Urine Glucose (UA) NEGATIVE Urine Ketones NEGATIVE Urine Occult Blood NEGATIVE Urine Nitrite NEGATIVE Urine Bilirubin NEGATIVE Urine Urobilinogen 0.2 (NORMAL) Ur Leukocyte Esterase MODERATE H Urine RBC 0-5 Urine WBC >25 H Ur Squamous Epith Cells FEW Squamous Urine Bacteria Few Urine Mucus Few Strands Ur Microscopic Review INDICATED Urine Culture Comments INDICATED Urine HCG, Qual NEGATIVE PD MEDICAL DECISION MAKING - ED course Complexity details: reviewed old records, reviewed results, re-evaluated patient, considered differential, d/w patient ED course: right flank pain with urination and mild right CVA tenderness, normal WBC and >25WBC/hpf on UA; this is c/w UTI, early right pyelonephritis. Lack of fever at home and in ED as well as normal WBC suggest can treat without imaging at this time. Departure - Departure Disposition: 01 Home, Self Care Clinical Impression: Urinary tract infection Condition: Good Instructions: ED UTI Cystitis Female Follow-Up: KENDELL PUGH DO [Primary Care Provider] - Within 3 Days Prescriptions: Amox/Clav 875/125 [Augmentin] 1 each PO Q12H #14 tablet Discharge Date/Time: 05/06/20 00:32
[2020-05-05] MEDS ORDERED: HYDROmorphone 1 MG/ML CARPUJECT IVP STA (21:35)
[2020-05-05] MEDS ORDERED: SODIUM CHLORIDE 0.9% 1,000 ML IV STA (21:35)
[2020-05-05] MEDS ORDERED: cefTRIAXone 1 GM VIAL IVP STA (21:35)
[2020-05-05] MEDS ORDERED: PROMETHAZINE INJ 25 MG in SODIUM CHLORIDE 0.9% 50 ML IV STA (21:36)
[2020-05-05] MEDS ORDERED: PROMETHAZINE 25 MG/1 ML VIAL ONE (21:49)
[2020-05-06] MEDS ORDERED: HYDROmorphone 1 MG/ML CARPUJECT IVP STA (00:04)
[2020-05-06 00:27] VITALS: BP 123/77
== END 2020-05-06 00:32 | disposition home or self-care (01) ==
LOC: ED 19:40
DX: N12 Tubulo-interstitial nephritis, not specified as acute or chronic (principal); F17.200 Nicotine dependence, unspecified, uncomplicated
CPT/HCPCS: 36415; 80053; 81001; 81025; 83690; 85025; 87086; 96365; 96375; 99283; 99284; J1170; J7040; 81003

== ENCOUNTER 2020-05-11 15:38 | Emergency (ER) | payer OTHER ==
[2020-05-11] MEDS ORDERED: SODIUM CHLORIDE 0.9% 1,000 ML IV STA (15:52)
[2020-05-11] MEDS ORDERED: ONDANSETRON 4 MG/2 ML VIAL IVP STA (15:52)
[2020-05-11] MEDS ORDERED: MORPHINE 2 MG/ML CARPUJECT IVP STA (15:52)
--- NOTE | 2020-05-11 15:54 | ED Physician Documentation ---
PD HPI ABD PAIN - Stated complaint Stated Complaint: FEMALE - Chief complaint Chief Complaint: Abd Pain - History obtained from History obtained from: Patient - Additional information Additional information: 44-year-old woman with history of anorexia and weight issues was seen May 05 for flank pain and vomiting. Urinalysis at that time positive for leukocyte esterase and white cells. Treated with Augmentin. Culture did not grow a specific organism, polymicrobial growth. Since then she continues to have dysuria but today at work felt like someone hit her with a bat to the right flank with persistent nausea. No fevers. She does have chills. Review of Systems Constitutional: reports: Chills. denies: Fever GI: reports: Nausea, Vomiting. denies: Abdominal Pain : reports: Dysuria, Frequency. 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: Hysterectomy, Oophrectomy HEENT: Other - Present Medications Home Medications: Ambulatory Orders Medication Instructions Recorded Confirmed Albuterol Sulf [Ventolin Hfa 1 - 2 puffs PO PRN PRN 06/12/17 11/01/18 Inhaler] traMADol [Ultram] 50 mg PO Q4-6H PRN #14 tablet 08/28/18 05/05/20 Promethazine [Phenergan] 25 mg PO Q6H PRN #10 tab 12/07/18 05/05/20 Lorazepam [Ativan] 1 mg PO 03/02/19 03/02/19 Famotidine 20 mg PO DAILY #30 tablet 08/28/19 Naproxen 375 mg PO BID #15 tablet 08/28/19 05/05/20 Lidocaine Patch 5% [Lidoderm Patch] 1 patch TOP DAILY PRN #10 patch 09/08/19 Omeprazole 20 mg PO QDAC #30 capsule. 12/19/19 05/05/20 Amox/Clav 875/125 [Augmentin] 1 each PO Q12H #14 tablet 05/05/20 FLUoxetine [PROzac] 10 mg PO DAILY 05/05/20 05/05/20 HYDROcod/ACETAM 5/325 [[place] 5/325] 1 - 2 tab PO Q6H PRN #7 tablet 05/11/20 - Allergies Allergies/Adverse Reactions: Allergies Allergy/AdvReac Type Severity Reaction Status Date / Time bee pollen Allergy Anaphylaxis Verified 05/11/20 15:40 gabapentin Allergy Itching Verified 05/11/20 15:40 oxycodone HCl * Allergy Itching Verified 05/11/20 15:40 [From Percocet] - Social History Does the pt smoke?: Yes Smoking Status: Current every day smoker Does the pt drink ETOH?: No Does the pt have substance abuse?: Yes - Immunizations Immunizations are current?: Yes - POLST Patient has POLST: No PD ED PE NORMAL - Vitals Vital signs reviewed: Yes - General General: Alert and oriented X 3, No acute distress - Abdomen Abdomen: Normal bowel sounds, Soft, Non tender - Back Back: Other (Mod R CVAT) - Derm Derm: Normal color, Warm and dry - Extremities Extremities: No edema, No calf tenderness / cord - Neuro Neuro: Alert and oriented X 3, Normal speech Results - Vitals Vitals: Vital Signs - 24 hr 05/11/20 05/11/20 15:40 16:37 Temperature 36.5 C Heart Rate 100 92 Respiratory 16 20 Rate Blood Pressure 147/89 H 145/97 H O2 Saturation 98 97 Oxygen O2 Source Room air - Labs Labs: Laboratory Tests 05/11/20 05/11/20 05/11/20 15:49 16:15 16:15 WBC 7.1 RBC 4.50 Hgb 12.5 Hct 38.6 MCV 85.8 MCH 27.8 MCHC 32.4 RDW 13.4 Plt Count 262 MPV 8.8 Neut # (Auto) 4.7 Lymph # (Auto) 1.9 [place] # (Auto) 0.3 Eos # (Auto) 0.1 Baso # (Auto) 0.1 Absolute Nucleated RBC 0.00 Nucleated RBC % 0.0 Sodium 138 Potassium 3.5 Chloride 102 Carbon Dioxide 28 Anion Gap 8.0 BUN 15 Creatinine 0.7 Estimated GFR (MDRD) 90 Glucose 99 Calcium 9.4 Total Bilirubin 0.3 AST 19 ALT 19 Alkaline Phosphatase 94 Total Protein 7.0 Albumin 4.3 Globulin 2.7 Albumin/Globulin Ratio 1.6 Lipase 32 Urine Color YELLOW Urine Clarity CLEAR Urine pH 7.0 Ur Specific [place] 1.025 Urine Protein NEGATIVE Urine Glucose (UA) NEGATIVE Urine Ketones NEGATIVE Urine Occult Blood NEGATIVE Urine Nitrite NEGATIVE Urine Bilirubin NEGATIVE Urine Urobilinogen 0.2 (NORMAL) Ur Leukocyte Esterase NEGATIVE Ur Microscopic Review NOT INDICATED Urine Culture Comments NOT INDICATED Urine HCG, Qual NEGATIVE Urine Opiates Screen NEGATIVE Ur Oxycodone Screen NEGATIVE Urine Methadone Screen NEGATIVE Ur Propoxyphene Screen NEGATIVE Ur Barbiturates Screen POSITIVE H Ur Tricyclics Screen NEGATIVE Ur Phencyclidine Scrn NEGATIVE Ur Amphetamine Screen NEGATIVE U Methamphetamines Scrn NEGATIVE U Benzodiazepines Scrn POSITIVE H Urine Cocaine Screen NEGATIVE U Cannabinoids Screen POSITIVE H - Rads (name of study) CT KUB Radiology: EMP read contemporaneously (NAD) PD MEDICAL DECISION MAKING - ED course ED course: 44-year-old woman seen recently for potential pyelonephritis but nondiagnostic urine culture. Now suddenly worse today more reminiscent of renal colic. Vital signs are unremarkable as is her exam except for right CVA tenderness which I would consider mild to moderate. Urinalysis has normalized. Urine drug screen positive for benzodiazepines,Barbiturates and cannabinoids. She does take Flexeril which I believe can make the barbiturates positive and she does take lorazepam which would explain the benzodiazepines. She says she does not use THC daily. Given her weight issues and chronic nausea advised cessation to see if that is helpful for her symptoms. Departure - Departure Disposition: 01 Home, Self Care Clinical Impression: Nausea, Flank pain Condition: Stable Record reviewed to determine appropriate education?: Yes Instructions: ED Abdominal Pain Unkn Cause Prescriptions: HYDROcod/ACETAM 5/325 [[place] 5/325] 1 - 2 tab PO Q6H PRN #7 tablet PRN Reason: Pain Comments: I think you can stop the antibiotics for now, there is no evidence of persistent urinary infection or kidney infection.. You can take the hydrocodone we gave you as needed for pain for a few days but then try to get back to your usual Flexeril and tramadol. Return for new or worsening symptoms. As discussed I also recommend complete cessation from THC for a while to see if it helps if your ongoing symptoms and general nausea may be related. Follow-up with your doctor regardless.
[2020-05-11 15:59] LABS: BILIRUBIN,URINE NEGATIVE (NEGATIVE); GLUCOSE, URINE (UA) NEGATIVE (NEGATIVE); KETONES,URINE (UA) NEGATIVE (NEGATIVE); LEUKOCYTE ESTERASE, URINE NEGATIVE (NEGATIVE); MUDS CUTOFF CONCENTRATIONS CUTOFF CONC BELOW:; NITRITE,URINE NEGATIVE (NEGATIVE); OCCULT BLOOD,URINE NEGATIVE (NEGATIVE); PROTEIN,URINE NEGATIVE (NEGATIVE); UROBILINOGEN,URINE 0.2 (NORMAL) E.U./dL (NORMAL)
[2020-05-11 16:11] LABS: AMPHETAMINE SCREEN,URINE NEGATIVE (NEGATIVE); BENZODIAZEPINES SCREEN, URINE POSITIVE (NEGATIVE); CLARITY,URINE CLEAR (CLEAR); COCAINE SCREEN URINE NEGATIVE (NEGATIVE); HCG UR QUAL NEGATIVE; METHAMPHETAMINES SCREEN, URINE NEGATIVE (NEGATIVE); OPIATE SCREEN, URINE NEGATIVE (NEGATIVE); THC CANNABINOID SCREEN, URINE POSITIVE (NEGATIVE)
[2020-05-11 16:12] LABS: BARBITURATE SCREEN,UR POSITIVE (NEGATIVE); METHADONE SCREEN, URINE NEGATIVE (NEGATIVE); OXYCODONE SCREEN, URINE NEGATIVE (NEGATIVE); PROPOXYPHENE SCREEN, URINE NEGATIVE (NEGATIVE); TRICYCLIC ANTIDEPRESSANT,URINE NEGATIVE (NEGATIVE)
[2020-05-11 16:18] LABS: BASOPHILS # (AUTO) 0.1 10^3/uL (0.0-0.1); BASOPHILS % (AUTO) 0.7 %; EOSINOPHILS # (AUTO) 0.1 10^3/uL (0.0-0.7); EOSINOPHILS % (AUTO) 1.1 %; HCT - HEMATOCRIT 38.6 % (37.0-47.0); HGB - HEMOGLOBIN 12.5 g/dL (12.0-16.0); LYMPHOCYTES # (AUTO) 1.9 10^3/uL (1.5-3.5); LYMPHOCYTES % (AUTO) 26.8 %; MEAN CORPUSCULAR HEMOGLOBIN 27.8 pg (27.0-31.0); MEAN CORPUSCULAR HGB CONC 32.4 g/dL (32.0-36.0); MEAN CORPUSCULAR VOLUME 85.8 fL (81.0-99.0); MEAN PLATELET VOLUME 8.8 fL (7.9-10.8); MONOCYTES # (AUTO) 0.3 10^3/uL (0.0-1.0); MONOCYTES % (AUTO) 4.8 %; NEUTROPHILS # (AUTO) 4.7 10^3/uL (1.5-6.6); NEUTROPHILS % (AUTO) 66.2 %; PLT - PLATELET COUNT 262 10^3/uL (130-450); RED CELL DISTRIBUTION WIDTH 13.4 % (12.0-15.0); WHITE BLOOD COUNT 7.1 x10^3/uL (4.8-10.8)
[2020-05-11 16:31] LABS: ALBUMIN 4.3 g/dL (3.2-5.5); ALBUMIN/GLOBULIN RATIO 1.6 (1.0-2.2); BILIRUBIN,TOTAL 0.3 mg/dL (0.2-1.0); CALCIUM 9.4 mg/dL (8.5-10.3); CREATININE 0.7 mg/dL (0.4-1.0); POTASSIUM 3.5 mmol/L (3.5-5.0)
--- NOTE | 2020-05-11 16:35 | CT Report ---
PROCEDURE: Abdomen/Pelvis WO INDICATIONS: R flank pain TECHNIQUE: Noncontrast 5 mm thick sections acquired from the diaphragms to the symphysis. 5 mm coronal and sagi ttal reformats were then performed. For radiation dose reduction, the following was used: automated exposure control, adjustment of mA and/or kV according to patient size. COMPARISON: 12/19/2019, 02/07/2020 FINDINGS: Image quality: Excellent. ABDOMEN: Lung bases: Lung bases are clear. Heart size is normal. Solid organs: Liver and spleen are normal in size. Gallbladder is decompressed at the time of this study Pancreas is normal in contours. No adrenal nodules. Kidneys are normal in size, without hydr onephrosis or nephrolithiasis. Peritoneum and bowel: Unenhanced bowel loops demonstrate normal wall thickness and caliber. No free fluid or air. Nodes and vessels: No retroperitoneal or mesenteric adenopathy by size criteria. Aorta and inferior vena cava are normal in caliber. Miscellaneous: No ventral hernias. Incidental note is made of body ornamentation artifact. PELVIS: Genitourinary: Bladder wall thickness is normal. This patient is status post hysterectomy. No adnex al masses can be seen. Miscellaneous: No inguinal hernias or adenopathy. Bones: No suspicious bony lesions. No vertebral body compression fractures. Lumbosacral fixation stewart rdware can be seen. IMPRESSION: Negative for stones or hydronephrosis. Incidental note is made of: Lumbosacral fixation hardware Hysterectomy Reviewed by: Glen Lynn MD on 05/11/2020 3:34 PM [place] Approved by: Glen Lynn MD on 05/11/2020 3:34 PM [place] Station ID: [id number]
[2020-05-11] MEDS ORDERED: KETOROLAC 30 MG/ML VIAL IVP STA (16:38)
[2020-05-11] MEDS ORDERED: HYDROcod/ACET 5/325 Prepack 4 PO STA (17:04)
[2020-05-11 17:12] VITALS: BP 136/91
== END 2020-05-11 17:17 | disposition home or self-care (01) ==
LOC: ED 15:38
DX: R10.9 Unspecified abdominal pain (principal); R11.0 Nausea; F17.200 Nicotine dependence, unspecified, uncomplicated
CPT/HCPCS: 36415; 80053; 80306; 81001; 81003; 81025; 83690; 85025; 87086; 96374; 96375; 99283

== ENCOUNTER 2020-05-21 11:50 | Emergency (ER) | payer OTHER ==
[2020-05-21 12:03] VITALS: BP 118/66
--- OUTSIDE RECORDS SUMMARY | 2020-05-21 12:16 | EXTERNAL MEDICAL SUMMARY RPT | Continuity of Care Document ---
:1975 Demographics Phone Unavailable Preferred Language Unknown Marital Status Unknown Restoration Affiliation Unknown Race Unknown Ethnic Group Unknown Author Organization [place] Address [address] [place] [address] Phone Care Team Providers Name Role Phone PUGH Unavailable Unavailable Problems date description facility 2020-02-07 11:39 NICOTINE DEPENDENCE, UNSPECIFIED, [facility] UNCOMPLICATED 2020-02-07 11:39 DIAPHRAGMATIC HERNIA WITHOUT [facility] OBSTRUCTION OR GANGRENE 2020-02-07 11:39 EPIGASTRIC PAIN [facility] 2020-02-07 11:39 NAUSEA WITH VOMITING, UNSPECIFIED [facility] 2020-05-05 19:40 NICOTINE DEPENDENCE, UNSPECIFIED, [facility] UNCOMPLICATED 2020-05-05 19:40 TUBULO-INTERSTITIAL NEPHRITIS, NOT [facility] S[facility] ACUTE O 2020-05-11 15:38 NICOTINE DEPENDENCE, UNSPECIFIED, [facility] UNCOMPLICATED 2020-05-11 15:38 UNSPECIFIED ABDOMINAL PAIN [facility] 2020-05-11 15:38 NAUSEA [facility] Allergies date description facility NO KNOWN ENVIRONMENTAL ALLERGIES [facility] ADHESIVE [facility] NO KNOWN ALLERGIES [facility] NIACIN [facility] MORPHINE [facility] OXYCODONE [facility] PROPOXYPHENE NAPSYLATE [facility] ASPIRIN [facility] LOVASTATIN [facility] CHLORTHALIDONE [facility] NAPROXEN [facility] LACTOSE [facility] DIPHENHYDRAMINE HCL [facility] AMLODIPINE [facility] GABAPENTIN [facility] PEANUT [facility] GLUTEN [facility] IODINE [facility] LATEX [facility] MILK [facility] AMOXICILLIN-POT CLAVULANATE [facility] OXYCODONE-ACETAMINOPHEN [facility] OXYCODONE-ASPIRIN [facility] METHYLPREDNISOLONE SODIUM [facility]CC [facility] BUSPIRONE [facility] CLAVULANIC ACID [facility] CODEINE [facility] ESCITALOPRAM [facility] FLUOXETINE [facility] HYDR[facility]CHLOROTHIAZIDE [facility] HYDROCODONE [facility] IBUPROFEN [facility] LISINOPRIL [facility] METOPROLOL [facility] NAPROXEN [facility] SERTRALINE [facility] SPIRONOLACTONE [facility] TRAZODONE [facility] AMOXICILLIN-POT CLAVULANATE [facility] PENICILLINS [facility] SULFA ANTIBIOTICS [facility] NO ALLERGY INFORMATION AVAILABLE [facility] SULFA (SULFONAMIDE ANTIBIOTICS) [facility] APRICOT [facility] BLUE DYE [facility] RED DYE [facility] CODEINE [facility] ALUMINUM CHLORIDE [facility] HONEY [facility] GABAPENTIN [facility] AMITRIPTYLINE [facility] LEVOTHYROXINE [facility] LEAD [facility] BEE VENOM PROTEIN (HONEY BEE) [facility] ERYTHROMYCIN [facility] MERCURY (BULK) [facility] HYDROCODONE-ACETAMINOPHEN [facility] MOLDS EXTRACT [facility] oxycodone HCl * [facility] gabapentin [facility] bee pollen [facility] Results Social History date description facility [id number]
--- NOTE | 2020-05-21 12:29 | ED Physician Documentation ---
History of Present Illness - Stated complaint Stated Complaint: FEMALE - Chief complaint Chief Complaint: Wound - History obtained from History obtained from: Patient - Additonal information Additional information: 44-year-old female presents the emergency department for evaluation of sores in her genital labial area. She recently shaved 2 days ago. Since then she has developed what she is afraid may be a herpes infection in her labial area is quite tender. She has had no fevers. She does have some areas of growing hair that are also causing her some denies any dysuria. She has remote history of genital herpes more than 20 years ago but no outbreaks since the initial infection Review of Systems Constitutional: reports: Reviewed and negative Ears: reports: Reviewed and negative Nose: reports: Reviewed and negative Throat: reports: Reviewed and negative Cardiac: reports: Reviewed and negative Respiratory: reports: Reviewed and negative GI: reports: Reviewed and negative : reports: Other (genital lesions) Skin: reports: Reviewed and negative PD PAST MEDICAL HISTORY - Past Medical History Cardiovascular: Atrial fibrillation Respiratory: COPD Neuro: None Endocrine/Autoimmune: None GI: None 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: None : Kidney stones, Other HEENT: None Psych: Depression, Anxiety, Eating disorder, Other Musculoskeletal: Chronic back pain, Other Derm: Eczema - Past Surgical History Past Surgical History: Yes General: Appendectomy, Other Ortho: Spine surgery /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: Hysterectomy, Oophrectomy HEENT: Other - Present Medications Home Medications: Ambulatory Orders Medication Instructions Recorded Confirmed Albuterol Sulf [Ventolin Hfa 1 - 2 puffs PO PRN PRN 06/12/17 11/01/18 Inhaler] traMADol [Ultram] 50 mg PO Q4-6H PRN #14 tablet 08/28/18 05/05/20 Promethazine [Phenergan] 25 mg PO Q6H PRN #10 tab 12/07/18 05/05/20 Lorazepam [Ativan] 1 mg PO 03/02/19 03/02/19 Famotidine 20 mg PO DAILY #30 tablet 08/28/19 Naproxen 375 mg PO BID #15 tablet 08/28/19 05/05/20 Lidocaine Patch 5% [Lidoderm Patch] 1 patch TOP DAILY PRN #10 patch 09/08/19 Omeprazole 20 mg PO QDAC #30 capsule. 12/19/19 05/05/20 Amox/Clav 875/125 [Augmentin] 1 each PO Q12H #14 tablet 05/05/20 FLUoxetine [PROzac] 10 mg PO DAILY 05/05/20 05/05/20 HYDROcod/ACETAM 5/325 [Aulander 5/325] 1 - 2 tab PO Q6H PRN #7 tablet 05/11/20 Cephalexin [Keflex] 500 mg PO Q6H #28 capsule 05/21/20 Mupirocin 22 gm TP BID #1 oint...g. 05/21/20 - Allergies Allergies/Adverse Reactions: Allergies Allergy/AdvReac Type Severity Reaction Status Date / Time bee pollen Allergy Anaphylaxis Verified 05/21/20 11:59 gabapentin Allergy Itching Verified 05/21/20 11:59 oxycodone HCl * Allergy Itching Verified 05/21/20 11:59 [From Percocet] - Social History Does the pt smoke?: Yes Smoking Status: Current every day smoker Does the pt drink ETOH?: No Does the pt have substance abuse?: Yes - Immunizations Immunizations are current?: Yes - POLST Patient has POLST: No PD ED PE EXPANDED - General General: Alert, Anxious - Female Female : Other (small area of ingrown hairs/folliculitis right mons. Right labia minora with laceration and mild amount of yellow drainage. no vesicular lesions) Results - Vitals Vitals: Vital Signs - 24 hr 05/21/20 11:59 Temperature 36.9 C Heart Rate 108 H Respiratory 18 Rate Blood Pressure 118/66 O2 Saturation 100 Oxygen O2 Source Room air PD MEDICAL DECISION MAKING - ED course Complexity details: reviewed results, re-evaluated patient, considered differential, d/w patient ED course: 44-year-old female presents the emergency department for evaluation of genital lesions she did shave her entire genital area 2 days ago. She has since then's developed a small area of folliculitis on the right superior mons. However the area of concern is her right labium minora. She has apparently lacerated the labia which is where it is quite tender. There are no vesicular lesions to suggest herpes infection. I suspect that she has mild early cellulitis. I will start her on cephalexin. Her tetanus is up-to-date. Advised to avoid shaving until symptoms resolved. Emergent return precautions discussed Departure - Departure Disposition: Home, Self Care Clinical Impression: Folliculitis Laceration of labia minora Qualifiers: Encounter type: initial encounter Qualified Code(s): S31.41XA - Laceration without foreign body of vagina and vulva, initial encounter Prescriptions: Cephalexin [Keflex] 500 mg PO Q6H #28 capsule Mupirocin 22 gm TP BID #1 oint...g. Comments: the sores in your genital area are from shaving too closely. You have a very small laceration and on your labia minora. Please apply the antibiotic ointment 2-3 times daily and begin taking the antibiotics as prescribed. I would expect your sores to take 5 to 7 days to heal. Please avoid shaving until fully healed. Return to the ER with any concerns of infection failing to resolve
== END 2020-05-21 12:44 | disposition home or self-care (01) ==
LOC: ED 11:50
DX: L73.9 Follicular disorder, unspecified (principal); L73.1 Pseudofolliculitis barbae; S31.41XA Laceration without foreign body of vagina and vulva, initial encounter; W27.8XXA Contact with other nonpowered hand tool, initial encounter; F17.200 Nicotine dependence, unspecified, uncomplicated
CPT/HCPCS: 99282; 99283

== ENCOUNTER 2020-07-11 12:03 | Emergency (ER) | payer OTHER ==
[2020-07-11 12:12] VITALS: BP 159/100
--- NOTE | 2020-07-11 12:28 | ED Physician Documentation ---
PD HPI SKIN - Stated complaint Stated Complaint: RASH ARMPIT - Chief complaint Chief Complaint: Wound - History obtained from History obtained from: Patient - History of Present Illness Timing - onset: How many weeks ago (1) Timing - duration: Weeks (1) Timing - details: Gradual onset, Still present, Waxing and waning (worse the past day) Location: LUE (had onset of swelling/tenderness left axilla and left upper arm medially, waxing and waning. Some redness. No drainage. Seen by PMD and had U/S done at [facility] 2 days ago, and was referred to surgeon in [place] for further eval. Appt next week. She states increased pain and swelling now.) Quality / character: Painful, Discolored (red), Swelling. No: Vesicular, Draining Associated symptoms: No: Fever, Myalgias, N/V/D Contributing factors: Other (denies injury of hand/fingers.). No: Recent illness Recently seen: [facility] Rx Keflex, and again this past week. Rx Keflex again but pt states no improvement.) Review of Systems Constitutional: denies: Fever, Chills, Myalgias Nose: denies: Rhinorrhea / runny nose, Congestion Throat: denies: Sore throat Respiratory: denies: Cough Skin: reports: Lesions (tender lumps axilla and left upper arm.). denies: Rash PD PAST MEDICAL HISTORY - Past Medical History Cardiovascular: Atrial fibrillation Respiratory: COPD Neuro: None Endocrine/Autoimmune: None GI: None UX ENGINEER: None : Kidney stones, Other HEENT: None Psych: Depression, Anxiety, Eating disorder, Other Musculoskeletal: Chronic back pain, Other Derm: Eczema - Past Surgical History Past Surgical History: Yes General: Appendectomy, Other Ortho: Spine surgery /UX ENGINEER: Hysterectomy, Oophrectomy HEENT: Other - Present Medications Home Medications: Ambulatory Orders Medication Instructions Recorded Confirmed traMADol [Ultram] 50 mg PO Q4-6H PRN #14 tablet 08/28/18 05/05/20 Lidocaine Patch 5% [Lidoderm Patch] 1 patch TOP DAILY PRN #10 patch 09/08/19 FLUoxetine [PROzac] 10 mg PO DAILY 05/05/20 05/05/20 HYDROcod/ACETAM 5/325 [Shoshone 5/325] 1 ea PO Q6H PRN #14 tablet 07/11/20 Sulfamethox/Trimeth 800/160 1 each PO BID #14 tablet 07/11/20 [Bactrim Ds 800/160] - Allergies Allergies/Adverse Reactions: Allergies Allergy/AdvReac Type Severity Reaction Status Date / Time bee pollen Allergy Anaphylaxis Verified 07/11/20 12:12 gabapentin Allergy Itching Verified 07/11/20 12:12 oxycodone HCl * Allergy Itching Verified 07/11/20 12:12 [From Percocet] - Social History Does the pt smoke?: Yes Smoking Status: Current every day smoker Does the pt drink ETOH?: No Does the pt have substance abuse?: Yes - Immunizations Immunizations are current?: Yes - POLST Patient has POLST: No PD ED PE NORMAL - Vitals Vital signs reviewed: Yes - General General: Alert and oriented X 3, Well developed/nourished, Other (appears in pain. Holding left arm up so as to relieve pressure on armpit. ) - Neck Neck: Supple, no meningeal sign, No adenopathy - Derm Derm: Normal color, Warm and dry - Extremities Extremities: Other (left axilla with focal area of tenderness and swelling. No skin sores. No fluctuance. Bedside U/S by me showed tissue architecture c/w lymph node and not visible fluid pocket. Similar with left medial upper arm. No skin sores. No fluid collection. Hand/forearm without lesions/sores. ) Results - Vitals Vitals: Vital Signs - 24 hr 07/11/20 12:09 Temperature 36.4 C L Heart Rate 121 H Respiratory 16 Rate Blood Pressure 159/100 H O2 Saturation 98 Oxygen O2 Source Room air PD MEDICAL DECISION MAKING - ED course Complexity details: reviewed old records ([facility] but only occasional small Rxs for pain meds and last was several months ago.), considered differential (seems adenitis that is tender. ), d/w patient Departure - Departure Disposition: 01 Home, Self Care Clinical Impression: Lymphadenitis Condition: Stable Record reviewed to determine appropriate education?: Yes Follow-Up: KENDELL PUGH DO [Primary Care Provider] - Prescriptions: Sulfamethox/Trimeth 800/160 [Bactrim Ds 800/160] 1 each PO BID #14 tablet HYDROcod/ACETAM 5/325 [Shoshone 5/325] 1 ea PO Q6H PRN #14 tablet PRN Reason: Pain Comments: Warm moist towels or compresses to the tender areas to increase blood flow and help fight off the infection. Tylenol 4 times a day or hydrocodone if needed for worse pain in the short-term. Add Bactrim to your current antibiotics twice daily with food. Follow-up with your primary care or the surgeon as planned regarding further evaluation of the tender lymph nodes. Return if worsening. Discharge Date/Time: 07/11/20 13:22
[2020-07-11] MEDS ORDERED: SULFAMETH/TRIMETH DS 800/160 MG TABLET PO STA (13:05)
[2020-07-11] MEDS ORDERED: HYDROcod/ACETAM 5/325 MG TABLET PO STA (13:05)
== END 2020-07-11 13:22 | disposition home or self-care (01) ==
LOC: ED 12:03
DX: I88.9 Nonspecific lymphadenitis, unspecified (principal); M79.622 Pain in left upper arm; F17.200 Nicotine dependence, unspecified, uncomplicated
CPT/HCPCS: 99282; 99283; A9270

== ENCOUNTER 2020-09-07 07:18 | Emergency (ER) | payer OTHER ==
--- OUTSIDE RECORDS SUMMARY | 2020-09-07 07:20 | EXTERNAL MEDICAL SUMMARY RPT | Continuity of Care Document ---
:1975 Demographics Phone Unavailable Preferred Language Yi Marital Status Unknown Congregational Affiliation Unknown Race Unknown Ethnic Group Unknown Author Organization [place] Address [address] [phone] Phone Care Team Providers Name Role Phone Napier Unavailable Unavailable Problems date description facility 20200717 Localized swelling, mass and lump, left [facility] 20200717 Cutaneous abscess of left upper limb I [facility] 20200716 Localized swelling, mass and lump, left [facility] Medications date description facility 20200717 Acetaminophen 325 MG / Hydrocodone Darling rtrate 5 MG Oral [facility] Tablet 20200717 tramadol hydrochloride 50 MG Oral Table [facility] 20200717 Lorazepam 0.5 MG Oral Tablet [facility] 20200717 Docusate Sodium 100 MG Oral Capsule Is [facility] Procedures date description facility 20200731 [facility] date description facility 20200722 [facility] date description facility 20200717 [facility] date description facility 20200716 [facility] Vital Signs date measurement value source 20200716 weight_standard 54.54 lb 20200716 weight_metric 24.74 kg 20200716 temperature_standard 97.9 F 20200716 temperature_metric 36.61 C 20200716 height_standard 66 in 20200716 height_metric 167.64 cm 20200716 heart_rate 86 /min 20200716 BP_systolic 112 mm[Hg] [id number] BP_diastolic 74 mm[Hg] 20200716 BMI 19.4 kg/m2 date measurement value source 20200717 weight_standard 54.43 lb 20200717 weight_metric 24.69 kg 20200717 temperature_standard 99.2 F 20200717 temperature_metric 37.33 C 20200717 respiration_rate 16 /min 20200717 height_standard 66 in 20200717 height_metric 167.64 cm 20200717 heart_rate 73 /min 20200717 BP_systolic 109 mm[Hg] [id number] BP_diastolic 68 mm[Hg] 20200717 BMI 19.3 kg/m2 date measurement value source 20200722 temperature_standard 98.8 F 20200722 temperature_metric 37.11 C 20200722 heart_rate 102 /min 20200722 BP_systolic 124 mm[Hg] 20200722 BP_diastolic 82 mm[Hg] date measurement value source 20200731 temperature_standard 97.8 F 20200731 temperature_metric 36.56 C 20200731 heart_rate 86 /min 20200731 BP_systolic 122 mm[Hg] 20200731 BP_diastolic 78 mm[Hg] Social History date description facility [id number]
--- OUTSIDE RECORDS SUMMARY | 2020-09-07 07:23 | EXTERNAL MEDICAL SUMMARY RPT | Continuity of Care Document ---
:1975 Demographics Phone Unavailable Preferred Language Japanese Marital Status Unknown Advent Affiliation Unknown Race Unknown Ethnic Group Unknown Author Organization [place] Address [address] [phone] Phone Care Team Providers Name Role Phone Napier Unavailable Unavailable Problems date description facility 20200717 Localized swelling, mass and lump, left [facility] 20200717 Cutaneous abscess of left upper limb I [facility] 20200716 Localized swelling, mass and lump, left [facility] Medications date description facility 20200717 Acetaminophen 325 MG / Hydrocodone Darling rtrate 5 MG Oral [facility] Tablet 20200717 tramadol hydrochloride 50 MG Oral Table [facility] 20200717 Lorazepam 0.5 MG Oral Tablet [facility] 20200717 Docusate Sodium 100 MG Oral Capsule Is [facility] Procedures date description facility 20200731 [facility] date description facility 20200722 [facility] date description facility 20200717 [facility] date description facility 20200716 [facility] Vital Signs date measurement value source 20200716 weight_standard 54.54 lb 20200716 weight_metric 24.74 kg 20200716 temperature_standard 97.9 F 20200716 temperature_metric 36.61 C 20200716 height_standard 66 in 20200716 height_metric 167.64 cm 20200716 heart_rate 86 /min 20200716 BP_systolic 112 mm[Hg] [id number] BP_diastolic 74 mm[Hg] 20200716 BMI 19.4 kg/m2 date measurement value source 20200717 weight_standard 54.43 lb 20200717 weight_metric 24.69 kg 20200717 temperature_standard 99.2 F 20200717 temperature_metric 37.33 C 20200717 respiration_rate 16 /min 20200717 height_standard 66 in 20200717 height_metric 167.64 cm 20200717 heart_rate 73 /min 20200717 BP_systolic 109 mm[Hg] [id number] BP_diastolic 68 mm[Hg] 20200717 BMI 19.3 kg/m2 date measurement value source 20200722 temperature_standard 98.8 F 20200722 temperature_metric 37.11 C 20200722 heart_rate 102 /min 20200722 BP_systolic 124 mm[Hg] 20200722 BP_diastolic 82 mm[Hg] date measurement value source 20200731 temperature_standard 97.8 F 20200731 temperature_metric 36.56 C 20200731 heart_rate 86 /min 20200731 BP_systolic 122 mm[Hg] 20200731 BP_diastolic 78 mm[Hg] Social History date description facility [id number]
[2020-09-07] MEDS ORDERED: SODIUM CHLORIDE 0.9% 1,000 ML IV STA (08:29)
[2020-09-07] MEDS ORDERED: KETOROLAC 30 MG/ML VIAL IVP STA (08:29)
[2020-09-07] MEDS ORDERED: ONDANSETRON 4 MG/2 ML VIAL IVP STA (08:29)
[2020-09-07] MEDS ORDERED: IOPAMIDOL-300 100 ML VIAL ONE (08:35)
--- NOTE | 2020-09-07 08:36 | ED Physician Documentation ---
PD HPI HEADACHE - Stated complaint Stated Complaint: N/V SWEATING - Chief complaint Chief Complaint: Allergic Rx - History obtained from History obtained from: Patient, Family - History of Present Illness Timing - onset: Enter time (0000), Last night Timing - onset during: Rest Timing - duration: Hours Timing - details: Gradual onset, Still present Location: Front Quality: Throbbing Associated symptoms: Nausea, Vomiting. No: Fever, Stiff neck, Weakness, Numbness, Syncope, Seizure, Eye pain, Vision changes Improved by: Rest, Dark room, Quiet Contributing factors: Other (had J&J vax yesterday) Similar symptoms before: Diagnosis (migraine) Recently seen: Other (vaccine yesterday for COVID J&J) - Additional information Additional information: 45-year-old female with a history of anorexia nervosa and migraine headache has developed a severe headache last night after receiving her J&J vaccine. She states that she has an exploding feeling in her head she has some nausea and vomiting and reports sweating and chills. She does have a history of multiple emergency department visits over the years. She does have a history of anxiety. Review of Systems Constitutional: reports: Chills, Sweats. denies: Fever Eyes: denies: Decreased vision Ears: denies: Ear pain Nose: denies: Rhinorrhea / runny nose, Congestion Throat: denies: Sore throat Cardiac: denies: Chest pain / pressure, Palpitations Respiratory: denies: Dyspnea, Cough GI: reports: Abdominal Pain, Nausea, Vomiting : denies: Dysuria, Frequency Skin: denies: Rash Musculoskeletal: denies: Neck pain, Back pain, Extremity pain Neurologic: reports: Headache. denies: Generalized weakness, Focal weakness, Numbness, Difficulty speaking, Altered mental status, Head injury, LOC PD PAST MEDICAL HISTORY - Past Medical History Past Medical History: Yes Cardiovascular: Atrial fibrillation Respiratory: COPD Neuro: None Endocrine/Autoimmune: None GI: None HOME SUPERVISOR: None : Kidney stones, Other HEENT: None Psych: Depression, Anxiety, Eating disorder, Other Musculoskeletal: Chronic back pain, Other Derm: Eczema - Past Surgical History Past Surgical History: Yes General: Appendectomy, Other Ortho: Spine surgery /HOME SUPERVISOR: Hysterectomy, Oophrectomy HEENT: Other - Present Medications Home Medications: Ambulatory Orders Medication Instructions Recorded Confirmed traMADol [Ultram] 50 mg PO Q4-6H PRN #14 tablet 08/28/18 05/05/20 Lidocaine Patch 5% [Lidoderm Patch] 1 patch TOP DAILY PRN #10 patch 09/08/19 FLUoxetine [PROzac] 10 mg PO DAILY 05/05/20 05/05/20 HYDROcod/ACETAM 5/325 [[place] 5/325] 1 ea PO Q6H PRN #14 tablet 07/11/20 Sulfamethox/Trimeth 800/160 1 each PO BID #14 tablet 07/11/20 [Bactrim Ds 800/160] HYDROcod/ACETAM 5/325 [[place] 5/325] 1 - 2 tablet PO Q6H PRN #14 tablet 09/07/20 Ondansetron Odt [Zofran] 4 mg TL Q6H PRN #10 tablet 09/07/20 - Allergies Allergies/Adverse Reactions: Allergies Allergy/AdvReac Type Severity Reaction Status Date / Time bee pollen Allergy Anaphylaxis Verified 09/07/20 07:33 gabapentin Allergy Itching Verified 09/07/20 07:33 oxycodone HCl * Allergy Itching Verified 09/07/20 07:33 [From Percocet] - Social History Does the pt smoke?: Yes Smoking Status: Current every day smoker Does the pt drink ETOH?: No Does the pt have substance abuse?: Yes - Immunizations Immunizations are current?: Yes - POLST Patient has POLST: No PD ED PE NORMAL - Vitals Vital signs reviewed: Yes (Normal) - General General: Alert and oriented X 3, No acute distress, Well developed/nourished - HEENT HEENT: Atraumatic, PERRL, EOMI - Neck Neck: Supple, no meningeal sign, No bony TTP - Cardiac Cardiac: RRR, No murmur - Respiratory Respiratory: No respiratory distress, Clear bilaterally - Abdomen Abdomen: Normal bowel sounds, Soft, Non tender, Non distended, No organomegaly - Back Back: No CVA TTP, No spinal TTP - Derm Derm: Normal color, Warm and dry, No rash - Extremities Extremities: No deformity, No edema - Neuro Neuro: Alert and oriented X 3, superintendent meters 2-12 intact, No motor deficit, No sensory deficit, Normal speech Eye Opening: Spontaneous Motor: Obeys Commands Verbal: Oriented GCS Score: 15 - Psych Psych: Normal mood, Normal affect Results - Vitals Vitals: Vital Signs - 24 hr 09/07/20 07:28 Temperature 36.7 C Heart Rate 96 Respiratory 18 Rate Blood Pressure 98/66 O2 Saturation 97 Oxygen O2 Source Room air - Labs Labs: Laboratory Tests 09/07/20 09/07/20 09/07/20 08:45 08:45 10:52 WBC 5.6 RBC 4.79 Hgb 13.1 Hct 40.1 MCV 83.7 MCH 27.3 MCHC 32.7 RDW 13.9 Plt Count 185 MPV 9.0 Neut # (Auto) 5.0 Lymph # (Auto) 0.2 L [place] # (Auto) 0.4 Eos # (Auto) 0.0 Baso # (Auto) 0.0 Absolute Nucleated RBC 0.00 Nucleated RBC % 0.0 Sodium 135 Potassium 3.9 Chloride 100 L Carbon Dioxide 25 Anion Gap 10.0 BUN 15 Creatinine 0.7 Estimated GFR (MDRD) 90 Glucose 115 H Calcium 9.2 Total Bilirubin 0.3 AST 15 ALT 14 Alkaline Phosphatase 87 Total Protein 6.7 Albumin 4.0 Globulin 2.7 Albumin/Globulin Ratio 1.5 Lipase 21 L Urine Color YELLOW Urine Clarity CLEAR Urine pH 7.0 Ur Specific [place] <=1.005 Urine Protein NEGATIVE Urine Glucose (UA) NEGATIVE Urine Ketones NEGATIVE Urine Occult Blood NEGATIVE Urine Nitrite NEGATIVE Urine Bilirubin NEGATIVE Urine Urobilinogen 0.2 (NORMAL) Ur Leukocyte Esterase NEGATIVE Ur Microscopic Review NOT INDICATED Urine Culture Comments NOT INDICATED - Rads (name of study) CT head venogram Radiology: Prelim report reviewed (Impression: No acute abnormality. The dural sinuses and deep cerebral veins are patent. Mild paranasal sinus mucosal thickening here then), EMP read indepedently, See rad report PD MEDICAL DECISION MAKING - ED course Complexity details: reviewed old records, reviewed results, re-evaluated patient, considered differential, d/w patient ED course: 45-year-old female with a history of anorexia nervosa has had a Bacilio & Bacilio shot yesterday and she is developed a headache this is become intolerable for her and she is concerned about the possibility of a thrombosis. She is too early for this to happen the CT scan is without evidence of thrombosis and she is treated for headache with additional medications including dexamethasone Compazine and Benadryl. She has been treated wall in the emergency department with Toradol Dilaudid and saline. She continues to have pain in the additional migraine cocktail is provided. Departure - Departure Disposition: 01 Home, Self Care Clinical Impression: Vomiting Qualifiers: Vomiting type: unspecified Vomiting Intractability: non-intractable Nausea presence: with nausea Qualified Code(s): R11.2 - Nausea with vomiting, unspecified Cephalalgia Qualifiers: Headache type: unspecified Headache chronicity pattern: acute headache Intractability: not intractable Qualified Code(s): R51.9 - Headache, unspecified Condition: Stable Instructions: ED Cephalgia Unspecified, ED Diet Vomiting Diarrhea Follow-Up: KENDELL PUGH DO [Primary Care Provider] - Prescriptions: HYDROcod/ACETAM 5/325 [[place] 5/325] 1 - 2 tablet PO Q6H PRN #14 tablet PRN Reason: Pain Ondansetron Odt [Zofran] 4 mg TL Q6H PRN #10 tablet PRN Reason: Nausea / Vomiting
[2020-09-07 08:49] LABS: BASOPHILS % (AUTO) 0.5 %; EOSINOPHILS % (AUTO) 0.4 %; HCT - HEMATOCRIT 40.1 % (37.0-47.0); HGB - HEMOGLOBIN 13.1 g/dL (12.0-16.0); LYMPHOCYTES # (AUTO) 0.2 10^3/uL (1.5-3.5); LYMPHOCYTES % (AUTO) 3.7 %; MEAN CORPUSCULAR HEMOGLOBIN 27.3 pg (27.0-31.0); MEAN CORPUSCULAR HGB CONC 32.7 g/dL (32.0-36.0); MEAN CORPUSCULAR VOLUME 83.7 fL (81.0-99.0); MONOCYTES # (AUTO) 0.4 10^3/uL (0.0-1.0); MONOCYTES % (AUTO) 6.2 %; NEUTROPHILS % (AUTO) 88.8 %; PLT - PLATELET COUNT 185 10^3/uL (130-450); RED BLOOD COUNT 4.79 10^6/uL (4.20-5.40); RED CELL DISTRIBUTION WIDTH 13.9 % (12.0-15.0); WHITE BLOOD COUNT 5.6 x10^3/uL (4.8-10.8)
[2020-09-07 09:01] LABS: ALBUMIN/GLOBULIN RATIO 1.5 (1.0-2.2); BILIRUBIN,TOTAL 0.3 mg/dL (0.2-1.0); CALCIUM 9.2 mg/dL (8.5-10.3); CREATININE 0.7 mg/dL (0.4-1.0); POTASSIUM 3.9 mmol/L (3.5-5.0); TOTAL PROTEIN 6.7 g/dL (6.7-8.2)
[2020-09-07] MEDS ORDERED: HYDROmorphone 1 MG/ML CARPUJECT IVP STA (09:23)
--- NOTE | 2020-09-07 09:26 | CT Report ---
PROCEDURE: HEAD W INDICATIONS: J J vomiting/exploding headache venogram CONTRAST: IV CONTRAST: Isovue 300 ml: 100 PO CONTRAST: *NO PO CONTRAST TECHNIQUE: 4.5 mm thick angled axial sections acquired from the foramen magnum to the vertex after the administr ation of intravenous contrast. For radiation dose reduction, the following was used: automated expo sure control, adjustment of mA and/or kV according to patient size. COMPARISON: CT head dated 09/08/2019 FINDINGS: Image quality: Excellent. CSF Spaces: Basal cisterns are patent. No extra-axial fluid collections. Evaluation for hemorrhage is however limited given lack of noncontrast study. Ventricles are normal in size and shape. Brain: No midline shift. No intracranial bleeds or masses. No abnormal intracranial enhancement. Bowen-white interface appears normal. No suspicious enhancement. Orbits are unremarkable. Normal enha ncement of the lacrimal glands. Vasculature: The venous sinuses including the cavernous sinus and deep cerebral veins appear patent. No evidence of thrombosis. Although not tailored to evaluation of the arterial structures, they are grossly patent without aneur ysm formation. Skull and face: Calvarium and visualized facial bones appear intact, without suspicious lesions. Sinuses: Very mild mucosal thickening is noted of the sphenoid sinuses, left maxillary sinus, frontal sinuses, and anterior ethmoidal air cells. No air-fluid levels. Mastoid air cells are clear. IMPRESSION: No acute abnormality. The dural venous sinuses and deep cerebral veins are patent. Mild paranasal sinus mucosal thickening. Reviewed by: Daniel Echeverria DO on 09/07/2020 8:25 AM KATHARINE Approved by: Daniel Echeverria DO on 09/07/2020 8:25 AM KATHARINE Station ID: [id number]
[2020-09-07] MEDS ORDERED: IOPAMIDOL-300 100 ML VIAL IVP ONE (10:07)
[2020-09-07 11:12] LABS: BILIRUBIN,URINE NEGATIVE (NEGATIVE); GLUCOSE, URINE (UA) NEGATIVE (NEGATIVE); KETONES,URINE (UA) NEGATIVE (NEGATIVE); LEUKOCYTE ESTERASE, URINE NEGATIVE (NEGATIVE); NITRITE,URINE NEGATIVE (NEGATIVE); OCCULT BLOOD,URINE NEGATIVE (NEGATIVE); PROTEIN,URINE NEGATIVE (NEGATIVE); UROBILINOGEN,URINE 0.2 (NORMAL) E.U./dL (NORMAL)
[2020-09-07 11:17] LABS: CLARITY,URINE CLEAR (CLEAR)
[2020-09-07] MEDS ORDERED: PROCHLORPERAZINE 10 MG/2 ML VIAL IVP STA (11:44)
[2020-09-07] MEDS ORDERED: DEXAMETHASONE 10 MG/ML VIAL IVP STA (11:44)
[2020-09-07] MEDS ORDERED: diphenhydrAMINE INJ 50 MG/ML VIAL IVP STA (11:45)
[2020-09-07 12:47] VITALS: BP 110/70
== END 2020-09-07 12:44 | disposition home or self-care (01) ==
LOC: ED 07:18
DX: R51.9 Headache, unspecified (principal); R11.2 Nausea with vomiting, unspecified; F17.200 Nicotine dependence, unspecified, uncomplicated
CPT/HCPCS: 36415; 70460; 80053; 81003; 83690; 85025; 96361; 96374; 96375; 99284; J1170; J1200; Q9967; 81001; 87086

== ENCOUNTER 2020-11-19 17:48 | Emergency (ER) | payer OTHER ==
[2020-11-19] MEDS ORDERED: LIDOCAINE VISCOUS 2% 15 ML UDC MM STA (18:04)
[2020-11-19] MEDS ORDERED: MAG HYDROX/AL HYDROX/SIMETH 30 ML UDC PO STA (18:04)
--- NOTE | 2020-11-19 18:08 | ED Physician Documentation ---
History of Present Illness - Stated complaint Stated Complaint: CP - Chief complaint Chief Complaint: Abd Pain - Additonal information Additional information: 45-year-old female presents the emergency department for evaluation of upper abdominal pain that radiates into her chest. She reports that she has a known history of a hiatal hernia. She underwent an EGD at [facility] about 1 year ago. At that time she was advised to remain on her daily omeprazole. Patient has recently been between houses and jobs and family and has missed multiple doses of this medication. Since then she has had this sharp burning pain in her Upper abdomen that radiates into her chest. She denies tobacco or alcohol use. She retains her gallbladder but has had a hysterectomy. Review of Systems Constitutional: denies: Fever, Chills Ears: reports: Reviewed and negative Nose: reports: Reviewed and negative Throat: reports: Reviewed and negative Cardiac: reports: Reviewed and negative Respiratory: reports: Reviewed and negative GI: reports: Abdominal Pain, Nausea, Vomiting. 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: None : Kidney stones, Other HEENT: None Psych: Depression, Anxiety, Eating disorder, Other Musculoskeletal: Chronic back pain, Other Derm: Eczema - Past Surgical History Past Surgical History: Yes General: Appendectomy, Other Ortho: Spine surgery /ROVING DEPARTMENT END FINDER: Hysterectomy, Oophrectomy HEENT: Other - Present Medications Home Medications: Ambulatory Orders Medication Instructions Recorded Confirmed traMADol [Ultram] 50 mg PO Q4-6H PRN #14 tablet 08/28/18 05/05/20 Cyclobenzaprine [Flexeril] 10 mg Q8H PRN 11/19/20 11/19/20 LORazepam [Ativan] 0.5 mg PO BID 11/19/20 11/19/20 Omeprazole [PriLOSEC] 20 mg PO BID 14 Days #28 11/19/20 Pantoprazole Sodium 40 mg BID 11/19/20 11/19/20 Propranolol ER [Inderal LA] 1 cap BID 11/19/20 11/19/20 - Allergies Allergies/Adverse Reactions: Allergies Allergy/AdvReac Type Severity Reaction Status Date / Time bee pollen Allergy Anaphylaxis Verified 11/19/20 17:56 gabapentin Allergy Itching Verified 11/19/20 17:56 oxycodone HCl * Allergy Itching Verified 11/19/20 17:56 [From Percocet] - Social History Does the pt smoke?: Yes Smoking Status: Current every day smoker Does the pt drink ETOH?: No Does the pt have substance abuse?: Yes - Immunizations Immunizations are current?: Yes - POLST Patient has POLST: No PD ED PE EXPANDED - General General: Alert, No acute distress - Neck Neck: Supple w/out meningeal sx. No: Adenopathy - Cardiac Cardiac: Regular Rate, Normal pulses, Radial strong equal, Cap refill < 2 sec - Respiratory Respiratory: Clear to ausultation maribel. No: Distress, Labored - Abdomen Abdomen: Normal Bowel sounds, Tender to palpation, Epigastric (Epigastric tenderness without guarding or rebound. Negative McBurney's negative Wang's.) - Derm Derm: Normal color, Warm and dry - Extremities Extremities: Normal. No: Deformity, Tenderness Results - Vitals Vitals: Vital Signs - 24 hr 11/19/20 11/19/20 17:56 19:00 Temperature 36.6 C Heart Rate 93 96 Respiratory 18 15 Rate Blood Pressure 133/71 H 131/93 H O2 Saturation 99 99 Oxygen O2 Source Room air - EKG (time done) 1808 Rate: Rate (enter#) (85) Rhythm: NSR [place]: Normal Intervals: Normal CO, Prolonged QT (482) QRS: Normal Ischemia: Normal ST segments Compare to prior EKG: Unchanged from prior EKG Computer interpretation: Agree with computer - Labs Labs: Laboratory Tests 11/19/20 11/19/20 11/19/20 18:05 18:05 18:05 WBC 8.3 RBC 4.72 Hgb 13.2 Hct 39.6 MCV 83.9 MCH 28.0 MCHC 33.3 RDW 13.3 Plt Count 220 MPV 9.0 Neut # (Auto) 5.1 Lymph # (Auto) 2.7 [place] # (Auto) 0.4 Eos # (Auto) 0.1 Baso # (Auto) 0.0 Absolute Nucleated RBC 0.00 Nucleated RBC % 0.0 Sodium 136 Potassium 3.2 L Chloride 98 L Carbon Dioxide 28 Anion Gap 10.0 BUN 13 Creatinine 0.7 Estimated GFR (MDRD) 90 Glucose 86 Calcium 8.8 Total Bilirubin 0.5 AST 20 ALT 15 Alkaline Phosphatase 72 Troponin I High Sens 2.9 Total Protein 6.9 Albumin 4.4 Globulin 2.5 Albumin/Globulin Ratio 1.8 Lipase 24 PD MEDICAL DECISION MAKING - ED course Complexity details: reviewed results, re-evaluated patient, considered differential, d/w patient, d/w family ED course: 45-year-old female presents the emergency department for evaluation of upper epigastric pain that radiates into her chest. She has had some nausea and vomiting. This is in the setting of a history of a hiatal hernia. Also history of acid reflux but she has not taken her omeprazole for over 2 weeks. The symptoms began just about 1 week ago. Screening labs show no acute worrisome abnormalities. I suspect that the cause of her symptoms is simply a gastritis. She has a nonperitoneal and rather benign abdominal exam. I would defer CT imaging at this time. I did offer her an abdominal ultrasound to further evaluate the upper abdominal pain and the gallbladder but she felt her symptoms were improved after GI cocktail as well as some Zofran and Dilaudid. At this point she will resume taking the omeprazole twice daily for symptoms or not improving, she has worsening pain, fevers hematic emesis or melena she will return immediately to the ER for a second evaluation. Departure - Departure Disposition: 01 Home, Self Care Clinical Impression: Epigastric abdominal pain Condition: Stable Record reviewed to determine appropriate education?: Yes Prescriptions: Omeprazole [PriLOSEC] 20 mg PO BID 14 Days #28 Comments: you are seen in the ER today for upper abdominal pain and vomiting. You have a history of a hiatal hernia and in the past you have been advised to take your acid reflux medication twice daily. You stopped taking this a few weeks ago and now you are having upper belly pain and vomiting. I suspect that what you are having is worsening gastritis or acid reflux. Your screening labs, EKG and chest x-ray today are all essentially normal. I would like you to resume taking your omeprazole twice daily as previously directed. If at any point you feel that your symptoms are worsening, you have bloody vomit or black or bloody stools, develop fevers, have uncontrolled vomiting or suddenly severe or different belly pain then please return to the ER for a second look.
[2020-11-19 18:11] LABS: BASOPHILS % (AUTO) 0.5 %; EOSINOPHILS # (AUTO) 0.1 10^3/uL (0.0-0.7); EOSINOPHILS % (AUTO) 1.3 %; HCT - HEMATOCRIT 39.6 % (37.0-47.0); HGB - HEMOGLOBIN 13.2 g/dL (12.0-16.0); LYMPHOCYTES # (AUTO) 2.7 10^3/uL (1.5-3.5); LYMPHOCYTES % (AUTO) 32.2 %; MEAN CORPUSCULAR HGB CONC 33.3 g/dL (32.0-36.0); MEAN CORPUSCULAR VOLUME 83.9 fL (81.0-99.0); MONOCYTES # (AUTO) 0.4 10^3/uL (0.0-1.0); MONOCYTES % (AUTO) 4.7 %; NEUTROPHILS # (AUTO) 5.1 10^3/uL (1.5-6.6); NEUTROPHILS % (AUTO) 61.1 %; PLT - PLATELET COUNT 220 10^3/uL (130-450); RED BLOOD COUNT 4.72 10^6/uL (4.20-5.40); RED CELL DISTRIBUTION WIDTH 13.3 % (12.0-15.0); WHITE BLOOD COUNT 8.3 x10^3/uL (4.8-10.8)
[2020-11-19 18:25] LABS: ALBUMIN 4.4 g/dL (3.2-5.5); ALBUMIN/GLOBULIN RATIO 1.8 (1.0-2.2); BILIRUBIN,TOTAL 0.5 mg/dL (0.2-1.0); CALCIUM 8.8 mg/dL (8.5-10.3); CREATININE 0.7 mg/dL (0.4-1.0); POTASSIUM 3.2 mmol/L (3.5-5.0); TOTAL PROTEIN 6.9 g/dL (6.7-8.2)
--- NOTE | 2020-11-19 18:35 | XRAY Report ---
PROCEDURE: Chest 1 View X-Ray INDICATIONS: Chest Pain TECHNIQUE: One view of the chest was acquired. COMPARISON: 12/10/2019. FINDINGS: Surgical changes and devices: None. Lungs and pleura: No pleural effusions or pneumothorax. There is hyperinflation of the lungs with f lattening of the hemidiaphragms redemonstrated compatible with COPD. Indistinct opacities are redemon strated bilaterally in the lung apices consistent with scarring. Mediastinum: Mediastinal contours appear normal. Heart size is normal. Bones and chest wall: No suspicious bony lesions. Overlying soft tissues appear unremarkable. IMPRESSION: 1. No acute cardiopulmonary disease. 2. Findings compatible with COPD redemonstrated. 3. Bilateral indistinct opacities in the lung apices again noted consistent with scarring. Reviewed by: Edmund Goldstein MD on 11/19/2020 6:33 PM PDT Approved by: Edmund Goldstein MD on 11/19/2020 6:33 PM PDT Station ID: [id number]
[2020-11-19] MEDS ORDERED: ONDANSETRON ODT 4 MG TABLET TL STA (18:41)
[2020-11-19] MEDS ORDERED: HYDROmorphone 1 MG/ML CARPUJECT IM STA (18:41)
[2020-11-19] MEDS ORDERED: PANTOPRAZOLE 40 MG TABLET PO STA (19:44)
[2020-11-19 19:52] VITALS: BP 132/85
== END 2020-11-19 19:55 | disposition home or self-care (01) ==
LOC: ED 17:48
DX: R10.13 Epigastric pain (principal); R11.2 Nausea with vomiting, unspecified; R07.9 Chest pain, unspecified; K44.9 Diaphragmatic hernia without obstruction or gangrene; J44.9 Chronic obstructive pulmonary disease, unspecified; F17.200 Nicotine dependence, unspecified, uncomplicated
CPT/HCPCS: 36415; 71045; 80053; 83690; 84484; 85025; 93005; 96372; 99283; 99284; A9270; J1170; Q0162

== ENCOUNTER 2021-01-25 11:17 | Emergency (ER) | payer OTHER ==
[2021-01-25] MEDS ORDERED: PROMETHAZINE 25 MG TABLET PO STA (12:19)
[2021-01-25] MEDS ORDERED: HYDROcod/ACETAM 5/325 MG TABLET PO STA (12:19)
--- NOTE | 2021-01-25 12:34 | ED Physician Documentation ---
History of Present Illness - Stated complaint Stated Complaint: SHOULDER/BACK PX - Chief complaint Chief Complaint: Back Pain - History obtained from History obtained from: Patient - History of Present Illness Timing: How many days ago (2) Pain level max: 8 Pain level now: 5 - Additonal information Additional information: Patient presents to the emergency department with pain near the left upper back/shoulder blade for the past 2 to 3 days. Worse with movement and better with rest. She is on chronic tramadol at home and states that this is not helping. Does not recall any specific injury. Has had nausea and vomiting since last night as well. No diarrhea. No fevers. No chills. Nausea today but no vomiting today. Patient has been fully vaccinated against Covid. Review of Systems Constitutional: denies: Fever, Chills Cardiac: denies: Palpitations Respiratory: reports: Dyspnea (Patient states that hurts to move or take a deep breath). denies: Cough GI: reports: Nausea, Vomiting. denies: Abdominal Pain, Abdominal Swelling, Diarrhea : denies: Dysuria, Frequency, Hesitancy, Discharge Skin: denies: Rash Musculoskeletal: denies: Neck pain Neurologic: denies: Headache, Head injury PD PAST MEDICAL HISTORY - Past Medical History Past Medical History: Yes Cardiovascular: Atrial fibrillation Respiratory: COPD Neuro: None Endocrine/Autoimmune: None GI: None VAT SKIMMER: None : Kidney stones, Other HEENT: None Psych: Depression, Anxiety, Eating disorder, Other Musculoskeletal: Chronic back pain, Other Derm: Eczema - Past Surgical History Past Surgical History: Yes General: Appendectomy, Other Ortho: Spine surgery /VAT SKIMMER: Hysterectomy, Oophrectomy HEENT: Other - Present Medications Home Medications: Ambulatory Orders Medication Instructions Recorded Confirmed traMADol [Ultram] 50 mg PO Q4-6H PRN #14 tablet 08/28/18 05/05/20 Cyclobenzaprine [Flexeril] 10 mg Q8H PRN 11/19/20 11/19/20 LORazepam [Ativan] 0.5 mg PO BID 11/19/20 11/19/20 Omeprazole [PriLOSEC] 20 mg PO BID 14 Days #28 11/19/20 Pantoprazole Sodium 40 mg BID 11/19/20 11/19/20 Propranolol ER [Inderal LA] 1 cap BID 11/19/20 11/19/20 HYDROcod/ACETAM 5/325 [[place] 5/325] 1 - 2 ea PO Q6H PRN #12 tablet 01/25/21 Promethazine [Phenergan] 25 mg PO Q6H PRN #10 tab 01/25/21 - Allergies Allergies/Adverse Reactions: Allergies Allergy/AdvReac Type Severity Reaction Status Date / Time bee pollen Allergy Anaphylaxis Verified 01/25/21 11:46 gabapentin Allergy Itching Verified 01/25/21 11:46 oxycodone HCl * Allergy Itching Verified 01/25/21 11:46 [From Percocet] - Social History Does the pt smoke?: Yes Smoking Status: Current every day smoker Does the pt drink ETOH?: No Does the pt have substance abuse?: Yes - Immunizations Immunizations are current?: Yes - POLST Patient has POLST: No PD ED PE NORMAL - Vitals Vital signs reviewed: Yes - General General: Alert and oriented X 3, No acute distress, Other (Thin female) - HEENT HEENT: Atraumatic, PERRL, EOMI, Moist mucous membranes, Pharynx benign - Neck Neck: Supple, no meningeal sign, No bony TTP, No JVD, No bruit - Cardiac Cardiac: RRR, Strong equal pulses - Respiratory Respiratory: No respiratory distress, Clear bilaterally - Abdomen Abdomen: Soft, Non tender, Non distended - Back Back: No spinal TTP, Other (No midline tenderness to palpation. There is tenderness over the left rhomboid muscle that reproduces her pain. No crepitus. No skin changes. No rash.) - Derm Derm: Warm and dry - Extremities Extremities: No edema, No calf tenderness / cord, Other (Normal bilateral lower extremity patellar and ankle jerk reflexes. Normal great toe extension bilaterally. no saddle anesthesia) - Neuro Neuro: Alert and oriented X 3, monument mason 2-12 intact, No motor deficit, No sensory deficit, Normal speech - Psych Psych: Normal mood, Normal affect Results - Vitals Vitals: Vital Signs - 24 hr 01/25/21 11:40 Temperature 36.5 C Heart Rate 94 Respiratory 15 Rate Blood Pressure 112/70 O2 Saturation 98 Oxygen O2 Source Room air - Rads (name of study) cxr Radiology: Final report received, EMP read contemporaneously, See rad report (no acute abnormality) PD MEDICAL DECISION MAKING - ED course Complexity details: reviewed results, re-evaluated patient, considered differential, d/w patient ED course: Pain well controlled. Appears to be a rhomboid strain. Nausea controlled. Tolerating p.o. without difficulty. We will have her follow-up with her doctor for further care. Patient counseled regarding signs and symptoms for which I believe and urgent re-evaluation would be necessary. Patient with good understanding of and agreement to plan and is comfortable going home at this time This document was made in part using voice recognition software. While efforts are made to proofread this document, sound alike and grammatical errors may occur. Departure - Departure Disposition: Home, Self Care Clinical Impression: Rhomboid muscle pain Vomiting Qualifiers: Vomiting type: unspecified Vomiting Intractability: non-intractable Nausea presence: with nausea Qualified Code(s): R11.2 - Nausea with vomiting, unspecified Condition: Good Instructions: ED Neck Back Pain General, ED Nausea Vomiting Follow-Up: KENDELL PUGH DO [Primary Care Provider] - Within 1 week Prescriptions: HYDROcod/ACETAM 5/325 [[place] 5/325] 1 - 2 ea PO Q6H PRN #12 tablet PRN Reason: Pain Promethazine [Phenergan] 25 mg PO Q6H PRN #10 tab PRN Reason: Nausea / Vomiting Comments: Your prescriptions were sent to [facility] in [place]. Please follow-up with your doctor for further care. Return if you worsen. I am prescribing a short course of narcotic pain medication for you. These are potentially dangerous and addictive medications that should be used carefully. These medications may constipate you. Take an [id number] stool softener (docusate) twice daily with plenty of water while taking these medications. If you go 24 hours without a bowel movement, take [id number] miralax, per package instructions. Do not drink or drive while taking these medications. If you received narcotic or sedating medications while in the emergency department, do not drive for 24 hours. Store this medication in a safe, secure place and out of reach of children. It is a violation of federal law to give or sell this medication to another person or to use in a manner other than prescribed. The ED will not refill narcotic prescriptions, including prescriptions lost or stolen. To dispose of unwanted medications: 1. [facility] [address] in [place] has a medication drop box. They accept prescription medications (in pill form) Tuesday through Tuesday 9:00 a.m. to 5:00 p.m. 2. [facility] [employer] accepts prescription medications (in pill form only) for disposal year round. Call for more information. 3. Contact the [facility] for the next [facility] sponsored prescription drug collection event. , [phone], or [phone];
--- NOTE | 2021-01-25 12:46 | XRAY Report ---
PROCEDURE: Chest 2 View X-Ray INDICATIONS: back/chest pain, vomiting TECHNIQUE: 2 view(s) of the chest. COMPARISON: 11/19/2020, 12/10/2019 FINDINGS: Surgical changes and devices: None. Lungs and pleura: No pleural effusions or pneumothorax. Lungs are clear, hyperexpanded. Likely sca rring can be seen at the lung apices, as before. Mediastinum: The aorta is prominent and tortuous. The cardiac contours are within normal limits. Bones and chest wall: No suspicious bony abnormalities. Age-appropriate degenerative changes are see n. Mild dextroconvex scoliotic curvature is seen. Soft tissues appear unremarkable. IMPRESSION: Hyperexpanded lungs are seen, without an acute cardiopulmonary abnormality seen. Reviewed by: Glen Lynn MD on 01/25/2021 11:45 AM KATHARINE Approved by: Glen Lynn MD on 01/25/2021 11:45 AM KATHARINE Station ID: [id number]
[2021-01-25] MEDS ORDERED: KETOROLAC 60 MG/2 ML VIAL IM STA (13:12)
[2021-01-25 13:41] VITALS: BP 107/68
== END 2021-01-25 13:41 | disposition home or self-care (01) ==
LOC: ED 11:17
DX: M54.89 Other dorsalgia (principal); R11.2 Nausea with vomiting, unspecified
CPT/HCPCS: 71046; 96372; 99283; 99284; A9270; Q0169

== ENCOUNTER 2021-05-13 19:03 | Emergency (ER) | payer OTHER ==
[2021-05-13] MEDS ORDERED: CHERRY SYRUP 10 ML UDC PO ONE (19:54)
[2021-05-13] MEDS ORDERED: DEXAMETHASONE 10 MG/ML VIAL PO STA (19:54)
--- NOTE | 2021-05-13 20:13 | ED Physician Documentation ---
History of Present Illness - Stated complaint Stated Complaint: PX IN THROAT & FACE/HEADACHE/NAUSEA - Chief complaint Chief Complaint: Resp - Additonal information Additional information: 45-year-old female presents emergency department for evaluation of 2 days acute sore throat. She describes a painful swallow. No tonsillar exudate or fevers. No cough. She is fully vaccinated for COVID-19. 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 She reports a stable weight over the last year. Review of Systems Constitutional: denies: Fever, Chills Eyes: reports: Reviewed and negative Ears: reports: Reviewed and negative Nose: reports: Rhinorrhea / runny nose, Congestion Throat: reports: Sore throat Cardiac: denies: Chest pain / pressure, Palpitations Respiratory: denies: Dyspnea, Cough GI: denies: Abdominal Pain, Nausea, Vomiting : reports: Reviewed and negative Skin: reports: Reviewed and negative PD PAST MEDICAL HISTORY - Past Medical History Cardiovascular: Atrial fibrillation Respiratory: COPD Neuro: None Endocrine/Autoimmune: None GI: None NON DESTRUCTIVE TESTING SCIENTIST: None : Kidney stones, Other HEENT: None Psych: Depression, Anxiety, Eating disorder, Other Musculoskeletal: Chronic back pain, Other Derm: Eczema - Past Surgical History Past Surgical History: Yes General: Appendectomy, Other Ortho: Spine surgery /NON DESTRUCTIVE TESTING SCIENTIST: Hysterectomy, Oophrectomy HEENT: Other - Present Medications Home Medications: Ambulatory Orders Medication Instructions Recorded Confirmed traMADol [Ultram] 50 mg PO Q4-6H PRN #14 tablet 08/28/18 05/05/20 Cyclobenzaprine [Flexeril] 10 mg Q8H PRN 11/19/20 11/19/20 LORazepam [Ativan] 0.5 mg PO BID 11/19/20 11/19/20 Omeprazole [PriLOSEC] 20 mg PO BID 14 Days #28 11/19/20 Pantoprazole Sodium 40 mg BID 11/19/20 11/19/20 Propranolol ER [Inderal LA] 1 cap BID 11/19/20 11/19/20 HYDROcod/ACETAM 5/325 [[place] 5/325] 1 - 2 ea PO Q6H PRN #12 tablet 01/25/21 Promethazine [Phenergan] 25 mg PO Q6H PRN #10 tab 01/25/21 - Allergies Allergies/Adverse Reactions: Allergies Allergy/AdvReac Type Severity Reaction Status Date / Time bee pollen Allergy Anaphylaxis Verified 05/13/21 19:19 gabapentin Allergy Itching Verified 05/13/21 19:19 oxycodone HCl * Allergy Itching Verified 05/13/21 19:19 [From Percocet] - Social History Does the pt smoke?: Yes Smoking Status: Current every day smoker Does the pt drink ETOH?: No Does the pt have substance abuse?: Yes - Immunizations Immunizations are current?: Yes - POLST Patient has POLST: No PD ED PE NORMAL - General General: Alert and oriented X 3, No acute distress, Other (thin appearance) - HEENT HEENT: Atraumatic, Ears normal, Moist mucous membranes, Pharynx benign, Other (Uvula is midline. No tonsillar exudate or tender anterior cervical lymphadenopathy. normal Soft palate) - Neck Neck: Supple, no meningeal sign. No: No adenopathy - Cardiac Cardiac: RRR, No murmur - Respiratory Respiratory: No respiratory distress, Clear bilaterally - Abdomen Abdomen: Normal bowel sounds, Soft - Derm Derm: Normal color, Warm and dry, No rash - Extremities Extremities: No deformity - Neuro Neuro: Alert and oriented X 3, birthing nurse 2-12 intact Results - Vitals Vitals: Vital Signs - 24 hr 05/13/21 19:12 Temperature 37.2 C Heart Rate 110 H Respiratory 16 Rate Blood Pressure 137/89 H O2 Saturation 99 Oxygen O2 Source Room air - Labs Labs: Laboratory Tests 05/13/21 19:54 Group A Strep Rapid Negative PD MEDICAL DECISION MAKING - ED course Complexity details: reviewed results, re-evaluated patient, considered differential, d/w patient ED course: 45-year-old female presents emergency department for evaluation of 2 days sore throat. No cough or congestion. No fevers or exudate. Rapid strep is negati ve. Will defer antibiotics unless the culture is positive. Covid screen is also pending. Cardiopulmonary exam was unrevealing. Patient felt reassured knowing that her strep was negative. She was given a dose of Decadron here in the emergency department and discharged with advice to do warm salt water gargles take Tylenol. 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 Departure - Departure Disposition: Home, Self Care Clinical Impression: Sore throat (viral) Condition: Stable Record reviewed to determine appropriate education?: Yes Instructions: ED Pharyngitis Viral Comments: you are seen in the emergency department today for a sore throat. Your rapid strep testing for bacteria is negative. We will defer giving any antibiotics unless the culture is positive. You also have a COVID-19 test pending. Here in the emergency department you were given a dose of a steroid called Decadron. This will help with sore throat and pain over the next 12 to 72 hours. I recommend that you take Tylenol [id number] for discomfort and gargle with warm salt water. Eating a teaspoon of honey every few hours will also help coat the throat and reduce pain. If at any point you feel that your symptoms are worsening then please return immediately to the ER for a second evaluation.
[2021-05-13 20:31] LABS: RAPID STREP SCREEN Negative (Negative)
[2021-05-13 20:52] VITALS: BP 135/80
== END 2021-05-13 20:51 | disposition home or self-care (01) ==
LOC: ED 19:03
DX: J02.8 Acute pharyngitis due to other specified organisms (principal); I48.91 Unspecified atrial fibrillation; F17.200 Nicotine dependence, unspecified, uncomplicated; Z20.822 Contact with and (suspected) exposure to COVID-19
CPT/HCPCS: 87070; 87430; 87635; 99282; 99283; A9270

== ENCOUNTER 2021-05-15 11:35 | Emergency (ER) | payer OTHER ==
--- NOTE | 2021-05-15 13:31 | ED Physician Documentation ---
PD HPI HEENT - Stated complaint Stated Complaint: THROAT SWELL/SOA - Chief complaint Chief Complaint: Heent - History obtained from History obtained from: Patient - History of Present Illness Timing - onset: How many days ago (several days of sore throat, cough, malaise. Today with worse sore throat, unable to swallow comfortably so less PO intake, and also with mid scapular pain with coughing.) Timing - duration: Days Timing - details: Gradual onset, Still present Location: Throat, Other (thoracic back.) Improves: No: Medication (not improved with Tylenol.) Associated symptoms: Fever, Congestion, Cough. No: Swollen nodes, Facial swelling Similar symptoms before: Has not had sx before Recently seen: Emergency Dept (2 days ago with strep test negative and COVID test sent. GIVen dose Decadron. No scripts.) Review of Systems Constitutional: reports: Fever, Chills, Myalgias Nose: reports: Rhinorrhea / runny nose, Congestion Throat: reports: Sore throat Cardiac: denies: Chest pain / pressure Respiratory: reports: Dyspnea, Cough. denies: Wheezing GI: reports: Nausea. denies: Vomiting, Diarrhea Skin: denies: Rash, Lesions Musculoskeletal: reports: Back pain. denies: Neck pain PD PAST MEDICAL HISTORY - Past Medical History Cardiovascular: Atrial fibrillation Respiratory: COPD Neuro: None Endocrine/Autoimmune: None GI: None CORPORATE TRAVEL CONSULTANT: None : Kidney stones, Other HEENT: None Psych: Depression, Anxiety, Eating disorder, Other Musculoskeletal: Chronic back pain, Other Derm: Eczema - Past Surgical History Past Surgical History: Yes General: Appendectomy, Other Ortho: Spine surgery /CORPORATE TRAVEL CONSULTANT: Hysterectomy, Oophrectomy HEENT: Other - Present Medications Home Medications: Ambulatory Orders Medication Instructions Recorded Confirmed traMADol [Ultram] 50 mg PO Q4-6H PRN #14 tablet 08/28/18 05/05/20 Cyclobenzaprine [Flexeril] 10 mg Q8H PRN 11/19/20 11/19/20 LORazepam [Ativan] 0.5 mg PO BID 11/19/20 11/19/20 Omeprazole [PriLOSEC] 20 mg PO BID 14 Days #28 11/19/20 Pantoprazole Sodium 40 mg BID 11/19/20 11/19/20 Propranolol ER [Inderal LA] 1 cap BID 11/19/20 11/19/20 HYDROcod/ACETAM 5/325 [[place] 5/325] 1 - 2 ea PO Q6H PRN #12 tablet 01/25/21 Promethazine [Phenergan] 25 mg PO Q6H PRN #10 tab 01/25/21 HYDROcod/ACETAM 5/325 [[place] 5/325] 1 ea PO Q6H PRN #14 tablet 05/15/21 dexAMETHasone [Decadron] 4 mg PO DAILY #5 tablet 05/15/21 diphenhydrAMINE ELIXIR [Benadryl 12.5 mg PO Q6H PRN #240 ml 05/15/21 Elixir] - Allergies Allergies/Adverse Reactions: Allergies Allergy/AdvReac Type Severity Reaction Status Date / Time bee pollen Allergy Anaphylaxis Verified 05/15/21 11:47 gabapentin Allergy Itching Verified 05/15/21 11:47 oxycodone HCl * Allergy Itching Verified 05/15/21 11:47 [From Percocet] - Social History Does the pt smoke?: Yes Smoking Status: Current every day smoker Does the pt drink ETOH?: No Does the pt have substance abuse?: Yes - Immunizations Immunizations are current?: Yes - POLST Patient has POLST: No PD ED PE NORMAL - Vitals Vital signs reviewed: Yes - General General: Alert and oriented X 3, Well developed/nourished, Other (appears uncomfortable with upper back when coughs. ) - HEENT HEENT: Pharynx benign. No: Moist mucous membranes - Neck Neck: Supple, no meningeal sign, No adenopathy - Cardiac Cardiac: RRR, No murmur - Respiratory Respiratory: Clear bilaterally - Abdomen Abdomen: Soft, Non tender - Back Back: No CVA TTP, No spinal TTP - Derm Derm: Normal color, Warm and dry - Extremities Extremities: No edema, No calf tenderness / cord - Neuro Neuro: Alert and oriented X 3, No motor deficit, No sensory deficit, Normal speech Results - Vitals Vitals: Vital Signs - 24 hr 05/15/21 05/15/21 05/15/21 11:47 15:35 15:46 Temperature 37.8 C Heart Rate 78 74 74 Respiratory 18 14 20 Rate Blood Pressure 144/86 H 131/91 H 131/91 H O2 Saturation 99 96 100 01/07/22 17:17 Temperature 37.2 C Heart Rate 74 Respiratory 20 Rate Blood Pressure 126/86 H O2 Saturation 98 Oxygen O2 Source Room air - Rads (name of study) chest xray Radiology: Prelim report reviewed (COPD with apical scarring bilaterally, similar to prior films. No PTX nor acute infiltrates. ), See rad report PD MEDICAL DECISION MAKING - ED course Complexity details: reviewed old records (FARNAZ reviewed and last opioid Rx was Sept and last year was few Rxs of small amount short course through ER. Seems problem focused short courses and not chronic pain meds. ), reviewed results, re-evaluated patient (feeling improved with IV fluids as she felt dehydrated, and also with some pain meds with much less back pain. I feel short course of pain meds are appropriate for patient. ), considered differential, d/w patient Departure - Departure Disposition: 01 Home, Self Care Clinical Impression: Dehydration Upper respiratory infection Qualifiers: URI type: unspecified URI Qualified Code(s): J06.9 - Acute upper respiratory infection, unspecified Acute thoracic back pain Qualifiers: Back pain laterality: bilateral Qualified Code(s): M54.6 - Pain in thoracic spine Condition: Stable Record reviewed to determine appropriate education?: Yes Follow-Up: KENDELL PUGH DO [Primary Care Provider] - Prescriptions: diphenhydrAMINE ELIXIR [Benadryl Elixir] 12.5 mg PO Q6H PRN #240 ml PRN Reason: Pain dexAMETHasone [Decadron] 4 mg PO DAILY #5 tablet HYDROcod/ACETAM 5/325 [[place] 5/325] 1 ea PO Q6H PRN #14 tablet PRN Reason: Pain Comments: Your chest x-ray appears normal for you. No signs of pneumonia nor collapsed lung or other acute process. Your throat culture from 2 days ago was normal so no signs of strep or bacterial infection. We presume this would be a viral type illness causing your symptoms. Small frequent fluids and stay well-hydrated. You can use some diphenhydramine liquid 5 to 10 mL every 6 hours if needed for throat discomfort. Try to hold it in the back of your throat and swallow it slow as it will have a topical numbing effect as well as drying up some of the secretions. Decadron steroid daily for 5 more days to help with inflammation. Add Tylenol every 4-6 hours if needed for pain or hydrocodone if needed for wo rse pain. This would be intended short-term as I would anticipate improvement over the next few days. I transmitted your prescriptions to [email or web address] in [place]. I am prescribing a short course of narcotic pain medication for you. These are potentially dangerous and addictive medications that should be used carefully. These medications may constipate you. Take an pvls-ljm-ytycqhy stool softener such as docusate twice daily with plenty of water while taking these medications. If you go 24 hours without a bowel movement, take [id number]-[id number] MiraLAX, per package instructions. Do not drink or drive while taking these medications. If you received narcotic or sedating medications while in the emergency department do not drive for 24 hours. Store this medication in a safe, secure place and out of reach of children. It is a violation of federal law to give or sell this medication to another person or to use in a manner other than prescribed. The ED will not refill narcotic prescriptions, including prescriptions lost or stolen. You can dispose of unwanted medications at the [facility] office or at several pharmacies such as [facility]. Discharge Date/Time: 05/15/21 17:19
[2021-05-15] MEDS ORDERED: DEXAMETHASONE 10 MG/ML VIAL IVP STA (14:08)
[2021-05-15] MEDS ORDERED: diphenhydrAMINE ELIXIR 25 MG/10 ML UDC PO STA (14:08)
[2021-05-15] MEDS ORDERED: HYDROmorphone 0.5 MG/0.5 ML SYRINGE IVP STA (14:08)
[2021-05-15] MEDS ORDERED: SODIUM CHLORIDE 0.9% 1,000 ML IV STA ×2 (14:08→15:30)
[2021-05-15] MEDS ORDERED: MAG HYDROX/AL HYDROX/SIMETH 30 ML UDC PO STA (14:08)
[2021-05-15] MEDS ORDERED: HYDROmorphone 1 MG/ML CARPUJECT IVP STA (15:30)
--- NOTE | 2021-05-15 17:08 | XRAY Report ---
PROCEDURE: Chest 2 View X-Ray INDICATIONS: dyspnea/ cough/ thoracic back pain TECHNIQUE: 2 view(s) of the chest. COMPARISON: January 25, 2021 FINDINGS: SUPPORT DEVICES: None. LUNGS/PLEURA: Biapical pleural thickening/scarring, unchanged. The lungs are hyperaerated. Coarsened interstitial markings. Faint reticulonodular densities are seen in the right lower lung zone, concern ing for pneumonic infiltrate. Curvilinear lucency in the right midlung zone, which may reflect a skin fold. MEDIASTINUM: The cardiomediastinal silhouette is within normal limits. BONES/SOFT TISSUES: No acute abnormality. IMPRESSION: 1.Faint reticulonodular densities in right lower lung zone, concerning for pneumonic infiltrate. 2.Curvilinear lucency in the right midlung zone, which may reflect a skinfold. If there is clinical c oncern for pneumothorax, consider CT. Reviewed by: Epifanio Martinez MD on 05/15/2021 5:06 PM PST Approved by: Epifanio Martinez MD on 05/15/2021 5:06 PM PST Station ID: [id number]
[2021-05-15 17:19] VITALS: BP 126/86
== END 2021-05-15 17:19 | disposition home or self-care (01) ==
LOC: ED 11:35
DX: E86.0 Dehydration (principal); J06.9 Acute upper respiratory infection, unspecified; M54.6 Pain in thoracic spine; F17.200 Nicotine dependence, unspecified, uncomplicated
CPT/HCPCS: 71046; 96374; 96375; 96376; 99283; A9270; J1170

== ENCOUNTER 2021-05-17 10:52 | Emergency (ER) | payer OTHER ==
[2021-05-17] MEDS ORDERED: SODIUM CHLORIDE 0.9% 1,000 ML IV STA (11:07)
[2021-05-17] MEDS ORDERED: HYDROmorphone 1 MG/ML CARPUJECT IVP STA (11:07)
--- NOTE | 2021-05-17 11:08 | ED Physician Documentation ---
PD HPI DYSPNEA - Stated complaint Stated Complaint: C+ SOA/BACK PX - History obtained from History obtained from: Patient - Additional information Additional information: The whole family is sick with COVID and she has underlying COPD. She has been sick for 4 days now and subsequently tested negative for us for COVID but had a positive home test. She is feeling more short of breath with body aches and back pain especially with coughing. Offered repeat COVID testing which she declined, I think at this point it is safe to presume she is positive and the need for quarantine given her close contacts. Chest x-ray documented by the physician 2 days ago was unremarkable but with a question of a pneumonia on the formal read. Review of Systems Constitutional: reports: Fever, Chills, Myalgias, Fatigue Nose: reports: Rhinorrhea / runny nose Throat: reports: Sore throat Cardiac: denies: Chest pain / pressure, Palpitations Respiratory: reports: Dyspnea, Cough PD PAST MEDICAL HISTORY - Past Medical History Cardiovascular: Atrial fibrillation Respiratory: COPD Neuro: None Endocrine/Autoimmune: None GI: None BAND STRAIGHTENER: None : Kidney stones, Other HEENT: None Psych: Depression, Anxiety, Eating disorder, Other Musculoskeletal: Chronic back pain, Other Derm: Eczema - Past Surgical History Past Surgical History: Yes General: Appendectomy, Other Ortho: Spine surgery /BAND STRAIGHTENER: Hysterectomy, Oophrectomy HEENT: Other - Present Medications Home Medications: Ambulatory Orders Medication Instructions Recorded Confirmed traMADol [Ultram] 50 mg PO Q4-6H PRN #14 tablet 08/28/18 05/05/20 Cyclobenzaprine [Flexeril] 10 mg Q8H PRN 11/19/20 11/19/20 LORazepam [Ativan] 0.5 mg PO BID 11/19/20 11/19/20 Omeprazole [PriLOSEC] 20 mg PO BID 14 Days #28 11/19/20 Pantoprazole Sodium 40 mg BID 11/19/20 11/19/20 Propranolol ER [Inderal LA] 1 cap BID 11/19/20 11/19/20 HYDROcod/ACETAM 5/325 [[place] 5/325] 1 - 2 ea PO Q6H PRN #12 tablet 01/25/21 Promethazine [Phenergan] 25 mg PO Q6H PRN #10 tab 01/25/21 HYDROcod/ACETAM 5/325 [[place] 5/325] 1 ea PO Q6H PRN #14 tablet 05/15/21 dexAMETHasone [Decadron] 4 mg PO DAILY #5 tablet 05/15/21 diphenhydrAMINE ELIXIR [Benadryl 12.5 mg PO Q6H PRN #240 ml 05/15/21 Elixir] - Allergies Allergies/Adverse Reactions: Allergies Allergy/AdvReac Type Severity Reaction Status Date / Time bee pollen Allergy Anaphylaxis Verified 05/17/21 11:07 gabapentin Allergy Itching Verified 05/17/21 11:07 oxycodone HCl * Allergy Itching Verified 05/17/21 11:07 [From Percocet] - Social History Does the pt smoke?: Yes Smoking Status: Current every day smoker Does the pt drink ETOH?: No Does the pt have substance abuse?: Yes - Immunizations Immunizations are current?: Yes - POLST Patient has POLST: No PD ED PE NORMAL - Vitals Vital signs reviewed: Yes - General General: Alert and oriented X 3, Other (She appears anxious with modest tachycardia but normal pulse oximetry) - Neck Neck: Supple, no meningeal sign, No bony TTP - Cardiac Cardiac: Other (Tachycardic, regular, no murmur) - Respiratory Respiratory: No respiratory distress, Other - Abdomen Abdomen: Non tender - Neuro Neuro: Alert and oriented X 3, Normal speech Results - Vitals Vitals: Vital Signs - 24 hr 05/17/21 11:07 Temperature 36.7 C Heart Rate 94 Respiratory 20 Rate Blood Pressure 129/86 H O2 Saturation 100 Oxygen O2 Source Room air - Labs Labs: Laboratory Tests 05/17/21 05/17/21 11:23 11:23 WBC 5.9 RBC 4.55 Hgb 12.8 Hct 39.0 MCV 85.7 MCH 28.1 MCHC 32.8 RDW 13.7 Plt Count 181 MPV 10.3 Neut # (Auto) 4.8 Lymph # (Auto) 0.5 L [place] # (Auto) 0.4 Eos # (Auto) 0.2 Baso # (Auto) 0.0 Absolute Nucleated RBC 0.00 Nucleated RBC % 0.0 Manual Slide Review Indicated Sodium 142 Potassium 3.6 Chloride 104 Carbon Dioxide 27 Anion Gap 11.0 BUN 20 Creatinine 0.6 Estimated GFR (MDRD) 107 Glucose 97 Calcium 9.1 Total Bilirubin 0.4 AST 16 ALT 13 Alkaline Phosphatase 72 Total Protein 6.4 L Albumin 3.9 Globulin 2.5 Albumin/Globulin Ratio 1.6 Lipase 31 PD MEDICAL DECISION MAKING - ED course ED course: 45-year-old woman with typical COVID symptoms and lymphopenia. She tested positive at home but negative on day 1 of illness here. Presume our test was a false negative, note made of the chest x-ray read from the other day and this was repeated and now clear. Vital signs are notable for resting tachycardia on arrival which resolved with time and some IV fluids. Departure - Departure Disposition: 01 Home, Self Care Clinical Impression: Viral infection Condition: Good Record reviewed to determine appropriate education?: Yes Instructions: ED Viral Syndrome Comments: Given the positive home test for COVID, I would presume you are positive and you need to quarantine for another week or so. Return for new or worsening symptoms. Forms: Activity restrictions Discharge Date/Time: 05/17/21 14:02
[2021-05-17 11:11] VITALS: BP 129/86
[2021-05-17 11:31] LABS: BASOPHILS % (AUTO) 0.2 %; EOSINOPHILS # (AUTO) 0.2 10^3/uL (0.0-0.7); EOSINOPHILS % (AUTO) 3.4 %; HGB - HEMOGLOBIN 12.8 g/dL (12.0-16.0); LYMPHOCYTES # (AUTO) 0.5 10^3/uL (1.5-3.5); LYMPHOCYTES % (AUTO) 8.9 %; MEAN CORPUSCULAR HEMOGLOBIN 28.1 pg (27.0-31.0); MEAN CORPUSCULAR HGB CONC 32.8 g/dL (32.0-36.0); MEAN CORPUSCULAR VOLUME 85.7 fL (81.0-99.0); MEAN PLATELET VOLUME 10.3 fL (7.9-10.8); MONOCYTES # (AUTO) 0.4 10^3/uL (0.0-1.0); MONOCYTES % (AUTO) 6.1 %; NEUTROPHILS # (AUTO) 4.8 10^3/uL (1.5-6.6); NEUTROPHILS % (AUTO) 81.1 %; PLT - PLATELET COUNT 181 10^3/uL (130-450); RED BLOOD COUNT 4.55 10^6/uL (4.20-5.40); RED CELL DISTRIBUTION WIDTH 13.7 % (12.0-15.0); WHITE BLOOD COUNT 5.9 x10^3/uL (4.8-10.8)
[2021-05-17 11:41] LABS: SLIDE REVIEW? Indicated
[2021-05-17 11:48] LABS: ALBUMIN 3.9 g/dL (3.2-5.5); ALBUMIN/GLOBULIN RATIO 1.6 (1.0-2.2); BILIRUBIN,TOTAL 0.4 mg/dL (0.2-1.0); CALCIUM 9.1 mg/dL (8.5-10.3); CREATININE 0.6 mg/dL (0.4-1.0); POTASSIUM 3.6 mmol/L (3.5-5.0); TOTAL PROTEIN 6.4 g/dL (6.7-8.2)
--- NOTE | 2021-05-17 11:53 | XRAY Report ---
PROCEDURE: Chest 1 View X-Ray INDICATIONS: cough TECHNIQUE: One view of the chest was acquired. COMPARISON: Chest radiographs dated 05/15/2021, 01/25/2021, and 11/20/2019 FINDINGS: Surgical changes and devices: None. Lungs and pleura: No pleural effusions or pneumothorax. Lungs are hyperexpanded. Apical pleural thic kening again noted. Linear density at the right midlung likely representing a focal region of scarrin g, unchanged. No focal consolidation. Mediastinum: Mediastinal contours appear normal. Heart size is normal. Vascular calcifications wit hin the aortic arch. Bones and chest wall: No suspicious bony lesions. Overlying soft tissues appear unremarkable. IMPRESSION: Hyperexpanded lungs which may be seen in a setting of emphysema/COPD. No focal consolidation. Reviewed by: Daniel Echeverria DO on 05/17/2021 10:51 AM ESTEFANI Approved by: Daniel Echeverria DO on 05/17/2021 10:51 AM [facility] Station ID: [id number]
[2021-05-17] MEDS ORDERED: KETOROLAC 15 MG/ML VIAL IVP STA (13:08)
== END 2021-05-17 14:02 | disposition home or self-care (01) ==
LOC: ED 10:52
DX: B34.9 Viral infection, unspecified (principal); I48.91 Unspecified atrial fibrillation; F17.200 Nicotine dependence, unspecified, uncomplicated
CPT/HCPCS: 36415; 71045; 80053; 83690; 85025; 96374; 96375; 99282; 99284; J1170

== ENCOUNTER 2021-11-11 17:11 | Emergency (ER) | payer OTHER ==
[2021-11-11 17:41] LABS: BASOPHILS % (AUTO) 0.5 %; EOSINOPHILS % (AUTO) 0.5 %; HCT - HEMATOCRIT 48.2 % (37.0-47.0); HGB - HEMOGLOBIN 16.1 g/dL (12.0-16.0); LYMPHOCYTES # (AUTO) 1.8 10^3/uL (1.5-3.5); LYMPHOCYTES % (AUTO) 28.9 %; MEAN CORPUSCULAR HEMOGLOBIN 28.4 pg (27.0-31.0); MEAN CORPUSCULAR HGB CONC 33.4 g/dL (32.0-36.0); MEAN CORPUSCULAR VOLUME 85.2 fL (81.0-99.0); MEAN PLATELET VOLUME 9.1 fL (7.9-10.8); MONOCYTES # (AUTO) 0.3 10^3/uL (0.0-1.0); MONOCYTES % (AUTO) 4.4 %; NEUTROPHILS # (AUTO) 4.1 10^3/uL (1.5-6.6); NEUTROPHILS % (AUTO) 65.5 %; PLT - PLATELET COUNT 249 10^3/uL (130-450); RED BLOOD COUNT 5.66 10^6/uL (4.20-5.40); RED CELL DISTRIBUTION WIDTH 13.1 % (12.0-15.0); WHITE BLOOD COUNT 6.2 x10^3/uL (4.8-10.8)
[2021-11-11 17:53] LABS: ALBUMIN 4.5 g/dL (3.2-5.5); ALBUMIN/GLOBULIN RATIO 1.5 (1.0-2.2); BILIRUBIN,TOTAL 0.5 mg/dL (0.2-1.0); CALCIUM 9.5 mg/dL (8.5-10.3); CREATININE 0.8 mg/dL (0.4-1.0); POTASSIUM 3.4 mmol/L (3.5-5.0); TOTAL PROTEIN 7.6 g/dL (6.7-8.2)
[2021-11-11] MEDS ORDERED: SODIUM CHLORIDE 0.9% 1,000 ML IV STA (17:54)
[2021-11-11] MEDS ORDERED: ONDANSETRON 4 MG/2 ML VIAL IVP STA (17:54)
[2021-11-11] MEDS ORDERED: HYDROmorphone 1 MG/ML CARPUJECT IVP STA ×2 (17:54→19:31)
--- NOTE | 2021-11-11 17:55 | ED Physician Documentation ---
PD HPI ABD PAIN - Stated complaint Stated Complaint: ABD PX/NAUSEA/DIARRHEA/HEADACHE - Chief complaint Chief Complaint: Abd Pain - History obtained from History obtained from: Patient, Family - Additional information Additional information: 46-year-old woman had a PEG tube which was removed 4 years ago for malnutrition related to anorexia. She has chronic pain at the site of her PEG tube that has been worse over the last for 5 days. On the day of outset it was associated with vomiting and diarrhea but that has since abated. She denies fevers or chills. She was taking tramadol for the pain but now tramadol is not touching it. 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: Hysterectomy, Oophrectomy HEENT: Other - Present Medications Home Medications: Ambulatory Orders Medication Instructions Recorded Confirmed traMADol [Ultram] 50 mg PO Q4-6H PRN #14 tablet 08/28/18 05/05/20 Cyclobenzaprine [Flexeril] 10 mg Q8H PRN 11/19/20 11/19/20 LORazepam [Ativan] 0.5 mg PO BID 11/19/20 11/19/20 Omeprazole [PriLOSEC] 20 mg PO BID 14 Days #28 11/19/20 Pantoprazole Sodium 40 mg BID 11/19/20 11/19/20 Propranolol ER [Inderal LA] 1 cap BID 11/19/20 11/19/20 HYDROcod/ACETAM 5/325 [Nephi 5/325] 1 - 2 ea PO Q6H PRN #12 tablet 01/25/21 Promethazine [Phenergan] 25 mg PO Q6H PRN #10 tab 01/25/21 HYDROcod/ACETAM 5/325 [Nephi 5/325] 1 ea PO Q6H PRN #14 tablet 05/15/21 dexAMETHasone [Decadron] 4 mg PO DAILY #5 tablet 05/15/21 diphenhydrAMINE ELIXIR [Benadryl 12.5 mg PO Q6H PRN #240 ml 05/15/21 Elixir] HYDROcod/ACETAM 5/325 [Nephi 5/325] 1 - 2 tab PO Q6H PRN #15 tablet 11/11/21 - Allergies Allergies/Adverse Reactions: Allergies Allergy/AdvReac Type Severity Reaction Status Date / Time bee pollen Allergy Anaphylaxis Verified 11/11/21 17:20 gabapentin Allergy Itching Verified 11/11/21 17:20 oxycodone HCl * Allergy Itching Verified 11/11/21 17:20 [From Percocet] - Social History Does the pt smoke?: Yes Smoking Status: Current every day smoker Does the pt drink ETOH?: No Does the pt have substance abuse?: Yes - Immunizations Immunizations are current?: Yes - POLST Patient has POLST: No PD ED PE NORMAL - Vitals Vital signs reviewed: Yes - General General: Alert and oriented X 3, No acute distress - HEENT HEENT: Other (Dry mucous membranes) - Cardiac Cardiac: RRR, No murmur - Respiratory Respiratory: No respiratory distress, Clear bilaterally - Abdomen Abdomen: Normal bowel sounds, Soft, Other (Tender right around her PEG tube scar without diffuse tenderness. No surgical signs.) - Derm Derm: Normal color, Warm and dry - Neuro Neuro: Alert and oriented X 3, Normal speech Results - Vitals Vitals: Vital Signs - 24 hr 11/11/21 11/11/21 11/11/21 17:16 18:00 19:50 Temperature 36.4 C L Heart Rate 108 H 87 88 Respiratory 16 16 18 Rate Blood Pressure 145/98 H 137/102 H 125/93 H O2 Saturation 99 100 100 Oxygen O2 Source Room air - Labs Labs: Laboratory Tests 11/11/21 11/11/21 11/11/21 17:37 17:37 19:00 WBC 6.2 RBC 5.66 H Hgb 16.1 H Hct 48.2 H MCV 85.2 MCH 28.4 MCHC 33.4 RDW 13.1 Plt Count 249 MPV 9.1 Neut # (Auto) 4.1 Lymph # (Auto) 1.8 [place] # (Auto) 0.3 Eos # (Auto) 0.0 Baso # (Auto) 0.0 Absolute Nucleated RBC 0.00 Nucleated RBC % 0.0 Sodium 140 Potassium 3.4 L Chloride 101 Carbon Dioxide 29 Anion Gap 10.0 BUN 24 H Creatinine 0.8 Estimated GFR (MDRD) 77 L Glucose 95 Calcium 9.5 Total Bilirubin 0.5 AST 15 ALT 13 Alkaline Phosphatase 98 Total Protein 7.6 Albumin 4.5 Globulin 3.1 Albumin/Globulin Ratio 1.5 Lipase 29 Urine Color YELLOW Urine Clarity HAZY Urine pH 6.0 Ur Specific [place] >=1.030 H Urine Protein NEGATIVE Urine Glucose (UA) NEGATIVE Urine Ketones TRACE Urine Occult Blood TRACE-INTA Urine Nitrite NEGATIVE Urine Bilirubin NEGATIVE Urine Urobilinogen 0.2 (NORMAL) Ur Leukocyte Esterase SMALL H Urine RBC 6-10 H Urine WBC 11-25 H Ur Squamous Epith Cells FEW Squamous Urine Crystals 3-5 Uric Acid Urine Bacteria Few Urine Mucus Moderate Strands Ur Microscopic Review INDICATED Urine Culture Comments INDICATED Urine HCG, Qual 11/11/21 19:00 WBC RBC Hgb Hct MCV MCH MCHC RDW Plt Count MPV Neut # (Auto) Lymph # (Auto) [place] # (Auto) Eos # (Auto) Baso # (Auto) Absolute Nucleated RBC Nucleated RBC % Sodium Potassium Chloride Carbon Dioxide Anion Gap BUN Creatinine Estimated GFR (MDRD) Glucose Calcium Total Bilirubin AST ALT Alkaline Phosphatase Total Protein Albumin Globulin Albumin/Globulin Ratio Lipase Urine Color Urine Clarity Urine pH Ur Specific [place] Urine Protein Urine Glucose (UA) Urine Ketones Urine Occult Blood Urine Nitrite Urine Bilirubin Urine Urobilinogen Ur Leukocyte Esterase Urine RBC Urine WBC Ur Squamous Epith Cells Urine Crystals Urine Bacteria Urine Mucus Ur Microscopic Review Urine Culture Comments Urine HCG, Qual NEGATIVE PD MEDICAL DECISION MAKING - ED course ED course: 46yo female with exac chronic pain around pEG tube site. Better p meds. Labs unremarkable. ?adhesions. Departure - Departure Disposition: Home, Self Care Clinical Impression: Pain around PEG tube site Qualifiers: Encounter type: initial encounter Qualified Code(s): T85.848A - Pain due to other internal prosthetic devices, implants and grafts, initial encounter Condition: Good Record reviewed to determine appropriate education?: Yes Instructions: ED Abdominal Pain Female Non-Specific Abdominal Pain Prescriptions: HYDROcod/ACETAM 5/325 [Nephi 5/325] 1 - 2 tab PO Q6H PRN #15 tablet PRN Reason: Pain Comments: As discussed, I wonder if the pain tonight is from adhesions, "scar tissue," at the site of your prior PEG tube site. Follow-up with your primary care physician for consideration for referral to a general surgeon for consideration for diagnostic and or therapeutic laparoscopy. Return if worse. I sent your prescription electronically to [facility] in [place]. I am prescribing a short course of narcotic pain medication for you. These are potentially dangerous and addictive medications that should be used carefully. These medications may constipate you. Take an [id number] stool softener (docusate) twice daily with plenty of water while taking these medications. If you go 24 hours without a bowel movement, take [id number] miralax, per package instructions. Do not drink or drive while taking these medications. If you received narcotic or sedating medications while in the emergency department, do not drive for 24 hours. Store this medication in a safe, secure place and out of reach of children. It is a violation of federal law to give or sell this medication to another person or to use in a manner other than prescribed. The ED will not refill narcotic prescriptions, including prescriptions lost or stolen. To dispose of unwanted medications: 1. [facility] [address] in [place] has a medication drop box. They accept prescription medications (in pill form) Tuesday through Tuesday 9:00 a.m. to 5:00 p.m. 2. The [facility] [place] [employer] accepts prescription medications (in pill form only) for disposal year round. Call for more information. 3. Contact the [facility] for the next [facility] sponsored prescription drug collection event. , [phone], or [phone]; Note that many narcotic pain relievers also contain Tylenol/acetaminophen. Please ensure that your total dose of acetaminophen from all sources does not exceed 3 g (3000 mg) per day. Discharge Date/Time: 11/11/21 19:55
[2021-11-11] MEDS ORDERED: POTASSIUM CHLORIDE 20 MEQ TABLET PO STA (18:52)
[2021-11-11 19:14] LABS: GLUCOSE, URINE (UA) NEGATIVE (NEGATIVE); KETONES,URINE (UA) TRACE mg/dL (NEGATIVE); LEUKOCYTE ESTERASE, URINE SMALL (NEGATIVE); NITRITE,URINE NEGATIVE (NEGATIVE); OCCULT BLOOD,URINE TRACE-INTA (NEGATIVE); PROTEIN,URINE NEGATIVE (NEGATIVE); UROBILINOGEN,URINE 0.2 (NORMAL) E.U./dL (NORMAL)
[2021-11-11 19:17] LABS: HCG UR QUAL NEGATIVE
[2021-11-11 19:18] LABS: CLARITY,URINE HAZY (CLEAR)
[2021-11-11 19:25] LABS: BILIRUBIN,URINE NEGATIVE (NEGATIVE); ICTOTEST,URINE NEGATIVE
[2021-11-11 19:26] LABS: BACTERIA,URINE Few /HPF (None Seen); MUCUS,URINE Moderate Strands; SQUAMOUS EPITHELIAL CELL,UR FEW Squamous (<= Few)
[2021-11-11 19:51] VITALS: BP 125/93
== END 2021-11-11 19:55 | disposition home or self-care (01) ==
LOC: ED 17:11
DX: T85.848S Pain due to other internal prosthetic devices, implants and grafts, sequela (principal); G89.29 Other chronic pain; I48.91 Unspecified atrial fibrillation; F17.200 Nicotine dependence, unspecified, uncomplicated
CPT/HCPCS: 36415; 80053; 81001; 81025; 83690; 85025; 87086; 96374; 96375; 96376; 99283; A9270; J1170; 81003

== ENCOUNTER 2022-01-24 16:02 | Emergency (ER) | payer OTHER ==
--- OUTSIDE RECORDS SUMMARY | 2022-01-24 16:09 | EXTERNAL MEDICAL SUMMARY RPT | Continuity of Care Document ---
:1975 Author Organization [facility] Address [address] [place] [address] Phone Care Team Providers Name Role Phone Unavailable Unavailable Unavailable Darrell Hagan Unavailable Unavailable Allergies No information. Encounters No information. Functional Status No information. Immunizations No information. Medications date description facility [id number]+0000 tramadol All [id number]+0000 tramadol All [id number]+0000 tramadol All 78706814727787+0000 propranolol All 36086048319875+0000 propranolol All 22459732652486+0000 ondansetron All 47866527089104+0000 ondansetron All 27950463899585+0000 ondansetron All 10741104251159+0000 hydromorphone All 20055149790774+0000 hydromorphone All 67582886381395+0000 hydrocodone-acetaminophen All 89194899346368+0000 hydrocodone-acetaminophen All 90918501252912+0000 promethazine All 90804375137549+0000 promethazine All 16963969349354+0000 promethazine All 29595059209308+0000 lorazepam All 21035322639727+0000 lorazepam All 61656735272332+0000 hydromorphone All 43611905855512+0000 hydromorphone All 52629465175205+0000 ondansetron All 09199162216625+0000 ondansetron All 02457724743114+0000 ondansetron All 76829748269432+0000 lorazepam All 64300356772510+0000 lorazepam All 71422371759542+0000 valacyclovir All 82769324197795+0000 naloxone All 47601041062755+0000 naloxone All 57216404752489+0000 naloxone All 01772522539442+0000 promethazine All 91411252626751+0000 promethazine All 85711412801113+0000 epinephrine All 37251149612140+0000 epinephrine All 11801443443635+0000 epinephrine All 53331082262768+0000 epinephrine All 17539971741314+0000 epinephrine All 26717912057415+0000 naloxone All 62495808504163+0000 naloxone All 57005495687781+0000 lorazepam All 25584031129313+0000 lorazepam All 85479073033869+0000 valacyclovir All 83388967958963+0000 valacyclovir All 66662434969960+0000 propranolol All 62908581222792+0000 propranolol All 84214525892751+0000 valacyclovir All 09934525828967+0000 epinephrine All 44893074948498+0000 epinephrine All 87595346781665+0000 tramadol All 81311346766178+0000 tramadol All 77935670795008+0000 promethazine All 08035313882192+0000 promethazine All 07998363776984+0000 epinephrine All 54566920704327+0000 epinephrine All 59739558661816+0000 epinephrine All 85319589956638+0000 ondansetron All 72858631391564+0000 ondansetron All 63630772419699+0000 lorazepam All 52694585156687+0000 lorazepam All 75902206593298+0000 valacyclovir All 74662898426026+0000 valacyclovir All 45711327154673+0000 ondansetron All 31059911170912+0000 ondansetron All 80928832574251+0000 hydromorphone All 90591044447951+0000 hydromorphone All 97485917225748+0000 tramadol All 91272330714974+0000 tramadol All 75720222288820+0000 hydrocodone-acetaminophen All 90981518746453+0000 hydrocodone-acetaminophen All 61909214760158+0000 naloxone All 39335716602443+0000 naloxone All 88214505238756+0000 naloxone All 83685910359185+0000 hydrocodone-acetaminophen All 89259295004133+0000 hydrocodone-acetaminophen All 40067953627283+0000 tramadol All 07482488680250+0000 tramadol All 93759518881012+0000 tramadol All 82127141037497+0000 propranolol All 81217016561079+0000 propranolol All 14879617926939+0000 hydrocodone-acetaminophen All 84068626756844+0000 hydrocodone-acetaminophen All 21866318661128+0000 propranolol All 55615092039003+0000 propranolol All 72208230966060+0000 hydromorphone All 92528486396240+0000 hydromorphone All 61421074657514+0000 naloxone All 98145447201699+0000 naloxone All 90637025273773+0000 promethazine All 69551673558108+0000 promethazine All 51020596864735+0000 promethazine All Problems No information. Procedures date description facility +0000 Visit Code Hold All [id number]+0000 Visit Code Hold All [id number]+0000 Visit Code Hold All Results/Labs No information. Social History date description facility +0000 Unknown if ever smoked All +0000 Unknown if ever smoked All Vital Signs date measurement value units [id number]+0000 BMI BMI 16.52 kg/m2 45994757748952+0000 BP_diastolic BP_diastolic 90 mm[H g] 04133016197358+0000 BP_systolic BP_systolic 132 mm[Hg] 49329037063484+0000 heart_rate heart_rate 113 /min 80262076343424+0000 height_metric height_metric 167.64 cm 64238389544447+0000 height_standard height_standard 66 in 32013065098701+0000 respiration_rate respiration_rate 14 /min 00063987434420+0000 temperature_metric temperature_metric 36.83 C 08182953885796+0000 temperature_standard temperature_standard 9 8.3 F 55754181859298+0000 weight_metric weight_metric 46.27 kg 26487762749376+0000 weight_standard weight_standard 102 lb 99663766437795+0000 BMI BMI 16.04 kg/m2 77515990872375+0000 BP_diastolic BP_diastolic 80 mmHg 24912792869448+0000 BP_systolic BP_systolic 114 mmHg 15995074535841+0000 heart_rate heart_rate 85 /min 72763925465746+0000 height_metric height_metric 167.64 cm 65265361657726+0000 height_standard height_standard 66 in 21607162357457+0000 respiration_rate respiration_rate 18 /min 81884151317662+0000 temperature_metric temperature_metric 36.72 C 43468478600176+0000 temperature_standard temperature_standard 9 8.1 F 43579280693813+0000 weight_metric weight_metric 44.91 kg 13156590754108+0000 weight_standard weight_standard 99 lb
--- NOTE | 2022-01-24 16:53 | XRAY Report ---
PROCEDURE: Shoulder 3 View LT INDICATIONS: pain TECHNIQUE: 3 views of the shoulder were acquired. COMPARISON: None. FINDINGS: Bones: No fractures or dislocations. No suspicious bony lesions. Visualized ribs appear intact. Soft tissues: No suspicious soft tissue calcifications. IMPRESSION: Normal left shoulder radiographs Reviewed by: Shaquille Cota MD on 01/24/2022 3:52 PM [facility] Approved by: Shaquille Cota MD on 01/24/2022 3:52 PM [facility] Station ID: [id number]
[2022-01-24] MEDS ORDERED: HYDROcod/ACET 5/325 Prepack 4 PO STA (17:17)
[2022-01-24] MEDS ORDERED: predniSONE 20 MG TABLET PO STA (17:17)
--- NOTE | 2022-01-24 17:21 | ED Physician Documentation ---
PD HPI UPPER EXT INJURY - Stated complaint Stated Complaint: L SHOULDER PX - Chief complaint Chief Complaint: Trauma Ext - History obtained from History obtained from: Patient - Additonal information Additional information: Patient comes the emergency department chief complaint of feeling a pop and pain in her left shoulder when she was changing a sheet at work. 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 She states her entire left shoulder hurts. No other injuries or complaints. No spinal pain. Review of Systems Ten Systems: 10 systems reviewed and negative Constitutional: reports: Reviewed and negative Eyes: reports: Reviewed and negative Ears: reports: Reviewed and negative Nose: reports: Reviewed and negative Throat: reports: Reviewed and negative Cardiac: reports: Reviewed and negative Respiratory: reports: Reviewed and negative GI: reports: Reviewed and negative : reports: Reviewed and negative Skin: reports: Reviewed and negative Musculoskeletal: reports: Joint pain Neurologic: reports: Reviewed and negative Psychiatric: reports: Reviewed and negative Endocrine: reports: Reviewed and negative Immunocompromised: reports: Reviewed and negative PD PAST MEDICAL HISTORY - Past Medical History Cardiovascular: Atrial fibrillation Respiratory: COPD Neuro: None Endocrine/Autoimmune: None GI: None 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 : Kidney stones, Other HEENT: None Psych: Depression, Anxiety, Eating disorder, Other Musculoskeletal: Chronic back pain, Other Derm: Eczema - Past Surgical History Past Surgical History: Yes General: Appendectomy, Other Ortho: 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, 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 HEENT: Other - Present Medications Home Medications: Ambulatory Orders Medication Instructions Recorded Confirmed traMADol [Ultram] 50 mg PO Q4-6H PRN #14 tablet 08/28/18 05/05/20 Cyclobenzaprine [Flexeril] 10 mg Q8H PRN 11/19/20 11/19/20 LORazepam [Ativan] 0.5 mg PO BID 11/19/20 11/19/20 Omeprazole [PriLOSEC] 20 mg PO BID 14 Days #28 11/19/20 Pantoprazole Sodium 40 mg BID 11/19/20 11/19/20 Propranolol ER [Inderal LA] 1 cap BID 11/19/20 11/19/20 HYDROcod/ACETAM 5/325 [S[place]ney 5/325] 1 - 2 ea PO Q6H PRN #12 tablet 01/25/21 Promethazine [Phenergan] 25 mg PO Q6H PRN #10 tab 01/25/21 HYDROcod/ACETAM 5/325 [S[place]ney 5/325] 1 ea PO Q6H PRN #14 tablet 05/15/21 dexAMETHasone [Decadron] 4 mg PO DAILY #5 tablet 05/15/21 diphenhydrAMINE ELIXIR [Benadryl 12.5 mg PO Q6H PRN #240 ml 05/15/21 Elixir] HYDROcod/ACETAM 5/325 [Sidney 5/325] 1 - 2 tab PO Q6H PRN #15 tablet 11/11/21 HYDROcod/ACETAM 5/325 [S[place]ney 5/325] 1 tab PO Q6H PRN #12 tablet 12/24/21 Hydrocortisone 1% Cream 1 applic TOP BID #28 gm 12/24/21 [Hydrocortisone] HYDROcod/ACETAM 5/325 [Sidney 5/325] 1 - 2 tablet PO Q6H PRN #8 tablet 01/24/22 predniSONE [Deltasone] 40 mg PO DAILY 5 Days #10 tablet 01/24/22 - Allergies Allergies/Adverse Reactions: Allergies Allergy/AdvReac Type Severity Reaction Status Date / Time bee pollen Allergy Anaphylaxis Verified 01/24/22 16:14 gabapentin Allergy Itching Verified 01/24/22 16:14 oxycodone HCl * Allergy Itching Verified 01/24/22 16:14 [From Percocet] - Social History Does the pt smoke?: Yes Smoking Status: Current every day smoker Does the pt drink ETOH?: No Does the pt have substance abuse?: Yes - Immunizations Immunizations are current?: Yes - POLST Patient has POLST: No PD ED PE NORMAL - Vitals Vital signs reviewed: Yes - General General: Alert and oriented X 3, No acute distress, Well developed/nourished - HEENT HEENT: Atraumatic, PERRL, EOMI, Moist mucous membranes - Neck Neck: Supple, no meningeal sign, No bony TTP - Cardiac Cardiac: Strong equal pulses - Respiratory Respiratory: No respiratory distress - Derm Derm: Normal color, Warm and dry, No rash - Extremities Extremities: No deformity, No edema, Other (Mildly limited range of motion secondary to pain, mainly with regard to flexion and abduction. Patient can get to approximately 90 degrees with both. No limit to internal rotation. No deformity. Point tenderness globally across shoulder.) - Neuro Neuro: Alert and oriented X 3 - Psych Psych: Normal mood, Normal affect Results - Vitals Vitals: Vital Signs - 24 hr 01/24/22 01/24/22 16:09 17:33 Temperature 36.3 C L Heart Rate 109 H 99 Respiratory 16 16 Rate Blood Pressure 136/86 H 125/80 O2 Saturation 98 98 Oxygen O2 Source Room air - Rads (name of study) Left shoulder x-ray series Radiology: Final report received, EMP read indepedently, See rad report (Negative) PD MEDICAL DECISION MAKING - ED course Complexity details: reviewed results, re-evaluated patient, considered differential, d/w patient ED course: Patient's x-ray series was negative. She was counseled regarding symptomatic treatment at home and the timeline for expected healing and need for follow-up. We have discussed the usual indications for return. Departure - Departure Disposition: 01 Home, Self Care Clinical Impression: Shoulder sprain Qualifiers: Encounter type: initial encounter Shoulder sprain type: unspecified sprain Laterality: left Qualified Code(s): S43.402A - Unspecified sprain of left shoulder joint, initial encounter Condition: Stable Instructions: ED Sprain Shoulder Prescriptions: predniSONE [Deltasone] 40 mg PO DAILY 5 Days #10 tablet HYDROcod/ACETAM 5/325 [Sidney 5/325] 1 - 2 tablet PO Q6H PRN #8 tablet PRN Reason: Pain Comments: You have likely strained the musculature or ligaments of your shoulder. Your x- rays look good. Your prescriptions have been electronically transmitted to [facility] in [place] at your request. Please follow-up with your primary doctor if you are not noticing any improvement in 2 weeks.Please use ice, heat, stretching, massage, and range of motion, as we have discussed, to help with your shoulder recovery. Discharge Date/Time: 01/24/22 17:34
[2022-01-24 17:35] VITALS: BP 125/80
== END 2022-01-24 17:34 | disposition home or self-care (01) ==
LOC: ED 16:02
DX: S43.402A Unspecified sprain of left shoulder joint, initial encounter (principal); X58.XXXA Exposure to other specified factors, initial encounter; Y93.E9 Activity, other interior property and clothing maintenance; Y92.099 Unspecified place in other non-institutional residence as the place of occurrence of the external cause; Y99.0 Civilian activity done for income or pay; F17.200 Nicotine dependence, unspecified, uncomplicated
CPT/HCPCS: 73030; 99282; 99283; J7512

== ENCOUNTER 2022-03-10 18:31 | Emergency (ER) | payer OTHER ==
--- OUTSIDE RECORDS SUMMARY | 2022-03-10 18:51 | EXTERNAL MEDICAL SUMMARY RPT | Continuity of Care Document ---
:1975 Author Organization [facility] Address [address] [place] [address] Phone Care Team Providers Name Role Phone Unavailable Unavailable Unavailable Earl Ramírez Pa-C Unavailable Unavailable Allergies No information. Encounters No information. Functional Status No information. Immunizations No information. Medications date description facility [id number]+0000 tramadol All [id number]+0000 tramadol All [id number]+0000 tramadol All 88940632688210+0000 propranolol All 83250209195625+0000 propranolol All 35615780987110+0000 ondansetron All 11628617255121+0000 ondansetron All 78237635358071+0000 ondansetron All 67361190596807+0000 hydromorphone All 16465362221016+0000 hydromorphone All 85475840186588+0000 hydrocodone-acetaminophen All 42179545869470+0000 hydrocodone-acetaminophen All 23501721680259+0000 promethazine All 15360286489765+0000 promethazine All 51468911191334+0000 promethazine All 77597804696598+0000 lorazepam All 54334255401291+0000 lorazepam All 49641290222605+0000 hydromorphone All 41088201244939+0000 hydromorphone All 60570976205411+0000 ondansetron All 62883681721826+0000 ondansetron All 07943813279285+0000 ondansetron All 94858432060648+0000 lorazepam All 58406429258391+0000 lorazepam All 43777416984021+0000 valacyclovir All 87158070975851+0000 naloxone All 88169343206189+0000 naloxone All 17236732725493+0000 naloxone All 16203112706635+0000 promethazine All 75269027315279+0000 promethazine All 44123839882719+0000 epinephrine All 44276203780954+0000 epinephrine All 88333003859548+0000 epinephrine All 16871498026122+0000 epinephrine All 54088926072580+0000 epinephrine All 03933587514319+0000 naloxone All 06513842023362+0000 naloxone All 96674689502596+0000 lorazepam All 25619768914576+0000 lorazepam All 89304038691019+0000 valacyclovir All 62775400131051+0000 valacyclovir All 35229996454763+0000 propranolol All 06395500413970+0000 propranolol All 36529137068563+0000 valacyclovir All 16411491560311+0000 epinephrine All 58250396239363+0000 epinephrine All 57775999214502+0000 tramadol All 41756515078487+0000 tramadol All 30895173662911+0000 promethazine All 74421256483402+0000 promethazine All 91841546337568+0000 epinephrine All 04258404074381+0000 epinephrine All 25544053867089+0000 epinephrine All 06449538538131+0000 ondansetron All 07803736318871+0000 ondansetron All 17387676897741+0000 lorazepam All 52012762914927+0000 lorazepam All 80256902774747+0000 valacyclovir All 49646719151812+0000 valacyclovir All 67313057307248+0000 ondansetron All 22511134494460+0000 ondansetron All 33877412926519+0000 hydromorphone All 42152473698701+0000 hydromorphone All 30001188493599+0000 tramadol All 21008761825894+0000 tramadol All 34125487581328+0000 hydrocodone-acetaminophen All 69314210380497+0000 hydrocodone-acetaminophen All 33171764759833+0000 naloxone All 08023609314291+0000 naloxone All 39814185332451+0000 naloxone All 25392899290364+0000 hydrocodone-acetaminophen All 61250832166171+0000 hydrocodone-acetaminophen All 61657817778482+0000 tramadol All 85173501616394+0000 tramadol All 17296996865382+0000 tramadol All 98906067521213+0000 propranolol All 55165515307914+0000 propranolol All 86207217591688+0000 hydrocodone-acetaminophen All 83725573053729+0000 hydrocodone-acetaminophen All 93436854581447+0000 propranolol All 33713181836808+0000 propranolol All 68901728692724+0000 hydromorphone All 73546371332583+0000 hydromorphone All 40716962518032+0000 naloxone All 11666748530983+0000 naloxone All 21724382352613+0000 promethazine All 39809084473199+0000 promethazine All 42372224525644+0000 promethazine All Problems No information. Procedures date description facility [id number]+0000 Visit Code Hold All [id number]+0000 Visit Code Hold All [id number]+0000 Visit Code Hold All Results/Labs No information. Social History date description facility +0000 Unknown if ever smoked All +0000 Unknown if ever smoked All Vital Signs date measurement value units [id number]+0000 BMI BMI 16.52 kg/m2 35483036950957+0000 BP_diastolic BP_diastolic 90 mm[H g] 63691223890984+0000 BP_systolic BP_systolic 132 mm[Hg] 39583672721258+0000 heart_rate heart_rate 113 /min 98547458955296+0000 height_metric height_metric 167.64 cm 74418654118764+0000 height_standard height_standard 66 in 38022835932847+0000 respiration_rate respiration_rate 14 /min 82166702159805+0000 temperature_metric temperature_metric 36.83 C 41470554182906+0000 temperature_standard temperature_standard 9 8.3 F 29810591143854+0000 weight_metric weight_metric 46.27 kg 51990741600253+0000 weight_standard weight_standard 102 lb 04850081708697+0000 BMI BMI 16.04 kg/m2 02344968547987+0000 BP_diastolic BP_diastolic 80 mmHg 02500752658121+0000 BP_systolic BP_systolic 114 mmHg 68478961212229+0000 heart_rate heart_rate 85 /min 84628921864064+0000 height_metric height_metric 167.64 cm 05984196115161+0000 height_standard height_standard 66 in 17929079698297+0000 respiration_rate respiration_rate 18 /min 14934588499520+0000 temperature_metric temperature_metric 36.72 C 10043694994619+0000 temperature_standard temperature_standard 9 8.1 F 18782913622295+0000 weight_metric weight_metric 44.91 kg 48197521323702+0000 weight_standard weight_standard 99 lb
[2022-03-10 18:56] VITALS: BP 108/82
[2022-03-10 19:07] LABS: RAPID STREP SCREEN Negative (Negative)
[2022-03-10] MEDS ORDERED: METOCLOPRAMIDE 10 MG/2 ML VIAL IVP STA (20:43)
[2022-03-10] MEDS ORDERED: SODIUM CHLORIDE 0.9% 1,000 ML IV STA (20:43)
[2022-03-10] MEDS ORDERED: HYDROmorphone 1 MG/ML CARPUJECT IVP STA (20:43)
--- NOTE | 2022-03-10 20:44 | ED Physician Documentation ---
History of Present Illness - Stated complaint Stated Complaint: HEADACHE, COUCH, SORE THROAT - Chief complaint Chief Complaint: General - History obtained from History obtained from: Patient, Family - Additonal information Additional information: 46-year-old woman got sick over the weekend with cough, sore throat, runny nose, body aches and headache. Got worse overnight with a lot of chills. No neck stiffness. Her daughter was recently sick with a viral syndrome. No COVID testing done. She feels dehydrated and orthostatic. Her is at the bedside. Review of Systems Constitutional: reports: Chills, Myalgias, Fatigue Nose: reports: Rhinorrhea / runny nose Throat: reports: Sore throat PD PAST MEDICAL HISTORY - Past Medical History Cardiovascular: Atrial fibrillation Respiratory: COPD Neuro: None Endocrine/Autoimmune: None GI: None OB/GYN PHYSICIAN: None : Kidney stones, Other HEENT: None Psych: Depression, Anxiety, Eating disorder, Other Musculoskeletal: Chronic back pain, Other Derm: Eczema - Past Surgical History Past Surgical History: Yes General: Appendectomy, Other Ortho: Spine surgery /OB/GYN PHYSICIAN: Hysterectomy, Oophrectomy HEENT: Other - Present Medications Home Medications: Ambulatory Orders Medication Instructions Recorded Confirmed traMADol [Ultram] 50 mg PO Q4-6H PRN #14 tablet 08/28/18 05/05/20 Cyclobenzaprine [Flexeril] 10 mg Q8H PRN 11/19/20 11/19/20 LORazepam [Ativan] 0.5 mg PO BID 11/19/20 11/19/20 Omeprazole [PriLOSEC] 20 mg PO BID 14 Days #28 11/19/20 Pantoprazole Sodium 40 mg BID 11/19/20 11/19/20 Propranolol ER [Inderal LA] 1 cap BID 11/19/20 11/19/20 HYDROcod/ACETAM 5/325 [[place] 5/325] 1 - 2 ea PO Q6H PRN #12 tablet 01/25/21 Promethazine [Phenergan] 25 mg PO Q6H PRN #10 tab 01/25/21 HYDROcod/ACETAM 5/325 [[place] 5/325] 1 ea PO Q6H PRN #14 tablet 05/15/21 dexAMETHasone [Decadron] 4 mg PO DAILY #5 tablet 05/15/21 diphenhydrAMINE ELIXIR [Benadryl 12.5 mg PO Q6H PRN #240 ml 05/15/21 Elixir] HYDROcod/ACETAM 5/325 [[place] 5/325] 1 - 2 tab PO Q6H PRN #15 tablet 11/11/21 HYDROcod/ACETAM 5/325 [[place] 5/325] 1 tab PO Q6H PRN #12 tablet 12/24/21 Hydrocortisone 1% Cream 1 applic TOP BID #28 gm 12/24/21 [Hydrocortisone] HYDROcod/ACETAM 5/325 [[place] 5/325] 1 - 2 tablet PO Q6H PRN #8 tablet 01/24/22 predniSONE [Deltasone] 40 mg PO DAILY 5 Days #10 tablet 01/24/22 HYDROmorphone [Dilaudid] 2 mg PO Q4H PRN #15 tablet 03/10/22 - Allergies Allergies/Adverse Reactions: Allergies Allergy/AdvReac Type Severity Reaction Status Date / Time bee pollen Allergy Anaphylaxis Verified 03/10/22 18:54 gabapentin Allergy Itching Verified 03/10/22 18:54 oxycodone HCl * Allergy Itching Verified 03/10/22 18:54 [From Percocet] - Social History Does the pt smoke?: Yes Smoking Status: Current every day smoker Does the pt drink ETOH?: No Does the pt have substance abuse?: Yes - Immunizations Immunizations are current?: Yes - POLST Patient has POLST: No PD ED PE NORMAL - Vitals Vital signs reviewed: Yes - General General: Alert and oriented X 3, No acute distress - HEENT HEENT: PERRL, EOMI, Pharynx benign, Other (Tacky mucous membranes) - Neck Neck: Supple, no meningeal sign, No bony TTP - Cardiac Cardiac: RRR, No murmur - Respiratory Respiratory: No respiratory distress, Clear bilaterally - Abdomen Abdomen: Non tender - Derm Derm: No rash - Neuro Neuro: Alert and oriented X 3, Normal speech Results - Vitals Vitals: Vital Signs - 24 hr 03/10/22 18:50 Temperature 36.7 C Heart Rate 99 Respiratory 16 Rate Blood Pressure 108/82 H O2 Saturation 100 Oxygen O2 Source Room air - Labs Labs: Laboratory Tests 03/10/22 03/10/22 18:56 18:57 Nasal Adenovirus (PCR) NOT DETECTED Nasal B. parapertussis DNA (PCR) NOT DETECTED Nasal Coronavir 229E PCR NOT DETECTED Nasal Coronavir HKU1 PCR NOT DETECTED Nasal Coronavir NL63 PCR NOT DETECTED Nasal Coronavir OC43 PCR NOT DETECTED Nasal Enterovir/Rhinovir PCR NOT DETECTED Nasal Influenza B PCR NOT DETECTED Nasal Influenza A PCR NOT DETECTED Nasal Parainfluen 1 PCR NOT DETECTED Nasal Parainfluen 2 PCR NOT DETECTED Nasal Parainfluen 3 PCR NOT DETECTED Nasal Parainfluen 4 PCR NOT DETECTED Nasal RSV (PCR) NOT DETECTED Nasal B.pertussis DNA PCR NOT DETECTED Nasal C.pneumoniae (PCR) NOT DETECTED [place] Human Metapneumo PCR NOT DETECTED Nasal M.pneumoniae (PCR) NOT DETECTED Nasal SARS-CoV-2 (PCR) DETECTED A Group A Strep Rapid Negative Procedures - General procedure General procedure: The RN was having some difficulty with the IV. I personally placed a 20-gauge IV in the right forearm which flushed and [place] well. Note that ultrasound guidance was not necessary. PD MEDICAL DECISION MAKING - ED course ED course: 46-year-old woman who has a fair number of comorbidities for age including a hi story of A. fib and COPD presents with body wide pain and a viral syndrome with prominent headache. Subsequently she is found to be COVID-positive. We discussed antivirals and would like to go ahead with that, and is dispensed paxlovid. We gave her some IV fluids here, Dilaudid and Reglan for her symptoms. Departure - Departure Disposition: 01 Home, Self Care Clinical Impression: COVID-19 Condition: Good Record reviewed to determine appropriate education?: Yes Instructions: ED Viral Syndrome Prescriptions: HYDROmorphone [Dilaudid] 2 mg PO Q4H PRN #15 tablet PRN Reason: Pain Comments: I sent your prescription electronically to [facility] in [place]. As discussed, you are positive for COVID, quarantine through the weekend strictly. Return for new or worsening symptoms. I am prescribing a short course of narcotic pain medication for you. These are potentially dangerous and addictive medications that should be used carefully. These medications may constipate you. Take an voxb-bae-lesrxgg stool softener (docusate) twice daily with plenty of water while taking these medications. If you go 24 hours without a bowel movement, take [id number] miralax, per package instructions. Do not drink or drive while taking these medications. If you received narcotic or sedating medications while in the emergency department, do not drive for 24 hours. Store this medication in a safe, secure place and out of reach of children. It is a violation of federal law to give or sell this medication to another person or to use in a manner other than prescribed. The ED will not refill narcotic prescriptions, including prescriptions lost or stolen. To dispose of unwanted medications: 1. [facility] at [address] in [place] has a medication drop box. They accept prescription medications (in pill form) Tuesday through Tuesday 9:00 a.m. to 5:00 p.m. 2. The [facility] accepts prescription medications (in pill form only) for disposal year round. Call for more information. 3. Contact the [facility] for the next [facility] sponsored prescription drug collection event. , [phone], or [phone]; Note that many narcotic pain relievers also contain Tylenol/acetaminophen. Please ensure that your total dose of acetaminophen from all sources does not exceed 3 g (3000 mg) per day.
[2022-03-10 21:12] LABS: CORONAVIRUS 229E-RESP PCR NOT DETECTED; CORONAVIRUS HKU1-RESP PCR NOT DETECTED; CORONAVIRUS NL63-RESP PCR NOT DETECTED; CORONAVIRUS OC43-RESP PCR NOT DETECTED
[2022-03-10 21:13] LABS: B. PARAPERTUSSIS- RESP PCR PAN NOT DETECTED; B. PERTUSSIS- RESP PCR PANEL NOT DETECTED; C. PNEUMONIAE- RESP PCR PANEL NOT DETECTED; HUMAN METAPNEUMOVIRUS NOT DETECTED; INFLUENZA A- RESP PCR PANEL NOT DETECTED; INFLUENZA B - RESP PCR PANEL NOT DETECTED; M. PNEUMONIAE- RESP PCR PANEL NOT DETECTED; PARAINFLUENZA VIRUS 1 NOT DETECTED; PARAINFLUENZA VIRUS 2 NOT DETECTED; PARAINFLUENZA VIRUS 3 NOT DETECTED; PARAINFLUENZA VIRUS 4 NOT DETECTED; RHINOVIRUS/ENTEROVIRUS NOT DETECTED; RSV- RESP PCR PANEL NOT DETECTED; SARS-CoV-2 -RESP PCR PANEL DETECTED
[2022-03-10] MEDS ORDERED: NIRMATRELVIR/RITONAVIR PREPACK PO STA (21:24)
== END 2022-03-10 22:40 | disposition home or self-care (01) ==
LOC: ED 18:31
DX: U07.1 COVID-19 (principal); F17.200 Nicotine dependence, unspecified, uncomplicated
CPT/HCPCS: 87070; 87430; 87633; 96374; 96375; 99283; 99284; J1170; J2765; J3490

== ENCOUNTER 2022-07-22 23:08 | Emergency (ER) | payer OTHER ==
[2022-07-22 23:53] LABS: BASOPHILS # (AUTO) 0.1 10^3/uL (0.0-0.1); BASOPHILS % (AUTO) 0.9 %; EOSINOPHILS # (AUTO) 0.1 10^3/uL (0.0-0.7); EOSINOPHILS % (AUTO) 0.7 %; HCT - HEMATOCRIT 40.2 % (37.0-47.0); HGB - HEMOGLOBIN 12.9 g/dL (12.0-16.0); LYMPHOCYTES # (AUTO) 1.9 10^3/uL (1.5-3.5); LYMPHOCYTES % (AUTO) 22.9 %; MEAN CORPUSCULAR HGB CONC 32.1 g/dL (32.0-36.0); MEAN CORPUSCULAR VOLUME 84.3 fL (81.0-99.0); MEAN PLATELET VOLUME 9.2 fL (7.9-10.8); MONOCYTES # (AUTO) 0.4 10^3/uL (0.0-1.0); MONOCYTES % (AUTO) 4.4 %; NEUTROPHILS # (AUTO) 5.8 10^3/uL (1.5-6.6); PLT - PLATELET COUNT 245 10^3/uL (130-450); RED BLOOD COUNT 4.77 10^6/uL (4.20-5.40); RED CELL DISTRIBUTION WIDTH 12.7 % (12.0-15.0); WHITE BLOOD COUNT 8.2 x10^3/uL (4.8-10.8)
[2022-07-23 00:01] LABS: ALBUMIN 4.5 g/dL (3.2-5.5); ALBUMIN/GLOBULIN RATIO 1.7 (1.0-2.2); BILIRUBIN,TOTAL 0.5 mg/dL (0.2-1.0); CALCIUM 9.7 mg/dL (8.5-10.3); CREATININE 0.9 mg/dL (0.4-1.0); POTASSIUM 3.3 mmol/L (3.5-5.0); TOTAL PROTEIN 7.1 g/dL (6.7-8.2)
[2022-07-23 00:15] LABS: BILIRUBIN,URINE NEGATIVE (NEGATIVE); LEUKOCYTE ESTERASE, URINE NEGATIVE (NEGATIVE); OCCULT BLOOD,URINE TRACE-INTA (NEGATIVE)
[2022-07-23 00:26] LABS: CLARITY,URINE HAZY (CLEAR)
[2022-07-23 00:30] LABS: BACTERIA,URINE Few /HPF (None Seen); RBC,URINE 0-5 /HPF (0-5); SQUAMOUS EPITHELIAL CELL,UR MOD Squamous (<= Few)
--- NOTE | 2022-07-23 01:38 | ED Physician Documentation ---
History of Present Illness - Stated complaint Stated Complaint: FEMALE /RT BACK PX - Chief complaint Chief Complaint: Abd Pain - Additonal information Additional information: Patient 47-year-old female presenting to the emergency department with dysuria and right-sided flank pain. The symptoms ongoing x3 days. Associated with nausea vomiting. No fever at home. Reports history of kidney stones. Did take Pyridium prior to arrival with minimal relief. Review of Systems Constitutional: denies: Fever Eyes: denies: Loss of vision Ears: denies: Loss of hearing Nose: denies: Rhinorrhea / runny nose Throat: denies: Dental pain / toothache Cardiac: denies: Chest pain / pressure Respiratory: denies: Dyspnea GI: reports: Nausea, Vomiting : reports: Dysuria Skin: denies: Rash Musculoskeletal: denies: Neck pain PD PAST MEDICAL HISTORY - Past Medical History Past Medical History: Yes Cardiovascular: Atrial fibrillation Respiratory: COPD Neuro: None Endocrine/Autoimmune: None GI: None ONCOLOGY REP: None : Kidney stones, Other HEENT: None Psych: Depression, Anxiety, Eating disorder, Other Musculoskeletal: Chronic back pain, Other Derm: Eczema - Past Surgical History Past Surgical History: Yes General: Appendectomy, Other Ortho: Spine surgery /ONCOLOGY REP: Hysterectomy, Oophrectomy HEENT: Other - Present Medications Home Medications: Ambulatory Orders Medication Instructions Recorded Confirmed traMADol [Ultram] 50 mg PO Q4-6H PRN #14 tablet 08/28/18 07/23/22 Cyclobenzaprine [Flexeril] 10 mg Q8H PRN 11/19/20 07/23/22 LORazepam [Ativan] 0.5 mg PO BID 11/19/20 07/23/22 Pantoprazole Sodium 40 mg BID 11/19/20 07/23/22 Propranolol ER [Inderal LA] 1 cap BID 11/19/20 07/23/22 Promethazine [Phenergan] 25 mg PO Q6H PRN #10 tab 01/25/21 07/23/22 dexAMETHasone [Decadron] 4 mg PO DAILY #5 tablet 05/15/21 diphenhydrAMINE ELIXIR [Benadryl 12.5 mg PO Q6H PRN #240 ml 05/15/21 07/23/22 Elixir] Hydrocortisone 1% Cream 1 applic TOP BID #28 gm 12/24/21 07/23/22 [Hydrocortisone] Ibuprofen [Motrin] 800 mg PO Q8H PRN #30 tablet 07/23/22 Ondansetron Odt [Zofran] 4 mg TL Q6H PRN #10 tablet 07/23/22 cephALEXin [Keflex] 500 mg PO Q6H #20 cap 07/23/22 - Allergies Allergies/Adverse Reactions: Allergies Allergy/AdvReac Type Severity Reaction Status Date / Time bee pollen Allergy Anaphylaxis Verified 07/22/22 23:30 gabapentin Allergy Itching Verified 07/22/22 23:30 oxycodone HCl * Allergy Itching Verified 07/22/22 23:30 [From Percocet] - Social History Does the pt smoke?: Yes Smoking Status: Current every day smoker Does the pt drink ETOH?: No Does the pt have substance abuse?: Yes - Immunizations Immunizations are current?: Yes - POLST Patient has POLST: No PD ED PE NORMAL - Vitals Vital signs reviewed: Yes - General General: Alert and oriented X 3 - HEENT HEENT: Atraumatic, PERRL, EOMI, Ears normal, Moist mucous membranes, Pharynx benign - Neck Neck: Supple, no meningeal sign - Cardiac Cardiac: RRR - Respiratory Respiratory: No respiratory distress - Abdomen Abdomen: Normal bowel sounds - Female Female : Deferred - Rectal Rectal: Deferred - Derm Derm: Normal color - Extremities Extremities: No deformity - Neuro Neuro: Alert and oriented X 3, 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, No motor deficit, No sensory deficit, Normal speech Results - Vitals Vitals: Vital Signs - 24 hr 07/22/22 07/23/22 07/23/22 23:25 00:55 01:37 Temperature 37.2 C 36.9 C Heart Rate 123 H 95 96 Respiratory 18 18 16 Rate Blood Pressure 154/86 H 141/89 H 91/78 O2 Saturation 96 96 96 07/23/22 07/23/22 02:54 03:11 Temperature Heart Rate 74 90 Respiratory 16 14 Rate Blood Pressure 107/72 111/77 O2 Saturation 99 98 Oxygen O2 Source Room air - Labs Labs: Laboratory Tests 07/22/22 07/22/22 07/22/22 23:43 23:43 23:47 WBC 8.2 RBC 4.77 Hgb 12.9 Hct 40.2 MCV 84.3 MCH 27.0 MCHC 32.1 RDW 12.7 Plt Count 245 MPV 9.2 Neut # (Auto) 5.8 Lymph # (Auto) 1.9 Meigs # (Auto) 0.4 Eos # (Auto) 0.1 Baso # (Auto) 0.1 Absolute Nucleated RBC 0.00 Nucleated RBC % 0.0 Sodium 139 Potassium 3.3 L Chloride 102 Carbon Dioxide 27 Anion Gap 10.0 BUN 25 H Creatinine 0.9 Estimated GFR (MDRD) 67 L Glucose 148 H Calcium 9.7 Total Bilirubin 0.5 AST 22 ALT 19 Alkaline Phosphatase 120 Total Protein 7.1 Albumin 4.5 Globulin 2.6 Albumin/Globulin Ratio 1.7 Lipase 27 Urine Color DARK YELLOW Urine Clarity HAZY Urine pH Ur Specific Hale Urine Protein Urine Glucose (UA) Urine Ketones Urine Occult Blood TRACE-INTA Urine Nitrite Urine Bilirubin NEGATIVE Urine Urobilinogen Ur Leukocyte Esterase NEGATIVE Urine RBC 0-5 Urine WBC 4-5 Ur Squamous Epith Cells MOD Squamous H Urine Bacteria Few Ur Microscopic Review INDICATED Urine Culture Comments NOT INDICATED Urine HCG, Qual Urine Opiates Screen Ur Oxycodone Screen Urine Methadone Screen Ur Propoxyphene Screen Ur Barbiturates Screen Ur Tricyclics Screen Ur Phencyclidine Scrn Ur Amphetamine Screen U Methamphetamines Scrn U Benzodiazepines Scrn Urine Cocaine Screen U Cannabinoids Screen 07/23/22 07/23/22 02:07 02:07 WBC RBC Hgb Hct MCV MCH MCHC RDW Plt Count MPV Neut # (Auto) Lymph # (Auto) Meigs # (Auto) Eos # (Auto) Baso # (Auto) Absolute Nucleated RBC Nucleated RBC % Sodium Potassium Chloride Carbon Dioxide Anion Gap BUN Creatinine Estimated GFR (MDRD) Glucose Calcium Total Bilirubin AST ALT Alkaline Phosphatase Total Protein Albumin Globulin Albumin/Globulin Ratio Lipase Urine Color Urine Clarity Urine pH Ur Specific Hale Urine Protein Urine Glucose (UA) Urine Ketones Urine Occult Blood Urine Nitrite Urine Bilirubin Urine Urobilinogen Ur Leukocyte Esterase Urine RBC Urine WBC Ur Squamous Epith Cells Urine Bacteria Ur Microscopic Review Urine Culture Comments Urine HCG, Qual NEGATIVE Urine Opiates Screen NEGATIVE Ur Oxycodone Screen NEGATIVE Urine Methadone Screen NEGATIVE Ur Propoxyphene Screen NEGATIVE Ur Barbiturates Screen NEGATIVE Ur Tricyclics Screen POSITIVE H Ur Phencyclidine Scrn NEGATIVE Ur Amphetamine Screen NEGATIVE U Methamphetamines Scrn NEGATIVE U Benzodiazepines Scrn POSITIVE H Urine Cocaine Screen NEGATIVE U Cannabinoids Screen POSITIVE H PD Medical Decision Making - ED course Complexity details: reviewed results, re-evaluated patient, d/w patient ED course: Patient 47-year-old female presenting to the emergency department with dysuria and flank pain. Initial differential diagnosis included but not limited to nephrolithiasis, pyelonephritis, lower urinary tract infection. Patient afebrile, hemodynamically stable on arrival to the emergency department. Labs obtained generally within normal limits or nonactionable. Urine analysis of limited utility given the patient took Pyridium prior to arrival. CT of the abdomen pelvis is nonacute. There were incidental findings of a nonobstructing left renal stone as well as an in defined opacity in the lingula which was concerning for infiltrate however patient does not have symptoms of pneumonia. Given her symptomatology however I will initiate a course of oral antibiotics to help with urinary tract infection. I will encourage careful follow-up with primary care or return to the emergency department as needed. Departure - Departure Disposition: 01 Home, Self Care Clinical Impression: Dysuria, Flank pain Instructions: IBUPROFEN (Adult), ED Dysuria Uncertain Cause Prescriptions: cephALEXin [Keflex] 500 mg PO Q6H #20 cap Ibuprofen [Motrin] 800 mg PO Q8H PRN #30 tablet PRN Reason: PAIN &/OR FEVER Ondansetron Odt [Zofran] 4 mg TL Q6H PRN #10 tablet PRN Reason: Nausea / Vomiting Comments: Thank you for allowing us to care for you today at [facility]. Today in the emergency department your evaluated for any possible life- threatening medical emergency. All the testing performed in the emergency department today including your blood work and the CT scan of your abdomen and pelvis were all very reassuring. Given the symptoms that you are having I would like to start you on some oral antibiotics to treat any urinary tract infection. You received your first dose here in the emergency department. I have sent your prescriptions to [facility]. Please pick them up as soon as possible. Please make a follow-up appoint with your primary care doctor. If it anytime you have new or worsening symptoms please do not hesitate to return.
[2022-07-23] MEDS ORDERED: SODIUM CHLORIDE 0.9% 1,000 ML IV STA (01:42)
[2022-07-23] MEDS ORDERED: fentaNYL 100 MCG/2 ML VIAL IVP STA (01:42)
[2022-07-23] MEDS ORDERED: KETOROLAC 30 MG/ML VIAL IVP STA (01:42)
[2022-07-23] MEDS ORDERED: cefTRIAXone 1 GM in SODIUM CHLORIDE 0.9% MINIBAG 100 ML IV STA (01:52)
[2022-07-23] MEDS ORDERED: cefTRIAXone 1 GM VIAL ONE (02:03)
[2022-07-23 02:11] LABS: MUDS CUTOFF CONCENTRATIONS CUTOFF CONC BELOW:
[2022-07-23 02:14] LABS: HCG UR QUAL NEGATIVE
[2022-07-23 02:21] LABS: COCAINE SCREEN URINE NEGATIVE (NEGATIVE); THC CANNABINOID SCREEN, URINE POSITIVE (NEGATIVE)
[2022-07-23 02:22] LABS: AMPHETAMINE SCREEN,URINE NEGATIVE (NEGATIVE); BARBITURATE SCREEN,UR NEGATIVE (NEGATIVE); BENZODIAZEPINES SCREEN, URINE POSITIVE (NEGATIVE); METHADONE SCREEN, URINE NEGATIVE (NEGATIVE); METHAMPHETAMINES SCREEN, URINE NEGATIVE (NEGATIVE); OPIATE SCREEN, URINE NEGATIVE (NEGATIVE); OXYCODONE SCREEN, URINE NEGATIVE (NEGATIVE); PROPOXYPHENE SCREEN, URINE NEGATIVE (NEGATIVE); TRICYCLIC ANTIDEPRESSANT,URINE POSITIVE (NEGATIVE)
[2022-07-23 03:12] VITALS: BP 111/77
--- NOTE | 2022-07-23 08:44 | CT Report ---
PROCEDURE: ABDOMEN/PELVIS WO INDICATIONS: Flank pain TECHNIQUE: Noncontrast 5 mm thick sections acquired from the diaphragms to the symphysis. 5 mm coronal and sagi ttal reformats were then performed. For radiation dose reduction, the following was used: automated exposure control, adjustment of mA and/or kV according to patient size. COMPARISON: 05/11/2020 FINDINGS: Image quality: Excellent. ABDOMEN: Lung bases: A few small, ill-defined groundglass nodules in the lingula. No consolidations or effusio ns. Heart size is normal. Solid organs: Liver and spleen are normal in size. Gallbladder is unremarkable. Pancreas is normal in contours. No adrenal nodules. Kidneys are normal in size. There is a 2 mm nonobstructing left l ower pole intrarenal calculus. There is no hydroureter or ureteral calculi. Peritoneum and bowel: Unenhanced bowel loops demonstrate normal wall thickness and caliber. No free fluid or air. The appendix is absent. Increased quantity of stool in the proximal colon. Nodes and vessels: No retroperitoneal or mesenteric adenopathy by size criteria. Aorta and inferior vena cava are normal in caliber. Miscellaneous: No ventral hernias. PELVIS: Genitourinary: Bladder wall thickness is normal. The uterus is absent. No suspicious adnexal masses . Miscellaneous: No inguinal hernias or adenopathy. Bones: No suspicious bony lesions. No vertebral body compression fractures. There are surgical ronni nges of L4-S1 posterior fusion. IMPRESSION: 1. Nonobstructing 2 mm left lower pole intrarenal calculus. 2. No CT evidence of obstructive uropathy. 3. Final interpretation concordant with preliminary report. Reviewed by: Diamante Malin MD on 07/23/2022 8:42 AM PDT Approved by: Diamante Malin MD on 07/23/2022 8:42 AM PDT Station ID: [id number]
== END 2022-07-23 03:15 | disposition home or self-care (01) ==
LOC: ED 23:08
DX: R30.0 Dysuria (principal); R10.11 Right upper quadrant pain; I48.91 Unspecified atrial fibrillation; F17.200 Nicotine dependence, unspecified, uncomplicated
CPT/HCPCS: 36415; 80053; 80306; 81001; 81003; 81025; 83690; 85025; 87086; 96365; 96375; 99283

== ENCOUNTER 2022-08-25 16:31 | Emergency (ER) | payer OTHER ==
[2022-08-25] MEDS ORDERED: SODIUM CHLORIDE 0.9% 1,000 ML IV STA (16:50)
[2022-08-25] MEDS ORDERED: HYDROmorphone 1 MG/ML CARPUJECT IVP STA ×2 (16:50→19:26)
[2022-08-25] MEDS ORDERED: KETOROLAC 15 MG/ML VIAL IVP STA (16:50)
--- NOTE | 2022-08-25 16:51 | ED Physician Documentation ---
PD HPI ABD PAIN - Stated complaint Stated Complaint: LT SIDE PX/FEMALE - Chief complaint Chief Complaint: Abd Pain - History obtained from History obtained from: Patient - Additional information Additional information: 47-year-old woman with history of renal colic, frequent UTIs, history of malnutrition with prior PEG tube presents with dysuria starting earlier today and more severe left-sided flank pain radiating to the left lower quadrant today. It is not associated with nausea or fevers. She tried Azo and tramadol and lorazepam without relief. 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 : Kidney stones, Other HEENT: None Psych: Depression, Anxiety, Eating disorder, Other Musculoskeletal: Chronic back pain, Other Derm: Eczema - Past Surgical History Past Surgical History: Yes General: Appendectomy, Other Ortho: Spine surgery /MANAGER BILINGUAL: Hysterectomy, Oophrectomy HEENT: Other - Present Medications Home Medications: Ambulatory Orders Medication Instructions Recorded Confirmed traMADol [Ultram] 50 mg PO Q4-6H PRN #14 tablet 08/28/18 07/23/22 Cyclobenzaprine [Flexeril] 10 mg Q8H PRN 11/19/20 07/23/22 LORazepam [Ativan] 0.5 mg PO BID 11/19/20 07/23/22 Pantoprazole Sodium 40 mg BID 11/19/20 07/23/22 Propranolol ER [Inderal LA] 1 cap BID 11/19/20 07/23/22 Promethazine [Phenergan] 25 mg PO Q6H PRN #10 tab 01/25/21 07/23/22 dexAMETHasone [Decadron] 4 mg PO DAILY #5 tablet 05/15/21 diphenhydrAMINE ELIXIR [Benadryl 12.5 mg PO Q6H PRN #240 ml 05/15/21 07/23/22 Elixir] Hydrocortisone 1% Cream 1 applic TOP BID #28 gm 12/24/21 07/23/22 [Hydrocortisone] Ibuprofen [Motrin] 800 mg PO Q8H PRN #30 tablet 07/23/22 Ondansetron Odt [Zofran] 4 mg TL Q6H PRN #10 tablet 07/23/22 cephALEXin [Keflex] 500 mg PO Q6H #20 cap 07/23/22 HYDROcod/ACETAM 5/325 [[place] 5/325] 1 - 2 tab PO Q6H PRN #15 tablet 08/25/22 Tamsulosin [Flomax] 0.4 mg PO DAILY #14 cap 08/25/22 - Allergies Allergies/Adverse Reactions: Allergies Allergy/AdvReac Type Severity Reaction Status Date / Time bee pollen Allergy Anaphylaxis Verified 08/25/22 16:41 gabapentin Allergy Itching Verified 08/25/22 16:41 oxycodone HCl * Allergy Itching Verified 08/25/22 16:41 [From Percocet] - Social History Does the pt smoke?: Yes Smoking Status: Current every day smoker Does the pt drink ETOH?: No Does the pt have substance abuse?: Yes - Immunizations Immunizations are current?: Yes - POLST Patient has POLST: No PD ED PE NORMAL - Vitals Vital signs reviewed: Yes - General General: Alert and oriented X 3, Other (She is in visible pain.) - Abdomen Abdomen: Normal bowel sounds, Soft, Non tender - Back Back: Other (Tender to the left flank) - Neuro Neuro: Alert and oriented X 3, Normal speech Results - Vitals Vitals: Vital Signs - 24 hr 08/25/22 08/25/22 08/25/22 16:32 17:37 18:32 Temperature 36.9 C Heart Rate 106 H 78 68 Respiratory 20 16 16 Rate Blood Pressure 148/88 H 147/96 H 122/79 O2 Saturation 100 98 100 08/25/22 08/25/22 19:30 19:53 Temperature Heart Rate 89 96 Respiratory 16 16 Rate Blood Pressure 182/108 H 155/84 H O2 Saturation 98 96 Oxygen O2 Source Room air - Labs Labs: Laboratory Tests 08/25/22 08/25/22 08/25/22 16:41 16:41 16:59 WBC 5.4 RBC 4.78 Hgb 13.0 Hct 41.0 MCV 85.8 MCH 27.2 MCHC 31.7 L RDW 13.3 Plt Count 228 MPV 8.9 Neut # (Auto) 3.1 Lymph # (Auto) 1.9 [place] # (Auto) 0.2 Eos # (Auto) 0.2 Baso # (Auto) 0.1 Absolute Nucleated RBC 0.00 Nucleated RBC % 0.0 Sodium Potassium Chloride Carbon Dioxide Anion Gap BUN Creatinine Estimated GFR (MDRD) Glucose Calcium Urine Color YELLOW Urine Clarity CLEAR Urine pH 7.0 Ur Specific [place] 1.015 Urine Protein NEGATIVE Urine Glucose (UA) NEGATIVE Urine Ketones NEGATIVE Urine Occult Blood SMALL H Urine Nitrite NEGATIVE Urine Bilirubin NEGATIVE Urine Urobilinogen 0.2 (NORMAL) Ur Leukocyte Esterase NEGATIVE Urine RBC 11-25 H Urine WBC 0-3 Ur Squamous Epith Cells FEW Squamous Urine Bacteria None Seen Ur Microscopic Review INDICATED Urine Culture Comments NOT INDICATED Urine HCG, Qual NEGATIVE 08/25/22 16:59 WBC RBC Hgb Hct MCV MCH MCHC RDW Plt Count MPV Neut # (Auto) Lymph # (Auto) [place] # (Auto) Eos # (Auto) Baso # (Auto) Absolute Nucleated RBC Nucleated RBC % Sodium 138 Potassium 3.8 Chloride 102 Carbon Dioxide 28 Anion Gap 8.0 BUN 13 Creatinine 0.7 Estimated GFR (MDRD) 89 Glucose 109 H Calcium 8.7 Urine Color Urine Clarity Urine pH Ur Specific [place] Urine Protein Urine Glucose (UA) Urine Ketones Urine Occult Blood Urine Nitrite Urine Bilirubin Urine Urobilinogen Ur Leukocyte Esterase Urine RBC Urine WBC Ur Squamous Epith Cells Urine Bacteria Ur Microscopic Review Urine Culture Comments Urine HCG, Qual - Rads (name of study) CT KUB showing left UVJ 2 mm stone with mild to moderate hydronephrosis. Relevant Findings:: Final report received, EMP independent interpretation of test PD Medical Decision Making - ED course ED course: 47-year-old woman with left renal colic found to have a 2 mm left UVJ stone with some obstruction. She was treated with divided doses of pain medications here, getting modest relief from initial dose of 15 mg of IV Toradol and 1 mg of IV Dilaudid. This was followed by IV lidocaine and morphine with good relief of her pain but still crying. She declined more pain medication after that but did ask for something for anxiety and received 0.5 mg of lorazepam. On recheck at 8 PM she is feeling ready to go home. CBC reviewed and normal. BMP reviewed and normal. Urinalysis showing expected hematuria but without signs of infection. test negative. Departure - Departure Disposition: 01 Home, Self Care Clinical Impression: Renal colic on left side Condition: Good Record reviewed to determine appropriate education?: Yes Instructions: ED Stone Renal W Colic Prescriptions: Tamsulosin [Flomax] 0.4 mg PO DAILY #14 cap HYDROcod/ACETAM 5/325 [[place] 5/325] 1 - 2 tab PO Q6H PRN #15 tablet PRN Reason: Pain Comments: You were seen today for a 2 mm kidney stone. This is small enough that we would expect to pass fairly quickly. I sent prescriptions electronically to [facility] in [place]. In addition you can take 400 mg of ibuprofen every 6 hours. Call your doctor to arrange a follow-up appointment, make the next available appointment. In the interim, return anytime if worse or if new symptoms develop. I am prescribing a short course of narcotic pain medication for you. These are potentially dangerous and addictive medications that should be used carefully. These medications may constipate you. Take an jofq-nox-stjakwc stool softener (docusate) twice daily with plenty of water while taking these medications. If you go 24 hours without a bowel movement, take ytai-fzj-[id number] miralax, per package instructions. Do not drink or drive while taking these medications. If you received narcotic or sedating medications while in the emergency department, do not drive for 24 hours. Store this medication in a safe, secure place and out of reach of children. It is a violation of federal law to give or sell this medication to another person or to use in a manner other than prescribed. The ED will not refill narcotic prescriptions, including prescriptions lost or stolen. To dispose of unwanted medications: 1. [facility] at [address] in [place] has a medication drop box. They accept prescription medications (in pill form) Tuesday through Tuesday 9:00 a.m. to 5:00 p.m. 2. The [facility] [employer] accepts prescription medications (in pill form only) for disposal year round. Call for more information. 3. Contact the [facility] for the next [facility] sponsored prescription drug collection event. , [phone], or [phone]; Note that many narcotic pain relievers also contain Tylenol/acetaminophen. Please ensure that your total dose of acetaminophen from all sources does not exceed 3 g (3000 mg) per day.
[2022-08-25 16:52] LABS: BILIRUBIN,URINE NEGATIVE (NEGATIVE); CLARITY,URINE CLEAR (CLEAR); GLUCOSE, URINE (UA) NEGATIVE (NEGATIVE); KETONES,URINE (UA) NEGATIVE (NEGATIVE); LEUKOCYTE ESTERASE, URINE NEGATIVE (NEGATIVE); NITRITE,URINE NEGATIVE (NEGATIVE); OCCULT BLOOD,URINE SMALL (NEGATIVE); PROTEIN,URINE NEGATIVE (NEGATIVE); UROBILINOGEN,URINE 0.2 (NORMAL) E.U./dL (NORMAL)
[2022-08-25 16:54] LABS: HCG UR QUAL NEGATIVE
[2022-08-25 16:59] LABS: BACTERIA,URINE None Seen /HPF (None Seen); SQUAMOUS EPITHELIAL CELL,UR FEW Squamous (<= Few); WBC,URINE 0-3 /HPF (0-5)
[2022-08-25 17:04] LABS: BASOPHILS # (AUTO) 0.1 10^3/uL (0.0-0.1); BASOPHILS % (AUTO) 1.1 %; EOSINOPHILS # (AUTO) 0.2 10^3/uL (0.0-0.7); EOSINOPHILS % (AUTO) 2.8 %; LYMPHOCYTES # (AUTO) 1.9 10^3/uL (1.5-3.5); LYMPHOCYTES % (AUTO) 35.7 %; MEAN CORPUSCULAR HEMOGLOBIN 27.2 pg (27.0-31.0); MEAN CORPUSCULAR HGB CONC 31.7 g/dL (32.0-36.0); MEAN CORPUSCULAR VOLUME 85.8 fL (81.0-99.0); MEAN PLATELET VOLUME 8.9 fL (7.9-10.8); MONOCYTES # (AUTO) 0.2 10^3/uL (0.0-1.0); MONOCYTES % (AUTO) 4.1 %; NEUTROPHILS # (AUTO) 3.1 10^3/uL (1.5-6.6); NEUTROPHILS % (AUTO) 56.1 %; PLT - PLATELET COUNT 228 10^3/uL (130-450); RED BLOOD COUNT 4.78 10^6/uL (4.20-5.40); RED CELL DISTRIBUTION WIDTH 13.3 % (12.0-15.0); WHITE BLOOD COUNT 5.4 x10^3/uL (4.8-10.8)
[2022-08-25 17:12] LABS: CALCIUM 8.7 mg/dL (8.5-10.3); CREATININE 0.7 mg/dL (0.4-1.0); POTASSIUM 3.8 mmol/L (3.5-5.0)
--- NOTE | 2022-08-25 18:30 | CT Report ---
PROCEDURE: ABDOMEN/PELVIS WO INDICATIONS: L flank pain TECHNIQUE: Noncontrast 5 mm thick sections acquired from the diaphragms to the symphysis. 5 mm coronal and sagi ttal reformats were then performed. For radiation dose reduction, the following was used: automated exposure control, adjustment of mA and/or kV according to patient size. COMPARISON: CT abdomen pelvis 07/23/2022. FINDINGS: Image quality: Excellent. Lung bases and heart: Trace pericardial fluid. No pleural effusion. Liver: Right lobe is prominent. Gallbladder and biliary tree: Unremarkable. Spleen: Unremarkable. Pancreas: Unremarkable. Adrenals: Unremarkable. Kidneys and ureters: Moderate left hydronephrosis. Mild left hydroureter. Obstructing calculus at the left UVJ measuring 0.2 cm, (). No right hydronephrosis. No additional kidney stones. Bowel and peritoneum: No bowel distension. No pathologic free fluid. The appendix is not seen. Lymph nodes: No central or retroperitoneal adenopathy. Vessels: No aneurysm. Mild plaque. PELVIS Reproductive organs: Unremarkable. Bladder: No bladder stone. Lymph nodes: Unremarkable. Bones: No aggressive osseous abnormality. L4-S1 pedicle screw fixation. No compression fracture. Other: None. IMPRESSION: Obstructing calculus at the left UVJ measuring 0.2 cm. Mild to moderate left hydronephrosis. No additional kidney stones. Reviewed by: Rome Campo MD on 08/25/2022 6:29 PM PDT Approved by: Rome Campo MD on 08/25/2022 6:29 PM PDT Station ID: [id number]
[2022-08-25] MEDS ORDERED: MORPHINE 2 MG/ML CARPUJECT IVP STA (18:32)
[2022-08-25] MEDS ORDERED: SODIUM CHLORIDE 0.9% IV STA (18:36)
[2022-08-25] MEDS ORDERED: LIDOCAINE MPF 2% IV STA (18:36)
[2022-08-25] MEDS ORDERED: TAMSULOSIN 0.4 MG CAPSULE PO STA (18:37)
[2022-08-25] MEDS ORDERED: LORazepam 2 MG/ML VIAL IVP STA (19:26)
[2022-08-25 19:54] VITALS: BP 155/84
[2022-08-25] MEDS ORDERED: HYDROcod/ACET 5/325 Prepack 4 PO STA (20:01)
== END 2022-08-25 20:18 | disposition home or self-care (01) ==
LOC: ED 16:31
DX: N13.2 Hydronephrosis with renal and ureteral calculous obstruction (principal); F17.200 Nicotine dependence, unspecified, uncomplicated
CPT/HCPCS: 36415; 74176; 80048; 81001; 81025; 85025; 96365; 96375; 96376; 99284; 99285; A9270; J1170; J2060; J7040; 81003; 87086

== ENCOUNTER 2022-09-05 10:45 | Emergency (ER) | payer OTHER ==
[2022-09-05 11:23] LABS: BASOPHILS # (AUTO) 0.1 10^3/uL (0.0-0.1); BASOPHILS % (AUTO) 1.3 %; EOSINOPHILS # (AUTO) 0.2 10^3/uL (0.0-0.7); EOSINOPHILS % (AUTO) 3.5 %; HCT - HEMATOCRIT 45.6 % (37.0-47.0); HGB - HEMOGLOBIN 14.5 g/dL (12.0-16.0); LYMPHOCYTES # (AUTO) 1.7 10^3/uL (1.5-3.5); LYMPHOCYTES % (AUTO) 31.1 %; MEAN CORPUSCULAR HEMOGLOBIN 27.1 pg (27.0-31.0); MEAN CORPUSCULAR HGB CONC 31.8 g/dL (32.0-36.0); MEAN CORPUSCULAR VOLUME 85.2 fL (81.0-99.0); MEAN PLATELET VOLUME 9.5 fL (7.9-10.8); MONOCYTES # (AUTO) 0.3 10^3/uL (0.0-1.0); NEUTROPHILS # (AUTO) 3.2 10^3/uL (1.5-6.6); NEUTROPHILS % (AUTO) 58.9 %; PLT - PLATELET COUNT 287 10^3/uL (130-450); RED BLOOD COUNT 5.35 10^6/uL (4.20-5.40); RED CELL DISTRIBUTION WIDTH 13.5 % (12.0-15.0); WHITE BLOOD COUNT 5.4 x10^3/uL (4.8-10.8)
[2022-09-05] MEDS ORDERED: HYDROmorphone 1 MG/ML CARPUJECT IM STA (11:26)
[2022-09-05 11:33] LABS: ALBUMIN 4.4 g/dL (3.2-5.5); ALBUMIN/GLOBULIN RATIO 1.3 (1.0-2.2); BILIRUBIN,TOTAL 0.3 mg/dL (0.2-1.0); CALCIUM 9.4 mg/dL (8.5-10.3); CREATININE 0.8 mg/dL (0.4-1.0); POTASSIUM 4.4 mmol/L (3.5-5.0); TOTAL PROTEIN 7.8 g/dL (6.7-8.2)
[2022-09-05 11:39] LABS: BILIRUBIN,URINE NEGATIVE (NEGATIVE); GLUCOSE, URINE (UA) NEGATIVE (NEGATIVE); KETONES,URINE (UA) NEGATIVE (NEGATIVE); LEUKOCYTE ESTERASE, URINE NEGATIVE (NEGATIVE); NITRITE,URINE POSITIVE (NEGATIVE); OCCULT BLOOD,URINE SMALL (NEGATIVE); PROTEIN,URINE NEGATIVE (NEGATIVE); UROBILINOGEN,URINE 0.2 (NORMAL) E.U./dL (NORMAL)
[2022-09-05 11:41] LABS: CLARITY,URINE CLEAR (CLEAR); HCG UR QUAL NEGATIVE
[2022-09-05] MEDS ORDERED: ONDANSETRON 4 MG/2 ML VIAL IVP STA (11:47)
[2022-09-05] MEDS ORDERED: HYDROmorphone 1 MG/ML CARPUJECT IVP STA ×2 (11:47→12:51)
[2022-09-05] MEDS ORDERED: KETOROLAC 30 MG/ML VIAL IVP STA (11:47)
[2022-09-05 11:48] LABS: BACTERIA,URINE Rare /HPF (None Seen); RBC,URINE 0-5 /HPF (0-5); SQUAMOUS EPITHELIAL CELL,UR RARE Squamous (<= Few)
--- NOTE | 2022-09-05 11:48 | ED Physician Documentation ---
History of Present Illness - Stated complaint Stated Complaint: KIDNEY STONES - Chief complaint Chief Complaint: Abd Pain - History obtained from History obtained from: Patient - History of Present Illness Timing: Today Pain level max: 10 Pain level now: 10 - Additonal information Additional information: Patient is a 47-year-old female who complains of sudden onset left flank pain last night/this morning. She states that it sharp. Feels similar to prior kidney stones. Last ureteral stone was 2 weeks ago. That pain resolved. She states she has urinary frequency as well. No blood noted in the urine. No fevers. No chills. Some nausea but no vomiting. No diarrhea or constipation. Nothing makes it better or worse. 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 : Kidney stones, Other HEENT: None Psych: Depression, Anxiety, Eating disorder, Other Musculoskeletal: Chronic back pain, Other Derm: Eczema - Past Surgical History Past Surgical History: Yes General: Appendectomy, Other Ortho: Spine surgery /RUBBER GOODS REPAIRER: Hysterectomy, Oophrectomy HEENT: Other - Present Medications Home Medications: Ambulatory Orders Medication Instructions Recorded Confirmed traMADol [Ultram] 50 mg PO Q4-6H PRN #14 tablet 08/28/18 07/23/22 Cyclobenzaprine [Flexeril] 10 mg Q8H PRN 11/19/20 07/23/22 LORazepam [Ativan] 0.5 mg PO BID 11/19/20 07/23/22 Pantoprazole Sodium 40 mg BID 11/19/20 07/23/22 Propranolol ER [Inderal LA] 1 cap BID 11/19/20 07/23/22 Promethazine [Phenergan] 25 mg PO Q6H PRN #10 tab 01/25/21 07/23/22 dexAMETHasone [Decadron] 4 mg PO DAILY #5 tablet 05/15/21 diphenhydrAMINE ELIXIR [Benadryl 12.5 mg PO Q6H PRN #240 ml 05/15/21 07/23/22 Elixir] Hydrocortisone 1% Cream 1 applic TOP BID #28 gm 08/18/22 03/17/23 [Hydrocortisone] Ibuprofen [Motrin] 800 mg PO Q8H PRN #30 tablet 07/23/22 Ondansetron Odt [Zofran] 4 mg TL Q6H PRN #10 tablet 07/23/22 cephALEXin [Keflex] 500 mg PO Q6H #20 cap 07/23/22 HYDROcod/ACETAM 5/325 [[place] 5/325] 1 - 2 tab PO Q6H PRN #15 tablet 08/25/22 Tamsulosin [Flomax] 0.4 mg PO DAILY #14 cap 08/25/22 Cefpodoxime Proxetil [Vantin] 100 mg PO Q12H #14 tablet 09/05/22 HYDROmorphone [Dilaudid] 2 mg PO Q6H PRN #14 tablet 09/05/22 Ondansetron Odt [Zofran] 4 mg TL Q6H PRN #10 tablet 09/05/22 - Allergies Allergies/Adverse Reactions: Allergies Allergy/AdvReac Type Severity Reaction Status Date / Time bee pollen Allergy Anaphylaxis Verified 09/05/22 11:00 gabapentin Allergy Itching Verified 09/05/22 11:00 oxycodone HCl * Allergy Itching Verified 09/05/22 11:00 [From Percocet] - Social History Does the pt smoke?: Yes Smoking Status: Current every day smoker Does the pt drink ETOH?: No Does the pt have substance abuse?: Yes - Immunizations Immunizations are current?: Yes - POLST Patient has POLST: No PD ED PE NORMAL - Vitals Vital signs reviewed: Yes - General General: Alert and oriented X 3, Other (appears in pain) - HEENT HEENT: Moist mucous membranes - Neck Neck: Supple, no meningeal sign - Cardiac Cardiac: RRR, Strong equal pulses - Respiratory Respiratory: No respiratory distress, Clear bilaterally - Abdomen Abdomen: Soft, Non tender, Non distended - Back Back: Other (mild L CVAT ) - Derm Derm: Warm and dry - Extremities Extremities: No edema - Neuro Neuro: Alert and oriented X 3 Results - Vitals Vitals: Vital Signs - 24 hr 09/05/22 09/05/22 09/05/22 10:56 11:50 13:04 Temperature 36.2 C L Heart Rate 103 H 82 Respiratory 17 18 Rate Blood Pressure 159/82 H 135/94 H O2 Saturation 99 97 Oxygen O2 Source Room air - Labs Labs: Laboratory Tests 09/05/22 09/05/22 09/05/22 11:12 11:15 11:15 WBC 5.4 RBC 5.35 Hgb 14.5 Hct 45.6 MCV 85.2 MCH 27.1 MCHC 31.8 L RDW 13.5 Plt Count 287 MPV 9.5 Neut # (Auto) 3.2 Lymph # (Auto) 1.7 [place] # (Auto) 0.3 Eos # (Auto) 0.2 Baso # (Auto) 0.1 Absolute Nucleated RBC 0.00 Nucleated RBC % 0.0 Sodium 141 Potassium 4.4 Chloride 102 Carbon Dioxide 26 Anion Gap 13.0 BUN 19 Creatinine 0.8 Estimated GFR (MDRD) 76 L Glucose 107 H Calcium 9.4 Total Bilirubin 0.3 AST 22 ALT 24 Alkaline Phosphatase 115 Total Protein 7.8 Albumin 4.4 Globulin 3.4 Albumin/Globulin Ratio 1.3 Lipase 31 Urine Color YELLOW Urine Clarity CLEAR Urine pH 6.0 Ur Specific [place] 1.010 Urine Protein NEGATIVE Urine Glucose (UA) NEGATIVE Urine Ketones NEGATIVE Urine Occult Blood SMALL H Urine Nitrite POSITIVE H Urine Bilirubin NEGATIVE Urine Urobilinogen 0.2 (NORMAL) Ur Leukocyte Esterase NEGATIVE Urine RBC 0-5 Urine WBC 4-5 Ur Squamous Epith Cells RARE Squamous Urine Bacteria Rare Ur Microscopic Review INDICATED Urine Culture Comments INDICATED Urine HCG, Qual NEGATIVE - Rads (name of study) CT abd.[email or web address] Relevant Findings:: Final report received, See rad report PD Medical Decision Making - ED course Complexity details: reviewed results, re-evaluated patient, considered differential (No sepsis. No pyelonephritis.), d/w patient, d/w family ED course: 47-year-old female presents to the emergency department with left flank pain. She was given Dilaudid IM, and then an IV was started. She was given additional dose of Dilaudid IV. Pain well controlled. Her CT scan shows a 2 mm left UVJ stone. Her urinalysis has positive nitrites and rare bacteria, we will cover with antibiotics. Her CBC and chemistry did not show any significant abnormalities. We will have her follow-up with her PCP for further care of the ureteral stone. She can follow-up with urology as well. Patient counseled regarding signs and symptoms for which I believe and urgent re-evaluation would be necessary. Patient with good understanding of and agreement to plan and is comfortable going home at this time This document was made in part using voice recognition software. While efforts are made to proofread this document, sound alike and grammatical errors may occur. PROCEDURE: ABDOMEN/PELVIS WO INDICATIONS: L flank pain TECHNIQUE: Noncontrast 5 mm thick sections acquired from the diaphragms to the symphysis. 5 mm coronal and sagittal reformats were then performed. For radiation dose reduction, the following was used: automated exposure control, adjustment of mA and/or kV according to patient size. COMPARISON: 08/25/2022, 07/23/2022 FINDINGS: Image quality: Excellent. Lung bases and heart: Mild sinus changes can be seen at the lung bases. Heart size is normal. Liver: No solid mass. Gallbladder and biliary tree: Within normal limits. Spleen: No splenomegaly. Pancreas: No pancreatic ductal dilation. Adrenals: No adrenal nodule. Kidneys and ureters: There is again seen a 2 mm obstructing stone at the left ureterovesicular junction, as on series 3 image 115 and on series 6 image 39. There is associated moderate left-sided hydroureter and moderate to prominent left-sided hydronephrosis. No definite additional kidney stones can be seen on either side. Bowel and peritoneum: No bowel distension. No pathologic free fluid. Lymph nodes: No central or retroperitoneal adenopathy. Vessels: No infrarenal aortic aneurysm. PELVIS Reproductive organs: This patient is status post hysterectomy. No adnexal masses can be seen. Bladder: Unremarkable. Lymph nodes: Unremarkable. Bones: No aggressive osseous abnormality. Lumbosacral fixation hardware is seen. Other: No significant ventral or inguinal hernia. IMPRESSION: 2 mm obstructing stone again seen at the left ureterovesicular junction, which has migrated slightly distally compared to the prior. There can again be seen associated left-sided hydroureter and hydronephrosis, which appear worse than on the prior. No additional stones are seen. Additional findings: Lumbosacral fixation hardware Hysterectomy Departure - Departure Disposition: 01 Home, Self Care Clinical Impression: Ureteral stone UTI (urinary tract infection) Qualifiers: Urinary tract infection type: acute cystitis Hematuria presence: without hematuria Qualified Code(s): N30.00 - Acute cystitis without hematuria Condition: Good Instructions: ED UTI Cystitis Female, ED Stone Renal W Colic Follow-Up: your,doctor in 1 week [Other] - Within 1 week Prescriptions: HYDROmorphone [Dilaudid] 2 mg PO Q6H PRN #14 tablet PRN Reason: Abdominal Pain Cefpodoxime Proxetil [Vantin] 100 mg PO Q12H #14 tablet Ondansetron Odt [Zofran] 4 mg TL Q6H PRN #10 tablet PRN Reason: Nausea / Vomiting Comments: Your prescriptions were sent to [facility] in [place]. Please take all antibiotics until gone. You can use the hydromorphone as needed for pain. Please follow-up with urology for further care. Return if you worsen. I am prescribing a short course of narcotic pain medication for you. These are potentially dangerous and addictive medications that should be used carefully. These medications may constipate you. Take an kvfn-pwu-schergf stool softener (docusate) twice daily with plenty of water while taking these medications. If you go 24 hours without a bowel movement, take nplv-mwi-mbyknat miralax, per package instructions. Do not drink or drive while taking these medications. If you received narcotic or sedating medications while in the emergency department, do not drive for 24 hours. Store this medication in a safe, secure place and out of reach of children. It is a violation of federal law to give or sell this medication to another person or to use in a manner other than prescribed. The ED will not refill narcotic prescriptions, including prescriptions lost or stolen. To dispose of unwanted medications: 1. [facility] at [address] in [place] has a medication drop box. They accept prescription medications (in pill form) Tuesday through Tuesday 9:00 a.m. to 5:00 p.m. 2. The [facility] accepts prescription medications (in pill form only) for disposal year round. Call for more information. 3. Contact the [facility] for the next [facility] sponsored prescription drug collection event. , [phone], or [phone]; PROCEDURE: ABDOMEN/PELVIS WO INDICATIONS: L flank pain TECHNIQUE: Noncontrast 5 mm thick sections acquired from the diaphragms to the symphysis. 5 mm coronal and sagittal reformats were then performed. For radiation dose reduction, the following was used: automated exposure control, adjustment of mA and/or kV according to patient size. COMPARISON: 08/25/2022, 07/23/2022 FINDINGS: Image quality: Excellent. Lung bases and heart: Mild sinus changes can be seen at the lung bases. Heart size is normal. Liver: No solid mass. Gallbladder and biliary tree: Within normal limits. Spleen: No splenomegaly. Pancreas: No pancreatic ductal dilation. Adrenals: No adrenal nodule. Kidneys and ureters: There is again seen a 2 mm obstructing stone at the left ureterovesicular junction, as on series 3 image 115 and on series 6 image 39. There is associated moderate left-sided hydroureter and moderate to prominent left-sided hydronephrosis. No definite additional kidney stones can be seen on either side. Bowel and peritoneum: No bowel distension. No pathologic free fluid. Lymph nodes: No central or retroperitoneal adenopathy. Vessels: No infrarenal aortic aneurysm. PELVIS Reproductive organs: This patient is status post hysterectomy. No adnexal masses can be seen. Bladder: Unremarkable. Lymph nodes: Unremarkable. Bones: No aggressive osseous abnormality. Lumbosacral fixation hardware is seen. Other: No significant ventral or inguinal hernia. IMPRESSION: 2 mm obstructing stone again seen at the left ureterovesicular junction, which has migrated slightly distally compared to the prior. There can again be seen associated left-sided hydroureter and hydronephrosis, which appear worse than on the prior. No additional stones are seen. Additional findings: Lumbosacral fixation hardware Hysterectomy Discharge Date/Time: 09/05/22 13:15
--- NOTE | 2022-09-05 12:14 | CT Report ---
PROCEDURE: ABDOMEN/PELVIS WO INDICATIONS: L flank pain TECHNIQUE: Noncontrast 5 mm thick sections acquired from the diaphragms to the symphysis. 5 mm coronal and sagi ttal reformats were then performed. For radiation dose reduction, the following was used: automated exposure control, adjustment of mA and/or kV according to patient size. COMPARISON: 08/25/2022, 07/23/2022 FINDINGS: Image quality: Excellent. Lung bases and heart: Mild sinus changes can be seen at the lung bases. Heart size is normal. Liver: No solid mass. Gallbladder and biliary tree: Within normal limits. Spleen: No splenomegaly. Pancreas: No pancreatic ductal dilation. Adrenals: No adrenal nodule. Kidneys and ureters: There is again seen a 2 mm obstructing stone at the left ureterovesicular juncti on, as on series 3 image 115 and on series 6 image 39. There is associated moderate left-sided hydrou reter and moderate to prominent left-sided hydronephrosis. No definite additional kidney stones can be seen on either side. Bowel and peritoneum: No bowel distension. No pathologic free fluid. Lymph nodes: No central or retroperitoneal adenopathy. Vessels: No infrarenal aortic aneurysm. PELVIS Reproductive organs: This patient is status post hysterectomy. No adnexal masses can be seen. Bladder: Unremarkable. Lymph nodes: Unremarkable. Bones: No aggressive osseous abnormality. Lumbosacral fixation hardware is seen. Other: No significant ventral or inguinal hernia. IMPRESSION: 2 mm obstructing stone again seen at the left ureterovesicular junction, which has migrated slightly distally compared to the prior. There can again be seen associated left-sided hydroureter and hydronephrosis, which appear worse than on the prior. No additional stones are seen. Additional findings: Lumbosacral fixation hardware Hysterectomy Reviewed by: Glen Lynn MD on 09/05/2022 11:13 AM KATHARINE Approved by: Glen Lynn MD on 09/05/2022 11:13 AM KATHARINE Station ID: [id number]
[2022-09-05] MEDS ORDERED: cefTRIAXone 1 GM VIAL IVP STA (12:41)
[2022-09-05 13:05] VITALS: BP 135/94
== END 2022-09-05 13:15 | disposition home or self-care (01) ==
LOC: ED 10:45
DX: N13.2 Hydronephrosis with renal and ureteral calculous obstruction (principal); N30.00 Acute cystitis without hematuria; I48.91 Unspecified atrial fibrillation; J44.9 Chronic obstructive pulmonary disease, unspecified; F17.200 Nicotine dependence, unspecified, uncomplicated; Z79.899 Other long term (current) drug therapy; Z87.442 Personal history of urinary calculi
CPT/HCPCS: 36415; 74176; 80053; 81001; 81025; 83690; 85025; 87086; 96374; 96375; 99284; 99285; J1170; 81003

== ENCOUNTER 2023-04-05 15:24 | Emergency (ER) | payer OTHER ==
[2023-04-05 16:08] LABS: BASOPHILS # (AUTO) 0.1 10^3/uL (0.0-0.1); EOSINOPHILS # (AUTO) 0.1 10^3/uL (0.0-0.7); HCT - HEMATOCRIT 43.7 % (37.0-47.0); HGB - HEMOGLOBIN 14.1 g/dL (12.0-16.0); LYMPHOCYTES % (AUTO) 39.4 %; MEAN CORPUSCULAR HEMOGLOBIN 27.5 pg (27.0-31.0); MEAN CORPUSCULAR HGB CONC 32.3 g/dL (32.0-36.0); MEAN CORPUSCULAR VOLUME 85.2 fL (81.0-99.0); MONOCYTES # (AUTO) 0.3 10^3/uL (0.0-1.0); MONOCYTES % (AUTO) 5.4 %; NEUTROPHILS # (AUTO) 2.6 10^3/uL (1.5-6.6); PLT - PLATELET COUNT 254 10^3/uL (130-450); RED BLOOD COUNT 5.13 10^6/uL (4.20-5.40); RED CELL DISTRIBUTION WIDTH 12.8 % (12.0-15.0)
[2023-04-05 16:20] LABS: ALBUMIN 4.5 g/dL (3.2-5.5); ALBUMIN/GLOBULIN RATIO 2.1 (1.0-2.2); BILIRUBIN,TOTAL 0.3 mg/dL (0.2-1.0); CALCIUM 9.7 mg/dL (8.5-10.3); CREATININE 0.7 mg/dL (0.6-1.3); POTASSIUM 3.8 mmol/L (3.5-4.5); TOTAL PROTEIN 6.6 g/dL (6.4-8.9)
[2023-04-05] MEDS ORDERED: HYDROmorphone 1 MG/ML CARPUJECT IVP STA ×2 (16:59→17:56)
--- NOTE | 2023-04-05 17:01 | ED Physician Documentation ---
PD HPI CHEST PAIN - Stated complaint Stated Complaint: RT SIDE ABD PX/DIFFICULTY BREATHING - Chief complaint Chief Complaint: Abd Pain - History obtained from History obtained from: Patient - Additional information Additional information: 47-year-old woman with history of malnutrition, anorexia, tobacco abuse, kidney stones, A-fib, COPD, hysterectomy, oophorectomy developed right low anterior rib pain last night without trauma that progressed overnight. It hurts when she takes a deep breath. It is not associated with shortness of breath. No pedal edema, calf pain, recent travel. No history of DVT or PE. No worsening with food. 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 : Kidney stones, Other HEENT: None Psych: Depression, Anxiety, Eating disorder, Other Musculoskeletal: Chronic back pain, Other Derm: Eczema - Past Surgical History Past Surgical History: Yes General: Appendectomy, Other Ortho: Spine surgery /CHOPPING MACHINE OPERATOR: Hysterectomy, Oophrectomy HEENT: Other - Present Medications Home Medications: Ambulatory Orders Medication Instructions Recorded Confirmed traMADol [Ultram] 50 mg PO Q4-6H PRN #14 tablet 08/28/18 04/05/23 Cyclobenzaprine [Flexeril] 10 mg ORAL Q8H PRN 11/19/20 04/05/23 LORazepam [Ativan] 0.5 mg PO BID 11/19/20 04/05/23 HYDROcod/ACETAM 5/325 [Etlan 5/325] 1 - 2 tab PO Q6H PRN #15 tablet 04/05/23 Omeprazole Magnesium 40 mg PO DAILY 04/05/23 04/05/23 Sumatriptan Inj [Imitrex Inj] 6 mg SUBQ ONCE 04/05/23 04/05/23 Sumatriptan Succinate [Imitrex] 50 mg PO DAILY PRN 04/05/23 04/05/23 - Allergies Allergies/Adverse Reactions: Allergies Allergy/AdvReac Type Severity Reaction Status Date / Time bee pollen Allergy Anaphylaxis Verified 04/05/23 15:51 gabapentin Allergy Itching Verified 04/05/23 15:51 oxycodone HCl * Allergy Itching Verified 04/05/23 15:51 [From Percocet] - Social History Does the pt smoke?: Yes Smoking Status: Current every day smoker Does the pt drink ETOH?: No Does the pt have substance abuse?: Yes - Immunizations Immunizations are current?: Yes - POLST Patient has POLST: No PD ED PE NORMAL - Vitals Vital signs reviewed: Yes - General General: Alert and oriented X 3, Other (uncomfortable d/t pain) - HEENT HEENT: PERRL, EOMI - Neck Neck: Supple, no meningeal sign, No bony TTP - Cardiac Cardiac: RRR, No murmur - Respiratory Respiratory: No respiratory distress, Clear bilaterally, Other (Tender right low anterior ribs, anterior axillary line, reproducible with palpation) - Abdomen Abdomen: Non tender - Extremities Extremities: No edema, No calf tenderness / cord - Neuro Neuro: Alert and oriented X 3, Normal speech Results - Vitals Vitals: Vital Signs - 24 hr 04/05/23 04/05/23 15:46 17:42 Temperature 37.3 C 36 C L Heart Rate 95 80 Respiratory 15 16 Rate Blood Pressure 139/82 H 144/100 H O2 Saturation 99 98 Oxygen O2 Source Room air - Labs Labs: Laboratory Tests 04/05/23 04/05/23 04/05/23 16:01 16:01 17:07 WBC 5.0 RBC 5.13 Hgb 14.1 Hct 43.7 MCV 85.2 MCH 27.5 MCHC 32.3 RDW 12.8 Plt Count 254 MPV 9.0 Neut # (Auto) 2.6 Lymph # (Auto) 2.0 [place] # (Auto) 0.3 Eos # (Auto) 0.1 Baso # (Auto) 0.1 Absolute Nucleated RBC 0.00 Nucleated RBC % 0.0 D-Dimer < 200.0 L Sodium 139 Potassium 3.8 Chloride 104 Carbon Dioxide 30 Anion Gap 5.0 L BUN 14 Creatinine 0.7 Estimated GFR (MDRD) 89 Glucose 91 Calcium 9.7 Total Bilirubin 0.3 AST 12 ALT 10 Alkaline Phosphatase 99 Total Protein 6.6 Albumin 4.5 Globulin 2.1 Albumin/Globulin Ratio 2.1 Lipase 12 Urine Color Urine Clarity Urine pH Ur Specific [place] Urine Protein Urine Glucose (UA) Urine Ketones Urine Occult Blood Urine Nitrite Urine Bilirubin Urine Urobilinogen Ur Leukocyte Esterase Ur Microscopic Review Urine Culture Comments Urine HCG, Qual 04/05/23 17:50 WBC RBC Hgb Hct MCV MCH MCHC RDW Plt Count MPV Neut # (Auto) Lymph # (Auto) [place] # (Auto) Eos # (Auto) Baso # (Auto) Absolute Nucleated RBC Nucleated RBC % D-Dimer Sodium Potassium Chloride Carbon Dioxide Anion Gap BUN Creatinine Estimated GFR (MDRD) Glucose Calcium Total Bilirubin AST ALT Alkaline Phosphatase Total Protein Albumin Globulin Albumin/Globulin Ratio Lipase Urine Color YELLOW Urine Clarity CLEAR Urine pH 7.0 Ur Specific [place] 1.020 Urine Protein NEGATIVE Urine Glucose (UA) NEGATIVE Urine Ketones NEGATIVE Urine Occult Blood NEGATIVE Urine Nitrite NEGATIVE Urine Bilirubin NEGATIVE Urine Urobilinogen 0.2 (NORMAL) Ur Leukocyte Esterase NEGATIVE Ur Microscopic Review NOT INDICATED Urine Culture Comments NOT INDICATED Urine HCG, Qual NEGATIVE PD Medical Decision Making - ED course ED course: She presents with low anterior right rib pain. Initially stated there was no trauma. She was tender over the ribs suggestive of a musculoskeletal etiology and not tender over the gallbladder. She was not short of breath and had no symptoms of DVT, but a D-dimer was still checked and negative ruling out thromboembolic disease. She has no respiratory complaints and a chest x-ray was negative showing no pneumonia. Labs were unremarkable with normal CBC, CMP, and urinalysis. She was treated with divided doses of IV hydromorphone with improvement in her pain. She initially stated there was no trauma but then recalled over the weekend that her dog jerked her while running for the cat and she was holding the leash in the right hand which is probably when the pain started. Departure - Departure Disposition: 01 Home, Self Care Clinical Impression: Rib pain on right side Condition: Good Record reviewed to determine appropriate education?: Yes Instructions: ED Strain Chest Wall Prescriptions: HYDROcod/ACETAM 5/325 [Etlan 5/325] 1 - 2 tab PO Q6H PRN #15 tablet PRN Reason: Pain Comments: I sent your prescription electronically to [facility] in [place]. As discussed by process of illumination and the recollection of what happened with the dog and the leash, I suspect this is musculoskeletal rib pain. Heat and gentle stretching. Return for new or worsening symptoms. Follow-up with your primary care physician in about 3 to 5 days if not improving. I am prescribing a short course of narcotic pain medication for you. These are potentially dangerous and addictive medications that should be used carefully. These medications may constipate you. Take an szyf-vsn-splgrwy stool softener (docusate) twice daily with plenty of water while taking these medications. If you go 24 hours without a bowel movement, take ibla-smc-gvahvxs miralax, per package instructions. Do not drink or drive while taking these medications. If you received narcotic or sedating medications while in the emergency department, do not drive for 24 hours. Store this medication in a safe, secure place and out of reach of children. It is a violation of federal law to give or sell this medication to another person or to use in a manner other than prescribed. The ED will not refill narcotic prescriptions, including prescriptions lost or stolen. To dispose of unwanted medications: 1. [facility] provides a [facility] box for medication in pill form only (no liquids) 8:00 am to 4:30 p.m. Tuesday-Tuesday in the lobby of the [facility], [address] [place] [address]. Empty pills into ziplock bag before disposal. Call [phone] for information. 2.[employer] is a free service available to all [facility] residents. Go to [email or web address] Note that many narcotic pain relievers also contain Tylenol/acetaminophen. Please ensure that your total dose of acetaminophen from all sources does not exceed 3 g (3000 mg) per day. Forms: PCP List
[2023-04-05 17:44] VITALS: O2SAT 98
--- NOTE | 2023-04-05 17:49 | XRAY Report ---
PROCEDURE: Chest 1 View X-Ray INDICATIONS: cp TECHNIQUE: One view of the chest was acquired. COMPARISON: None. FINDINGS: Surgical changes and devices: None. Lungs and pleura: No pleural effusions or pneumothorax. Lungs are clear. Mediastinum: Mediastinal contours appear normal. Heart size is normal. Bones and chest wall: No suspicious bony lesions. Rightward curvature of the thoracic spine. Cheriton ing soft tissues appear unremarkable. IMPRESSION: No acute cardiopulmonary process. Reviewed by: Ramón Read on 04/05/2023 4:47 PM [facility] Approved by: Ramón Read on 04/05/2023 4:47 PM [facility] Station ID: [id number]
[2023-04-05] MEDS ORDERED: KETOROLAC 15 MG/ML VIAL IVP STA (17:56)
[2023-04-05 18:08] LABS: BILIRUBIN,URINE NEGATIVE (NEGATIVE); GLUCOSE, URINE (UA) NEGATIVE (NEGATIVE); KETONES,URINE (UA) NEGATIVE (NEGATIVE); LEUKOCYTE ESTERASE, URINE NEGATIVE (NEGATIVE); NITRITE,URINE NEGATIVE (NEGATIVE); OCCULT BLOOD,URINE NEGATIVE (NEGATIVE); PROTEIN,URINE NEGATIVE (NEGATIVE); UROBILINOGEN,URINE 0.2 (NORMAL) E.U./dL (NORMAL)
[2023-04-05 18:10] LABS: CLARITY,URINE CLEAR (CLEAR); HCG UR QUAL NEGATIVE
[2023-04-05] MEDS ORDERED: HYDROcod/ACET 5/325 Prepack 4 PO STA (18:53)
[2023-04-05 18:55] VITALS: BP 178/102
== END 2023-04-05 19:10 | disposition home or self-care (01) ==
LOC: ED 15:24
DX: R10.31 Right lower quadrant pain (principal); I48.91 Unspecified atrial fibrillation; Z72.0 Tobacco use
CPT/HCPCS: 36415; 71045; 80053; 81003; 81025; 83690; 85025; 85379; 96374; 96375; 96376; 99284; J1170; 81001; 87086

== ENCOUNTER 2023-04-09 11:29 | Emergency (ER) | payer OTHER ==
[2023-04-09 11:59] VITALS: O2SAT 100
[2023-04-09] MEDS ORDERED: HYDROmorphone 1 MG/ML CARPUJECT IM STA (12:48)
--- NOTE | 2023-04-09 12:54 | ED Physician Documentation ---
History of Present Illness - Stated complaint Stated Complaint: RIB/ABD PX - Chief complaint Chief Complaint: Abd Pain - Additonal information Additional information: 47-year-old female presents emergency department for evaluation of now 4 days generalized body aches low-grade temperature some mild cough and congestion. She was seen here on 05 April for right lower rib pain that was associated with her dog pulling sharply when running after a cat. The workup in the ER on the included flu labs and a D-dimer which were all essentially negative. Chest x-ray was negative. Patient has past medical history most significant for malnutrition, anorexia, tobaccoism, kidney stones, A-fib, COPD, previous hysterectomy, oophorectomy. On presentation she is alert and well-appearing. She holds her right lower ribs. Saturation is 100% on room air. 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 : Kidney stones, Other HEENT: None Psych: Depression, Anxiety, Eating disorder, Other Musculoskeletal: Chronic back pain, Other Derm: Eczema - Past Surgical History Past Surgical History: Yes General: Appendectomy, Other Ortho: Spine surgery /DENTAL SERVICES DIRECTOR: Hysterectomy, Oophrectomy HEENT: Other - Present Medications Home Medications: Ambulatory Orders Medication Instructions Recorded Confirmed traMADol [Ultram] 50 mg PO Q4-6H PRN #14 tablet 08/28/18 04/05/23 Cyclobenzaprine [Flexeril] 10 mg ORAL Q8H PRN 11/19/20 04/05/23 LORazepam [Ativan] 0.5 mg PO BID 11/19/20 04/05/23 HYDROcod/ACETAM 5/325 [[place] 5/325] 1 - 2 tab PO Q6H PRN #15 tablet 04/05/23 Omeprazole Magnesium 40 mg PO DAILY 04/05/23 04/05/23 Sumatriptan Inj [Imitrex Inj] 6 mg SUBQ ONCE 04/05/23 04/05/23 Sumatriptan Succinate [Imitrex] 50 mg PO DAILY PRN 04/05/23 04/05/23 - Allergies Allergies/Adverse Reactions: Allergies Allergy/AdvReac Type Severity Reaction Status Date / Time bee pollen Allergy Anaphylaxis Verified 04/09/23 11:54 gabapentin Allergy Itching Verified 04/09/23 11:54 oxycodone HCl * Allergy Itching Verified 04/09/23 11:54 [From Percocet] - Social History Does the pt smoke?: Yes Smoking Status: Current every day smoker Does the pt drink ETOH?: No Does the pt have substance abuse?: Yes - Immunizations Immunizations are current?: Yes - POLST Patient has POLST: No PD ED PE NORMAL - General General: Alert and oriented X 3. No: No acute distress (holding right lower ribs) - Neck Neck: Supple, no meningeal sign - Cardiac Cardiac: RRR, No murmur - Respiratory Respiratory: No respiratory distress - Abdomen Abdomen: Non tender (no RUQ tenderness) - Derm Derm: Normal color, Warm and dry, No rash - Extremities Extremities: No deformity - Neuro Neuro: Alert and oriented X 3, welt maker 2-12 intact Eye Opening: Spontaneous Motor: Obeys Commands Verbal: Oriented GCS Score: 15 Results - Vitals Vitals: Vital Signs - 24 hr 04/09/23 11:49 Temperature 36.0 C L Heart Rate 108 H Respiratory 20 Rate Blood Pressure 146/87 H O2 Saturation 100 Oxygen O2 Source Room air - Labs Labs: Laboratory Tests 04/09/23 12:52 Nasal Adenovirus (PCR) NOT DETECTED Nasal B. parapertussis DNA (PCR) NOT DETECTED Nasal Coronavir 229E PCR NOT DETECTED Nasal Coronavir HKU1 PCR NOT DETECTED Nasal Coronavir NL63 PCR NOT DETECTED Nasal Coronavir OC43 PCR NOT DETECTED Nasal Enterovir/Rhinovir PCR NOT DETECTED Nasal Influenza B PCR NOT DETECTED Nasal Influenza A PCR NOT DETECTED Nasal Parainfluen 1 PCR NOT DETECTED Nasal Parainfluen 2 PCR NOT DETECTED Nasal Parainfluen 3 PCR NOT DETECTED Nasal Parainfluen 4 PCR NOT DETECTED Nasal RSV (PCR) NOT DETECTED Nasal B.pertussis DNA PCR NOT DETECTED Nasal C.pneumoniae (PCR) NOT DETECTED [place] Human Metapneumo PCR NOT DETECTED Nasal M.pneumoniae (PCR) NOT DETECTED Nasal SARS-CoV-2 (PCR) NOT DETECTED PD Medical Decision Making - ED course Complexity details: reviewed results, re-evaluated patient, d/w patient ED course: Well-appearing 47-year-old female presents emergency department for evaluation of 4 days generalized fatigue, body aches myalgias mild congestion and subjective fevers at home. No abdominal pain or headache. Seen in this ER 4 days ago for right lower rib pain sustained after she was jerked sharply while her dog chased after. Here in the emergency department she does appear to be at her usual health as I have seen her on a number of occasions. Vital signs show no fever. Mild tachycardia with a heart rate of 108 which is near her baseline. She was normotensive. Room air sats 100%. Cardiopulmonary auscultation was otherwise unremarkable. She does have reproducible tenderness on the right lower rib margins and states that this has not changed over the last several days. There is no right upper quadrant tenderness. ER evaluation on 05 April revealed unremarkable labs including a D-dimer. I suspected that the new symptoms including generalized fatigue and myalgias was likely a viral illness, however her respiratory PCR was negative. Patient was administered 1 mg of Dilaudid IM with marked improvement in her symptoms. Though there was negative PCR I think her symptoms are still most consistent with a virus. There was no worrisome abdominal tenderness elicited and as such I do not feel that she needs advanced imaging given recent labs. There is nothing to suggest pneumothorax. D-dimer was not elevated several days ago and there is low suspicion for PE on PERC and Wells score and thus deferred CT imaging. Patient is encouraged to follow closely with her primary care doctor this Tuesday as already scheduled. Otherwise usual emergent return precautions for worsening symptoms was discussed. Departure - Departure Disposition: 01 Home, Self Care Clinical Impression: Myalgia, Rib pain on right side Fatigue Qualifiers: Fatigue type: unspecified Qualified Code(s): R53.83 - Other fatigue Condition: Stable Comments: you are seen today in the emergency department because for the last several days you have had body aches fatigue chills sweats and subjective fevers. The viral panel today was negative in the emergency department but your symptoms still likely speak to a viral illness. In general I would recommend that you get plenty of rest and drink lots of fluids. It is important you continue to follow-up with your primary doctor this week as already scheduled for discussion of pain management related to your ribs. Return to the ER if you develop any uncontrolled abdominal pain with vomiting, have fevers higher than 102, difficulty breathing or severe shortness of air. Forms: PCP List
[2023-04-09 13:48] LABS: B. PARAPERTUSSIS- RESP PCR PAN NOT DETECTED; B. PERTUSSIS- RESP PCR PANEL NOT DETECTED; C. PNEUMONIAE- RESP PCR PANEL NOT DETECTED; CORONAVIRUS 229E-RESP PCR NOT DETECTED; CORONAVIRUS HKU1-RESP PCR NOT DETECTED; CORONAVIRUS NL63-RESP PCR NOT DETECTED; CORONAVIRUS OC43-RESP PCR NOT DETECTED; HUMAN METAPNEUMOVIRUS NOT DETECTED; INFLUENZA A- RESP PCR PANEL NOT DETECTED; INFLUENZA B - RESP PCR PANEL NOT DETECTED; M. PNEUMONIAE- RESP PCR PANEL NOT DETECTED; PARAINFLUENZA VIRUS 1 NOT DETECTED; PARAINFLUENZA VIRUS 2 NOT DETECTED; PARAINFLUENZA VIRUS 3 NOT DETECTED; PARAINFLUENZA VIRUS 4 NOT DETECTED; RHINOVIRUS/ENTEROVIRUS NOT DETECTED; RSV- RESP PCR PANEL NOT DETECTED; SARS-CoV-2 -RESP PCR PANEL NOT DETECTED
[2023-04-09 14:10] VITALS: BP 138/88
== END 2023-04-09 14:01 | disposition home or self-care (01) ==
LOC: ED 11:29
DX: M79.10 Myalgia, unspecified site (principal); R07.81 Pleurodynia; R53.83 Other fatigue; I48.91 Unspecified atrial fibrillation; J44.9 Chronic obstructive pulmonary disease, unspecified; F17.200 Nicotine dependence, unspecified, uncomplicated; Z11.52 Encounter for screening for COVID-19; Z79.899 Other long term (current) drug therapy
CPT/HCPCS: 87633; 96372; 99283; J1170

== ENCOUNTER 2023-04-29 18:55 | Emergency (ER) | payer OTHER ==
--- NOTE | 2023-04-29 20:03 | ED Physician Documentation ---
History of Present Illness - Stated complaint Stated Complaint: RT SIDE RIB PX - Chief complaint Chief Complaint: Trauma Ch/Bk - History obtained from History obtained from: Patient - Additonal information Additional information: HPI from patient. Patient complains of right-sided rib pain, or ribs, onset approximately 4 to 5 days ago. She says she has had similar pains, episodically over the past few years. The pain is distinctly worse with movement, palpation. It is unclear if there was any injury associated with this pain; patient says she was pulled by her dog recently but she also says this is not an uncommon occurrence and she sometimes attributes this pain (in the past) to such events. She also says she recently was pulled by her dog hard enough to cause her to fall, and this was ar ound the time the pain started; however, she is not able to confidently recall whether the pain started before or after this fall. She denies shortness of breath, cough, fever. 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 : Kidney stones, Other HEENT: None Psych: Depression, Anxiety, Eating disorder, Other Musculoskeletal: Chronic back pain, Other Derm: Eczema - Past Surgical History Past Surgical History: Yes General: Appendectomy, Other Ortho: Spine surgery /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: Hysterectomy, Oophrectomy HEENT: Other - Present Medications Home Medications: Ambulatory Orders Medication Instructions Recorded Confirmed traMADol [Ultram] 50 mg PO Q4-6H PRN #14 tablet 08/28/18 04/05/23 Cyclobenzaprine [Flexeril] 10 mg ORAL Q8H PRN 11/19/20 04/05/23 LORazepam [Ativan] 0.5 mg PO BID 11/19/20 04/05/23 HYDROcod/ACETAM 5/325 [[place] 5/325] 1 - 2 tab PO Q6H PRN #15 tablet 04/05/23 Omeprazole Magnesium 40 mg PO DAILY 04/05/23 04/05/23 Sumatriptan Inj [Imitrex Inj] 6 mg SUBQ ONCE 04/05/23 04/05/23 Sumatriptan Succinate [Imitrex] 50 mg PO DAILY PRN 04/05/23 04/05/23 HYDROcod/ACETAM 5/325 [[place] 5/325] 1 - 2 tablet PO Q6H PRN #10 tablet 04/29/23 - Allergies Allergies/Adverse Reactions: Allergies Allergy/AdvReac Type Severity Reaction Status Date / Time bee pollen Allergy Anaphylaxis Verified 04/29/23 19:00 gabapentin Allergy Itching Verified 04/29/23 19:00 oxycodone HCl * Allergy Itching Verified 04/29/23 19:00 [From Percocet] - Social History Does the pt smoke?: Yes Smoking Status: Current every day smoker Does the pt drink ETOH?: No Does the pt have substance abuse?: Yes - Immunizations Immunizations are current?: Yes - POLST Patient has POLST: No PD ED PE NORMAL - Vitals Vital signs reviewed: Yes - General General: Alert and oriented X 3, No acute distress, Well developed/nourished - Respiratory Respiratory: No respiratory distress, Clear bilaterally - Abdomen Abdomen: Soft, Non tender - Back Back: No spinal TTP, Other (mild TTP right posterolateral lower ribs. no echymosis. ) - Derm Derm: No rash Results - Vitals Vitals: Vital Signs - 24 hr 04/29/23 19:01 Temperature 36.8 C Heart Rate 100 Respiratory 16 Rate Blood Pressure 112/63 O2 Saturation 100 Oxygen O2 Source Room air - Rads (name of study) ribs with PA chest RT Relevant Findings:: Prelim report reviewed, EMP independent interpretation of test (I reviewed these images and my interpretation is: no evidence of acute injury including no evidence of rib fracture, pneumothorax), See rad report PD Medical Decision Making - ED course Complexity details: reviewed results, considered differential, d/w patient ED course: Patient has an extensive number of visits to this emergency department (over 70 visits to [facility] ED since 2011 per [facility] records). Tonight, she is complaining of right-sided chest wall pain, possibly due to injury (see HPI). There are no concerning findings on the x-rays of the right ribs with PA chest. Given exacerbation with movement and palpation, and suspicion that there was an injury correlating temporally with the pain, no further testing indicated at this time. She is given a take-home pack of vicodin and I have electronically submitted a prescription for a short course of Vicodin to the [facility] pharmacy in [place]. Return precautions are discussed. Departure - Departure Disposition: 01 Home, Self Care Clinical Impression: Contusion of chest wall Qualifiers: Encounter type: initial encounter Laterality: right Qualified Code(s): S20.211A - Contusion of right front wall of thorax, initial encounter Condition: Good Instructions: ED Contusion Chest Wall Follow-Up: LM PUGH DO [Primary Care Provider] - Prescriptions: HYDROcod/ACETAM 5/325 [[place] 5/325] 1 - 2 tablet PO Q6H PRN #10 tablet PRN Reason: Pain Comments: There is no evidence of acute injury on tonight's chest x-rays; specifically, no evidence of any rib fractures or injury to the lung. Your discomfort should gradually improve over the next few days. I have electronically submitted a prescription for Vicodin (narcotic/opiate pain medication) to the [facility] pharmacy in [place]. I am prescribing a short course of narcotic pain medication for you. These are potentially dangerous and addictive medications that should be used carefully. These medications may constipate you. Take an wtyb-knq-rzngmic stool softener (docusate) twice daily with plenty of water while taking these medications. If you go 24 hours without a bowel movement, take kqjl-sqf-blqllxm miralax, per package instructions. Do not drink or drive while taking these medications. If you received narcotic or sedating medications while in the emergency department, do not drive for 24 hours. Store this medication in a safe, secure place and out of reach of children. It is a violation of federal law to give or sell this medication to another person or to use in a manner other than prescribed. The ED will not refill narcotic prescriptions, including prescriptions lost or stolen. To dispose of unwanted medications: 1. [facility] at [address] in [place] has a medication drop box. They accept prescription medications (in pill form) Tuesday through Tuesday 9:00 a.m. to 5:00 p.m. 2. [facility] accepts prescription medications (in pill form only) for disposal year round. Call for more information. 3. Contact the [facility] for the next [facility] sponsored prescription drug collection event. , [phone], or [phone]; Forms: PCP List
--- NOTE | 2023-04-29 20:20 | XRAY Report ---
PROCEDURE: Ribs w/PA Chest RT INDICATIONS: fall, r rib pain TECHNIQUE: 3 views of the right ribs were acquired, along with a single view chest. COMPARISON: Chest x-ray 04/05/2023 FINDINGS: Surgical changes and devices: None. Bones and chest wall: No fractures or dislocations. No suspicious bony lesions. Overlying soft tis sues appear unremarkable. Lungs and pleura: No pleural effusions or pneumothorax. Lungs appear clear. Mediastinum: Mediastinal contours appear normal. Heart size is normal. IMPRESSION: No visualized acute fracture or dislocation. However, occult injury cannot be excluded. Recommend jackie rt interval imaging follow-up in 7-10 days as clinically indicated for additional evaluation. Reviewed by: Freda Burgess MD on 04/29/2023 8:19 PM PST Approved by: Freda Burgess MD on 04/29/2023 8:19 PM PST Station ID: [id number]
[2023-04-29] MEDS ORDERED: HYDROcod/ACET 5/325 Prepack 4 PO STA (20:26)
[2023-04-29 20:46] VITALS: BP 95/52; O2SAT 98
== END 2023-04-29 20:42 | disposition home or self-care (01) ==
LOC: ED 18:55
DX: S20.211A Contusion of right front wall of thorax, initial encounter (principal); W19.XXXA Unspecified fall, initial encounter; Y93.K9 Activity, other involving animal care; F17.200 Nicotine dependence, unspecified, uncomplicated
CPT/HCPCS: 99283; 99284

== ENCOUNTER 2023-05-03 07:59 | Emergency (ER) | payer OTHER ==
--- NOTE | 2023-05-03 08:29 | ED Physician Documentation ---
History of Present Illness - Stated complaint Stated Complaint: CHEST PX,SWELLING LEGS - Chief complaint Chief Complaint: Cardiac - Additonal information Additional information: Patient 47-year-old female presenting to the emergency department with chief complaints chest pain, leg swelling, leg burning. Reports symptoms ongoing since . Describes the chest pain as a pressure that she states is "like an elephant on my chest. Some associated shortness of breath with exertion. Also reports that she feels as though her legs are swelling and she has had burning in her legs with physical activity. Was seen here 04/29/2023 for right-sided chest and rib pain. At that time had negative x-ray. Was prescribed a course narcotics. Has past medical history significant for COPD, atrial fibrillation, hiatal hernia. Current medications include clonidine, lorazepam Omeprazole, sumatriptan, Flexeril. 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 : Kidney stones, Other HEENT: None Psych: Depression, Anxiety, Eating disorder, Other Musculoskeletal: Chronic back pain, Other Derm: Eczema - Past Surgical History Past Surgical History: Yes General: Appendectomy, Other Ortho: Spine surgery /ATTORNEY LAWYER: Hysterectomy, Oophrectomy HEENT: Other - Present Medications Home Medications: Ambulatory Orders Medication Instructions Recorded Confirmed Cyclobenzaprine [Flexeril] 10 mg ORAL Q8H PRN 11/19/20 05/03/23 LORazepam [Ativan] 0.5 mg PO BID PRN 11/19/20 05/03/23 Omeprazole Magnesium 40 mg PO DAILY 04/05/23 05/03/23 Sumatriptan Inj [Imitrex Inj] 6 mg SUBQ ONCE 04/05/23 05/03/23 Sumatriptan Succinate [Imitrex] 50 mg PO DAILY PRN 04/05/23 05/03/23 Propranolol HCl [Propranolol HCl 120 mg ORAL DAILY 05/03/23 05/03/23 ER] - Allergies Allergies/Adverse Reactions: Allergies Allergy/AdvReac Type Severity Reaction Status Date / Time bee pollen Allergy Anaphylaxis Verified 05/03/23 08:05 gabapentin Allergy Itching Verified 05/03/23 08:05 oxycodone HCl * Allergy Itching Verified 05/03/23 08:05 [From Percocet] - Social History Does the pt smoke?: Yes Smoking Status: Current every day smoker Does the pt drink ETOH?: No Does the pt have substance abuse?: Yes - Immunizations Immunizations are current?: Yes - POLST Patient has POLST: No PD ED PE NORMAL - Vitals Vital signs reviewed: Yes (Tachycardic) - General General: Alert and oriented X 3, No acute distress, Well developed/nourished - HEENT HEENT: Atraumatic, PERRL, EOMI, Ears normal, Moist mucous membranes - Neck Neck: Supple, no meningeal sign - Cardiac Cardiac: RRR - Respiratory Respiratory: No respiratory distress, Clear bilaterally - Abdomen Abdomen: Normal bowel sounds, Non tender - Female Female : Deferred - Rectal Rectal: Deferred - Back Back: No CVA TTP - Derm Derm: Normal color - Extremities Extremities: No deformity - Neuro Neuro: Alert and oriented X 3, rn paralegal 2-12 intact, No motor deficit, Normal speech Results - Vitals Vitals: Vital Signs - 24 hr 05/03/23 05/03/23 08:05 08:35 Temperature 36.7 C Heart Rate 108 H 91 Respiratory 18 14 Rate Blood Pressure 117/81 H 106/73 O2 Saturation 100 99 Oxygen O2 Source Room air - EKG (time done) 0820 EKG releavant findings:: EKG personally interpreted by author of this note. Relevant findings are: Sinus rhythm with rate 104 bpm. Normal axis. Normal HI, QRS, QTc intervals. No ST segment elevations or T wave inversions. - Labs Labs: Laboratory Tests 05/03/23 05/03/23 05/03/23 08:25 08:25 08:25 WBC 5.1 RBC 4.97 Hgb 13.5 Hct 43.1 MCV 86.7 MCH 27.2 MCHC 31.3 L RDW 13.0 Plt Count 198 MPV 9.1 Neut # (Auto) 2.5 Lymph # (Auto) 2.1 [place] # (Auto) 0.3 Eos # (Auto) 0.2 Baso # (Auto) 0.0 Absolute Nucleated RBC 0.00 Nucleated RBC % 0.0 D-Dimer < 200.0 L Sodium 141 Potassium 3.8 Chloride 103 Carbon Dioxide 29 Anion Gap 9.0 BUN 21 H Creatinine 0.7 Estimated GFR (MDRD) 89 Glucose 95 Calcium 9.6 Total Bilirubin 0.3 AST 11 ALT 11 Alkaline Phosphatase 107 Troponin I High Sens 3.4 B-Natriuretic Peptide Total Protein 6.7 Albumin 4.5 Globulin 2.2 Albumin/Globulin Ratio 2.0 Lipase 26 05/03/23 08:25 WBC RBC Hgb Hct MCV MCH MCHC RDW Plt Count MPV Neut # (Auto) Lymph # (Auto) [place] # (Auto) Eos # (Auto) Baso # (Auto) Absolute Nucleated RBC Nucleated RBC % D-Dimer Sodium Potassium Chloride Carbon Dioxide Anion Gap BUN Creatinine Estimated GFR (MDRD) Glucose Calcium Total Bilirubin AST ALT Alkaline Phosphatase Troponin I High Sens B-Natriuretic Peptide 36 Total Protein Albumin Globulin Albumin/Globulin Ratio Lipase PD Medical Decision Making - ED course Complexity details: reviewed results, re-evaluated patient, d/w patient, d/w diet consultant ED course: Patient 47-year-old female presenting to the emergency department chest pressure and leg swelling. Afebrile, hemodynamic stable arrival to the emergency department. She does have a past medical history significant for COPD, atrial fibrillation, hiatal hernia. Additionally she has been seen in the emergency department multiple times over the course the last several months for pain related complaints and was seen here on the of this month, 4 days ago, for right- sided rib pain. Her EKG in the emergency department today did not show any indications of cardiac ischemia or dysrhythmia. Her high-sensitivity troponin was negative. Her D-dimer was negative. Her beta natruretic peptide was negative. I did not appreciate any indications of lower extremity swelling on my exam and she had no calf tenderness that would otherwise be concerning for acute DVT. Her chest x-ray also had stable findings unchanged from baseline. On reevaluation she was found to be resting comfortably and in no acute distress. At this time will discharge for follow-up with primary care. Clear return precautions given. Departure - Departure Disposition: 01 Home, Self Care Clinical Impression: Chest pressure Instructions: ED Chest Pain Atypical Unkn Cause Comments: Thank you for allowing us to care for you today at [facility]. Today in the emergency department you were evaluated for any possible dangerous or life-threatening medical condition. All the testing performed in the emergency department today including her chest x-ray, EKG and blood work were all very reassuring. As we discussed I would like you to follow-up with your primary care doctor soon as possible concerning your ER visit. If it anytime you have new or worsening symptoms please not hesitate to return. Forms: PCP List
[2023-05-03 08:36] VITALS: BP 106/73; O2SAT 99
[2023-05-03 08:37] LABS: BASOPHILS % (AUTO) 0.8 %; EOSINOPHILS # (AUTO) 0.2 10^3/uL (0.0-0.7); EOSINOPHILS % (AUTO) 3.7 %; HCT - HEMATOCRIT 43.1 % (37.0-47.0); HGB - HEMOGLOBIN 13.5 g/dL (12.0-16.0); LYMPHOCYTES # (AUTO) 2.1 10^3/uL (1.5-3.5); LYMPHOCYTES % (AUTO) 40.3 %; MEAN CORPUSCULAR HEMOGLOBIN 27.2 pg (27.0-31.0); MEAN CORPUSCULAR HGB CONC 31.3 g/dL (32.0-36.0); MEAN CORPUSCULAR VOLUME 86.7 fL (81.0-99.0); MEAN PLATELET VOLUME 9.1 fL (7.9-10.8); MONOCYTES # (AUTO) 0.3 10^3/uL (0.0-1.0); MONOCYTES % (AUTO) 6.5 %; NEUTROPHILS # (AUTO) 2.5 10^3/uL (1.5-6.6); NEUTROPHILS % (AUTO) 48.5 %; PLT - PLATELET COUNT 198 10^3/uL (130-450); RED BLOOD COUNT 4.97 10^6/uL (4.20-5.40); WHITE BLOOD COUNT 5.1 x10^3/uL (4.8-10.8)
[2023-05-03] MEDS ORDERED: KETOROLAC 30 MG/ML VIAL IVP STA (08:38)
--- NOTE | 2023-05-03 08:41 | XRAY Report ---
PROCEDURE: Chest 1V INDICATIONS: Chest Pain TECHNIQUE: One view of the chest was acquired. COMPARISON: 04/29/2023. FINDINGS: Surgical changes and devices: None. Lungs and pleura: No pleural effusions or pneumothorax. Lungs are clear. Biapical pleural-parench ymal scarring with cephalad retraction of the pulmonary jabier bilaterally suggesting likely sequelae o f chronic granulomatous disease. Mediastinum: Mediastinal contours appear normal. Heart size is normal. Bones and chest wall: No suspicious bony lesions. Overlying soft tissues appear unremarkable. IMPRESSION: Stable findings. No acute cardiopulmonary process. Reviewed by: Jimmie Peralta MD on 05/03/2023 8:40 AM PST Approved by: Jimmie Peralta MD on 05/03/2023 8:40 AM PST Station ID: [id number]
[2023-05-03 08:49] LABS: ALBUMIN 4.5 g/dL (3.2-5.5); BILIRUBIN,TOTAL 0.3 mg/dL (0.2-1.0); CALCIUM 9.6 mg/dL (8.5-10.3); CREATININE 0.7 mg/dL (0.6-1.3); POTASSIUM 3.8 mmol/L (3.5-4.5); TOTAL PROTEIN 6.7 g/dL (6.4-8.9)
[2023-05-03 08:52] LABS: TROPONIN I HIGH SENSITIVITY 3.4 ng/L (2.3-14.8)
== END 2023-05-03 09:17 | disposition home or self-care (01) ==
LOC: ED 07:59
DX: R07.89 Other chest pain (principal); F17.200 Nicotine dependence, unspecified, uncomplicated
CPT/HCPCS: 36415; 80053; 83690; 83880; 84484; 85025; 85379; 93005; 96374; 99283

== ENCOUNTER 2023-08-07 01:37 | Emergency (ER) | payer BC, OTHER ==
[2023-08-07] MEDS: KETOROLAC 30 MG/ML VIAL IM STA (02:19)
[2023-08-07 02:32] LABS: BILIRUBIN,URINE NEGATIVE (NEGATIVE); GLUCOSE, URINE (UA) NEGATIVE (NEGATIVE); KETONES,URINE (UA) NEGATIVE (NEGATIVE); LEUKOCYTE ESTERASE, URINE NEGATIVE (NEGATIVE); NITRITE,URINE NEGATIVE (NEGATIVE); OCCULT BLOOD,URINE TRACE-INTA (NEGATIVE); PH,URINE 5.5 PH (5.0-7.5); PROTEIN,URINE NEGATIVE (NEGATIVE); UROBILINOGEN,URINE 0.2 (NORMAL) E.U./dL (NORMAL)
[2023-08-07 02:50] LABS: BASOPHILS # (AUTO) 0.1 10^3/uL (0.0-0.1); EOSINOPHILS # (AUTO) 0.2 10^3/uL (0.0-0.7); EOSINOPHILS % (AUTO) 2.2 %; HGB - HEMOGLOBIN 13.1 g/dL (12.0-16.0); LYMPHOCYTES # (AUTO) 2.3 10^3/uL (1.5-3.5); LYMPHOCYTES % (AUTO) 27.9 %; MEAN CORPUSCULAR HEMOGLOBIN 26.6 pg (27.0-31.0); MEAN CORPUSCULAR VOLUME 83.3 fL (81.0-99.0); MEAN PLATELET VOLUME 8.8 fL (7.9-10.8); MONOCYTES # (AUTO) 0.4 10^3/uL (0.0-1.0); MONOCYTES % (AUTO) 4.3 %; NEUTROPHILS # (AUTO) 5.4 10^3/uL (1.5-6.6); NEUTROPHILS % (AUTO) 64.4 %; PLT - PLATELET COUNT 256 10^3/uL (130-450); RED BLOOD COUNT 4.92 10^6/uL (4.20-5.40); WHITE BLOOD COUNT 8.3 x10^3/uL (4.8-10.8)
[2023-08-07] MEDS: HYDROcod/ACETAM 5/325 MG TABLET PO STA (03:05)
[2023-08-07 03:23] LABS: CLARITY,URINE CLEAR (CLEAR)
[2023-08-07 03:24] LABS: ALBUMIN 4.4 g/dL (3.2-5.5); ALBUMIN/GLOBULIN RATIO 1.8 (1.0-2.2); BILIRUBIN,TOTAL 0.4 mg/dL (0.2-1.0); CALCIUM 9.5 mg/dL (8.5-10.3); CREATININE 0.8 mg/dL (0.6-1.3); POTASSIUM 3.8 mmol/L (3.5-4.5); TOTAL PROTEIN 6.8 g/dL (6.4-8.9)
[2023-08-07 03:59] VITALS: BP 128/80; O2SAT 99
[2023-08-07] MEDS: HYDROcod/ACET 5/325 Prepack 4 PO STA (04:01)
--- NOTE | 2023-08-07 08:28 | ED Physician Documentation ---
PD HPI ABD PAIN - Stated complaint Stated Complaint: RT SIDE PX - Chief complaint Chief Complaint: Abd Pain - History obtained from History obtained from: Patient - Additional information Additional information: HPI from patient. Patient c/o RUQ pain x 1 week. There was no inciting event and there are no exacerbating nor ameliorating factors. The pain waxes and wanes, at times completely resolving. There is no change with PO intake, palpation, position. She denies h/o similar symptoms. She presents at this time due to the pain having become more persistent and progressively severe during the day today.Denies fever, n/v/diarrhea Review of Systems Constitutional: denies: Fever Cardiac: reports: Reviewed and negative Respiratory: reports: Reviewed and negative GI: reports: Abdominal Pain. denies: Nausea, Vomiting, Constipation, Diarrhea PD PAST MEDICAL HISTORY - Past Medical History Past Medical History: Yes Cardiovascular: Atrial fibrillation Respiratory: COPD Neuro: None Endocrine/Autoimmune: None GI: Hiatal hernia PANMAN: None : Kidney stones, Other HEENT: None Psych: Depression, Anxiety, Eating disorder, Other Musculoskeletal: Chronic back pain, Other Derm: Eczema - Past Surgical History Past Surgical History: Yes General: Appendectomy, Other Ortho: Spine surgery /PANMAN: Hysterectomy, Oophrectomy HEENT: Other - Present Medications Home Medications: Ambulatory Orders Medication Instructions Recorded Confirmed Cyclobenzaprine [Flexeril] 10 mg ORAL Q8H PRN 11/19/20 08/07/23 LORazepam [Ativan] 0.5 mg PO BID PRN 11/19/20 08/07/23 Omeprazole Magnesium 40 mg PO DAILY 04/05/23 08/07/23 Sumatriptan Inj [Imitrex Inj] 6 mg SUBQ ONCE 04/05/23 08/07/23 Sumatriptan Succinate [Imitrex] 50 mg PO DAILY PRN 04/05/23 08/07/23 Propranolol HCl [Propranolol HCl 120 mg ORAL DAILY 05/03/23 08/07/23 ER] DULoxetine [Cymbalta] 30 mg PO DAILY 08/07/23 08/07/23 - Allergies Allergies/Adverse Reactions: Allergies Allergy/AdvReac Type Severity Reaction Status Date / Time bee pollen Allergy Anaphylaxis Verified 08/07/23 01:49 gabapentin Allergy Itching Verified 08/07/23 01:49 oxycodone HCl * Allergy Itching Verified 08/07/23 01:49 [From Percocet] - Social History Does the pt smoke?: Yes Smoking Status: Current every day smoker Does the pt drink ETOH?: No Does the pt have substance abuse?: Yes - Immunizations Immunizations are current?: Yes - POLST Patient has POLST: No PD ED PE NORMAL - Vitals Vital signs reviewed: Yes - General General: Alert and oriented X 3, No acute distress, Well developed/nourished - HEENT HEENT: Moist mucous membranes - Neck Neck: Supple, no meningeal sign - Cardiac Cardiac: RRR, No murmur - Respiratory Respiratory: No respiratory distress, Clear bilaterally - Abdomen Abdomen: Soft, Non tender, Non distended - Derm Derm: Normal color, Warm and dry, No rash Results - Vitals Vitals: Oxygen O2 Source Room air - Labs Labs: Laboratory Tests 08/07/23 08/07/23 08/07/23 02:12 02:22 02:42 WBC 8.3 RBC 4.92 Hgb 13.1 Hct 41.0 MCV 83.3 MCH 26.6 L MCHC 32.0 RDW 13.0 Plt Count 256 MPV 8.8 Neut # (Auto) 5.4 Lymph # (Auto) 2.3 [place] # (Auto) 0.4 Eos # (Auto) 0.2 Baso # (Auto) 0.1 Absolute Nucleated RBC 0.00 Nucleated RBC % 0.0 Sodium 137 Potassium 3.8 Chloride 103 Carbon Dioxide 27 Anion Gap 7.0 BUN 19 Creatinine 0.8 Estimated GFR (MDRD) 76 L Glucose 89 Calcium 9.5 Total Bilirubin 0.4 AST 12 ALT 10 Alkaline Phosphatase 90 Total Protein 6.8 Albumin 4.4 Globulin 2.4 Albumin/Globulin Ratio 1.8 Lipase 10 L Urine Color YELLOW Urine Clarity CLEAR Urine pH 5.5 Ur Specific [place] >=1.030 H Urine Protein NEGATIVE Urine Glucose (UA) NEGATIVE Urine Ketones NEGATIVE Urine Occult Blood TRACE-INTA Urine Nitrite NEGATIVE Urine Bilirubin NEGATIVE Urine Urobilinogen 0.2 (NORMAL) Ur Leukocyte Esterase NEGATIVE Ur Microscopic Review NOT INDICATED Urine Culture Comments NOT INDICATED PD Medical Decision Making - ED course Complexity details: reviewed results, re-evaluated patient, considered differential, d/w patient ED course: Unremarkable CBC (normal except low MCH), normal ER abdominal panel (except GFR 76, low lipase). Normal UA except concentrated (SG >1.030). On bedside US, I have difficulty visualizing the gallbladder but certainly no visualization of distended GB nor findings to support/suggest gallstones. The RUQ US exam is not associated with any tenderness/pain per patient report. Patient reports good relief of her pain after IM toradol, PO vicodin. She is giv en take-home pack of vicodin but no prescriptions are provided for this patient due to frequency of ED visits and lack of findings to indicate need for opiate/narcotic analgesic(s). Results reviewed with patient. Etiology of symptoms is not apparent at this time. Advised to seek follow up with PCP, next available appointment. Departure - Departure Disposition: 01 Home, Self Care Clinical Impression: Abdominal pain Qualifiers: Abdominal location: right upper quadrant Qualified Code(s): R10.11 - Right upper quadrant pain Condition: Good Instructions: ED Abdominal Pain Female Non-Specific Abdominal Pain Follow-Up: KENDELL PUGH, [Primary Care Provider] - Comments: There were no concerning nor diagnostic findings on tonight's test, include urinalysis and blood tests. The cause of your abdominal pain is not apparent at this time. Follow-up with your primary care provider, next available appointment, for reevaluation. Forms: PCP List Discharge Date/Time: 08/07/23 04:09
== END 2023-08-07 04:09 | disposition home or self-care (01) ==
LOC: ED 01:37
DX: R10.11 Right upper quadrant pain (principal); I48.91 Unspecified atrial fibrillation; J44.9 Chronic obstructive pulmonary disease, unspecified; F17.200 Nicotine dependence, unspecified, uncomplicated; Z79.899 Other long term (current) drug therapy
CPT/HCPCS: 36415; 80053; 81003; 83690; 85025; 96374; 99283; A9270; 81001; 87086

== ENCOUNTER 2023-08-14 09:14 | Emergency (ER) | payer BC, OTHER ==
[2023-08-14 09:38] VITALS: O2SAT 100
--- NOTE | 2023-08-14 09:42 | ED Physician Documentation ---
PD HPI CHEST PAIN - Stated complaint Stated Complaint: CHEST/ARM PX,SOB - Chief complaint Chief Complaint: Cardiac - History obtained from History obtained from: Patient - History of Present Illness Timing - onset: Yesterday Timing - onset during: Rest, Light activity Timing - duration: Days (1) Timing - details: Gradual onset, Still present, Waxing and waning, Still present in ED Quality: Aching, Sharp, Pain Location: Left chest (to side of sternum) Radiation: Back Improved by: Rest Worsened by: Inspiration, Movement, Palpation Associated symptoms: No: Shortness of air, Nausea, Feeling faint / dizzy, Cough Similar symptoms before: Diagnosis (episodes of costchondritis in the past. No prior ACS/IN.) Review of Systems Constitutional: denies: Fever Nose: denies: Rhinorrhea / runny nose, Congestion Throat: denies: Sore throat Respiratory: denies: Cough Neurologic: reports: Generalized weakness. 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: None : Kidney stones, Other HEENT: None Psych: Depression, Anxiety, Eating disorder, Other Musculoskeletal: Chronic back pain, Other Derm: Eczema - Past Surgical History Past Surgical History: Yes General: Appendectomy, Other Ortho: Spine surgery /MEDICAL ASSISTANT SUPERVISOR: Hysterectomy, Oophrectomy HEENT: Other - Present Medications Home Medications: Ambulatory Orders Medication Instructions Recorded Confirmed Cyclobenzaprine [Flexeril] 10 mg ORAL Q8H PRN 11/19/20 08/07/23 LORazepam [Ativan] 0.5 mg PO BID PRN 11/19/20 08/07/23 Omeprazole Magnesium 40 mg PO DAILY 04/05/23 08/07/23 Sumatriptan Inj [Imitrex Inj] 6 mg SUBQ ONCE 04/05/23 08/07/23 Sumatriptan Succinate [Imitrex] 50 mg PO DAILY PRN 04/05/23 08/07/23 Propranolol HCl [Propranolol HCl 120 mg ORAL DAILY 05/03/23 08/07/23 ER] DULoxetine [Cymbalta] 30 mg PO DAILY 08/07/23 08/07/23 HYDROcod/ACETAM 5/325 [[place] 5/325] 1 ea PO Q6H PRN #14 tablet 08/14/23 Meloxicam [Mobic] 7.5 mg PO BID 10 Days #20 tablet 08/14/23 - Allergies Allergies/Adverse Reactions: Allergies Allergy/AdvReac Type Severity Reaction Status Date / Time bee pollen Allergy Anaphylaxis Verified 08/14/23 09:25 gabapentin Allergy Itching Verified 08/14/23 09:25 oxycodone HCl * Allergy Itching Verified 08/14/23 09:25 [From Percocet] - Social History Does the pt smoke?: Yes Smoking Status: Current every day smoker Does the pt drink ETOH?: No Does the pt have substance abuse?: Yes - Immunizations Immunizations are current?: Yes - POLST Patient has POLST: No PD ED PE NORMAL - Vitals Vital signs reviewed: Yes - General General: Alert and oriented X 3, Well developed/nourished (has a reasonable BMI compared to history (was very thin in past as I remember).), Other (appears uncomfortable and also anxious about the pain. ) - Neck Neck: Supple, no meningeal sign, No adenopathy - Cardiac Cardiac: RRR, No murmur - Respiratory Respiratory: No respiratory distress, Clear bilaterally, Other (distinct chestwall tenderness left parasternal cartilage without redness/sores/rash. ) - Abdomen Abdomen: Soft, Non tender - Derm Derm: Normal color, Warm and dry - Extremities Extremities: No edema, No calf tenderness / cord - Neuro Neuro: Alert and oriented X 3, No motor deficit, No sensory deficit, Normal speech Results - Vitals Vitals: Vital Signs - 24 hr 08/14/23 08/14/23 11:20 12:20 Heart Rate 85 82 Respiratory 16 16 Rate Blood Pressure 131/87 H 118/76 O2 Saturation 100 100 Oxygen O2 Source Room air - EKG (time done) 09:23 EKG releavant findings:: EKG personally interpreted by author of this note. Relevant findings are: Rate: Rate (enter#) (88) Rhythm: NSR [place]: Normal Intervals: Normal [place] QRS: Normal Ischemia: Normal ST segments. No: ST elevation c/w ischemia, ST depression - Labs Labs: Laboratory Tests 08/14/23 08/14/23 08/14/23 10:38 10:38 10:38 WBC 6.9 RBC 4.80 Hgb 12.7 Hct 42.2 MCV 87.9 MCH 26.5 L MCHC 30.1 L RDW 12.9 Plt Count 185 MPV 9.7 Neut # (Auto) 4.5 Lymph # (Auto) 1.9 [place] # (Auto) 0.4 Eos # (Auto) 0.1 Baso # (Auto) 0.0 Absolute Nucleated RBC 0.00 Nucleated RBC % 0.0 Sodium 139 Potassium 4.0 Chloride 104 Carbon Dioxide 29 Anion Gap 6.0 BUN 25 H Creatinine 0.7 Estimated GFR (MDRD) 89 Glucose 91 Calcium 9.3 Magnesium 1.8 Total Bilirubin 0.2 AST 10 ALT 8 L Alkaline Phosphatase 98 Troponin I High Sens < 2.3 L Total Protein 6.2 L Albumin 4.2 Globulin 2.0 L Albumin/Globulin Ratio 2.1 Lipase 12 - Rads (name of study) chest xray Relevant Findings:: Prelim report reviewed (no acute process), EMP independent interpretation of test PD Medical Decision Making - ED course Complexity details: reviewed results (CXR, ECG, and labs including troponin are normal. ), re-evaluated patient (improved with Toradol and Dilaudid. She states she can get rebound migraines from pain meds, so given dose of Decadron to try to reduce/prevent that. ), considered differential (seems musculoskeletal with tenderness left parasternal chest wall. No rash nor sores. No injury. No recent URI. ), d/w patient Departure - Departure Disposition: 01 Home, Self Care Clinical Impression: Chest pain, Costochondral chest pain, Ruled out for myocardial infarction Condition: Stable Record reviewed to determine appropriate education?: Yes Instructions: ED Chest Pain Atypical Unkn Cause Follow-Up: KENDELL PUGH DO [Primary Care Provider] - Prescriptions: Meloxicam [Mobic] 7.5 mg PO BID 10 Days #20 tablet HYDROcod/ACETAM 5/325 [[place] 5/325] 1 ea PO Q6H PRN #14 tablet PRN Reason: Pain Comments: Your EKG, chest x-ray, blood tests are normal. No signs of heart or lung cause for your symptoms. I presume it is more inflammation of the chest wall or cartilage or even the surface of the lung. Common treatment for these would be anti-inflammatories with addition of Tylenol for pain and hydrocodone/acetaminophen if needed for worse pain at times. I would expect improvement in the pain over the next few days. Follow-up with your primary care or return if other symptoms develop to suggest alternate diagnoses such as increasing cough or fever chills, skin rash etc. I sent your prescriptions to your preferred pharmacy. I am prescribing a short course of narcotic pain medication for you. These are potentially dangerous and addictive medications that should be used carefully. These medications may constipate you. Take an rwzq-mby-duzxwle stool softener such as docusate twice daily with plenty of water while taking these medications. If you go 24 hours without a bowel movement, take [id number]-vwr-[id number] MiraLAX, per package instructions. Do not drink or drive while taking these medications. If you received narcotic or sedating medications while in the emergency department do not drive for 24 hours. Store this medication in a safe, secure place and out of reach of children. It is a violation of federal law to give or sell this medication to another person or to use in a manner other than prescribed. The ED will not refill narcotic prescriptions, including prescriptions lost or stolen. You can dispose of unwanted medications at the [facility]'s office or at several pharmacies such as [facility]. Forms: PCP List Discharge Date/Time: 08/14/23 12:24
--- NOTE | 2023-08-14 10:16 | XRAY Report ---
PROCEDURE: Chest 1V INDICATIONS: Chest pain TECHNIQUE: One view of the chest was acquired. COMPARISON: None FINDINGS: Surgical changes and devices: None. Lungs and pleura: No pleural effusions or pneumothorax. Lungs are clear. Pulmonary hyperinflation Mediastinum: Mediastinal contours appear normal. Heart size is normal. Atherosclerotic vascular jagdish cification noted in the aortic arch. Bones and chest wall: No suspicious bony lesions. Overlying soft tissues appear unremarkable. IMPRESSION: No acute cardiopulmonary findings Reviewed by: Shaquille Cota MD on 08/14/2023 9:15 AM KATHARINE Approved by: Shaquille Cota MD on 08/14/2023 9:15 AM [place] Station ID: [id number]
[2023-08-14 10:43] LABS: BASOPHILS % (AUTO) 0.6 %; EOSINOPHILS # (AUTO) 0.1 10^3/uL (0.0-0.7); EOSINOPHILS % (AUTO) 1.7 %; HCT - HEMATOCRIT 42.2 % (37.0-47.0); HGB - HEMOGLOBIN 12.7 g/dL (12.0-16.0); LYMPHOCYTES # (AUTO) 1.9 10^3/uL (1.5-3.5); LYMPHOCYTES % (AUTO) 26.9 %; MEAN CORPUSCULAR HEMOGLOBIN 26.5 pg (27.0-31.0); MEAN CORPUSCULAR HGB CONC 30.1 g/dL (32.0-36.0); MEAN CORPUSCULAR VOLUME 87.9 fL (81.0-99.0); MEAN PLATELET VOLUME 9.7 fL (7.9-10.8); MONOCYTES # (AUTO) 0.4 10^3/uL (0.0-1.0); MONOCYTES % (AUTO) 5.7 %; NEUTROPHILS # (AUTO) 4.5 10^3/uL (1.5-6.6); NEUTROPHILS % (AUTO) 64.8 %; PLT - PLATELET COUNT 185 10^3/uL (130-450); RED CELL DISTRIBUTION WIDTH 12.9 % (12.0-15.0); WHITE BLOOD COUNT 6.9 x10^3/uL (4.8-10.8)
[2023-08-14] MEDS: KETOROLAC 15 MG/ML VIAL IVP STA (10:50)
[2023-08-14] MEDS: DEXAMETHASONE 10 MG/ML VIAL IVP STA (10:50)
[2023-08-14] MEDS: HYDROmorphone 1 MG/ML CARPUJECT IVP STA ×2 (10:51→12:10)
[2023-08-14 11:05] LABS: TROPONIN I HIGH SENSITIVITY < 2.3 ng/L (2.3-14.8)
[2023-08-14 11:06] LABS: ALBUMIN 4.2 g/dL (3.2-5.5); ALBUMIN/GLOBULIN RATIO 2.1 (1.0-2.2); ALKALINE PHOSPHATASE 98 IU/L (42-121); ALT ALANINE AMINOTRANSFERASE 8 IU/L (10-60); AST ASPARTATE AMINOTRANSFERASE 10 IU/L (10-42); BILIRUBIN,TOTAL 0.2 mg/dL (0.2-1.0); BUN - BLOOD UREA NITROGEN 25 mg/dL (6-20); CALCIUM 9.3 mg/dL (8.5-10.3); CARBON DIOXIDE - CO2 29 mmol/L (21-32); CHLORIDE 104 mmol/L (101-111); CREATININE 0.7 mg/dL (0.6-1.3); GFR - MDRD 89 (>89); GLUCOSE 91 mg/dL (74-104); LIPASE 12 U/L (11-82); SODIUM 139 mmol/L (135-145); TOTAL PROTEIN 6.2 g/dL (6.4-8.9)
[2023-08-14] MEDS: ACETAMINOPHEN 500 MG TABLET PO STA (12:09)
[2023-08-14 12:24] VITALS: BP 118/76
== END 2023-08-14 12:24 | disposition home or self-care (01) ==
LOC: ED 09:14
DX: R07.1 Chest pain on breathing (principal); I48.91 Unspecified atrial fibrillation; F17.200 Nicotine dependence, unspecified, uncomplicated
CPT/HCPCS: 36415; 71045; 80053; 83690; 83735; 84484; 85025; 93005; 96374; 96375; 96376; 99284; 99285; A9270; J1170

== ENCOUNTER 2023-08-16 10:29 | Emergency (ER) | payer BC, OTHER ==
[2023-08-16 10:49] VITALS: O2SAT 100
--- NOTE | 2023-08-16 11:33 | XRAY Report ---
PROCEDURE: Chest 1V INDICATIONS: Chest pain TECHNIQUE: One view of the chest was acquired. COMPARISON: Chest x-ray 08/14/2023 FINDINGS: Surgical changes and devices: None. Lungs and pleura: No pleural effusions or pneumothorax. Lungs are clear. Lungs are hyperexpanded s uggestive of COPD. Mediastinum: Mediastinal contours appear normal. Heart size is normal. Bones and chest wall: No suspicious bony lesions. Overlying soft tissues appear unremarkable. IMPRESSION: No acute cardiopulmonary process. Reviewed by: Freda Burgess MD on 08/16/2023 11:32 AM PDT Approved by: Freda Burgess MD on 08/16/2023 11:32 AM PDT Station ID: [id number]
--- NOTE | 2023-08-16 11:40 | ED Physician Documentation ---
PD HPI URI - Stated complaint Stated Complaint: CHEST PX,SOA,SORE ARM - Chief complaint Chief Complaint: Cardiac - History obtained from History obtained from: Patient - History of Present Illness Timing - onset: How many weeks ago (1) Timing duration: Weeks (1) Timing details: Gradual onset Pain level max: 5 Pain level now: 5 Associated symptoms: Nasal congestion, Rhinorrhea, Dry cough, Chest pain (only with coughing and movement). No: Fever, Chills Contributing factors: Sick contact, COPD / asthma Improves by: Rest Worsened by: Activity, Breathing Recently seen: Not recently seen - Additional information Additional information: 48-year-old female presents to the emergency department with chest pain with coughing and deep breathing. Was seen here 2 days ago for same. She states that the pain is still present. No fevers. No chills. She does smoke. Has albuterol at home but has not been using it. No sweating, nausea, vomiting. No change with exertion. 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 : Kidney stones, Other HEENT: None Psych: Depression, Anxiety, Eating disorder, Other Musculoskeletal: Chronic back pain, Other Derm: Eczema - Past Surgical History Past Surgical History: Yes General: Appendectomy, Other Ortho: Spine surgery /CUSTOM FRAMING SPECIALIST: Hysterectomy, Oophrectomy HEENT: Other - Present Medications Home Medications: Ambulatory Orders Medication Instructions Recorded Confirmed Cyclobenzaprine [Flexeril] 10 mg ORAL Q8H PRN 11/19/20 08/16/23 LORazepam [Ativan] 0.5 mg PO BID PRN 11/19/20 08/16/23 Omeprazole Magnesium 40 mg PO DAILY 04/05/23 08/16/23 Sumatriptan Inj [Imitrex Inj] 6 mg SUBQ ONCE 04/05/23 08/16/23 Sumatriptan Succinate [Imitrex] 50 mg PO DAILY PRN 04/05/23 08/16/23 Propranolol HCl [Propranolol HCl 120 mg ORAL DAILY 05/03/23 08/16/23 ER] DULoxetine [Cymbalta] 30 mg PO DAILY 08/07/23 08/16/23 HYDROcod/ACETAM 5/325 [[place] 5/325] 1 ea PO Q6H PRN #14 tablet 08/14/23 08/16/23 Meloxicam [Mobic] 7.5 mg PO BID 10 Days #20 tablet 08/14/23 08/16/23 Penicillin V Potassium 500 mg PO Q6HR #40 tablet 08/16/23 predniSONE [Deltasone] 40 mg PO DAILY #10 tablet 08/16/23 - Allergies Allergies/Adverse Reactions: Allergies Allergy/AdvReac Type Severity Reaction Status Date / Time bee pollen Allergy Anaphylaxis Verified 08/16/23 10:35 gabapentin Allergy Itching Verified 08/16/23 10:35 oxycodone HCl * Allergy Itching Verified 08/16/23 10:35 [From Percocet] - Social History Does the pt smoke?: Yes Smoking Status: Current every day smoker Does the pt drink ETOH?: No Does the pt have substance abuse?: Yes - Immunizations Immunizations are current?: Yes - POLST Patient has POLST: No PD ED PE NORMAL - Vitals Vital signs reviewed: Yes - General General: Alert and oriented X 3, No acute distress - HEENT HEENT: PERRL, Moist mucous membranes - Neck Neck: Supple, no meningeal sign - Cardiac Cardiac: RRR, Strong equal pulses - Respiratory Respiratory: No respiratory distress, Other (Mild diminished breath sounds bilaterally) - Abdomen Abdomen: Soft, Non tender, Non distended - Derm Derm: Warm and dry - Extremities Extremities: No edema, No calf tenderness / cord - Neuro Neuro: Alert and oriented X 3 - Psych Psych: Normal mood, Normal affect Results - Vitals Vitals: Vital Signs - 24 hr 08/16/23 08/16/23 08/16/23 10:35 11:59 12:15 Temperature 36.9 C Heart Rate 95 94 88 Respiratory 18 18 16 Rate Blood Pressure 127/81 H 148/88 H O2 Saturation 100 100 Oxygen O2 Source Room air - EKG (time done) 1047 EKG releavant findings:: EKG personally interpreted by author of this note. Relevant findings are: Rate: Rate (enter#) (83) Rhythm: NSR [place]: Normal Intervals: Normal [place] QRS: Normal Ischemia: Normal ST segments - Labs Labs: Laboratory Tests 08/16/23 11:57 Nasal Adenovirus (PCR) NOT DETECTED Nasal B. parapertussis DNA (PCR) NOT DETECTED Nasal Coronavir 229E PCR NOT DETECTED Nasal Coronavir HKU1 PCR NOT DETECTED Nasal Coronavir NL63 PCR NOT DETECTED Nasal Coronavir OC43 PCR NOT DETECTED Nasal Enterovir/Rhinovir PCR NOT DETECTED Nasal Influenza B PCR NOT DETECTED Nasal Influenza A PCR NOT DETECTED Nasal Parainfluen 1 PCR NOT DETECTED Nasal Parainfluen 2 PCR NOT DETECTED Nasal Parainfluen 3 PCR NOT DETECTED Nasal Parainfluen 4 PCR NOT DETECTED Nasal RSV (PCR) NOT DETECTED Nasal B.pertussis DNA PCR NOT DETECTED Nasal C.pneumoniae (PCR) NOT DETECTED [place] Human Metapneumo PCR NOT DETECTED Nasal M.pneumoniae (PCR) NOT DETECTED Nasal SARS-CoV-2 (PCR) NOT DETECTED - Rads (name of study) cxr Relevant Findings:: Final report received, See rad report PD Medical Decision Making - ED course Complexity details: reviewed results, re-evaluated patient, considered differential, d/w patient ED course: Patient is well-appearing, nontoxic. Afebrile. Chest x-ray does not show any acute abnormalities. Respiratory PCR is negative. Her symptoms have not significantly changed since 2 days ago, normal EKG, troponins at that time. History is not consistent with ACS. No evidence of PE. Patient feels better with pain medication and steroids. We will add steroids to her breathing treatments at home. Will have her follow-up with her PCP for further care. Patient also is complaining of right lower dental pain, appears to have an infected tooth but no drainable abscess. Sees her dentist tomorrow. Will start her on antibiotics for this. No stridor. No changes to her normal phonation. Patient counseled regarding signs and symptoms for which I believe and urgent re-evaluation would be necessary. Patient with good understanding of and agreement to plan and is comfortable going home at this time This document was made in part using voice recognition software. While efforts are made to proofread this document, sound alike and grammatical errors may occur. Departure - Departure Disposition: 01 Home, Self Care Clinical Impression: Dental caries, Viral URI, Chest wall pain Condition: Good Instructions: ED Tooth Pain, ED Viral Syndrome Follow-Up: your,dentist tomorrow [Other] Prescriptions: Penicillin V Potassium 500 mg PO Q6HR #40 tablet predniSONE [Deltasone] 40 mg PO DAILY #10 tablet Comments: Please continue your current medications at home. Please follow-up with your doctor for further care. Please follow-up with your dentist tomorrow as scheduled. Please take all antibiotics until gone. Your [facility] were sent to [facility] in [place]. Forms: PCP List Discharge Date/Time: 08/16/23 13:48
[2023-08-16] MEDS: IPRATROPIUM/ALBUTEROL 3 ML NEB INH STA (11:57)
[2023-08-16] MEDS: predniSONE 20 MG TABLET PO STA (12:10)
[2023-08-16] MEDS: KETOROLAC 30 MG/ML VIAL IM STA (12:11)
[2023-08-16] MEDS: HYDROmorphone 1 MG/ML CARPUJECT IM STA ×2 (12:13→13:41)
[2023-08-16 12:18] VITALS: BP 148/88
[2023-08-16 13:02] LABS: B. PARAPERTUSSIS- RESP PCR PAN NOT DETECTED; B. PERTUSSIS- RESP PCR PANEL NOT DETECTED; C. PNEUMONIAE- RESP PCR PANEL NOT DETECTED; CORONAVIRUS 229E-RESP PCR NOT DETECTED; CORONAVIRUS HKU1-RESP PCR NOT DETECTED; CORONAVIRUS NL63-RESP PCR NOT DETECTED; CORONAVIRUS OC43-RESP PCR NOT DETECTED; HUMAN METAPNEUMOVIRUS NOT DETECTED; INFLUENZA A- RESP PCR PANEL NOT DETECTED; INFLUENZA B - RESP PCR PANEL NOT DETECTED; M. PNEUMONIAE- RESP PCR PANEL NOT DETECTED; PARAINFLUENZA VIRUS 1 NOT DETECTED; PARAINFLUENZA VIRUS 2 NOT DETECTED; PARAINFLUENZA VIRUS 3 NOT DETECTED; PARAINFLUENZA VIRUS 4 NOT DETECTED; RHINOVIRUS/ENTEROVIRUS NOT DETECTED; RSV- RESP PCR PANEL NOT DETECTED; SARS-CoV-2 -RESP PCR PANEL NOT DETECTED
[2023-08-16] MEDS: PENICILLIN VK 250 MG TABLET PO STA (13:41)
== END 2023-08-16 13:48 | disposition home or self-care (01) ==
LOC: ED 10:29
DX: J06.9 Acute upper respiratory infection, unspecified (principal); K02.9 Dental caries, unspecified; R07.89 Other chest pain; I48.91 Unspecified atrial fibrillation; J44.9 Chronic obstructive pulmonary disease, unspecified; F17.200 Nicotine dependence, unspecified, uncomplicated; Z79.899 Other long term (current) drug therapy
CPT/HCPCS: 71045; 87633; 93005; 94640; 96374; 96375; 96376; 99284; A9270; J1170; J7512; 80053; 83690; 84484; 85025

== ENCOUNTER 2023-10-03 12:47 | Emergency (ER) | payer BC, OTHER ==
[2023-10-03 13:25] LABS: BASOPHILS # (AUTO) 0.1 10^3/uL (0.0-0.1); BASOPHILS % (AUTO) 0.6 %; EOSINOPHILS # (AUTO) 0.1 10^3/uL (0.0-0.7); EOSINOPHILS % (AUTO) 1.5 %; HCT - HEMATOCRIT 43.6 % (37.0-47.0); HGB - HEMOGLOBIN 13.3 g/dL (12.0-16.0); LYMPHOCYTES # (AUTO) 1.8 10^3/uL (1.5-3.5); LYMPHOCYTES % (AUTO) 21.4 %; MEAN CORPUSCULAR HEMOGLOBIN 25.9 pg (27.0-31.0); MEAN CORPUSCULAR HGB CONC 30.5 g/dL (32.0-36.0); MEAN CORPUSCULAR VOLUME 84.8 fL (81.0-99.0); MEAN PLATELET VOLUME 8.9 fL (7.9-10.8); MONOCYTES # (AUTO) 0.4 10^3/uL (0.0-1.0); MONOCYTES % (AUTO) 4.3 %; NEUTROPHILS # (AUTO) 5.9 10^3/uL (1.5-6.6); PLT - PLATELET COUNT 244 10^3/uL (130-450); RED BLOOD COUNT 5.14 10^6/uL (4.20-5.40); RED CELL DISTRIBUTION WIDTH 13.2 % (12.0-15.0); WHITE BLOOD COUNT 8.2 x10^3/uL (4.8-10.8)
[2023-10-03 13:44] LABS: ALBUMIN 3.9 g/dL (3.2-5.5); BILIRUBIN,TOTAL 0.2 mg/dL (0.2-1.0); CALCIUM 9.3 mg/dL (8.5-10.3); CREATININE 0.7 mg/dL (0.6-1.3); POTASSIUM 3.8 mmol/L (3.5-4.5); TOTAL PROTEIN 5.9 g/dL (6.4-8.9)
--- NOTE | 2023-10-03 13:49 | XRAY Report ---
PROCEDURE: Chest 1V INDICATIONS: Chest pain TECHNIQUE: One view of the chest was acquired. COMPARISON: 08/16/2023. FINDINGS: Surgical changes and devices: None. Lungs and pleura: No pleural effusions or pneumothorax. Lungs are clear. Mediastinum: Mediastinal contours appear normal. Heart size is normal. Bones and chest wall: No suspicious bony lesions. Overlying soft tissues appear unremarkable. IMPRESSION: No acute cardiopulmonary process. Reviewed by: Rahul [place] MD on 10/03/2023 1:48 PM PDT Approved by: Rahul [place] MD on 10/03/2023 1:48 PM PDT Station ID: [id number]
[2023-10-03 13:54] LABS: TROPONIN I HIGH SENSITIVITY 42.6 ng/L (2.3-14.8)
[2023-10-03] MEDS ORDERED: iohexoL-300 100 ML VIAL ONE (14:32)
--- NOTE | 2023-10-03 14:39 | ED Physician Documentation ---
PD HPI CHEST PAIN - Stated complaint Stated Complaint: CP/THROAT PX - Chief complaint Chief Complaint: Cardiac - Additional information Additional information: 48-year-old female with history of COPD, arrhythmia, kidney stones, appendectomy presents emergency department for chest pain. Patient says that her sore throat started around Tuesday and she is having a harder time taking deep breath and feels like she is having difficulty expanding her lungs. She is expressing generalized malaise fatigue feeling feeling rundown. She feels pain in her lungs/chest anytime she takes a deep breath or has any exertional activity. Denies dizziness no nausea or vomiting. 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 : Kidney stones, Other HEENT: None Psych: Depression, Anxiety, Eating disorder, Other Musculoskeletal: Chronic back pain, Other Derm: Eczema - Past Surgical History Past Surgical History: Yes General: Appendectomy, Other Ortho: Spine surgery /WIRE COMMUNICATIONS ENGINEER: Hysterectomy, Oophrectomy HEENT: Other - Present Medications Home Medications: Ambulatory Orders Medication Instructions Recorded Confirmed Cyclobenzaprine [Flexeril] 10 mg ORAL Q8H PRN 11/19/20 08/16/23 LORazepam [Ativan] 0.5 mg PO BID PRN 11/19/20 08/16/23 Omeprazole Magnesium 40 mg PO DAILY 04/05/23 08/16/23 Sumatriptan Inj [Imitrex Inj] 6 mg SUBQ ONCE 04/05/23 08/16/23 Sumatriptan Succinate [Imitrex] 50 mg PO DAILY PRN 04/05/23 08/16/23 Propranolol HCl [Propranolol HCl 120 mg ORAL DAILY 05/03/23 08/16/23 ER] DULoxetine [Cymbalta] 30 mg PO DAILY 08/07/23 08/16/23 HYDROcod/ACETAM 5/325 [[place] 5/325] 1 ea PO Q6H PRN #14 tablet 08/14/23 08/16/23 Meloxicam [Mobic] 7.5 mg PO BID 10 Days #20 tablet 08/14/23 08/16/23 Penicillin V Potassium 500 mg PO Q6HR #40 tablet 08/16/23 predniSONE [Deltasone] 40 mg PO DAILY #10 tablet 04/09/24 - Allergies Allergies/Adverse Reactions: Allergies Allergy/AdvReac Type Severity Reaction Status Date / Time bee pollen Allergy Anaphylaxis Verified 10/03/23 12:59 gabapentin Allergy Itching Verified 10/03/23 12:59 oxycodone HCl * Allergy Itching Verified 10/03/23 12:59 [From Percocet] - Social History Does the pt smoke?: Yes Smoking Status: Current every day smoker Does the pt drink ETOH?: No Does the pt have substance abuse?: Yes Substance Use and Type: Marijuana, CBD oil / Products - Immunizations Immunizations are current?: Yes - POLST Patient has POLST: No PD ED PE NORMAL - Vitals Vital signs reviewed: Yes - General General: Alert and oriented X 3, No acute distress, Well developed/nourished - Cardiac Cardiac: RRR, No murmur, No gallop, Strong equal pulses - Respiratory Respiratory: No respiratory distress, Clear bilaterally - Abdomen Abdomen: Normal bowel sounds, Soft, Non tender, Non distended, No organomegaly - Derm Derm: Normal color, Warm and dry, No rash - Extremities Extremities: No edema, No calf tenderness / cord Results - Vitals Vitals: Vital Signs - 24 hr 10/03/23 10/03/23 10/03/23 12:59 15:04 17:00 Temperature 36.8 C Heart Rate 111 H 83 84 Respiratory 20 18 24 Rate Blood Pressure 129/70 104/64 121/81 H O2 Saturation 100 98 100 10/03/23 10/03/23 19:00 21:20 Temperature Heart Rate 86 75 Respiratory 16 16 Rate Blood Pressure 117/81 H 104/71 O2 Saturation 99 98 Oxygen O2 Source Room air - EKG (time done) 1308 EKG releavant findings:: EKG personally interpreted by author of this note. Relevant findings are: Rate: Rate (enter#) (102) Rhythm: Sinus tachycardia [place]: Normal QRS: Normal Ischemia: Normal ST segments Computer interpretation: Agree with computer 1653 EKG releavant findings:: EKG personally interpreted by author of this note. Relevant findings are: Rate: Rate (enter#) (85) Rhythm: NSR [place]: Normal Intervals: Normal [place] Ischemia: Normal ST segments Computer interpretation: Agree with computer - Labs Labs: Laboratory Tests 10/03/23 10/03/23 10/03/23 13:20 13:20 15:26 WBC 8.2 RBC 5.14 Hgb 13.3 Hct 43.6 MCV 84.8 MCH 25.9 L MCHC 30.5 L RDW 13.2 Plt Count 244 MPV 8.9 Neut # (Auto) 5.9 Lymph # (Auto) 1.8 [place] # (Auto) 0.4 Eos # (Auto) 0.1 Baso # (Auto) 0.1 Absolute Nucleated RBC 0.00 Nucleated RBC % 0.0 Sodium 138 Potassium 3.8 Chloride 105 Carbon Dioxide 32 Anion Gap 1.0 L BUN 14 Creatinine 0.7 Estimated GFR (MDRD) 89 Glucose 88 Calcium 9.3 Total Bilirubin 0.2 AST 10 ALT 12 Alkaline Phosphatase 89 Troponin I High Sens 42.6 H* Total Protein 5.9 L Albumin 3.9 Globulin 2.0 L Albumin/Globulin Ratio 2.0 Lipase 14 Nasal Adenovirus (PCR) NOT DETECTED Nasal B. parapertussis DNA (PCR) NOT DETECTED Nasal Coronavir 229E PCR NOT DETECTED Nasal Coronavir HKU1 PCR NOT DETECTED Nasal Coronavir NL63 PCR NOT DETECTED Nasal Coronavir OC43 PCR NOT DETECTED Nasal Enterovir/Rhinovir PCR NOT DETECTED Nasal Influenza B PCR NOT DETECTED Nasal Influenza A PCR NOT DETECTED Nasal Parainfluen 1 PCR NOT DETECTED Nasal Parainfluen 2 PCR NOT DETECTED Nasal Parainfluen 3 PCR NOT DETECTED Nasal Parainfluen 4 PCR NOT DETECTED Nasal RSV (PCR) NOT DETECTED Nasal B.pertussis DNA PCR NOT DETECTED Nasal C.pneumoniae (PCR) NOT DETECTED [place] Human Metapneumo PCR NOT DETECTED Nasal M.pneumoniae (PCR) NOT DETECTED Nasal SARS-CoV-2 (PCR) NOT DETECTED 10/03/23 15:43 WBC RBC Hgb Hct MCV MCH MCHC RDW Plt Count MPV Neut # (Auto) Lymph # (Auto) [place] # (Auto) Eos # (Auto) Baso # (Auto) Absolute Nucleated RBC Nucleated RBC % Sodium Potassium Chloride Carbon Dioxide Anion Gap BUN Creatinine Estimated GFR (MDRD) Glucose Calcium Total Bilirubin AST ALT Alkaline Phosphatase Troponin I High Sens 64.9 H* Total Protein Albumin Globulin Albumin/Globulin Ratio Lipase Nasal Adenovirus (PCR) Nasal B. parapertussis DNA (PCR) Nasal Coronavir 229E PCR Nasal Coronavir HKU1 PCR Nasal Coronavir NL63 PCR Nasal Coronavir OC43 PCR Nasal Enterovir/Rhinovir PCR Nasal Influenza B PCR Nasal Influenza A PCR Nasal Parainfluen 1 PCR Nasal Parainfluen 2 PCR Nasal Parainfluen 3 PCR Nasal Parainfluen 4 PCR Nasal RSV (PCR) Nasal B.pertussis DNA PCR Nasal C.pneumoniae (PCR) [place] Human Metapneumo PCR Nasal M.pneumoniae (PCR) Nasal SARS-CoV-2 (PCR) - Rads (name of study) Chest x-ray Relevant Findings:: Final report received, EMP independent interpretation of test, Other (No acute cardiopulmonary abnormalities) Angio chest CT with and without Relevant Findings:: Final report received, EMP independent interpretation of test, Other (No pulmonary embolism, worsening emphysema) PD Medical Decision Making - ED course ED course: 48-year-old female presents emergency department for exertional chest pain. Patient relates that her symptoms started out as throat pain but has progressive ly gotten worse over the last couple days. Labs are complete for further evaluation as well as a respiratory swab. No leukocytosis no anemia electrolytes are also within normal limits and kidney function normal. Patient's initial troponin was found to be 42.6 and because this was found to be elevated a delta troponin was complete 2 hours later and it was found to be positive at 64.9. Patient continues to have chest pain unalleviated with nitro glycerin. Pain finally alleviated with morphine. Respiratory panel also complete was found to be negative. Because of patient's positive delta troponin and worsening chest pain she was given 325 mg of aspirin and heparin bolus and heparin drip were initiated. We reached out to other hospitals as we have no echo for the next 7 or so days and no cardiology onsite and we were able to get patient accepted to [facility] Dr. Bonilla has agreed to accept the patient for further hospitalization and patient was transferred via ALS to [facility]. Patient was agreeable to go and has been updated with all the findings thus far. At this point in time we will be transferring her with a diagnosis of NSTEMI. Departure - Departure Disposition: 02 Transfer Acute Care Hosp Clinical Impression: NSTEMI (non-ST elevated myocardial infarction) Forms: PCP List Discharge Date/Time: 10/03/23 21:48
[2023-10-03] MEDS: IBUPROFEN 200 MG/10 ML UDC PO STA (15:06)
[2023-10-03] MEDS: NITROGLYCERIN SL 0.4 MG TABLET SL STA (15:07)
[2023-10-03] MEDS: iohexoL-300 100 ML VIAL IVP ONE (15:23)
[2023-10-03] MEDS: MORPHINE 10 MG/ML VIAL IVP STA ×2 (15:57→19:55)
--- NOTE | 2023-10-03 16:14 | CT Report ---
PROCEDURE: Angio Chest INDICATIONS: Dyspnea on exertion, elevated troponin, rule out P CONTRAST: 80ml [id number] TECHNIQUE: After the administration of intravenous contrast, 2 mm axial images were acquired from the pulmonary apices to the posterior costophrenic angles during the arterial phase. In addition, 1 mm lung kernel and 5 mm soft tissue kernel reconstructions were performed. 3-dimensional coronal oblique maximum int ensity projection (MIP) reformats, 8 mm axial MIP, and 5 mm coronal and sagittal MPR reformats were t hen performed through the thorax. For radiation dose reduction, the following was used: automated exp osure control, adjustment of mA and/or kV according to patient size. COMPARISON: CT angiogram chest 03/15/2019. FINDINGS: Image quality: Diagnostic. Large vessels: No filling defects within the opacified pulmonary arteries, accounting for motion and contrast timing. No evidence of acute aortic syndrome or aortic aneurysm. Lungs and pleura: There is biapical pleural-parenchymal thickening/scarring. Severe upper lobe predom inant paraseptal emphysema and moderate centrilobular emphysema. No consolidation. No pleural effusio ns. No pneumothorax. No suspicious pulmonary nodules which require follow up. Mediastinum: Heart size is normal. No pericardial effusion. No large vessel abnormality. No mediastin al adenopathy by size criteria. Chest wall and lower neck: Thyroid is unremarkable. No axillary or supraclavicular adenopathy by size . Bones: No aggressive osseous abnormality. Upper Abdomen: Unremarkable. IMPRESSION: No pulmonary embolus. Emphysematous changes. No focal airspace consolidation. Reviewed by: Sandra Schroeder MD, PhD on 10/03/2023 3:12 PM KATHARINE Approved by: Sandra Schroeder MD, PhD on 10/03/2023 3:12 PM AKDT Station ID: [id number]
[2023-10-03 16:31] LABS: B. PARAPERTUSSIS- RESP PCR PAN NOT DETECTED; B. PERTUSSIS- RESP PCR PANEL NOT DETECTED; C. PNEUMONIAE- RESP PCR PANEL NOT DETECTED; CORONAVIRUS 229E-RESP PCR NOT DETECTED; CORONAVIRUS HKU1-RESP PCR NOT DETECTED; CORONAVIRUS NL63-RESP PCR NOT DETECTED; CORONAVIRUS OC43-RESP PCR NOT DETECTED; HUMAN METAPNEUMOVIRUS NOT DETECTED; INFLUENZA A- RESP PCR PANEL NOT DETECTED; INFLUENZA B - RESP PCR PANEL NOT DETECTED; M. PNEUMONIAE- RESP PCR PANEL NOT DETECTED; PARAINFLUENZA VIRUS 1 NOT DETECTED; PARAINFLUENZA VIRUS 2 NOT DETECTED; PARAINFLUENZA VIRUS 3 NOT DETECTED; PARAINFLUENZA VIRUS 4 NOT DETECTED; RHINOVIRUS/ENTEROVIRUS NOT DETECTED; RSV- RESP PCR PANEL NOT DETECTED; SARS-CoV-2 -RESP PCR PANEL NOT DETECTED
[2023-10-03] MEDS: ASPIRIN 325 MG TABLET PO STA (17:21)
[2023-10-03] MEDS: MORPHINE 2 MG/ML CARPUJECT IVP STA (17:26)
[2023-10-03] MEDS: HEPARIN 25000UNITS/500ML (D5W) 25,000 UNIT/500 ML BAG IV SCH (17:37)
[2023-10-03 21:27] VITALS: BP 104/71; O2SAT 98
== END 2023-10-03 21:48 | disposition short-term general hospital (02) ==
LOC: ED 12:47
DX: I21.4 Non-ST elevation (NSTEMI) myocardial infarction (principal); J44.9 Chronic obstructive pulmonary disease, unspecified; F17.200 Nicotine dependence, unspecified, uncomplicated; Z79.899 Other long term (current) drug therapy
CPT/HCPCS: 36415; 71045; 71275; 80053; 83690; 84484; 85025; 87633; 93005; 96374; 96376; 99285; A9270; Q9967

== ENCOUNTER 2023-12-14 07:23 | Emergency (ER) | payer BC, OTHER ==
--- NOTE | 2023-12-14 07:47 | ED Physician Documentation ---
PD HPI CHEST PAIN - Stated complaint Stated Complaint: CHEST PX - Chief complaint Chief Complaint: Cardiac - History obtained from History obtained from: Patient - History of Present Illness Quality: Aching, Pain Location: Left chest Radiation: No: Jaw, Neck, Back, Abdominal, Left upper extremity, Right upper extremity Worsened by: Movement, Palpation. No: Exertion, Inspiration, Eating Associated symptoms: No: Shortness of air, Diaphoresis, Nausea, Vomiting, Feeling faint / dizzy, General Weakness, Palpitations, Cough - Additional information Additional information: Patient is a 48-year-old female with chronic recurrent chest wall pain. She states that today the chest pain started again. She states it is worse with movement, nothing makes it better. Has not taken anything for the pain. Started approximately 3 AM. No history of ACS. Does not change with walking. No calf pain or swelling. No recent travel. No recent antibiotics.Had a mild cough this morning. No fevers. 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 : Kidney stones, Other HEENT: None Psych: Depression, Anxiety, Eating disorder, Other Musculoskeletal: Chronic back pain, Other Derm: Eczema - Past Surgical History Past Surgical History: Yes General: Appendectomy, Other Ortho: Spine surgery /ALTERATION TAILOR: Hysterectomy, Oophrectomy HEENT: Other - Present Medications Home Medications: Ambulatory Orders Medication Instructions Recorded Confirmed Cyclobenzaprine [Flexeril] 10 mg ORAL Q8H PRN 11/19/20 08/16/23 LORazepam [Ativan] 0.5 mg PO BID PRN 11/19/20 08/16/23 Omeprazole Magnesium 40 mg PO DAILY 04/05/23 08/16/23 Sumatriptan Inj [Imitrex Inj] 6 mg SUBQ ONCE 04/05/23 08/16/23 Sumatriptan Succinate [Imitrex] 50 mg PO DAILY PRN 04/05/23 08/16/23 Propranolol HCl [Propranolol HCl 120 mg ORAL DAILY 05/03/23 08/16/23 ER] DULoxetine [Cymbalta] 30 mg PO DAILY 08/07/23 08/16/23 HYDROcod/ACETAM 5/325 [[place] 5/325] 1 ea PO Q6H PRN #14 tablet 08/14/23 08/16/23 Meloxicam [Mobic] 7.5 mg PO BID 10 Days #20 tablet 08/14/23 08/16/23 Penicillin V Potassium 500 mg PO Q6HR #40 tablet 08/16/23 predniSONE [Deltasone] 40 mg PO DAILY #10 tablet 08/16/23 HYDROcod/ACETAM 5/325 [[place] 5/325] 1 - 2 ea PO Q6H PRN #10 tablet 12/14/23 - Allergies Allergies/Adverse Reactions: Allergies Allergy/AdvReac Type Severity Reaction Status Date / Time bee pollen Allergy Anaphylaxis Verified 12/14/23 07:51 gabapentin Allergy Itching Verified 12/14/23 07:51 oxycodone HCl * Allergy Itching Verified 12/14/23 07:51 [From Percocet] - Social History Does the pt smoke?: Yes Smoking Status: Current every day smoker Does the pt drink ETOH?: No Does the pt have substance abuse?: Yes - Immunizations Immunizations are current?: Yes - POLST Patient has POLST: No PD ED PE NORMAL - Vitals Vital signs reviewed: Yes - General General: Alert and oriented X 3, No acute distress - HEENT HEENT: PERRL, Moist mucous membranes - Neck Neck: Supple, no meningeal sign - Cardiac Cardiac: RRR, Strong equal pulses - Respiratory Respiratory: No respiratory distress, Clear bilaterally - Abdomen Abdomen: Soft, Non tender, Non distended - Derm Derm: Warm and dry - Extremities Extremities: No edema, No calf tenderness / cord - Neuro Neuro: Alert and oriented X 3 - Psych Psych: Normal mood, Normal affect - Free text exam Free text exam: Tender to palpation over the left anterior chest wall. Reproduces her pain. No crepitus. No ecchymosis. Results - Vitals Vitals: Vital Signs - 24 hr 12/14/23 12/14/23 12/14/23 07:47 08:19 09:58 Temperature 36.0 C L Heart Rate 106 H 101 H 95 Respiratory 16 19 11 L Rate Blood Pressure 134/88 H 114/78 111/88 H O2 Saturation 98 99 99 Oxygen O2 Source Room air - EKG (time done) 0790 EKG releavant findings:: EKG personally interpreted by author of this note. Relevant findings are: Rate: Rate (enter#) (101) Rhythm: Sinus tachycardia [place]: Normal Intervals: Normal [place] QRS: Normal Ischemia: Non specific changes - Labs Labs: Laboratory Tests 12/14/23 12/14/23 08:08 08:08 WBC 5.1 RBC 4.78 Hgb 12.9 Hct 40.7 MCV 85.1 MCH 27.0 MCHC 31.7 L RDW 13.7 Plt Count 181 MPV 9.6 Neut # (Auto) 3.4 Lymph # (Auto) 1.3 L [place] # (Auto) 0.3 Eos # (Auto) 0.1 Baso # (Auto) 0.0 Absolute Nucleated RBC 0.00 Nucleated RBC % 0.0 Sodium 139 Potassium 4.3 Chloride 106 Carbon Dioxide 29 Anion Gap 4.0 L BUN 18 Creatinine 0.8 Estimated GFR (MDRD) 76 L Glucose 98 Calcium 9.5 Total Bilirubin 0.2 AST 15 ALT 14 Alkaline Phosphatase 101 Troponin I High Sens 8.0 Total Protein 6.2 L Albumin 4.2 Globulin 2.0 L Albumin/Globulin Ratio 2.1 Lipase 19 - Rads (name of study) cxr Relevant Findings:: Final report received, See rad report PD Medical Decision Making - ED course Complexity details: reviewed results, re-evaluated patient, considered differential (No ST elevation CO, no aortic dissection, no PE, no tension p neumothorax, no aortic aneurysm), d/w patient ED course: 48-year-old female with left-sided chest wall pain. Reproducible with palpation. Feels better after Toradol and Dilaudid. Has had similar symptoms in the past. Negative high-sensitivity troponin after several hours of symptoms, no acute findings on EKG. Her chest x-ray does show some scarring in the right upper lobe, did recommend that she have a repeat chest x-ray in 1 month. She does not have any symptoms of pneumonia clinically. Her pain is on the left, not the right. The pain is described as sharp and pinprick like. Now evidence of PE. No calf swelling or tenderness. We will place on pain medication for home and have her follow-up with her doctor for further care. Patient counseled regarding signs and symptoms for which I believe and urgent re-evaluation would be necessary. Patient with good understanding of and agreement to plan and is comfortable going home at this time This document was made in part using voice recognition software. While efforts are made to proofread this document, sound alike and grammatical errors may occur. Departure - Departure Disposition: 01 Home, Self Care Clinical Impression: Chest wall pain Condition: Good Instructions: ED Chest Pain Costochondritis Follow-Up: KENDELL PUGH DO [Primary Care Provider] - Prescriptions: HYDROcod/ACETAM 5/325 [[place] 5/325] 1 - 2 ea PO Q6H PRN #10 tablet PRN Reason: Pain Comments: Your prescription were sent to [facility] in [place]. Please follow-up with your doctor for further care. Please return if you worsen. The inflammation in your chest should go down over the next few days. I am prescribing a short course of narcotic pain medication for you. These are potentially dangerous and addictive medications that should be used carefully. These medications may constipate you. Take an [id number] stool softener (docusate) twice daily with plenty of water while taking these medications. If you go 24 hours without a bowel movement, take [id number] miralax, per package instructions. Do not drink or drive while taking these medications. If you received narcotic or sedating medications while in the emergency department, do not drive for 24 hours. Store this medication in a safe, secure place and out of reach of children. It is a violation of federal law to give or sell this medication to another person or to use in a manner other than prescribed. The ED will not refill narcotic prescriptions, including prescriptions lost or stolen. To dispose of unwanted medications: 1. [facility] at [address] in [place] has a medication drop box. They accept prescription medications (in pill form) Tuesday through Tuesday 9:00 a.m. to 5:00 p.m. 2. The [facility] [employer] accepts prescription medications (in pill form only) for disposal year round. Call for more information. 3. Contact the [facility] for the next [facility] sponsored prescription drug collection event. , [phone], or [phone]; Forms: PCP List Discharge Date/Time: 12/14/23 10:22
[2023-12-14 08:18] LABS: BASOPHILS % (AUTO) 0.8 %; EOSINOPHILS # (AUTO) 0.1 10^3/uL (0.0-0.7); EOSINOPHILS % (AUTO) 1.2 %; HCT - HEMATOCRIT 40.7 % (37.0-47.0); HGB - HEMOGLOBIN 12.9 g/dL (12.0-16.0); LYMPHOCYTES # (AUTO) 1.3 10^3/uL (1.5-3.5); LYMPHOCYTES % (AUTO) 25.7 %; MEAN CORPUSCULAR HGB CONC 31.7 g/dL (32.0-36.0); MEAN CORPUSCULAR VOLUME 85.1 fL (81.0-99.0); MEAN PLATELET VOLUME 9.6 fL (7.9-10.8); MONOCYTES # (AUTO) 0.3 10^3/uL (0.0-1.0); MONOCYTES % (AUTO) 5.3 %; NEUTROPHILS # (AUTO) 3.4 10^3/uL (1.5-6.6); NEUTROPHILS % (AUTO) 66.8 %; PLT - PLATELET COUNT 181 10^3/uL (130-450); RED BLOOD COUNT 4.78 10^6/uL (4.20-5.40); RED CELL DISTRIBUTION WIDTH 13.7 % (12.0-15.0); WHITE BLOOD COUNT 5.1 x10^3/uL (4.8-10.8)
--- NOTE | 2023-12-14 08:28 | XRAY Report ---
PROCEDURE: Chest 1V INDICATIONS: Chest pain TECHNIQUE: One view of the chest was acquired. COMPARISON: 10/03/2023. FINDINGS: Surgical changes and devices: None. Lungs and pleura: Right lung apex opacity. Emphysema. Biapical scarring. Mediastinum: Mediastinal contours appear normal. Heart size is normal. Bones and chest wall: No suspicious bony lesions. Overlying soft tissues appear unremarkable. IMPRESSION: Hazy right lung apex opacity, concerning for pneumonia. Alternately, this could represent focal scarr ing as seen on comparison chest CT, less likely growing mass. Recommend follow-up x-ray in 1-2 months to ensure resolution. Reviewed by: Vinay Sotomayor MD on 12/14/2023 8:27 AM PDT Approved by: Vinay Sotomayor MD on 12/14/2023 8:27 AM PDT Station ID: [id number]
[2023-12-14 08:37] LABS: ALBUMIN 4.2 g/dL (3.2-5.5); ALBUMIN/GLOBULIN RATIO 2.1 (1.0-2.2); BILIRUBIN,TOTAL 0.2 mg/dL (0.2-1.0); CALCIUM 9.5 mg/dL (8.5-10.3); CREATININE 0.8 mg/dL (0.6-1.3); POTASSIUM 4.3 mmol/L (3.5-4.5); TOTAL PROTEIN 6.2 g/dL (6.4-8.9)
[2023-12-14 08:46] VITALS: O2SAT 99
[2023-12-14] MEDS: SODIUM CHLORIDE 0.9% 1,000 ML IV STA (09:12)
[2023-12-14] MEDS: HYDROmorphone 1 MG/ML CARPUJECT IVP STA (09:23)
[2023-12-14] MEDS: KETOROLAC 30 MG/ML VIAL IVP STA (09:23)
[2023-12-14] MEDS: HYDROmorphone 1 MG/ML CARPUJECT IM STA (09:29)
[2023-12-14] MEDS: KETOROLAC 30 MG/ML VIAL IM STA (09:30)
[2023-12-14 10:08] VITALS: BP 111/88
[2023-12-14] MEDS: HYDROcod/ACETAM 5/325 MG TABLET PO STA (10:18)
== END 2023-12-14 10:22 | disposition home or self-care (01) ==
LOC: ED 07:23
DX: R07.89 Other chest pain (principal); J44.9 Chronic obstructive pulmonary disease, unspecified; Z87.442 Personal history of urinary calculi; Z79.899 Other long term (current) drug therapy; F17.200 Nicotine dependence, unspecified, uncomplicated
CPT/HCPCS: 36415; 71045; 80053; 83690; 84484; 85025; 93005; 96372; 99284; A9270; J1170

== ENCOUNTER 2023-12-16 18:00 | Emergency (ER) | payer BC, OTHER ==
--- NOTE | 2023-12-16 18:37 | XRAY Report ---
PROCEDURE: Chest 1V INDICATIONS: Chest pain TECHNIQUE: One view of the chest was acquired. COMPARISON: 12/14/2023. FINDINGS: Surgical changes and devices: None. Lungs and pleura: Biapical scarring. Less conspicuous appearance of the right apex opacity. Mediastinum: Mediastinal contours appear normal. Heart size is normal. Bones and chest wall: No suspicious bony lesions. Overlying soft tissues appear unremarkable. IMPRESSION: Less conspicuous appearance of the right upper lung zone opacity, favoring scarring. Reviewed by: Vinay Sotomayor MD on 12/16/2023 6:35 PM PDT Approved by: Vinay Sotomayor MD on 12/16/2023 6:35 PM PDT Station ID: [id number]
[2023-12-16 18:53] LABS: BASOPHILS % (AUTO) 0.6 %; EOSINOPHILS # (AUTO) 0.1 10^3/uL (0.0-0.7); EOSINOPHILS % (AUTO) 2.3 %; HCT - HEMATOCRIT 42.6 % (37.0-47.0); LYMPHOCYTES # (AUTO) 1.3 10^3/uL (1.5-3.5); LYMPHOCYTES % (AUTO) 27.3 %; MEAN CORPUSCULAR HEMOGLOBIN 26.4 pg (27.0-31.0); MEAN CORPUSCULAR HGB CONC 30.5 g/dL (32.0-36.0); MEAN CORPUSCULAR VOLUME 86.4 fL (81.0-99.0); MEAN PLATELET VOLUME 9.6 fL (7.9-10.8); MONOCYTES # (AUTO) 0.2 10^3/uL (0.0-1.0); MONOCYTES % (AUTO) 5.1 %; NEUTROPHILS # (AUTO) 3.1 10^3/uL (1.5-6.6); NEUTROPHILS % (AUTO) 64.7 %; PLT - PLATELET COUNT 196 10^3/uL (130-450); RED BLOOD COUNT 4.93 10^6/uL (4.20-5.40); RED CELL DISTRIBUTION WIDTH 13.6 % (12.0-15.0); WHITE BLOOD COUNT 4.7 x10^3/uL (4.8-10.8)
[2023-12-16 19:09] LABS: ALBUMIN 4.1 g/dL (3.2-5.5); ALBUMIN/GLOBULIN RATIO 1.8 (1.0-2.2); BILIRUBIN,TOTAL 0.3 mg/dL (0.2-1.0); CALCIUM 9.9 mg/dL (8.5-10.3); CREATININE 0.8 mg/dL (0.6-1.3); POTASSIUM 4.3 mmol/L (3.5-4.5); TOTAL PROTEIN 6.4 g/dL (6.4-8.9)
[2023-12-16 19:15] LABS: TROPONIN I HIGH SENSITIVITY 10.9 ng/L (2.3-14.8)
[2023-12-16] MEDS: KETOROLAC 15 MG/ML VIAL IVP STA (20:48)
[2023-12-16] MEDS: SODIUM CHLORIDE 0.9% 1,000 ML IV STA (20:48)
[2023-12-16 21:18] VITALS: BP 134/94; O2SAT 100
--- NOTE | 2023-12-16 21:22 | ED Physician Documentation ---
PD HPI CHEST PAIN - Stated complaint Stated Complaint: CHEST PX - Chief complaint Chief Complaint: Cardiac - History obtained from History obtained from: Patient, Family - Additional information Additional information: 48-year-old female presents for anterior chest wall pain. Patient was seen in our emergency department 2 days prior for same, she was diagnosed with costochondritis and discharged with hydrocodone. Patient states that she has been taking the hydrocodone but it is not helping her pain. She states that she was told that she cannot take NSAIDs due to gastritis. Continues to complain of anterior chest wall pain and "I just don't feel good". States that this is the same pain that brought her to the emergency department previously Review of Systems Constitutional: reports: Other (malaise). denies: Fever, Chills Cardiac: reports: Chest pain / pressure. 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 : Kidney stones, Other HEENT: None Psych: Depression, Anxiety, Eating disorder, Other Musculoskeletal: Chronic back pain, Other Derm: Eczema - Past Surgical History Past Surgical History: Yes General: Appendectomy, Other Ortho: Spine surgery /CROP ROLLER: Hysterectomy, Oophrectomy HEENT: Other - Present Medications Home Medications: Ambulatory Orders Medication Instructions Recorded Confirmed Cyclobenzaprine [Flexeril] 10 mg ORAL Q8H PRN 11/19/20 08/16/23 LORazepam [Ativan] 0.5 mg PO BID PRN 11/19/20 08/16/23 Omeprazole Magnesium 40 mg PO DAILY 04/05/23 08/16/23 Sumatriptan Inj [Imitrex Inj] 6 mg SUBQ ONCE 04/05/23 08/16/23 Sumatriptan Succinate [Imitrex] 50 mg PO DAILY PRN 04/05/23 08/16/23 Propranolol HCl [Propranolol HCl 120 mg ORAL DAILY 05/03/23 08/16/23 ER] DULoxetine [Cymbalta] 30 mg PO DAILY 08/07/23 08/16/23 HYDROcod/ACETAM 5/325 [[place] 5/325] 1 ea PO Q6H PRN #14 tablet 08/14/23 08/16/23 Meloxicam [Mobic] 7.5 mg PO BID 10 Days #20 tablet 08/14/23 08/16/23 Penicillin V Potassium 500 mg PO Q6HR #40 tablet 08/16/23 predniSONE [Deltasone] 40 mg PO DAILY #10 tablet 08/16/23 HYDROcod/ACETAM 5/325 [[place] 5/325] 1 - 2 ea PO Q6H PRN #10 tablet 12/14/23 - Allergies Allergies/Adverse Reactions: Allergies Allergy/AdvReac Type Severity Reaction Status Date / Time bee pollen Allergy Anaphylaxis Verified 12/16/23 18:07 gabapentin Allergy Itching Verified 12/16/23 18:07 oxycodone HCl * Allergy Itching Verified 12/16/23 18:07 [From Percocet] - Social History Does the pt smoke?: Yes Smoking Status: Current every day smoker Does the pt drink ETOH?: No Does the pt have substance abuse?: Yes - Immunizations Immunizations are current?: Yes - POLST Patient has POLST: No PD ED PE NORMAL - Vitals Vital signs reviewed: Yes - General General: Alert and oriented X 3, Well developed/nourished, Other (appears chronically unwell) - Cardiac Cardiac: RRR, Strong equal pulses, Other (generalized anterior chest wall tende rness to palpation) - Respiratory Respiratory: No respiratory distress, Clear bilaterally - Abdomen Abdomen: Soft, Non tender, Non distended - Derm Derm: Normal color, Warm and dry, No rash - Neuro Neuro: Alert and oriented X 3, counter attendant 2-12 intact, No motor deficit, Normal speech Results - Vitals Vitals: Oxygen O2 Source Room air - Labs Labs: Laboratory Tests 12/16/23 12/16/23 18:50 18:50 WBC 4.7 L RBC 4.93 Hgb 13.0 Hct 42.6 MCV 86.4 MCH 26.4 L MCHC 30.5 L RDW 13.6 Plt Count 196 MPV 9.6 Neut # (Auto) 3.1 Lymph # (Auto) 1.3 L [place] # (Auto) 0.2 Eos # (Auto) 0.1 Baso # (Auto) 0.0 Absolute Nucleated RBC 0.00 Nucleated RBC % 0.0 Sodium 138 Potassium 4.3 Chloride 104 Carbon Dioxide 29 Anion Gap 5.0 L BUN 17 Creatinine 0.8 Estimated GFR (MDRD) 76 L Glucose 103 Calcium 9.9 Total Bilirubin 0.3 AST 19 ALT 15 Alkaline Phosphatase 102 Troponin I High Sens 10.9 Total Protein 6.4 Albumin 4.1 Globulin 2.3 Albumin/Globulin Ratio 1.8 Lipase 19 PD Medical Decision Making - ED course Complexity details: reviewed old records, reviewed results, re-evaluated patient, considered differential, d/w patient, d/w family ED course: Patient presenting for continued anterior chest wall pain. Has already been prescribed hydrocodone at home. Given Dilaudid at last ED visit. Exam without significant abnormalities, there is no anterior crepitus or deformity, no evidence of infection, pain is reproducible to palpation. EKG unchanged from visit 2 days ago. Patient repeatedly requesting pain medications. No significant pain relief with Toradol. Chest x-ray shows no acute findings. Laboratory work unchanged from visit 2 days prior. High sensitivity troponin similar as previous visit. Since this pain has been ongoing and patient has had negative troponins 2 visits in a row low suspicion for ACS. Attempted to give patient droperidol, however she stated that it stung her hand and did not help her pain. Patient subsequently requested to go home. Patient counseled that she may continue to take the hydrocodone she was previously prescribed for pain Departure - Departure Disposition: 01 Home, Self Care Clinical Impression: Atypical chest pain Condition: Stable Instructions: ED Chest Pain Costochondritis Comments: Your EKG, chest XR, and lab work today is normal. You may take the hydrocodone as needed for pain. A small amount of ibuprofen may be helpful, with your history of ulcer I would recommend that if you do take this medication you take it with an antacid and with food. Please follow-up with your primary care doctor. Forms: PCP List Discharge Date/Time: 12/16/23 21:42
[2023-12-16] MEDS: DROPERIDOL 5 MG/2 ML VIAL IVP STA (21:24)
== END 2023-12-16 21:42 | disposition home or self-care (01) ==
LOC: ED 18:00
DX: R07.89 Other chest pain (principal); J44.9 Chronic obstructive pulmonary disease, unspecified; F32.A Depression, unspecified; F41.9 Anxiety disorder, unspecified; F17.200 Nicotine dependence, unspecified, uncomplicated
CPT/HCPCS: 36415; 80053; 83690; 84484; 85025; 93005; 96374; 96375; 99284

== ENCOUNTER 2023-12-31 00:09 | Emergency (ER) | payer BC, OTHER ==
[2023-12-31 00:40] LABS: BASOPHILS % (AUTO) 0.6 %; EOSINOPHILS # (AUTO) 0.1 10^3/uL (0.0-0.7); EOSINOPHILS % (AUTO) 1.3 %; HCT - HEMATOCRIT 39.6 % (37.0-47.0); HGB - HEMOGLOBIN 12.6 g/dL (12.0-16.0); LYMPHOCYTES # (AUTO) 2.2 10^3/uL (1.5-3.5); LYMPHOCYTES % (AUTO) 34.1 %; MEAN CORPUSCULAR HEMOGLOBIN 26.9 pg (27.0-31.0); MEAN CORPUSCULAR HGB CONC 31.8 g/dL (32.0-36.0); MEAN CORPUSCULAR VOLUME 84.4 fL (81.0-99.0); MEAN PLATELET VOLUME 8.9 fL (7.9-10.8); MONOCYTES # (AUTO) 0.3 10^3/uL (0.0-1.0); MONOCYTES % (AUTO) 4.1 %; NEUTROPHILS # (AUTO) 3.8 10^3/uL (1.5-6.6); NEUTROPHILS % (AUTO) 59.7 %; PLT - PLATELET COUNT 257 10^3/uL (130-450); RED BLOOD COUNT 4.69 10^6/uL (4.20-5.40); RED CELL DISTRIBUTION WIDTH 13.5 % (12.0-15.0); WHITE BLOOD COUNT 6.3 x10^3/uL (4.8-10.8)
[2023-12-31 00:59] LABS: ALBUMIN 4.2 g/dL (3.2-5.5); ALBUMIN/GLOBULIN RATIO 1.7 (1.0-2.2); ALKALINE PHOSPHATASE 94 IU/L (42-121); ALT ALANINE AMINOTRANSFERASE 11 IU/L (10-60); AST ASPARTATE AMINOTRANSFERASE 13 IU/L (10-42); BILIRUBIN,TOTAL 0.5 mg/dL (0.2-1.0); BUN - BLOOD UREA NITROGEN 20 mg/dL (6-20); CALCIUM 9.5 mg/dL (8.5-10.3); CARBON DIOXIDE - CO2 29 mmol/L (21-32); CHLORIDE 101 mmol/L (101-111); CREATININE 0.7 mg/dL (0.6-1.3); GFR - MDRD 89 (>89); GLUCOSE 75 mg/dL (74-104); POTASSIUM 3.9 mmol/L (3.5-4.5); SODIUM 137 mmol/L (135-145); TOTAL PROTEIN 6.7 g/dL (6.4-8.9)
[2023-12-31 01:06] LABS: BILIRUBIN,URINE SMALL (NEGATIVE); GLUCOSE, URINE (UA) NEGATIVE (NEGATIVE); KETONES,URINE (UA) 40 mg/dL (NEGATIVE); LEUKOCYTE ESTERASE, URINE NEGATIVE (NEGATIVE); NITRITE,URINE NEGATIVE (NEGATIVE); OCCULT BLOOD,URINE TRACE-INTA (NEGATIVE); PH,URINE 5.5 PH (5.0-7.5); PROTEIN,URINE NEGATIVE (NEGATIVE); UROBILINOGEN,URINE 0.2 (NORMAL) E.U./dL (NORMAL)
[2023-12-31 01:16] LABS: LIPASE < 10 U/L (11-82)
[2023-12-31 01:17] LABS: CLARITY,URINE CLEAR (CLEAR)
--- NOTE | 2023-12-31 01:34 | ED Physician Documentation ---
PD HPI ABD PAIN - Stated complaint Stated Complaint: KIDNEY PAIN - Chief complaint Chief Complaint: Abd Pain - History obtained from History obtained from: Patient - Additional information Additional information: HPI from patient. Patient complains of right flank pain, sudden onset 2 to 3 days ago without inciting event. Pain waxes and wanes without apparent exacerbating or ameliorating factors, associate with nausea and vomiting. Patient says her symptoms feel similar to those associated with previous episodes of her renal colic. Patient says she took Motrin, tramadol, neither of which provided any relief. Patient denies fever, constipation/diarrhea. This is patient's [facility]th [facility] ED visit on [employer] records. Review of Systems Constitutional: denies: Fever, Chills, Sweats Cardiac: reports: Reviewed and negative Respiratory: reports: Reviewed and negative GI: reports: Abdominal Pain, Nausea, Vomiting. 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, Oophrectomy HEENT: Other - Present Medications Home Medications: Ambulatory Orders Medication Instructions Recorded Confirmed Cyclobenzaprine [Flexeril] 10 mg ORAL Q8H PRN 11/19/20 08/16/23 LORazepam [Ativan] 0.5 mg PO BID PRN 11/19/20 08/16/23 Omeprazole Magnesium 40 mg PO DAILY 04/05/23 08/16/23 Sumatriptan Inj [Imitrex Inj] 6 mg SUBQ ONCE 04/05/23 08/16/23 Sumatriptan Succinate [Imitrex] 50 mg PO DAILY PRN 04/05/23 08/16/23 Propranolol HCl [Propranolol HCl 120 mg ORAL DAILY 05/03/23 08/16/23 ER] DULoxetine [Cymbalta] 30 mg PO DAILY 08/07/23 08/16/23 HYDROcod/ACETAM 5/325 [[place] 5/325] 1 ea PO Q6H PRN #14 tablet 08/14/23 08/16/23 Meloxicam [Mobic] 7.5 mg PO BID 10 Days #20 tablet 08/14/23 08/16/23 Penicillin V Potassium 500 mg PO Q6HR #40 tablet 08/16/23 predniSONE [Deltasone] 40 mg PO DAILY #10 tablet 08/16/23 HYDROcod/ACETAM 5/325 [[place] 5/325] 1 - 2 ea PO Q6H PRN #10 tablet 12/14/23 HYDROcod/ACETAM 5/325 [[place] 5/325] 1 - 2 tablet PO Q6H PRN #10 tablet 12/31/23 - Allergies Allergies/Adverse Reactions: Allergies Allergy/AdvReac Type Severity Reaction Status Date / Time bee pollen Allergy Anaphylaxis Verified 12/31/23 00:21 gabapentin Allergy Itching Verified 12/31/23 00:21 oxycodone HCl * Allergy Itching Verified 12/31/23 00:21 [From Percocet] - Social History Does the pt smoke?: Yes Smoking Status: Current every day smoker Does the pt drink ETOH?: No Does the pt have substance abuse?: Yes - Immunizations Immunizations are current?: Yes - POLST Patient has POLST: No PD ED PE NORMAL - Vitals Vital signs reviewed: Yes - General General: Alert and oriented X 3, No acute distress, Well developed/nourished - Cardiac Cardiac: RRR, No murmur - Respiratory Respiratory: No respiratory distress, Clear bilaterally - Abdomen Abdomen: Soft, Non tender, Non distended - Back Back: No CVA TTP Results - Vitals Vitals: Vital Signs - 24 hr 12/31/23 12/31/23 12/31/23 00:16 02:31 04:00 Temperature 36.0 C L Heart Rate 106 H 76 78 Respiratory 18 18 18 Rate Blood Pressure 129/80 119/71 118/70 O2 Saturation 100 98 96 Oxygen O2 Source Room air - Labs Labs: Laboratory Tests 12/31/23 12/31/23 12/31/23 00:30 00:30 00:30 WBC 6.3 RBC 4.69 Hgb 12.6 Hct 39.6 MCV 84.4 MCH 26.9 L MCHC 31.8 L RDW 13.5 Plt Count 257 MPV 8.9 Neut # (Auto) 3.8 Lymph # (Auto) 2.2 [place] # (Auto) 0.3 Eos # (Auto) 0.1 Baso # (Auto) 0.0 Absolute Nucleated RBC 0.00 Nucleated RBC % 0.0 Sodium 137 Potassium 3.9 Chloride 101 Carbon Dioxide 29 Anion Gap 7.0 BUN 20 Creatinine 0.7 Estimated GFR (MDRD) 89 Glucose 75 Calcium 9.5 Total Bilirubin 0.5 AST 13 ALT 11 Alkaline Phosphatase 94 Total Protein 6.7 Albumin 4.2 Globulin 2.5 Albumin/Globulin Ratio 1.7 Lipase < 10 L Urine Color YELLOW Urine Clarity CLEAR Urine pH 5.5 Ur Specific [place] >=1.030 H Urine Protein NEGATIVE Urine Glucose (UA) NEGATIVE Urine Ketones 40 H Urine Occult Blood TRACE-INTA Urine Nitrite NEGATIVE Urine Bilirubin SMALL H Urine Urobilinogen 0.2 (NORMAL) Ur Leukocyte Esterase NEGATIVE Ur Microscopic Review NOT INDICATED Urine Culture Comments NOT INDICATED - Rads (name of study) CT A/P Relevant Findings:: Prelim report reviewed, See rad report PD Medical Decision Making - ED course Complexity details: reviewed results, re-evaluated patient, considered differential, d/w patient ED course: No concerning or diagnostic findings on CBC, ER abdominal panel (ER abdominal panel is entirely normal). Similarly, urinalysis is without diagnostic/concerning findings (trace intact blood, 40 ketones, and small bilirubin). Patient is given 30 mg IV Toradol, 4 mg IV Zofran, and 6 mg IV morphine. Non-contrast CT A/P is undertaken, there are no acute findings on these images; specifically, no evidence of hydronephrosis nor urinary tract stone. There is questionable gallbladder sludge. Also noted is 4 mm thick focal anterior pericardial thickening which was noted on previous study (09/05/2022). The cause of patient's symptoms is not apparent at this time. On reevaluation, she is in NAD (asleep), awakens easily to voice. Results d/w patient, return precautions reviewed. The patient is reporting recurrence of her pain and she is given 2 tablets of Vicodin and provided a prescription for a short course of same. Instructed to contact her primary care provider on Tuesday to arrange for the next available appointment for follow-up/reevaluation Departure - Departure Disposition: Home, Self Care Clinical Impression: Flank pain Condition: Good Instructions: ED Flank Pain Uncertain Cause Follow-Up: KENDELL PUGH DO [Primary Care Provider] - Prescriptions: HYDROcod/ACETAM 5/325 [[place] 5/325] 1 - 2 tablet PO Q6H PRN #10 tablet PRN Reason: Pain Comments: There were no concerning nor diagnostic findings on tonight's test, including the blood tests, urinalysis, and CT scan of your abdomen/pelvis. The cause of your symptoms is not apparent at this time. Contact your primary care provider when the office next opens to arrange for the next available appointment for follow-up/reevaluation. I have electronically submitted a prescription for short course of Vicodin (narcotic/opiate pain medication) to the [facility] pharmacy in [place]. I am prescribing a short course of narcotic pain medication for you. These are potentially dangerous and addictive medications that should be used carefully. These medications may constipate you. Take an [id number] stool softener (docusate) twice daily with plenty of water while taking these medications. If you go 24 hours without a bowel movement, take [id number] miralax, per package instructions. Do not drink or drive while taking these medications. If you received narcotic or sedating medications while in the emergency department, do not drive for 24 hours. Store this medication in a safe, secure place and out of reach of children. It is a violation of federal law to give or sell this medication to another person or to use in a manner other than prescribed. The ED will not refill narcotic prescriptions, including prescriptions lost or stolen. To dispose of unwanted medications: 1. [facility] at [address] in [place] has a medication drop box. They accept prescription medications (in pill form) Tuesday through Tuesday 9:00 a.m. to 5:00 p.m. 2. The [facility] accepts prescription medications (in pill form only) for disposal year round. Call for more information. 3. Contact the [facility] for the next [facility] sponsored prescription drug collection event. , [phone], or [phone]; Note that many narcotic pain relievers also contain Tylenol/acetaminophen. Please ensure that your total dose of acetaminophen from all sources does not exceed 3 g (3000 mg) per day. Discharge Date/Time: 12/31/23 04:07
[2023-12-31] MEDS: KETOROLAC 30 MG/ML VIAL IVP STA (02:22)
[2023-12-31] MEDS: ONDANSETRON 4 MG/2 ML VIAL IVP STA (02:22)
[2023-12-31] MEDS: MORPHINE 2 MG/ML CARPUJECT IVP STA (02:22)
[2023-12-31] MEDS: HYDROcod/ACETAM 5/325 MG TABLET PO STA (03:55)
[2023-12-31 04:10] VITALS: BP 118/70; O2SAT 96
--- NOTE | 2023-12-31 10:34 | CT Report ---
PROCEDURE: Abdomen/Pelvis WO INDICATIONS: right flank pain TECHNIQUE: A CT scan of the abdomen and pelvis was performed without the use of intravenous contrast. Images we re recorded and evaluated at appropriate window settings. Reformats: coronal and sagittal. For radiat ion dose reduction, the following was used: automated exposure control, adjustment of mA and/or kV ac cording to patient size. COMPARISON: 08/25/2022, 09/05/2022, 10/03/2023 FINDINGS: Image quality: There is artifact associated with the metallic hardware. Lower chest: Emphysematous changes can be seen at the lung bases. Liver: No contour-deforming mass. Gallbladder: Within normal limits. Biliary tree: No intrahepatic or extrahepatic dilation, accounting for age. Spleen: No splenomegaly. Pancreas: No pancreatic ductal dilation. Adrenals: No adrenal nodule. Kidneys and ureters: No hydronephrosis. No contour-deforming mass. Stomach, bowel and peritoneum: No gastric or small bowel dilation. No abnormal wall thickening. No pa thologic free fluid. Lymph nodes: No central or retroperitoneal adenopathy. Vessels: No infrarenal aortic aneurysm. Reproductive organs: This patient is status post hysterectomy. No adnexal masses can be seen. Bladder: Bladder wall thickness is normal, accounting for underdistention. No calcified bladder stone s. Pelvic lymph nodes: No adenopathy by size criteria. Bones: No aggressive osseous abnormality. Lumbosacral fixation hardware is seen. Other: No significant ventral or inguinal hernia. IMPRESSION: No hydronephrosis or obstructing renal stone. (The previously seen left-sided stone has resolved.) Additional findings: Hysterectomy Lumbosacral fixation hardware Note: No significant discrepancy from the preliminary report. Reviewed by: Glen Lynn MD on 12/31/2023 9:32 AM KATHARINE Approved by: Glen Lynn MD on 12/31/2023 9:32 AM KATHARINE Station ID: [id number]
== END 2023-12-31 04:07 | disposition home or self-care (01) ==
LOC: ED 00:09
DX: R10.9 Unspecified abdominal pain (principal); J44.9 Chronic obstructive pulmonary disease, unspecified; I25.2 Old myocardial infarction; F17.200 Nicotine dependence, unspecified, uncomplicated; Z79.899 Other long term (current) drug therapy
CPT/HCPCS: 36415; 74176; 80053; 81003; 83690; 85025; 96374; 99284; A9270; 81001; 87086

== ENCOUNTER 2024-01-14 02:26 | Emergency (ER) | payer BC, OTHER ==
--- NOTE | 2024-01-14 02:46 | ED Physician Documentation ---
PD HPI CHEST PAIN - Stated complaint Stated Complaint: CP - Chief complaint Chief Complaint: Cardiac - History obtained from History obtained from: Patient - Additional information Additional information: HPI from patient. Patient complains of chest pain, anterior midline. Patient says she woke up this morning with the pain that has been constant but slowly worsening throughout the day. There are no exacerbating nor ameliorating factors. The pain occasionally radiates straight through to her back. She has mild dyspnea with this at times, but there is no pleuritic nor exertional component. Patient says she had similar pain a few months ago and was transferred from this ED to [facility] where she underwent a stress test with (per patient) reassuring results. She denies cough, fever, leg swelling. 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: None : Kidney stones, Other HEENT: None Psych: Depression, Anxiety, Eating disorder, Other Musculoskeletal: Chronic back pain, Other Derm: Eczema - Past Surgical History Past Surgical History: Yes General: Appendectomy, Other Ortho: Spine surgery /CIRCUIT BOARD REPAIR TECHNICIAN: Hysterectomy, Oophrectomy HEENT: Other - Present Medications Home Medications: Ambulatory Orders Medication Instructions Recorded Confirmed Cyclobenzaprine [Flexeril] 10 mg ORAL Q8H PRN 11/19/20 08/16/23 LORazepam [Ativan] 0.5 mg PO BID PRN 11/19/20 08/16/23 Omeprazole Magnesium 40 mg PO DAILY 04/05/23 08/16/23 Sumatriptan Inj [Imitrex Inj] 6 mg SUBQ ONCE 04/05/23 08/16/23 Sumatriptan Succinate [Imitrex] 50 mg PO DAILY PRN 04/05/23 08/16/23 Propranolol HCl [Propranolol HCl 120 mg ORAL DAILY 05/03/23 08/16/23 ER] DULoxetine [Cymbalta] 30 mg PO DAILY 08/07/23 08/16/23 HYDROcod/ACETAM 5/325 [[place] 5/325] 1 ea PO Q6H PRN #14 tablet 08/14/23 08/16/23 Meloxicam [Mobic] 7.5 mg PO BID 10 Days #20 tablet 08/14/23 08/16/23 Penicillin V Potassium 500 mg PO Q6HR #40 tablet 08/16/23 predniSONE [Deltasone] 40 mg PO DAILY #10 tablet 08/16/23 HYDROcod/ACETAM 5/325 [[place] 5/325] 1 - 2 ea PO Q6H PRN #10 tablet 12/14/23 HYDROcod/ACETAM 5/325 [[place] 5/325] 1 - 2 tablet PO Q6H PRN #10 tablet 12/31/23 - Allergies Allergies/Adverse Reactions: Allergies Allergy/AdvReac Type Severity Reaction Status Date / Time bee pollen Allergy Anaphylaxis Verified 01/14/24 02:29 gabapentin Allergy Itching Verified 01/14/24 02:29 oxycodone HCl * Allergy Itching Verified 01/14/24 02:29 [From Percocet] - Social History Does the pt smoke?: Yes Smoking Status: Current every day smoker Does the pt drink ETOH?: No Does the pt have substance abuse?: Yes - Immunizations Immunizations are current?: Yes - POLST Patient has POLST: No PD ED PE NORMAL - Vitals Vital signs reviewed: Yes - General General: Alert and oriented X 3, No acute distress, Well developed/nourished - Neck Neck: Supple, no meningeal sign - Cardiac Cardiac: RRR, No murmur, No gallop, No rub, Other (TTP along both costochondral junctions (R/L sternal borders)) - Respiratory Respiratory: No respiratory distress, Clear bilaterally - Abdomen Abdomen: Soft, Non tender - Derm Derm: Normal color, Warm and dry, No rash - Extremities Extremities: No edema Results - Vitals Vitals: Vital Signs - 24 hr 01/14/24 01/14/24 02:29 04:34 Temperature 36.6 C Heart Rate 124 H 77 Respiratory 16 16 Rate Blood Pressure 132/77 H 123/79 O2 Saturation 100 99 Oxygen O2 Source Room air - EKG (time done) No standard instances EKG releavant findings:: EKG personally interpreted by author of this note. Relevant findings are: Rate: Rate (enter#) (109) Rhythm: Sinus tachycardia, LAE [place]: Normal Intervals: Normal [place], Other (RSR') QRS: Normal Ischemia: Normal ST segments - Labs Labs: Laboratory Tests 01/14/24 01/14/24 02:45 02:45 WBC 7.2 RBC 4.84 Hgb 12.8 Hct 41.7 MCV 86.2 MCH 26.4 L MCHC 30.7 L RDW 14.2 Plt Count 221 MPV 9.4 Neut # (Auto) 4.2 Lymph # (Auto) 2.5 [place] # (Auto) 0.4 Eos # (Auto) 0.1 Baso # (Auto) 0.1 Absolute Nucleated RBC 0.00 Nucleated RBC % 0.0 Sodium 139 Potassium 3.6 Chloride 104 Carbon Dioxide 29 Anion Gap 6.0 BUN 19 Creatinine 0.8 Estimated GFR (MDRD) 76 L Glucose 96 Calcium 9.6 Total Bilirubin 0.3 AST 26 ALT 24 Alkaline Phosphatase 120 Troponin I High Sens 7.5 Total Protein 6.4 Albumin 4.2 Globulin 2.2 Albumin/Globulin Ratio 1.9 Lipase 28 - Rads (name of study) CXR Relevant Findings:: Prelim report reviewed, See rad report PD Medical Decision Making - ED course Complexity details: reviewed results, re-evaluated patient, considered differential, d/w patient ED course: Over [facility] ED visits in [facility] records No concerning nor diagnostic findings on tonight's tests, including the EKG, blood tests, and chest x-ray. Etiology of patient's symptoms is not apparent at this time. Blood tests include high-sensitivity troponin which is within normal limits. Vital signs stable throughout ED visit. She is in NAD but requests pain medication on initial evaluation, given 4 mg IV morphine. On reevaluation prior to discharge, she says the pain is decreased but requests another dose and is given 4 mg IV morphine (for a total of 8 mg during ED stay). She is also asking for medication to take home, and she is given to take-home pack of Vicodin. No prescription is requested nor provided. Results discussed with patient, return precautions reviewed. Advised to contact her PCP when the office opens later this morning to arrange for the next available appointment for follow-up/reevaluation. Departure - Departure Disposition: 01 Home, Self Care Clinical Impression: Chest pain Qualifiers: Chest pain type: unspecified Qualified Code(s): R07.9 - Chest pain, unspecified Condition: Good Instructions: ED Chest Pain Atypical Unkn Cause Follow-Up: KENDELL PUGH DO [Primary Care Provider] - Comments: There were no concerning nor diagnostic findings on tonight's tests, including the EKG, blood tests, and the chest x-ray. The cause of your symptoms is not apparent at this time. Contact your primary care provider later this morning when the office opens to arrange for the next available appointment for follow-up/reevaluation. Further testing, at your primary care provider's discretion, might be recommended even if your symptoms do not recur. Discharge Date/Time: 01/14/24 04:55
[2024-01-14 03:00] LABS: BASOPHILS # (AUTO) 0.1 10^3/uL (0.0-0.1); BASOPHILS % (AUTO) 0.7 %; EOSINOPHILS # (AUTO) 0.1 10^3/uL (0.0-0.7); EOSINOPHILS % (AUTO) 1.3 %; HCT - HEMATOCRIT 41.7 % (37.0-47.0); HGB - HEMOGLOBIN 12.8 g/dL (12.0-16.0); LYMPHOCYTES # (AUTO) 2.5 10^3/uL (1.5-3.5); LYMPHOCYTES % (AUTO) 34.6 %; MEAN CORPUSCULAR HEMOGLOBIN 26.4 pg (27.0-31.0); MEAN CORPUSCULAR HGB CONC 30.7 g/dL (32.0-36.0); MEAN CORPUSCULAR VOLUME 86.2 fL (81.0-99.0); MEAN PLATELET VOLUME 9.4 fL (7.9-10.8); MONOCYTES # (AUTO) 0.4 10^3/uL (0.0-1.0); NEUTROPHILS # (AUTO) 4.2 10^3/uL (1.5-6.6); NEUTROPHILS % (AUTO) 58.1 %; PLT - PLATELET COUNT 221 10^3/uL (130-450); RED BLOOD COUNT 4.84 10^6/uL (4.20-5.40); RED CELL DISTRIBUTION WIDTH 14.2 % (12.0-15.0); WHITE BLOOD COUNT 7.2 x10^3/uL (4.8-10.8)
[2024-01-14 03:17] LABS: ALBUMIN 4.2 g/dL (3.2-5.5); ALBUMIN/GLOBULIN RATIO 1.9 (1.0-2.2); BILIRUBIN,TOTAL 0.3 mg/dL (0.2-1.0); CALCIUM 9.6 mg/dL (8.5-10.3); CREATININE 0.8 mg/dL (0.6-1.3); POTASSIUM 3.6 mmol/L (3.5-4.5); TOTAL PROTEIN 6.4 g/dL (6.4-8.9)
[2024-01-14 03:20] LABS: TROPONIN I HIGH SENSITIVITY 7.5 ng/L (2.3-14.8)
[2024-01-14] MEDS: MORPHINE 2 MG/ML CARPUJECT IVP STA ×2 (03:25→04:48)
[2024-01-14 04:41] VITALS: BP 123/79; O2SAT 99
[2024-01-14] MEDS: HYDROcod/ACET 5/325 Prepack 4 PO STA (04:48)
--- NOTE | 2024-01-14 09:14 | XRAY Report ---
PROCEDURE: Chest 2V INDICATIONS: chest pain TECHNIQUE: 2 views of the chest were acquired. COMPARISON: None. FINDINGS: Surgical changes and devices: None. Lungs and pleura: Hyperinflated without focal consolidation, effusion, or pneumothorax. Biapical sca rring is unchanged. Mediastinum: Mediastinal contours appear normal. Heart size is normal. Bones and chest wall: No suspicious bony lesions. Overlying soft tissues appear unremarkable. IMPRESSION: No acute cardiopulmonary process. This is concurrent with the initial report. Reviewed by: Eryn Gray MD on 01/14/2024 8:12 AM KATHARINE Approved by: Eryn Gray MD on 01/14/2024 8:12 AM KATHARINE Station ID: [id number]
== END 2024-01-14 04:55 | disposition home or self-care (01) ==
LOC: ED 02:26
DX: R07.9 Chest pain, unspecified (principal); J44.9 Chronic obstructive pulmonary disease, unspecified; I25.2 Old myocardial infarction; F17.200 Nicotine dependence, unspecified, uncomplicated; Z79.899 Other long term (current) drug therapy
CPT/HCPCS: 36415; 80053; 83690; 84484; 85025; 93005; 96374; 96376; 99285